=== PATIENT | male | born 1960 | race Caucasian/White ===

== ENCOUNTER → 2019-01-03 13:04 | Outpatient (POV) | payer OTHER, SELFPAY ==
[2019-01-03 13:10] VITALS: BP 120/85; PULSE 78; RESP 18; O2SAT 99
--- NOTE | 2019-01-03 15:58 | HMH.PMCON ---
Assessment and Plan (1) Degenerative disc disease Current visit: Yes Status: Chronic Qualifiers: Spinal region: lumbar Qualified Code(s): M51.36 - Other intervertebral disc degeneration, lumbar region Category: Medical (2) Lumbar radiculopathy Current visit: Yes Status: Chronic Category: Medical Code(s): M54.16 - Radiculopathy, lumbar region (3) Sacroiliitis Current visit: Yes Status: Chronic Category: Medical Code(s): M46.1 - Sacroiliitis, not elsewhere classified (4) Spinal stenosis Current visit: Yes Status: Chronic Category: Medical Code(s): M48.00 - Spinal stenosis, site unspecified - Assessment and plan all Dx Assessment and Plan for all problems:: Prolonged discussion we will set up a right SI joint injection right greater trochanteric bursa injection for the patient I believe this will be the best way to help differentiate his SI joint pain from his back pain. Patient and I had a long discussion in regards to plan of care including potential epidural injections potential mild procedures and other options available to him. I will follow-up with the patient after his injection and reassess his symptoms at that time. Dr. Belcher has reviewed this note and agrees with this plan of care. This note was dictated using voice recognition software and may contain errors or omissions HPI - Data of Consult Consult date: 01/03/19 Requesting Physician: Shasha Arriaga APRN Primary Care Provider: Brenda Sanchez - Consult Narrative Reason for consult: Back pain, right leg pain History of present illness: Mr. Lea is a 58 year old male who presents today for consultation in regards to his low back and right leg pain. Patient states activity increases pain while nothing decreases it. Patient states the radiation of pain is into his hip and to his right knee. Patient currently on [place] and Percocet from his executive director of marketing. Patient has a CT scan showing some spinal stenosis. 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 Patient states most of his pain is when he is sitting down. Patient states he is going to be seen for a potential intrathecal pain pump. Patient and I had a discussion about typical treatment plans for spinal stenosis including epidural injections along with potential mild procedures neuro stimulation and intrathecal therapy. Patient and I also discussed SI joint injections given the nature of his pain. CC: Shasha Arriaga APRN [facility] History I have reviewed the patient's past medical history: Yes Medical History: Reports:: Coronary Artery Disease, Hyperlipidemia, Hypertension, Internal Pacemaker, Myocardial Infarction, Palpitations Denies:: Cancer, Diabetes Mellitus Type 1, Diabetes Mellitus Type 2, MRSA, Seizures *Have you ever received a pneumonia vaccine?: Yes *Have you received a flu vaccine this season?: Yes Other Medical History: Reports: Arthritis Laterality Cases: Right: Arthroscopy Knee Other Surgeries: Yes: Angioplasty (03/2014, 01/05/13 2 stents), Cardiac Catheterization, Pacemaker, Other (Gender reassignment: left foreleg/fibular harvest for penile construction) Amputation: No Fractures: No - *Social History Smoking Status: Current every day smoker Tobacco Type: cigarettes # Packs/Day (cigarettes): 1 Alcohol Intake: never Substance Use Type: denies use *Occupational Status:: employed Housing: house Household Members: spouse *Travel in the last 8 weeks: None - Psychiatric History Expresses thoughts of harming self/others: None Suicide Plan Description: No Plan Family Hx:: Hypertension Review of Systems - Review of Systems ROS General: no recent weight change, no fever, no sleep disturbances Respiratory: no cough, no shortness of air, no recurring pulmonary infections Cardiovascular/Peripheral Vascular: No chest pain, No palpitations, no edema, no
--- NOTE | 2019-01-03 16:02 | P.CONS_ITS ---
Assessment and Plan (1) Degenerative disc disease Current visit: Yes Status: Chronic Qualifiers: Spinal region: lumbar Qualified Code(s): M51.36 - Other intervertebral disc degeneration, lumbar region Category: Medical (2) Lumbar radiculopathy Current visit: Yes Status: Chronic Category: Medical Code(s): M54.16 - Radiculopathy, lumbar region (3) Sacroiliitis Current visit: Yes Status: Chronic Category: Medical Code(s): M46.1 - Sacroiliitis, not elsewhere classified (4) Spinal stenosis Current visit: Yes Status: Chronic Category: Medical Code(s): M48.00 - Spinal stenosis, site unspecified - Assessment and plan all Dx Assessment and Plan for all problems:: Prolonged discussion we will set up a right SI joint injection right greater trochanteric bursa injection for the patient I believe this will be the best way to help differentiate his SI joint pain from his back pain. Patient and I had a long discussion in regards to plan of care including potential epidural injections potential mild procedures and other options available to him. I will follow-up with the patient after his injection and reassess his symptoms at that time. Dr. Belcher has reviewed this note and agrees with this plan of care. This note was dictated using voice recognition software and may contain errors or omissions HPI - Data of Consult Consult date: 01/03/19 Requesting Physician: Shasha Arriaga APRN Primary Care Provider: Brenda Sanchez - Consult Narrative Reason for consult: Back pain, right leg pain History of present illness: Mr. Lea is a 58 year old male who presents today for consultation in regards to his low back and right leg pain. Patient states activity increases pain while nothing decreases it. Patient states the radiation of pain is into his hip and to his right knee. Patient currently on [place] and Percocet from his senior solutions consultant. Patient has a CT scan showing some spinal stenosis. 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 Patient states most of his pain is when he is sitting down. Patient states he is going to be seen for a potential intrathecal pain pump. Patient and I had a discussion about typical treatment plans for spinal stenosis including epidural injections along with potential mild procedures neuro stimulation and intrathecal therapy. Patient and I also discussed SI joint injections given the nature of his pain. CC: Shasha Arriaga APRN [facility] History I have reviewed the patient's past medical history: Yes Medical History: Reports:: Coronary Artery Disease, Hyperlipidemia, Hypertension, Internal Pacemaker, Myocardial Infarction, Palpitations Denies:: Cancer, Diabetes Mellitus Type 1, Diabetes Mellitus Type 2, MRSA, Seizures *Have you ever received a pneumonia vaccine?: Yes *Have you received a flu vaccine this season?: Yes Other Medical History: Reports: Arthritis Laterality Cases: Right: Arthroscopy Knee Other Surgeries: Yes: Angioplasty (03/2014, 01/05/13 2 stents), Cardiac Catheterization, Pacemaker, Other (Gender reassignment: left foreleg/fibular harvest for penile construction) Amputation: No Fractures: No - *Social History Smoking Status: Current every day smoker Tobacco Type: cigarettes # Packs/Day (cigarettes): 1 Alcohol Intake: never Substance Use Type: denies use *Occupational Status:: employed Housing: house Household Members: spouse *Travel in the last 8 weeks: None - Psychiatric History Expresses thoughts of harming
== END ==
PROVIDERS: PCP Family Medicine; Visit Provider Clinical Nurse Specialist Family Health
DX: M51.16 Intervertebral disc disorders with radiculopathy, lumbar region (principal); M46.1 Sacroiliitis, not elsewhere classified; M48.00 Spinal stenosis, site unspecified
CPT/HCPCS: 99202

== ENCOUNTER → 2019-02-20 10:48 | Outpatient (POV) | payer OTHER, SELFPAY ==
[2019-02-20 11:25] VITALS: BP 106/71; PULSE 80; RESP 18; O2SAT 98; BMI 23.3
--- NOTE | 2019-02-20 12:15 | HMH.PAINSOAP ---
[facility] Pain Management SOAP Note Subjective:: Patient is a 59-year-old white male who presents today for follow-up for right SI joint injection and right trochanteric bursa injection. He does report that he had little relief after the injection, and rates his pain a 7 out of 10 today. He says his pain is low back pain radiating to bilateral legs. He says that it does worsen with turning or twisting at his hips. The patient is on [place] 5 mg p.o. twice daily and gabapentin 800 mg p.o. 3 times daily by his osteopathic physician. ROS General: no recent weight change, no fever, no sleep disturbances Respiratory: no cough, no shortness of air, no recurring pulmonary infections Cardiovascular/Peripheral Vascular: No chest pain, No palpitations, no edema, no shortness of breath. Gastrointestinal: no incontinence, normal bowel movements reported Genitourinary: no incontinence Musculoskeletal: Back pain and leg pain Psychiatric: normal mood/ affect, Neurological: [denies weakness in extremities], [denies balance issues] Objective:: Physical Exam General: Alert and oriented x3, no acute distress, pleasant and cooperative, [on room air] Lungs: Resps E/U, Symmetrical chest expansion, Eyes: PERRL Musculoskeletal: Flexion and extension of lumbar spine somewhat guarded secondary to pain, deep tendon reflexes normal, strength in upper and lower extremities [5/5], slightly antalgic gait noted to do straight leg raise test bilaterally at 30 degrees Neurological: speech clear, digital media specialist equal, no gross sensory deficits Assessment:: Degenerative disc disease of lumbar spine with lumbar radiculopathy, spinal stenosis Plan:: We will schedule the patient for an L4-L5 epidural injection. The patient denies any anticoagulation therapy. We did discuss the mild procedure, for which she is uninterested in at this time. The patient plans to continue his [place] and Percocet per his osteopathic physician. He will continue a home stretching program. We will follow-up with him after the procedure. He is been instructed to call the office if he has any concerns prior to his next appointment. Dr. Belcher has reviewed this note and agrees with this plan of care. This note was dictated using voice recognition software and may contain errors or omissions
--- NOTE | 2019-02-20 12:19 | P.CONS_ITS ---
[facility] Pain Management SOAP Note Subjective:: Patient is a 59-year-old white male who presents today for follow-up for right SI joint injection and right trochanteric bursa injection. He does report that he had little relief after the injection, and rates his pain a 7 out of 10 today. He says his pain is low back pain radiating to bilateral legs. He says that it does worsen with turning or twisting at his hips. The patient is on [place] 5 mg p.o. twice daily and gabapentin 800 mg p.o. 3 times daily by his dry cell and battery assembler. ROS General: no recent weight change, no fever, no sleep disturbances Respiratory: no cough, no shortness of air, no recurring pulmonary infections Cardiovascular/Peripheral Vascular: No chest pain, No palpitations, no edema, no shortness of breath. Gastrointestinal: no incontinence, normal bowel movements reported Genitourinary: no incontinence Musculoskeletal: Back pain and leg pain Psychiatric: normal mood/ affect, Neurological: [denies weakness in extremities], [denies balance issues] Objective:: Physical Exam General: Alert and oriented x3, no acute distress, pleasant and cooperative, [on room air] Lungs: Resps E/U, Symmetrical chest expansion, Eyes: PERRL Musculoskeletal: Flexion and extension of lumbar spine somewhat guarded secondary to pain, deep tendon reflexes normal, strength in upper and lower extremities [5/5], slightly antalgic gait noted to do straight leg raise test bilaterally at 30 degrees Neurological: speech clear, linen tech equal, no gross sensory deficits Assessment:: Degenerative disc disease of lumbar spine with lumbar radiculopathy, spinal stenosis Plan:: We will schedule the patient for an L4-L5 epidural injection. The patient denies any anticoagulation therapy. We did discuss the mild procedure, for which she is uninterested in at this time. The patient plans to continue his [place] and Percocet per his dry cell and battery assembler. He will continue a home stretching program. We will follow-up with him after the procedure. He is been instructed to call the office if he has any concerns prior to his next appointment. Dr. Belcher has reviewed this note and agrees with this plan of care. This note was dictated using voice recognition software and may contain errors or omissions
== END ==
PROVIDERS: PCP Family Medicine; Visit Provider Clinical Nurse Specialist Family Health
DX: M51.16 Intervertebral disc disorders with radiculopathy, lumbar region (principal); M48.00 Spinal stenosis, site unspecified
CPT/HCPCS: 99212

== ENCOUNTER 2019-03-03 09:51 | Day surgery (SDC) | payer OTHER, SELFPAY ==
[2019-03-03 10:02] VITALS: BP 118/74; PULSE 80; RESP 18; TEMP 36.6; O2SAT 97; BMI 23.3
[2019-03-03 10:21] VITALS: BP 112/80; PULSE 77; RESP 18
[2019-03-03 10:22] VITALS: BP 115/78; PULSE 78; RESP 18; O2SAT 98
--- NOTE | 2019-03-03 10:30 | HMH.PMPROC ---
- Procedure Date: 03/03/19 Time: 10:30 Anesthesiologist:: Ariel Belcher MD Complications:: None Pre-procedure Diagnosis:: Degenerative disc disease of lumbar spine with lumbar radiculopathy symptoms Post-procedure Diagnosis:: Same Indications for Procedure:: This patient is a pleasant 59-year-old white male who we are treating for low back pain with lumbar radiculopathy symptoms. He has had a right SI joint and right trochanteric bursa which did not give him much relief. Most of his pain is in the low back rating down both legs and right hip. We will do a lumbar epidural steroid injection today to see if this gives him relief of his symptoms. Procedure Details:: Lumbar epidural steroid injection under fluoroscopy Informed consent was obtained and the risk and benefits of the procedure was explained to the patient. The patient was taken to the procedure room. The patient was placed prone on the procedure table. The patient was prepped and draped in sterile fashion. C-arm fluoroscopy was used to view the lumbar spine. Skin and subcutaneous tissues were anesthetized using lidocaine. I placed an 18-gauge epidural needle and advanced into the L4-L5 interspace using fluoroscopic guidance and [id number] to air. After confirmation of needle placement in the epidural space with dye I injected 2 mL of lidocaine 1.5% with Depo-Medrol 80 mg. Patient tolerated the procedure well with no complications. Plan and Disposition:: We will follow-up with him in 2 weeks. Will reevaluate symptoms at that time.
[2019-03-03 10:44] VITALS: BP 105/66; PULSE 67; RESP 16; O2SAT 100
== END 2019-03-03 10:47 | disposition home or self-care (01) ==
PROVIDERS: PCP Family Medicine; Referring Provider Internal Medicine; Visit Provider Anesthesiology
DX: M51.16 Intervertebral disc disorders with radiculopathy, lumbar region (principal)
CPT/HCPCS: 62323; J1040; Q9966

== ENCOUNTER → 2019-03-27 11:18 | Outpatient (POV) | payer OTHER, SELFPAY ==
[2019-03-27 11:32] VITALS: BP 105/68; PULSE 87; RESP 18; O2SAT 98; BMI 23.3
--- NOTE | 2019-03-27 11:46 | HMH.PAINSOAP ---
[facility] Pain Management SOAP Note Subjective:: Patient is a pleasant 59-year-old white male who presents today for follow-up after lumbar epidural steroid injection at L4 and L5. Patient says that he had 90% relief for about 2 weeks. And then the pain returned. He rates his pain a 6 out of 10 today. Patient did have a recent fall from a chair. He says after the fall his pain did return. The pain is now worse than before the epidural steroid injection. He also says the pain radiates to bilateral legs. He is continuing a home stretching program along with anti-inflammatories. Review of Systems General: No recent weight changes, no fever, no sleep disturbances Respiratory: No cough, no shortness of air, no recurring pulmonary infections Cardiovascular/peripheral vascular: No chest pain, no palpitations, no edema, no shortness of breath Gastrointestinal: No new onset incontinence, normal bowel movements reported Genitourinary: No new onset incontinence Musculoskeletal: Back pain Psychiatric: Normal mood/affect Neurological: [Denies weakness in extremities], [denies balance issues] Objective:: Physical exam General: Alert and oriented x3, no acute distress, pleasant and cooperative, [on room air] Lungs: Respirations even and unlabored, symmetrical chest expansion Eyes: PERRL Musculoskeletal: Flexion and extension of lumbar spine somewhat guarded secondary to pain, deep tendon reflexes normal, strength in upper and lower extremities [5/5], slightly antalgic gait noted Neurological: Speech clear, apartment manager equal, no gross sensory deficit Assessment:: Degenerative disc disease of lumbar spine with lumbar radiculopathy, spinal stenosis Plan:: We did have a thorough discussion concerning a mild procedure for which the patient is not interested in at this time we also discussed possibility of a another epidural steroid injection since he did have relief prior to the fall. The patient would like to think about it and he says he will call the office on Wednesday to schedule the epidural. He is been instructed to call the office if he has any concerns prior to his next appointment. Patient is not on any anticoagulation therapy. He will continue a home stretching program, along with anti-inflammatories. Dr. Belcher has reviewed this note and agrees with this plan of care. This note was dictated using voice recognition software and make contain errors or omissions.
== END ==
PROVIDERS: PCP Family Medicine; Visit Provider Clinical Nurse Specialist Family Health
DX: M51.16 Intervertebral disc disorders with radiculopathy, lumbar region (principal); M48.00 Spinal stenosis, site unspecified
CPT/HCPCS: 99212

== ENCOUNTER → 2019-04-03 09:00 | Outpatient (POV) | payer OTHER, SELFPAY ==
[2019-04-03 09:25] VITALS: BP 106/66; PULSE 78; RESP 18; O2SAT 98; BMI 23.3
--- NOTE | 2019-04-03 09:32 | HMH.PAINSOAP ---
[place] Pain Management SOAP Note Subjective:: Patient is a pleasant 59-year-old white male who presents today for follow-up. Patient is being treated for low back pain with radicular symptoms. He recently had a lumbar epidural steroid injection at L4 and L5. He says that he had 90% relief with this for about 2 weeks. He now reports his pain a 6 out of 10 today. He says that he is continuing to have low back pain that is worse with turning and twisting at his waist. He also had a recent fall after his epidural increasing his pain. The patient recently saw Dr. Alvarado did not feel the patient was a surgical candidate at this time. He has tried all other conservative therapies and failed. The patient has continued with a home stretching program, he has tried physical therapy, along with NSAIDs. He has tried other injective therapies. Patient has had the pain greater than 6 months. Review of Systems General: No recent weight changes, no fever, no sleep disturbances Respiratory: No cough, no shortness of air, no recurring pulmonary infections Cardiovascular/peripheral vascular: No chest pain, no palpitations, no edema, no shortness of breath Gastrointestinal: No new onset incontinence, normal bowel movements reported Genitourinary: No new onset incontinence Musculoskeletal: Back pain Psychiatric: Normal mood/affect Neurological: [Denies weakness in extremities], [denies balance issues] Objective:: Physical exam General: Alert and oriented x3, no acute distress, pleasant and cooperative, [on room air] Lungs: Respirations even and unlabored, symmetrical chest expansion Eyes: PERRL Musculoskeletal: Flexion and extension of lumbar spine somewhat guarded secondary to pain, deep tendon reflexes normal, strength in upper and lower extremities [5/5], slightly antalgic gait noted, positive Kemps test Neurological: Speech clear, drywall applicator equal, no gross sensory deficit Assessment:: Degenerative disc disease lumbar spine with lumbar radiculopathy, spinal stenosis Plan:: Given patient's symptoms, we will attempt to try a facet injection/medial branch block at bilateral L4-L5, and L5-S1. The patient is not on any anticoagulation therapy. He is continuing a home stretching program and anti-inflammatories. We will see the patient back after his procedure and reassess his symptoms at that time. He is been instructed to call the office if he has any concerns prior to his next appointment. Dr. Belcher has reviewed this note and agrees with this plan of care. This note was dictated using voice recognition software and make contain errors or omissions.
--- NOTE | 2019-04-03 09:36 | P.CONS_ITS ---
[facility] Pain Management SOAP Note Subjective:: Patient is a pleasant 59-year-old white male who presents today for follow-up. Patient is being treated for low back pain with radicular symptoms. He recently had a lumbar epidural steroid injection at L4 and L5. He says that he had 90% relief with this for about 2 weeks. He now reports his pain a 6 out of 10 today. He says that he is continuing to have low back pain that is worse with turning and twisting at his waist. He also had a recent fall after his epidural increasing his pain. The patient recently saw Dr. Alvarado did not feel the patient was a surgical candidate at this time. He has tried all other conservative therapies and failed. The patient has continued with a home stretc carmen program, he has tried physical therapy, along with NSAIDs. He has tried other injective therapies. Patient has had the pain greater than 6 months. Review of Systems General: No recent weight changes, no fever, no sleep disturbances Respiratory: No cough, no shortness of air, no recurring pulmonary infections Cardiovascular/peripheral vascular: No chest pain, no palpitations, no edema, no shortness of breath Gastrointestinal: No new onset incontinence, normal bowel movements reported Genitourinary: No new onset incontinence Musculoskeletal: Back pain Psychiatric: Normal mood/affect Neurological: [Denies weakness in extremities], [denies balance issues] Objective:: Physical exam General: Alert and oriented x3, no acute distress, pleasant and cooperative, [on room air] Lungs: Respirations even and unlabored, symmetrical chest expansion Eyes: PERRL Musculoskeletal: Flexion and extension of lumbar spine somewhat guarded secondary to pain, deep tendon reflexes normal, strength in upper and lower extremities [5/5], slightly antalgic gait noted, positive Kemps test Neurological: Speech clear, tobacco sample puller equal, no gross sensory deficit Assessment:: Degenerative disc disease lumbar spine with lumbar radiculopathy, spinal stenosis Plan:: Given patient's symptoms, we will attempt to try a facet injection/medial branch block at bilateral L4-L5, and L5-S1. The patient is not on any anticoagulation therapy. He is continuing a home stretching program and anti-inflammatories. We will see the patient back after his procedure and reassess his symptoms at that time. He is been instructed to call the office if he has any concerns prior to his next appointment. Dr. Belcher has reviewed this note and agrees with this plan of care. This note was dictated using voice recognition software and make contain errors or omissions.
== END ==
PROVIDERS: PCP Family Medicine; Visit Provider Clinical Nurse Specialist Family Health
DX: M51.16 Intervertebral disc disorders with radiculopathy, lumbar region (principal); M48.00 Spinal stenosis, site unspecified
CPT/HCPCS: 99212

== ENCOUNTER → 2019-04-10 08:05 | Outpatient (POV) | payer OTHER, SELFPAY | PROVIDERS: Visit Provider Specialist | DX: R20.0 Anesthesia of skin (principal); M79.604 Pain in right leg | CPT/HCPCS: 95886; 95908 ==

== ENCOUNTER → 2019-04-25 09:45 | Outpatient (POV) | payer OTHER, SELFPAY ==
[2019-04-25 09:54] VITALS: BP 121/77; PULSE 75; RESP 18; O2SAT 98; BMI 24.1
--- NOTE | 2019-04-25 10:07 | P.CONS_ITS ---
[facility] Pain Management SOAP Note Subjective:: Patient is a pleasant 59-year-old white male who presents today for follow-up after insurance denial in regards to his medial branch blocks. Patient is being treated for low back pain. He has a positive Kemps and facet loading test lumbar spine. He has had epidural injections which gave him short-term relief however he is interested in a more long-term solution. Patient may be a candidate for neurotomy. Patient understands that the facet joint injection/medial branch block as a diagnostic to determine this. He rates his pain a 7 out of 10 today he states that it is interfering with daily activity. Patient is not on any anticoagulation therapy. He is completed 3 months of both physical therapy and home stretching therapy. He is failed over a year of conservative therapies including anti-inflammatories, medications. Patient has no active infections. Patient's been seen by neurosurgeon who did not feel that he is a surgical candidate at the time. He is tried other conservative therapies and failed them. He has had pain for over 6 months. ROS General: no recent weight change, no fever, no sleep disturbances Respiratory: no cough, no shortness of air, no recurring pulmonary infections Cardiovascular/Peripheral Vascular: No chest pain, No palpitations, no edema, no shortness of breath. Gastrointestinal: no incontinence, normal bowel movements reported Genitourinary: no incontinence Musculoskeletal: Back pain Psychiatric: normal mood/ affect Neurological: [denies weakness in extremities], [denies balance issues] Objective:: Physical Exam General: Alert and oriented x3, no acute distress, pleasant and cooperative, [on room air] Lungs: Resps E/U, Symmetrical chest expansion, Eyes: PERRL Musculoskeletal: Flexion and extension of lumbar spine somewhat guarded secondary to pain, deep tendon reflexes normal, strength in upper and lower extremities [5/5], slightly antalgic gait noted, positive Kemps test and lumbar facet loading positive bilaterally Neurological: speech clear, 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 He is not on any anticoagulation therapy. He is not I have any active infection. He is failed over 3 months of conservative measures including physical therapy and a home stretching program. He is trying to continue his home stretching program however it is becoming increasingly difficult due to his pain. Patient's been instructed to call the office if he has any issues prior to his next appointment. I will see the patient back after his injection and we will determine then if it was successful. Dr. Belcher has reviewed this note and agrees with this plan of care. This note was dictated using voice recognition software and may contain errors or omissions Pain Management Hx Components *Have you ever received a pneumonia vaccine?: Yes *Have you received a flu vaccine this season?: Yes - *Social History *Occupational Status:: other *Travel in the last 8 weeks: None
== END ==
PROVIDERS: Visit Provider Clinical Nurse Specialist Family Health
DX: M51.36 Other intervertebral disc degeneration, lumbar region (principal); M54.06 Panniculitis affecting regions of neck and back, lumbar region; M47.9 Spondylosis, unspecified
CPT/HCPCS: 99212

== ENCOUNTER → 2020-01-24 09:06 | Outpatient (CLI) | payer MEDICAID, SELFPAY ==
[2020-01-24 10:02] LABS: Basophils # 0.1 K/mm3 (0-0.2); Eosinophils # 0.2 K/mm3 (0.0-0.4); Eosinophils % 2.3 % (0.1-12.0); Hematocrit 52.2 % (42.0-52.0); Hemoglobin 17.3 g/dL (14.1-18.0); Lymphocytes # 1.9 K/mm3 (0.7-4.5); Lymphocytes % 25.7 % (10-50); Mean Corpuscular HGB Conc 33.1 g/dL (31.8-35.4); Mean Corpuscular Hemoglobin 32.3 pg (27.0-31.2); Mean Corpuscular Volume 97.5 fl (80-94); Mean Platelet Volume 7.7 fl (7.4-10.4); Monocytes # 0.6 K/mm3 (0.1-1.0); Neutrophils # 4.7 K/mm3 (1.8-7.8); Platelet Count 215 K/mm3 (142-424); Red Blood Count 5.36 M/mm3 (4.60-6.20); Red Cell Distribution Width 14.4 % (11.5-17.5); White Blood Count 7.4 K/mm3 (4.8-10.8)
[2020-01-24 10:18] LABS: Bilirubin,Unconjugated 0.4 mg/dL (0.0-1.1)
[2020-01-24 10:19] LABS: Alanine Aminotransferase 22 U/L (12-78); Albumin Level 3.8 g/dl (3.5-5.0); Alkaline Phosphatase 80 U/L (38-126); Aspartate Amino Transferase 33 U/L (17-59); Bilirubin,Indirect 0.3 mg/dL (0.0-0.9); Bilirubin,Total 0.3 mg/dl (0.2-1.3); Chol/HDL Ratio 4.9 (1-3.5); Cholesterol 151 mg/dl (140-200); HDL Cholesterol 31 mg/dl (40-60); Total Protein,Serum 6.7 g/dl (6.3-8.2); Triglycerides 139 mg/dl (30-150); VLDL Cholesterol 28 mg/dL (0-40)
[2020-01-24 10:30] LABS: Direct LDL Cholesterol 108.56 mg/dL (100-129)
[2020-01-24 11:44] LABS: Chloride 104 mmol/L (98-107); Potassium 4.1 mmoL/L (3.5-5.1); Sodium 138 mmol/L (136-145)
--- NOTE | 2020-01-24 11:45 | CA_ITS ---
APPROVED REPORT EXAM: Comprehensive 2D, Doppler, and color-flow Echocardiogram [employer] Administrator: Aubree Guo RVT Ht: 5 ft 5 in Wt: 155lbs BSA: 1.77 BP: 107/69 mmHg Indications: cad,smoker,pacer,a-fib,joanne,hx mi, stents,palps,hld,htn 2D Dimensions LVOT 1.96 cm (M/F) 1.5-2.5 M-Mode Dimensions RVDd 2.12 cm (0.9-2.6) LVDd 4.90 cm (3.5-5.7) LVDs 3.59 cm (3.5-5.7) IVSd 1.01 cm (0.6-1.1) PWd 0.64 cm (0.6-1.1) EF (Teich) 52.00% FS 26.70% EDV (Teich) 112.80 mL ESV (Teich) 54.10 mL LV Diastology E/A Ratio 0.61 Mitral Valve MV A Velocity 73.00 (40-130 cm/s) Left Ventricle Left atrium is mildly enlarged, left ventricle is normal size, mild concentric left ventricular hypertrophy, visually estimated ejection fraction approximately 45 to 50%, there is moderate hypokinesis involving the inferior and inferior basal wall. Grade 1 diastolic dysfunction seen without tissue Doppler evidence of raise left atrial pressure. Right Ventricle Right atrium and right ventricle are mildly enlarged with normal contractility. Aortic Valve Aortic valve is minimally thickened and fibrosed. There is no aortic stenosis aortic insufficiency. Mitral Valve Mitral valve is grossly normal, there is mild mitral regurgitation. Tricuspid Valve Tricuspid valve is grossly normal, there is mild tricuspid regurgitation, tricuspid regurgitation jet velocity is inadequate for calculation of the right ventricular systolic pressure. Great Vessels Aortic root is normal size. Pericardium No significant pericardial effusion noted. Conclusion 1. Mild biatrial enlargement, normal left ventricular size, mild concentric left ventricular hypertrophy, visually estimated ejection fraction 45 to 50% with segmental wall motion abnormalities described above, grade 1 diastolic dysfunction seen without tissue Doppler evidence of raise left atrial pressure. 2. Mildly enlarged right ventricle with normal contractility. 3. Mild mitral and tricuspid regurgitation. 4. No significant pericardial effusion noted. Electronically signed by : Maurice Fair, 01/25/2020 12:28:07
[2020-01-24 11:47] LABS: Anion Gap 8.1 mEq/L (5-15); Blood Urea Nitrogen 7 mg/dl (9-20); Calcium 9.4 mg/dl (8.4-10.2); Carbon Dioxide 30 mmol/L (22.0-30.0); Estimated Glomerular Filt Rate 86 ml/min (>60); GFR (African American) 104 ML/MIN (>60); Glucose 95 mg/dl (74-100)
--- NOTE | 2020-01-24 12:15 | XR_ITS ---
PROCEDURE: XR CHEST 2V CLINICAL HISTORY: tobacco user Heart disease COMPARISON: No exams were available for comparison FINDINGS: The cardiomediastinal silhouette and pulmonary vascularity are within normal limits. Bipolar pacemaker is present from left subclavian approach. Lungs are clear. There are mild degenerative changes in the shoulders and spine. IMPRESSION: No acute findings. Dictated by: Norberto Solorio MD 01/24/2020 12:40 Electronically signed by Norberto Solorio MD in [place] 01/24/2020 12:40
== END ==
LOC: LAB 09:07 → RT 11:43
PROVIDERS: Nurse Practitioner Family; PCP Family Medicine; Visit Provider Internal Medicine
DX: D75.1 Secondary polycythemia (principal); E78.5 Hyperlipidemia, unspecified; G62.9 Polyneuropathy, unspecified; I11.9 Hypertensive heart disease without heart failure; I73.9 Peripheral vascular disease, unspecified; M79.604 Pain in right leg; R20.0 Anesthesia of skin; Z72.0 Tobacco use; I25.118 Atherosclerotic heart disease of native coronary artery with other forms of angina pectoris; E78.2 Mixed hyperlipidemia; G47.33 Obstructive sleep apnea (adult) (pediatric); I77.1 Stricture of artery
CPT/HCPCS: 36415; 71046; 80048; 80061; 80076; 85025; 93306

== ENCOUNTER 2020-02-22 07:54 | Day surgery (SDC) | payer MEDICAID, SELFPAY ==
[2020-02-22] VITALS (12 sets, daily range): BP systolic 93–120; BP diastolic 53–80; PULSE 60–87; RESP 15–20; TEMP 36.8; O2SAT 78–98; BMI 25.1
[2020-02-22 08:37] LABS: Basophils # 0.1 K/mm3 (0-0.2); Eosinophils # 0.2 K/mm3 (0.0-0.4); Monocytes # 0.5 K/mm3 (0.1-1.0); Platelet Count 219 K/mm3 (142-424)
[2020-02-22 08:39] LABS: Chloride 107 mmol/L (98-107); Potassium 5.6 mmoL/L (3.5-5.1); Sodium 138 mmol/L (136-145)
[2020-02-22 08:42] LABS: Anion Gap 11.6 mEq/L (5-15); Blood Urea Nitrogen 11 mg/dl (9-20); Calcium 8.7 mg/dl (8.4-10.2); Carbon Dioxide 25 mmol/L (22.0-30.0); Creatinine Clearance Estimated 95 mL/min (50-200); Estimated Glomerular Filt Rate 99 ml/min (>60); GFR (African American) 119 ML/MIN (>60); Glucose 108 mg/dl (74-100)
[2020-02-22 08:54] LABS: Basophils % 1.3 % (0.1-2.0); Eosinophils % 2.5 % (0.1-12.0); Hematocrit 53.1 % (42.0-52.0); Lymphocytes # 1.8 K/mm3 (0.7-4.5); Lymphocytes % 27.3 % (10-50); Mean Corpuscular HGB Conc 34.1 g/dL (31.8-35.4); Mean Corpuscular Volume 96.8 fl (80-94); Monocytes % 7.1 % (1.7-9.3); Neutrophils # 4.2 K/mm3 (1.8-7.8); Neutrophils % 61.8 % (37.0-80.0); Red Blood Count 5.49 M/mm3 (4.60-6.20); Red Cell Distribution Width 13.6 % (11.5-17.5); White Blood Count 6.7 K/mm3 (4.8-10.8)
[2020-02-22 08:56] LABS: Hemoglobin 18.1 g/dL (14.1-18.0)
--- NOTE | 2020-02-22 11:00 | IR_ITS ---
APPROVED REPORT Patient Location: Outpatient PROCEDURES Left heart catheterization Left ventriculogram Selective coronary angiogram INDICATION Abnormal echocardiogram with reduced ejection fraction, Known coronary artery disease Informed consent was obtained prior to the procedure. COMPLICATIONS None Estimated Blood Loss: less than 10ml TECHNIQUE One percent lidocaine used to anesthetize the right anterior aspect of the wrist. The right radial artery was accessed via the Seldinger technique. A 6 Chinese sheath was placed in the right radial artery. 2.5 mg of verapamil, 800 mcg of nitroglycerin, 1mg Lidocaine and 5000 U Heparin were given through the arterial sheath. The trap catheter was also used to perform left heart catheterization, left ventriculogram and selective coronary angiogram. At the end of the procedure the sheath was removed good hemostasis was achieved using Traclet band, patient was transferred to the postop holding area in stable condition. ANGIOGRAPHIC RESULTS The left main artery Normal The left anterior descending artery Has a proximal 10 to 20% stenosis with mild mid vessel 20% stenosis The circumflex artery Is a nondominant yet still large vessel giving rise to 2 large obtuse marginal arteries. Proximally there are mild 10% luminal irregularities. The first obtuse marginal artery has 10% stenosis while the second obtuse marginal artery has a mid vessel 30% in-stent restenotic lesion which is [id number] The right coronary artery Is a dominant vessel and has mid vessel 20 and 30% stenoses The WU ventriculogram reveals Normal 60% The left ventricular end-diastolic pressure 10 mmHg IMPRESSION Mild coronary artery disease as described above Normal ejection fraction Normal left ventricular end-diastolic pressure PLAN 1. Medical management Electronically signed by : Akash Sultana, 02/22/2020 09:52:36
== END 2020-02-22 13:28 | disposition home or self-care (01) ==
LOC: CATHLAB 07:56
PROVIDERS: PCP Family Medicine; Visit Provider Internal Medicine
DX: I25.118 Atherosclerotic heart disease of native coronary artery with other forms of angina pectoris (principal); D75.1 Secondary polycythemia; E78.5 Hyperlipidemia, unspecified; G47.33 Obstructive sleep apnea (adult) (pediatric); I11.9 Hypertensive heart disease without heart failure; R93.1 Abnormal findings on diagnostic imaging of heart and coronary circulation; Z72.0 Tobacco use; I48.91 Unspecified atrial fibrillation
CPT/HCPCS: 80048; 85025; 93458; 99152; C1725; C1769; J1644; Q9967

== ENCOUNTER → 2020-06-06 17:17 | Outpatient (CLI) | payer MEDICAID, SELFPAY ==
[2020-06-06 17:48] LABS: Basophils % 0.5 % (0.1-2.0); Eosinophils # 0.2 K/mm3 (0.0-0.4); Eosinophils % 2.2 % (0.1-12.0); Hematocrit 50.9 % (42.0-52.0); Hemoglobin 17.9 g/dL (14.1-18.0); Lymphocytes # 2.6 K/mm3 (0.7-4.5); Lymphocytes % 36.6 % (10-50); Mean Corpuscular HGB Conc 35.2 g/dL (31.8-35.4); Mean Corpuscular Hemoglobin 33.9 pg (27.0-31.2); Mean Corpuscular Volume 96.5 fl (80-94); Mean Platelet Volume 7.6 fl (7.4-10.4); Monocytes # 0.4 K/mm3 (0.1-1.0); Monocytes % 5.1 % (1.7-9.3); Neutrophils % 55.7 % (37.0-80.0); Platelet Count 173 K/mm3 (142-424); Red Blood Count 5.28 M/mm3 (4.60-6.20); Red Cell Distribution Width 14.7 % (11.5-17.5); White Blood Count 7.2 K/mm3 (4.8-10.8)
[2020-06-06 18:16] LABS: C-Reactive Protein 2.6 mg/L (0-4)
[2020-06-06 18:42] LABS: Erythrocyte Sedimentation Rate 13 mm/hr (0-20)
[2020-06-08 18:17] LABS: RA Latex Turbid. <10.0 IU/mL (0.0-13.9)
[2020-06-10 09:24] LABS: Anti-Cyclic Citrullinated Pept 3 units (0-19)
== END ==
PROVIDERS: Visit Provider Orthopaedic Surgery Orthopaedic Surgery of the Spine
DX: M46.1 Sacroiliitis, not elsewhere classified (principal)
CPT/HCPCS: 36415; 85025; 85651; 86140; 86200; 86431

== ENCOUNTER → 2021-09-23 10:43 | Outpatient (CLI) | payer MEDICARE, MEDICAID, SELFPAY ==
--- NOTE | 2021-09-23 10:44 | CA_ITS ---
APPROVED REPORT EXAM: Comprehensive 2D, Doppler, and color-flow Echocardiogram [employer] Driver: Yesenia Martinez RT(R) Ht: 5 ft 5 in Wt: 130lbs BSA: 1.65 BP: 100/74 mmHg Indications: CM, hyperlipidemia, HTN, smoker, CAD, AFIB, GEE 2D Dimensions LVOT 1.74 cm (M/F) 1.5-2.5 LA Volume 25.90 mL LA Volume Index 15.79 mL/m2 (M/F) 16-34 M-Mode Dimensions RVDd 1.86 cm (0.9-2.6) LA Diam 3.01 cm (1.9-4.0) LVDd 4.15 cm (3.5-5.7) Ao Diam 2.51 cm (2.0-3.7) LVDs 3.18 cm (3.5-5.7) IVSd 0.93 cm (0.6-1.1) PWd 0.79 cm (0.6-1.1) EF (Teich) 47.30% FS 23.40% EDV (Teich) 76.40 mL ESV (Teich) 40.30 mL LV Diastology E Decel Time 190.00 (160-240 msec) E/A Ratio 0.7 MED E' 8.00 (< 7 cm/sec) E'/MED E' Ratio 6.85 (>14) Mitral Valve MV E Max Jean Marie. 55.00 (40-130 cm/s) MV A Velocity 82.00 (40-130 cm/s) E/A Ratio 0.67 MV Decel. Time 190.00 (160-240 ms) MV PHT 56.00 ms Left Ventricle Left atrium is mildly enlarged, left ventricular is normal size, mild concentric left ventricular hypertrophy, visually estimated ejection fraction 55% with no regional wall motion abnormality, grade 1 diastolic dysfunction seen without tissue Doppler evidence of right left atrial pressure. Right Ventricle Right atrium and right ventricle normal size and contractility, there is ICD lead seen in right ventricle. Aortic Valve Aortic valve is minimally thickened and fibrosed, there is no aortic stenosis or aortic insufficiency. Mitral Valve Mitral valve is grossly normal, there is trace mitral regurgitation. Tricuspid Valve Tricuspid valve is grossly normal, there is trace tricuspid regurgitation Tricuspid regurgitation jet velocity is inadequate for calculation of the right ventricular systolic pressure. Pulmonic Valve Pulmonic valve is poorly visualized. Great Vessels Aortic root is normal size. Inferior vena cava is normal size with normal inspiratory collapse. Pericardium No significant pericardial effusion noted. Conclusion 1. Mildly enlarged left atrium, normal left ventricular size, mild concentric left ventricular hypertrophy, visually estimated ejection fraction 55% with no regional wall motion abnormality, grade 1 diastolic dysfunctions without tissue Doppler evidence of raise left atrial pressure. 2. Trace mitral and tricuspid regurgitation. 3. No significant pericardial failure. 4. Inferior vena cava is normal size with normal inspiratory collapse. Electronically signed by : Maurice Fair MD 09/23/2021 19:39:29
== END ==
PROVIDERS: PCP Family Medicine; Visit Provider Nurse Practitioner Family
DX: I42.0 Dilated cardiomyopathy (principal); I25.10 Atherosclerotic heart disease of native coronary artery without angina pectoris; R26.81 Unsteadiness on feet; Z72.0 Tobacco use
CPT/HCPCS: 93306

== ENCOUNTER → 2023-08-10 11:11 | Outpatient (CLI) | payer MEDICARE, MEDICAID, SELFPAY ==
--- NOTE | 2023-08-10 11:13 | XR_ITS ---
FINAL REPORT CLINICAL HISTORY: inspiratory wheezing FINDINGS: There are underlying emphysematous changes. No acute pulmonary density is present. No significant pleural effusion. There is no pneumothorax. Left subclavian pacemaker. The heart is normal in size. The mediastinum is unremarkable. IMPRESSION: Emphysema without acute process. Reviewed, Interpreted and Dictated by Contreras Saldana MD Transcribed by Darnell Mark Authenticated and . [facility]
== END ==
LOC: RAD 11:11
PROVIDERS: PCP Family Medicine; Visit Provider Nurse Practitioner
DX: R06.2 Wheezing (principal)
CPT/HCPCS: 71046

== ENCOUNTER 2023-12-01 14:16 | Outpatient (CLI) | payer MEDICARE, MEDICAID, SELFPAY ==
--- NOTE | 2023-12-01 14:16 | CT_ITS ---
FINAL REPORT TECHNIQUE: Axial CT images of the chest were obtained without contrast. Low-dose protocol was utilized. This study was performed with techniques to keep radiation doses as low as reasonably achievable (ALARA). Individualized dose reduction techniques using automated exposure control or adjustment of mA and/or kV according to the patient's size were employed. CLINICAL HISTORY: lung cancer screening current smoker 1ppd x 49 years COMPARISON: None FINDINGS: CT CHEST WITHOUT, LOW DOSE SCREENING CT Di Vol: 2.90 mGy DLP: 104.46 mGy*cm There is no axillary, mediastinal, or hilar adenopathy. Left subclavian pacer is present. The heart size is normal. There are moderate to severe coronary artery calcifications. There is no pleural or pericardial effusion. The lung windows show a 2 mm nodule in the posterior right upper lobe on image 21. No other nodule seen. Limited images of the upper abdomen demonstrate no acute finding. IMPRESSION: LR Category 2S: 12 month follow-up low-dose chest CT is recommended. Modifier S: Moderate to severe coronary artery calcifications. Reviewed, Interpreted and Dictated by Kenyon De Los Santos III, MD Transcribed by Mildred Kruse Authenticated and [facility]
[2023-12-01] MEDS: ALBUTEROL 0.083% 2.5 MG/3 ML NEB IH (16:13)
== END 2023-12-01 23:59 ==
PROVIDERS: PCP Family Medicine; Visit Provider Internal Medicine Pulmonary Disease
DX: F17.210 Nicotine dependence, cigarettes, uncomplicated (principal); Z12.2 Encounter for screening for malignant neoplasm of respiratory organs; R06.09 Other forms of dyspnea
CPT/HCPCS: 71271; 94060; 94618; 94726; 94729

== ENCOUNTER 2024-10-16 12:00 | Outpatient (CLI) | payer MEDICARE, MEDICAID, SELFPAY ==
[2024-10-16 12:06] LABS: Microscopic, Urine URINE MICROSCOPIC (MICROSCOPIC)
[2024-10-16 12:36] LABS: Basophils % 0.4 % (0.1-2.0); Eosinophils # 0.2 K/mm3 (0.0-0.4); Eosinophils % 2.9 % (0.1-12.0); Hematocrit 44.9 % (42.0-52.0); Hemoglobin 15.8 g/dL (14.1-18.0); Lymphocytes # 2.9 K/mm3 (0.7-4.5); Lymphocytes % 40.8 % (10-50); Mean Corpuscular HGB Conc 35.2 g/dL (31.8-35.4); Mean Corpuscular Volume 96.6 fl (80-94); Mean Platelet Volume 9.4 fl (7.4-10.4); Monocytes # 0.6 K/mm3 (0.1-1.0); Monocytes % 8.6 % (1.7-9.3); Neutrophils # 3.3 K/mm3 (1.8-7.8); Neutrophils % 47.2 % (37.0-80.0); Platelet Count 255 K/mm3 (142-424); Red Blood Count 4.65 M/mm3 (4.60-6.20); Red Cell Distribution Width 12.5 % (11.5-17.5)
[2024-10-16 12:38] LABS: Appearance,Urine CLEAR (Clear); Bilirubin,Urine Negative (Negative); Blood, Urine Negative (Negative); Color,Urine YELLOW (Yellow); Glucose,Urine (UA) Negative (Negative); Ketones,Urine Negative (Negative); Leukocyte Esterase,Urine Negative (Negative); Nitrate,Urine Negative (Negative); Protein,Urine Negative (Negative); Specific Gravity, Urine >= 1.030 (1.005-1.030); Urobilinogen,Urine 0.2 EU/dl (0.2)
[2024-10-16 13:23] LABS: Blood Urea Nitrogen 17 mg/dl (9-20); Estimated Glomerular Filt Rate 85 ml/min (>60); GFR (African American) 103 ML/MIN (>60)
[2024-10-16 13:55] LABS: Prostate Specific Ag Screen 0.1 ng/ml (0.0-4.0); Thyroid Stimulating Hormone 4.23 uIU/mL (0.465-4.68)
[2024-10-17 08:13] LABS: FSH 4.4 mIU/mL (1.5-12.4); LH 2.4 mIU/mL (1.7-8.6); Prolactin 24.8 ng/mL (3.6-25.2); Testosterone,Total 296 ng/dL (264-916)
== END 2024-10-16 23:59 | disposition home or self-care (01) ==
LOC: LAB 12:01
PROVIDERS: PCP Family Medicine; Visit Provider Urology
DX: N52.9 Male erectile dysfunction, unspecified (principal); N40.0 Benign prostatic hyperplasia without lower urinary tract symptoms; R53.83 Other fatigue; Z12.5 Encounter for screening for malignant neoplasm of prostate; I95.9 Hypotension, unspecified; I25.10 Atherosclerotic heart disease of native coronary artery without angina pectoris; E78.2 Mixed hyperlipidemia; Z95.0 Presence of cardiac pacemaker
CPT/HCPCS: 36415; 81001; 82565; 83001; 83002; 84146; 84403; 84443; 84520; 85025; G0103

== ENCOUNTER 2024-12-22 13:02 | Outpatient (CLI) | payer MEDICARE, MEDICAID, SELFPAY ==
--- OUTSIDE RECORDS SUMMARY | 2024-12-22 13:05 | XMS_ITS | Continuity of Care Document ---
Author Organization [facility] - [facility], [facility] Address [address] [place] [address] Care Team Providers Care Senior Air Director Name Role Phone DEBBY ETIENNECY Primary Care Provider Assessment No assessment recorded. Plan of Treatment Reminders Order Date Submit Date Provider Last Modified By Organization Details Last Modified Time Details Appointments Establish ed Visit 15 min 2024 11:00A M ELEANOR CASTRO NP Not available Not available Not available Lab drug screen, urine 2024 025 [facility] (Registration ), [address] [facility] [facility] [address] [address], [place], [address], 11/30/2024 13:49:00 Referral None recorded. Procedures None recorded. Surgeries None recorded. Imaging None recorded. Medication Orders hydrocodo ne 5 mg-acetam inophen 325 mg tablet 2024 025 [facility] [address] [place], [address], 11/30/2024 11:35:57 gabapenti n 800 mg tablet 2024 025 [facility] [address] [place], [address], 11/30/2024 11:35:56 cyclobenz aprine 10 mg tablet 2024 025 [facility] [address] [place], [address], 11/30/2024 11:35:49 Celebrex 200 mg capsule 2024 025 [facility] [address] [place], [address], 11/30/2024 11:35:50 Patient TargetsNo targets recorded. Patient InstructionsNo instructions recorded. Reason for Referral None Reported. Problems Name Problem SNOMED Code Status Onset Date Resolution Date Notes Provider Name and Address Organization Details Recorded Time Internal hemorrho ids 36781916 Active 2021 Brady Bailey MD [facility], [place], [address], [place] - [facility] - [place] & [place] 2 07:02:02 Divertic ulosis of colon 385136961 Active 2021 Brady Bailey MD [facility],[address], [place], [address], [place] [facility] & [place] 2 07:02:09 Hematoch ezia 422682863 Completed 202111/10/2022 Removal Reason: resolved Brady Bailey MD [facility],[address], [place], [address], [place] [facility] & [place] 3 12:59:58 Anxiety 13984133 Active 2021 Raj anderson, [place] - [facility] - [place] & [place] 2 12:11:33 Coronary arterios clerosis 74499316 Active 2021 Raj Hopper null, [place] - [facility] - [facility] & [place] 2 12:11:45 Sleep apnea 56687252 Active 2021 Raj Hopper null, [place] [facility] & [place] 2 12:11:58 Cardiac pacemake r in situ 808808661 Active 2021 Raj anderson, [place] - [facility] - [facility] & [place] 2 12:12:09 Indigest ion 304955368 Active 2021 Raj Hopper null, [place] - [facility] & [place] 2 12:12:21 Lumbar spondylo sis 376952267 Active 2023 Lakeisha Cheney null, [place] - [facility] - [facility] & [place] 4 13:45:10 Myofasci al pain 915060478 Active 2023 Lakeisha Cheney null, [place] [facility] [place] & [place] 4 09:38:53 Inflamma tion of sacroili ac joint 17832740 Active 2023 Lakeisha Cheney null, [place] - [facility] & [place] 4 09:39:00 Degenera tion of lumbar interver tebral disc 88076826 Active 2023 Lakeisha Wisekins null, [place] - [facility] - [facility] & [place] 4 09:39:06 Opioid dependen ce 24882162 Active 2023 Lakeisha Cheney null, [place] - [facility] - [facility] & [place] 4 09:24:25 Problem Notes None recorded. Procedures Surgical History Date Name Laterality Status Provider Name and Address Organization Details Recorded Time 2 Colonoscopy completed Raj BUENROSTRO - [facility] & [place] 07/09/2022 12:16:50 4 Colonoscopy completed Raj BUENROSTRO - [facility] & [place] 07/09/2022 12:17:14 thumb surgery completed Raj BUENROSTRO - [facility] & [place] 07/09/2022 12:17:54 cardiac pacemaker procedure completed Raj BUENROSTRO - [facility] & [place] 07/09/2022 12:18:03 Stent Placement completed Raj BUENROSTRO - [facility] & [place] 07/09/2022 12:18:18 Stent Placement completed Raj BUENROSTRO - [facility] & [place] 07/09/2022 12:18:31 operative procedure on knee completed Raj BUENROSTRO - [facility] & [place] 07/09/2022 12:18:53 Imaging Results None recorded. Procedure Notes None recorded. Medical Equipment None Reported. Allergies No known drug allergies Medications Name Sig Start Date Stop Date Status Note LastModified by Organization Details LastModified Time cyclobenzap rine 10 mg tablet Take 1 tablet 3 times a day by oral route. 2024 active Not Available Not Available Not Avai lable amoxicillin 500 mg capsule TAKE 1 CAPSULE BY MOUTH THREE TIMES DAILY FOR 10 DAYS 11/14 completed Not Available Not Available Not Available atorvastati n 40 mg tablet TAKE 1 TABLET BY MOUTH ONCE DAILY 11/14 completed Not Available Not Available Not Available atorvastati n 80 mg tablet active Not Available Not Available Not Available sulfasalazi ne 500 mg tablet active Not Available Not Available Not Available citalopram 40 mg tablet TAKE 1 TABLET BY MOUTH ONCE DAILY active Not Available Not Available No t Available hydrocodone 5 mg-acetamin ophen 325 mg tablet Take 1 tablet 4 times a day by oral route as directed for 30 days. 2024 active Not Available Not Available Not Avai lable sotalol 80 mg tablet TAKE 1 TABLET BY MOUTH TWICE DAILY active Not Available Not Available No t Available famotidine 40 mg tablet TAKE 1 TABLET BY MOUTH ONCE DAILY IN THE MORNING active Not Available Not Available No t Available midodrine 5 mg tablet active Not Available Not Available No t Available cyanocobala min (vit B-12) 1,000 mcg tablet Take 1 tablet every day by oral route. 11/14 completed Not Available Not Available Not Available penicillin V potassium 500 mg tablet TAKE 1 TABLET BY MOUTH EVERY 8 HOURS UNTIL ALL TAKEN 11/10 completed Not Available Not Available Not Available peg-electro lyte solution 420 gram oral solution USE DIRECTED 07/09 completed Not Available Not Available Not Available Efudex 5 % topical cream APPLY A SUFFICIEN T AMOUNT TO COVER THE LESIONS IN THE AFFECTED AREA(S) BY TOPICAL ROUTE 11/10 completed Not Available Not Available Not Available dexamethaso ne 0.5 mg/5 mL oral solution USE 10 ML BY MOUTH 4 TIMES DAILY. RINSE AND HOLD FOR 2 MINUTES THEN SPIT 11/14 completed Not Available Not Available Not Available dexamethaso ne 0.5 mg/5 mL oral elixir SWISH AND SPIT 15 ML BY MOUTH THREE TIMES DAILY FOR 5 DAYS 11/30 completed Not Available Not Available Not Available Celebrex 200 mg capsule Take 1 capsule every day by oral route. 2024 active Not Available Not Available Not Avai lable gabapentin 800 mg tablet Take 1 tablet twice a day by oral route as directed for 30 days. 2024 active Not Available Not Available Not Avai lable buspirone 10 mg tablet TAKE 1 TABLET BY MOUTH TWICE DAILY active Not Available Not Available No t Available Citrucel 500 mg tablet Take 2 tablets every day by oral route for 30 days. 11/10 completed Not Available Not Available Not Available lidocaine HCl 2 % mucosal solution APPLY 2 ML TO AFFECTED AREA EVERY 2 HOURS NEEDED FOR PAIN 11/14 completed Not Available Not Available Not Available hydroxyzine HCl 25 mg tablet TAKE 1/2 TO 1 (ONE-HALF TO ONE) TABLET BY MOUTH THREE TIMES DAILY NEEDED FOR ANXIETY active Not Available Not Available No t Available methylpredn isolone 4 mg tablets in a dose pack 11/30 completed Not Available Not Available Not Available albuterol sulfate HFA 90 mcg/actuati on aerosol inhaler active Not Available Not Available Not Available Adult Low Dose Aspirin 81 mg tablet,michelle yed release Take 1 tablet every day by oral route. 11/30 completed Not Available Not Available Not Available Horizon Nasal Cpap System device 11/14 completed Not Available Not Available Not Available duloxetine 30 mg capsule,del ayed release 11/30 completed Not Available Not Available Not Available diclofenac 1 % topical gel APPLY 2-4 GRAMS TOPICALLY TO THE UPPER AND LOWER EXTREMITI ES FOUR TIMES DAILY. MAX OF 32 GRAMS PER DAY 11/10 completed Not Available Not Available Not Available testosteron e 20.25 mg/1.25 gram per pump act.(1.62 %) transdermal gel APPLY 2 PUMPS TOPICALLY ONCE DAILY IN THE MORNING active Not Available Not Available No t Available Xarelto 20 mg tablet active Not Available Not Available No t Available Mitigare 0.6 mg capsule 11/14 completed Not Available Not Available Not Available Narcan 4 mg/actuatio n nasal spray Take as needed by nasal route as directed. active Not Available Not Available No t Available Procto-Med HC 2.5 % topical cream perineal applicator APPLY A THIN LAYER OF CREAM TOPICALLY TO AFFECTED AREA ONCE DAILY DIRECTED 11/10 completed Not Available Not Available Not Available Vitals Date Recorded Body temperature Oxygen saturation Oxygen saturation in Arterial blood by Pulse oximetry Heart rate Pain severity - 0-10 verbal numeric rating [Score] - Reported Respiratory rate Systolic blood pressure Diastolic blood pressure Provider Name and Address Organization Details Last Updated DateTime 5 97.3 [degF] 97 % 97 % 86 /min 3 16 /min 118 mm[Hg] 68 mm[Hg] Vernell Gregory [facility] & [place] 5 11:12:34 Social History Question Answer Notes LastModified by Organizat ion Details LastModified Time Tobacco Smoking Status Current Every Day Smoker Raj Hopper [facility], [facility] & [place] 07/09/2022 12:15:27 What Is Your Level Of Alcohol Consumption? None Information not available 07/09/2022 What Is Your Level Of Caffeine Consumption? None Information not available 07/09/2022 What Type Of Diet Are You Following? VEGETARIAN Information not available 07/09/2022 How Many Children Do You Have? 0 Information not available 07/09/2022 What Is Your Relationship Status? Information not available 07/09/2022 How Much Tobacco Do You Smoke? 2 PPD Information not available 12/03/2023 Do You Feel Stressed (tense, Restless, Nervous, Or Anxious, Or Unable To Sleep At Night)? [id number] Information not available 12/03/2023 Do You Use Any Illicit Or Recreational Drugs? No Information not available 07/09/2022 Sex: Unknown Functional Status Question Answer Note LastModified by Organizat ion Details LastModified Time What is your exercise level? Occasional Information not available 12/03/2023 Mental Status None recorded. Family History Relationship Description Onset Age of this Age Resolved Age Notes LastModified by Organization Details LastModified Time Father Malignant tumor of prostate [email or web address] Not available 12/02 10:09:02 Maternal Uncle Malignant tumor of stomach Not available 03/22 /2024 10:09:02 Mother Diabetes mellitus [email or web address] Not available 12/02 10:09:02 Paternal Uncle Disease of liver alverto Not available 2021 12:14:37 Paternal Uncle Malignant neoplastic disease [email or web address] Not available 12/02 10:09:02 Medical History Condition Response Coronary Artery Disease Y None N Gout N Colon Cancer N Kidney Stones N Hyperthyroidism N Hypothyroidism N Depression N COPD N Osteoporosis/Osteopenia N Diverticulitis/Diverticulosis Y Colon Polyps N Diabetes N Anxiety Disorder Y Bleeding Disorder N Seizures/Epilepsy N Arthritis N Tuberculosis N Hyperlipidemia N Cancer N Stroke N Asthma N Sleep Apnea Y GERD/Reflux N Hepatitis N Liver Disease N Cirrhosis N Heart Disease Y Hypertension N Kidney Disease N Immunizations Vaccine Type Date Status Note Provider Nam e and Address Organization Details Recorded Time zoster recombinant 8 completed Raj Hopper [place], [place] - [facility] - [place] & [place] 07/09/2022 12:10:03 zoster recombinant 8 completed Raj Hopper [place] [facility] [place] & [place] 07/09/2022 12:10:09 SARS-COV-2 (COVID-19) vaccine, UNSPECIFIED 1 completed Raj Hopper [place], [place] [facility] [place] & [place] 07/09/2022 12:10:30 SARS-COV-2 (COVID-19) vaccine, UNSPECIFIED 1 completed Raj Hopper [place] [facility] [place] & [place] 07/09/2022 12:10:37 influenza, unspecified formulation 0 completed Raj Hopper [place] [facility] [place] & [place] 07/09/2022 12:11:00 pneumococcal polysaccharide PPV23 1 completed aRj Hopper null, [place] [facility] [place] & [place] 07/09/2022 12:11:23 SARS-COV-2 (COVID-19) vaccine, UNSPECIFIED 2 completed Raj Hopper [place], [place] [facility] [place] & [place] 11/10/2022 12:36:27 Past Encounters Encounter ID Performer Location Encounter Start Date Encounter Closed Date Diagnosis/Indication Diagnosis SNOMED-CT Code Diagnosis ICD10 Code Diagnosis Note [id number] STEPHEN MERCED[facility] [address] 11/30/2024 10:54:17 11/30/2024 11:40:05 Lumbar spondylosis 670500598 M47.816 Lumbar radiculopathy 128 826358 M54.16 Long-term current use of opiate analgesic drug 9270735330 11284 Z79.891 Health Concerns Section Related Observation LastModified by Organization Detai ls LastModified Time None Recorded Concern Status LastModified by Organization Details LastModified Time None Recorded Payers Encounter Date Sequence Insurance Name Policy Number Policy Ortiz Covered Member ID Ortiz Member ID Guarantor Name 11/30/2024 1 [employer] (MEDICARE REPLACEMENT/ ADVANTAGE - PPO) James Lea [id number] James Lea 11/30/2024 2 [place] [employer] - FFS/TRADITIO NAL James Lea [id number] James Lea Notes Date Note Type Note Provider Name and Address Organization Details Recorded Time 11/30/2024 text/html 64 yo male in today for f/u r/t low back pain. Pain is rated at 3/10, and has gotten up to 9/10 in the last month. He describes pain as frequent. Sitting, standing and walking makes pain worse, lying down and medication makes it better. Pain does not radiate nor cause weakness. Does not cause loss of bowel or bladder. Currently taking Celebrex 200mg daily , Flexeril 10mg BID , [place] 5-325mg QID and Gabapentin 800 mg BID. Patient has seen pain mgmt in the past and had procedures which did not help. He is not interested in a shoulder injection at this time. Assessment Plan:1. Lumbar Radiculopathy, Lumbar Spondylosis- Patient reports 70% relief from current medication regimen- Recent drug screen results were normal- Plan:a. Continue current medication regimen:- Celebrex 200 mg daily- Flexeril 10 mg twice daily- [place] 5-325 mg four times daily- Gabapentin 800 mg twice dailyb. Refill medicationsc. Schedule follow-up appointment in 2 months2. 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
--- OUTSIDE RECORDS SUMMARY | 2024-12-22 13:05 | XMS_ITS | Data Portability ---
Author Organization [place] [facility] - [place] & GLENNA Anderson ADMIN Address [address] [place] [id number] Care Team Providers Care Supervisor Special Education Name Role Phone AMANDA ETIENNE Primary Care Provider Assessment Encounter Date Assessment Date Assessment LastModified by Organization Details LastModified Time 11/15/2023 11/15/2023 Mr. Lea was referred by PCP for management of chronic low back pain. Patient denies DM of history of infection. Patient takes Aspirin daily. He complains of localized low back pain that affects his daily function, specifically increased pain with prolonged standing/walking. Based on the patient's history and physical exam, it appears his pain is likely associated with lumbar spondylosis. To address the patient's pain: Patient was seeing pain which performed several injections for pain control (SI injections, LEI, TPIs, MBBs, RFA) along with tried/failed SCS trials with Medtronic and Nevro. He mentions that the most helpful injection was the MBBs (L4-S1) and lumbar RFA (last performed in 2019 by pain) which provided significant pain relief of greater than 80% for several months, but the pain has gradually returned. As the patient previously received the most benefit from a BLMBB L4-S1, I will proceed with scheduling a repeat. If the patient again receives significant pain relief of greater than 80% for over 6 hours, then I will proceed with scheduling a BLRF L4-S1 to allow more long-term pain relief. I again had a discussion with the patient regarding the procedure and addressed any questions/concerns . I will order an updated lumbar x-ray to assess the degree of arthritic/degenera tive changes. I will review imaging prior to procedure. The patient has completed PT and continues at home exercises/stretche s and other conservative measures with minimal benefit. Regarding medications: was prescribing Hydrocodone APAP 5-325mg Q8 and Gabapentin 800mg Q8 which has been helpful for the pain. He would like to continue medications with [facility]. He mentions having medications until 12/03. I had a detailed discussion with the patient regarding treatment modalities and the respective risks/benefits. I educated the patient on the dangers/risks of long-term oral opioids, particularly with increasing age, these risks include respiratory depression, not excluding . I informed the patient that the goal of [facility] will be to incorporate a multi-modal approach to pain management, which may consist of conservative, pharmacologic, and interventional approaches, ultimately decreasing pain and increasing function with focus on both safety and efficacy. I informed the patient that I will prescribe oral opioids, but at a lower dose, and the intention will be to slowly taper once pain is better controlled. The patient verbalized understanding and agreeing to the treatment plan set forth. As the patient has enough medication to get him to his next appointment, I will discuss medication takeover at his procedure on 11/29/23 and will perform UDS and medication contract that day as well as medication takeover. The patient understands that I will be tapering his medication as his pain is better controlled with injections and other therapies. - Schedule a repeat BLMBB L4-S1 - Order an updated lumbar x-ray today - Discussed medications - will obtain UDS and medication contract on 11/29/23 - Follow up 1 week post block to assess efficacy I have discussed in great detail our potential treatment options which would include a rehabilitative approach to care. This program would include medication management, Physical Therapy, consideration for interventional procedures as appropriate, and lifestyle modification (diet, weight loss, exercise, smoking/tobacco cessation, holistic approach including meditation and yoga). The patient understands and agrees prior to proceeding with this plan. _ __ __ __ __ __ __ __ __ __ __ __ __ __ __ __ __ __ __ __ __ __ __ __ __ __ __ __ _ RECORDS REVIEW: As per clinic policy, we will have the patient sign a release to obtain previous imaging and clinical notes. PROCEDURE: I counseled the patient extensively and informed of the risks of the procedure, including the risk of paralysis, nerve damage, respiratory arrest, arrhythmias, stroke, weakness, and infection, which although very low, could result in or disability. The patient acknowledged to me that they understand and accept these risks. RN EDUCATION Extensive coordination of care provided by RN to educate patient on upcoming procedure and to coordinate obtaining extensive incoming medical records. _ __ __ __ __ __ __ __ __ __ __ __ __ __ __ __ __ __ __ __ __ __ __ __ __ __ __ __ _ PSYCH: Pain affecting Neuro-psych behavior was discussed. Discussed about pain psychological counseling as a part of the multimodal approach to pain treatment. _ __ __ __ __ __ __ __ __ __ __ __ __ __ __ __ __ __ __ __ __ __ __ __ __ __ __ __ _ REHABILITATION: Discussed with the patient the importance of diet, daily physical activity and PT. Discussed with the patient the need to be scheduled for physical therapy since physical therapy will prolong the benefits of the procedure and interventions. _ __ __ __ __ __ __ __ __ __ __ __ __ __ __ __ __ __ __ __ __ __ __ __ __ __ __ __ _ ZULY: [id number] I have reviewed patient's ZULY report prior to prescribing Schedule II, III, and IV medications that require review by law. Not available 11/16/2023 09:46:36 12/03/2023 12/03/2023 Mr. Lea was referred by PCP for management of chronic low back pain. Patient denies DM of history of infection. Patient takes Aspirin daily. Patient was seeing pain which performed several injections for pain control (SI injections, LEI, TPIs, MBBs, RFA) along with tried/failed SCS trials with Medtronic and Nevro. He mentions that the most helpful injection was the MBBs (L4-S1) and lumbar RFA (last performed in 2019 by pain) which provided significant pain relief of greater than 80% for several months. The patient has completed PT and continues at home exercises/stretche s and other conservative measures with minimal benefit. Based on the patient's history and physical exam, it appears his pain is likely associated with lumbar spondylosis. To address the patient's pain: As the patient received significant benefit from the previous BLMBB L4-S1 (greater than 80% for 1 day), I will proceed with scheduling a lumbar RFA. This procedure will be fluoroscopy guided. I am proceeding with only 1 block as the patient has had lumbar MBBs and RFA in the past. I reviewed the patient's lumbar x-ray showing moderate to severe degenerative changes at L4-5 and L5-S1; grade 1 anterolisthesis of L4 on L5 secondary to severe facet arthropathy at L4-5 and L5-S1. The patient has completed PT and continues at home exercises/stretche s and other conservative measures with minimal benefit. Regarding medications: was prescribing Hydrocodone APAP 5-325mg Q8 and Gabapentin 800mg Q8 which has been helpful for the pain. He would like to continue medications with [facility]. I had a detailed discussion with the patient regarding treatment modalities and the respective risks/benefits. I educated the patient on the dangers/risks of long-term oral opioids, particularly with increasing age, these risks include respiratory depression, not excluding . I informed the patient that the goal of [facility] will be to incorporate a multi-modal approach to pain management, which may consist of conservative, pharmacologic, and interventional approaches, ultimately decreasing pain and increasing function with focus on both safety and efficacy. I informed the patient that I will prescribe oral opioids, but at a lower dose, and the intention will be to slowly taper once pain is better controlled. The patient verbalized understanding and agreeing to the treatment plan set forth. I will prescribe the patient's medication at current dosing and refill for 2 months. Medication taper will be discussed at follow up. - Schedule a BLRF L4-S1 - Reviewed lumbar x-ray today - Medication for 2 months: Hydrocodone APAP 5-325mg Q8 #90, Gabapentin 800mg Q8 #90 - Medication contract signed - UDS obtained today and appropriate - Follow up in 2 months for medication refill/post RFA I have discussed in great detail our potential treatment options which would include a rehabilitative approach to care. This program would include medication management, Physical Therapy, consideration for interventional procedures as appropriate, and lifestyle modification (diet, weight loss, exercise, smoking/tobacco cessation, holistic approach including meditation and yoga). The patient understands and agrees prior to proceeding with this plan. _ __ __ __ __ __ __ __ __ __ __ __ __ __ __ __ __ __ __ __ __ __ __ __ __ __ __ __ _ RECORDS REVIEW: As per clinic policy, we will have the patient sign a release to obtain previous imaging and clinical notes. PROCEDURE: I counseled the patient extensively and informed of the risks of the procedure, including the risk of paralysis, nerve damage, respiratory arrest, arrhythmias, stroke, weakness, and infection, which although very low, could result in or disability. The patient acknowledged to me that they understand and accept these risks. RN EDUCATION Extensive coordination of care provided by RN to educate patient on upcoming procedure and to coordinate obtaining extensive incoming medical records. _ __ __ __ __ __ __ __ __ __ __ __ __ __ __ __ __ __ __ __ __ __ __ __ __ __ __ __ _ PSYCH: Pain affecting Neuro-psych behavior was discussed. Discussed about pain psychological counseling as a part of the multimodal approach to pain treatment. _ __ __ __ __ __ __ __ __ __ __ __ __ __ __ __ __ __ __ __ __ __ __ __ __ __ __ __ _ REHABILITATION: Discussed with the patient the importance of diet, daily physical activity and PT. Discussed with the patient the need to be scheduled for physical therapy since physical therapy will prolong the benefits of the procedure and interventions. _ __ __ __ __ __ __ __ __ __ __ __ __ __ __ __ __ __ __ __ __ __ __ __ __ __ __ __ _ ZULY: [id number] I have reviewed patient's ZULY report prior to prescribing Schedule II, III, and IV medications that require review by law. [place] PDMP reviewed and appropriate. UDS reviewed and consistent with current regimen. Controlled substance contract reviewed and signed line by line. Risks of medication therapy including respiratory depression, , and hazards of operating heavy machinery including automobiles discussed at length. Patient given information with six opioid/Controlled substance safety steps: 1. Never take a prescription pain medication unless it is prescribed for you. 2. Do not take pain medicine with alcohol. 3. Do not take more doses than prescribed. 4. Use with other sedative or anti-anxiety medications can be dangerous. 5. Avoid using prescription pain medication to help you fall asleep. 6. Lock up prescription pain medications. Opioid Contract Discussion: The patient was given a copy of the Clinic Prescription Drug Agreement and was counseled extensively regarding its contents. The patient is to take their pain medication exactly as prescribed. No increases in medications are to be without first contacting the office and explaining the reason behind the increase and getting approval to do so. The patient is not to obtain medications from other providers without first notifying the other provider what they obtain from this clinic and need to notify this clinic when they obtain pain medications from other providers. The patient is to bring their pain medications to each and every office visit for pill counts to monitor compliance for their safety. The patient is subject to periodic urine drug testing at the discretion of the provider as well as state and federal regulations. The patient was warned of the risks and benefits of taking opioid pain medication, the risk of addiction, the risk of withdrawal and the differences. [email or web address] Not available 12/06/2023 09:32:29 Plan of Treatment Reminders Order Date Submit Date Provider Last Modified By Organization Details Last Modified Time Details Appointments [facility] Visit 15 min 2024 11:00A Tracy CASTRO NP Not available Not available Not available Lab drug screen, urine 2024 025 [facility] (Registration ), [address] [place] [address] , [place], [address], 11/30/2024 13:49:00 drug screen, urine 2023 024 [facility] -[address], [address], [place], [address], 12/03/2023 12:12:30 Referral None recorded . Procedures lumbar radiofre quency ablation (PROC) - 80131, [address]. BILATERA L LUMBAR RADIOFRQ UENCY ABLATION L4-S1 2023 024 MELISSA Blakely, [address] [place] [address] , [place], [place], [address], 12/13/2023 11:36:32 medial branch block, lumbar (PROC) - 83399-05 , 67174-27 , BLMBB L4-S1 2023 024 MIAMI Toro Blakely, [address] , [place], [place], [address], 12/01/2023 08:32:57 Surgeries None recorded . Imaging XR, lumbar spine 2023 024 [facility] ([facility] [address] , [place], [address], 11/15/2023 15:35:09 Medication Orders hydrocod one 5 mg-aceta minophen 325 mg tablet 2024 025 [facility], [address] [place], [address], 11/30/2024 11:35:57 gabapent in 800 mg tablet 2024 025 [facility], [address] [place], [address], 11/30/2024 11:35:56 cycloben zaprine 10 mg tablet 2024 025 [facility], [address] [place], [address], 11/30/2024 11:35:49 Celebrex 200 mg capsule 2024 025 [facility], [address] [place], [address], 11/30/2024 11:35:50 hydrocod one 5 mg-aceta minophen 325 mg tablet [address] [facility] [address]06 [address] [place], [address], 12/08/2023 15:26:56 hydrocod one 5 mg-aceta minophen 325 mg tablet [address] [facility], [address], [address], 12/08/2023 15:26:59 gabapent in 800 mg tablet 2023 024 [email or web address] [facility], [address], [address], 12/08/2023 15:38:27 Anusol-H C 2.5 % topical cream with perineal applicat or 2021 022 alverto [facility], [address] [place], [address], 11/10/2022 12:38:33 Citrucel 500 mg tablet 2021 [address] [facility], [address] [place], [address], 11/10/2022 12:37:26 Patient TargetsNo targets recorded. Patient InstructionsNo instructions recorded. Reason for Referral None Reported. Results Created Date Observation Date Name Description Value Unit Range Abnormal Flag Note LastModifiedBy Organization Detail LastModifiedTime 12/03/19 24 12/03/2023 drug scree n, urine Amphetamines negati ve Not Available [facility] [address], [place], [address], 12/03/2023 12:03:21 12/03/19 24 12/03/2023 drug scree n, urine Barbiturates negati ve Not Available [facility] [address], [address], 12/03/2023 12:03:21 12/03/19 24 12/03/2023 drug scree n, urine Buprenorphin e negati ve Not Available [facility] [address], [place], [address], 12/03/2023 12:03:21 12/03/19 24 12/03/2023 drug scree n, urine Benzodiazepi leonor negati ve Not Available [facility] [address], [place], [address], 12/03/2023 12:03:21 12/03/19 24 12/03/2023 drug scree n, urine Cocaine negati ve Not Available [facility] [address], [place], [address], 12/03/2023 12:03:21 12/03/19 24 12/03/2023 drug scree n, urine Methamphetam ine negati ve Not Available [facility] [address], [place], [address], 12/03/2023 12:03:21 12/03/19 24 12/03/2023 drug scree n, urine Ecstasy negati ve Not Available [facility] [address], [place], [address], 12/03/2023 12:03:21 12/03/19 24 12/03/2023 drug scree n, urine Methadone negati ve Not Available [facility] [address], [place], [address], 12/03/2023 12:03:21 12/03/19 24 12/03/2023 drug scree n, urine Morphine/ Opiates negati ve Not Available [facility] [address], [place], [address], 12/03/2023 12:03:21 12/03/19 24 12/03/2023 drug scree n, urine Phencyclidin e negati ve Not Available [facility] [address], [place], [address], 12/03/2023 12:03:21 12/03/19 24 12/03/2023 drug scree n, urine Oxycodone negati ve Not Available [facility] [address], [place], [address], 12/03/2023 12:03:21 12/03/19 24 12/03/2023 drug scree n, urine Marijuana negati ve Not Available [facility] [address], [place], [address], 12/03/2023 12:03:21 12/01/19 25 11/30/2024 UR DRUG SCREE N note SEE NOTE Order ing Provi ja: DEMETRICEMarshall MYERS APRN MARIXA PILY Not Available [address] , [place], [address], 11/30/2024 13:49:00 12/01/19 25 11/30/2024 UR DRUG SCREE N ur cocaine qual NEGATI VE 150NG /mL det limit= Not Available [address] , [place], [address], 11/30/2024 13:49:00 12/01/19 25 11/30/2024 UR DRUG SCREE N ur cannabinoid( THC) qual NEGATI VE 50NG/ mL det limit= Not Available [address] [place], [place], [address], 11/30/2024 13:49:00 12/01/19 25 11/30/2024 UR DRUG SCREE N ur amphetamine qual NEGATI VE 500NG /mL det limit= Not Available [address] [place], [place], [address], 11/30/2024 13:49:00 12/01/19 25 11/30/2024 UR DRUG SCREE N ur barbiturate qual NEGATI VE 200NG /mL det limit= Not Available [address] , [place], [address], 11/30/2024 13:49:00 12/01/19 25 11/30/2024 UR DRUG SCREE N ur benzodiazepi ne qual NEGATI VE 200NG /mL det limit= Not Available [address] [place], [address], 11/30/2024 13:49:00 12/01/19 25 11/30/2024 UR DRUG SCREE N ur opiates qual POSITI VE 300NG /mL det limit= abnormal Not Available [address] , [place], [address], 11/30/2024 13:49:00 12/01/19 25 11/30/2024 UR DRUG SCREE N ur phencyclidin e (pcp) qual NEGATI VE 25NG/ mL det limit= Not Available [address] , [place], [address], 11/30/2024 13:49:00 12/01/19 25 11/30/2024 UR DRUG SCREE N ur tricylic group qual POSITI VE 1000N G/m det limit= abnormal Not Available [address] , [place], [address], 11/30/2024 13:49:00 12/01/19 25 11/30/2024 UR DRUG SCREE N methadone urine NEGATI VE 300NG /mL det limit= Not Available [address] [place], [address], 11/30/2024 13:49:00 12/01/19 25 11/30/2024 UR DRUG SCREE N ur MDMA (ecstacy) ql NEGATI VE 500NG /mL det limit= Not Available [address] , [place], [address], 11/30/2024 13:49:00 12/01/19 25 11/30/2024 UR DRUG SCREE N ur oxycodone ql NEGATI VE 100NG /mL det limit= Not Available [address] , [place], [address], 11/30/2024 13:49:00 12/01/19 25 11/30/2024 UR DRUG SCREE N ur buprenorphin e qual NEGATI VE 10NG/ mL det limit= Not Available [address] , [place], [address], 11/30/2024 13:49:00 12/01/19 25 11/30/2024 UR DRUG SCREE N performing lab SEE NOTE - [facility] [address] [facility] [id number] Not Available [address] , [place], [address], 11/30/2024 13:49:00 12/01/19 25 11/30/2024 ANTID EPRES SHERRI PANEL UR GCMS note See Note Order ing Provi ja: DEMETRICE NASCIMENTO Not Available [address] , [place], [address], 12/07/2024 20:10:53 12/01/19 25 11/30/2024 ANTID EPRES SHERRI PANEL UR GCMS amitryptalin e Not Detect ed () Not Available [address] , [place], [address], 12/07/2024 20:10:53 12/01/19 25 11/30/2024 ANTID EPRES SHERRI PANEL UR GCMS amoxapine Not Detect ed () Not Available [address] [place], [address], 12/07/2024 20:10:53 12/01/19 25 11/30/2024 ANTID EPRES SHERRI PANEL UR GCMS 8-hydroxyamo xapine Not Detect ed () Not Available [address] , [place], [address], 12/07/2024 20:10:53 12/01/19 25 11/30/2024 ANTID EPRES SHERRI PANEL UR GCMS bupropion Not Detect ed () Not Available [address] , [place], [address], 12/07/2024 20:10:53 12/01/19 25 11/30/2024 ANTID EPRES SHERIR PANEL UR GCMS citalopram PRESEN T () Not Available [address] , [place], [address], 12/07/2024 20:10:53 12/01/19 25 11/30/2024 ANTID EPRES SHERRI PANEL UR GCMS desmethylcit alopram PRESEN T () Not Available [address] [place], [address], 12/07/2024 20:10:53 12/01/19 25 11/30/2024 ANTID EPRES SHERRI PANEL UR GCMS clomipramine Not Detect ed () Not Available [address] [place], [address], 12/07/2024 20:10:53 12/01/19 25 11/30/2024 ANTID EPRES SHERRI PANEL UR GCMS desmethylclo mipramine Not Detect ed () Not Available [address] [place], [address], 12/07/2024 20:10:53 12/01/19 25 11/30/2024 ANTID EPRES SHERRI PANEL UR GCMS desipramine Not Detect ed () Not Available [address] [place], [address], 12/07/2024 20:10:53 12/01/19 25 11/30/2024 ANTID EPRES SHERRI PANEL UR GCMS doxepin Not Detect ed () Not Available [address] [place], [address], 12/07/2024 20:10:53 12/01/19 25 11/30/2024 ANTID EPRES SHERRI PANEL UR GCMS desmethyldox epin Not Detect ed () Not Available [address] , [place], [address], 12/07/2024 20:10:53 12/01/19 25 11/30/2024 ANTID EPRES SHERRI PANEL UR GCMS duloxetine Not Detect ed () Not Available [address] [place], [address], 12/07/2024 20:10:53 12/01/19 25 11/30/2024 ANTID EPRES SHERRI PANEL UR GCMS fluoxetine Not Detect ed () Not Available [address] [place], [address], 12/07/2024 20:10:53 12/01/19 25 11/30/2024 ANTID EPRES SHERRI PANEL UR GCMS norfluoxetin e Not Detect ed () Not Available [address] [place], [address], 12/07/2024 20:10:53 12/01/19 25 11/30/2024 ANTID EPRES SHERRI PANEL UR GCMS fluvoxamine Not Detect ed () Not Available [address] [place], [address], 12/07/2024 20:10:53 12/01/19 25 11/30/2024 ANTID EPRES SHERRI PANEL UR GCMS imipramine Not Detect ed () Not Available [address] [place], [address], 12/07/2024 20:10:53 12/01/19 25 11/30/2024 ANTID EPRES SHERRI PANEL UR GCMS mirtazapine Not Detect ed () Not Available [address] , [place], [address], 12/07/2024 20:10:53 12/01/19 25 11/30/2024 ANTID EPRES SHERRI PANEL UR GCMS nortriptylin e Not Detect ed () Not Available [address] , [place], [address], 12/07/2024 20:10:53 12/01/19 25 11/30/2024 ANTID EPRES SHERRI PANEL UR GCMS paroxetine Not Detect ed () Not Available [address] [place], [address], 12/07/2024 20:10:53 12/01/19 25 11/30/2024 ANTID EPRES SHERRI PANEL UR GCMS protriptylin e Not Detect ed () Not Available [address] , [place], [address], 12/07/2024 20:10:53 12/01/19 25 11/30/2024 ANTID EPRES SHERRI PANEL UR GCMS sertraline Not Detect ed () Not Available [address] [place], [address], 12/07/2024 20:10:53 12/01/19 25 11/30/2024 ANTID EPRES SHERRI PANEL UR GCMS desmethylser traline Not Detect ed () Not Available [address] , [place], [address], 12/07/2024 20:10:53 12/01/19 25 11/30/2024 ANTID EPRES SHERRI PANEL UR GCMS maprotiline Not Detect ed () Not Available [address] [place], [address], 12/07/2024 20:10:53 12/01/19 25 11/30/2024 ANTID EPRES SHERRI PANEL UR GCMS nefazodone Not Detect ed () Not Available [address] [place], [address], 12/07/2024 20:10:53 12/01/19 25 11/30/2024 ANTID EPRES SHERRI PANEL UR GCMS trazodone Not Detect ed () Not Available [address] [place], [address], 12/07/2024 20:10:53 12/01/19 25 11/30/2024 ANTID EPRES SHERRI PANEL UR GCMS 1,3 chlorophenyl piperazine Not Detect ed () Not Available [address] [place], [address], 12/07/2024 20:10:53 12/01/19 25 11/30/2024 ANTID EPRES SHERRI PANEL UR GCMS trimipramine Not Detect ed () Not Available [address] , [place], [address], 12/07/2024 20:10:53 12/01/19 25 11/30/2024 ANTID EPRES SHERRI PANEL UR GCMS venlafaxine Not Detect ed () Not Available [address] [place], [address], 12/07/2024 20:10:53 12/01/19 25 11/30/2024 ANTID EPRES SHERRI PANEL UR GCMS desmethylven lafaxine Not Detect ed () Not Available [address] [place], [address], 12/07/2024 20:10:53 12/01/19 25 11/30/2024 ANTID EPRES SHERRI PANEL UR GCMS vilazodone Not Detect ed () Testi ng Thres hold: 50 or 100 ng/mL This test was devel oped and its perfo rmanc e mariely cteri stics deter mined by [facility]. It has not been clear ed or appro jeet by the Food and Drug Admin istra tion. Not Available [address] [place], [address], 12/07/2024 20:10:53 12/01/19 25 11/30/2024 ANTID EPRES SHERRI PANEL UR GCMS hydroxybupro pion Not Detect ed () Not Available [address] [place], [address], 12/07/2024 20:10:53 12/01/19 25 11/30/2024 ANTID EPRES SHERRI PANEL UR GCMS performing lab see note LC2 - [facility] LARRY T# [id number] [place] [address] Not Available [address] , [place], [address], 12/07/2024 20:10:53 12/01/19 25 11/30/2024 UR OPIAT ES GCMS note See Note Order ing Provi ja: DEMETRICE NASCIMENTO Not Available [address] , [place], [address], 12/07/2024 20:10:53 12/01/19 25 11/30/2024 UR OPIAT ES GCMS ur opiates conf Positi ve NG/mL cutoff =300 abnormal Opiat e test inclu claudia Codei ne, Morph ine, [place] morph one, [place] codon e. . Confi rmati on perfo rmed by Mass Spect romet ry Not Available [address] [place], [address], 12/07/2024 20:10:53 12/01/19 25 11/30/2024 UR OPIAT ES GCMS ur morphine Negati ve cutoff =300 Not Available [address] [place], [address], 12/07/2024 20:10:53 12/01/19 25 11/30/2024 UR OPIAT ES GCMS ur codeine Negati ve cutoff =300 Not Available [address] [place], [address], 12/07/2024 20:10:53 12/01/19 25 11/30/2024 UR OPIAT ES GCMS ur hydrocodone Positi ve () abnormal Not Available [address] [place], [address], 12/07/2024 20:10:53 12/01/19 25 11/30/2024 UR OPIAT ES GCMS ur hydromorphon e Negati ve cutoff =300 Not Available [address] , [place], [address], 12/07/2024 20:10:53 12/01/19 25 11/30/2024 UR OPIAT ES GCMS ur hydrocodone GC/MS conf 535 NG/mL cutoff =300 Perfo rmed At: MX, [facility] [address] [place], [address] [address] Nina leroy, [facility] , Phone : [phone] Perfo rmed At: UI, [facility] [address] [place], [address] 0372 Mireya Lacy , PhD, Phone : [phone] Not Available [address] [place], [address], 12/07/2024 20:10:53 12/01/19 25 11/30/2024 UR OPIAT ES GCMS performing lab see note LC2 - [facility] CLIEN T# [id number] [place] [address] Not Available [place] [address] [facility] [address], [place], [address], 12/07/2024 20:10:53 11/15/19 24 11/15/2023 XR, lumba r spine No observ ation record ed. [facility] (Radiology) [address] [place] [address] , [place], [address], 12/15/2023 08:49:45 Result Notes None recorded. Problems Name Problem SNOMED Code Status Onset Date Resolution Date Notes Provider Name and Address Organization Details Recorded Time Internal hemorrho ids 98031319 Active 2021 Brady Bailey MD [facility] [employer] [facility],[address] [facility], [place], [address], [place] - [facility] - [place] & [place] 2 07:02:02 Divertic ulosis of colon 718198202 Active 2021 Brady Bailey MD [facility] [employer] [facility],[address] [facility], [place], [address], [place] [facility] - [place] & [place] 2 07:02:09 Hematoch ezia 218508720 Completed 202111/10/2022 Removal Reason: resolved Brady Bailey MD [address] [employer] [facility],[address], [place], [address], [place] [facility] - [place] & [place] 3 12:59:58 Anxiety 58410633 Active 2021 Raj Hopper null, [place] [facility] [place] & [place] 2 12:11:33 Coronary arterios clerosis 55305607 Active 2021 Raj Hopper [place] [place] 2 12:11:45 Sleep apnea 93547956 Active 2021 Raj Hopper null[place] [facility] [place] & [place] 2 12:11:58 Cardiac pacemake r in situ 921842252 Active 2021 Raj Hopper [place] [place] 2 12:12:09 Indigest ion 271326262 Active 2021 Raj Hopper null, [place] - [facility] - [place] & [place] 2 12:12:21 Lumbar spondylo sis 900082003 Active 2023 Lakeisha Wisekins null, [place] [facility] [place] 4 13:45:10 Myofasci al pain 601595385 Active 2023 Lakeisha Cheney null, [place] - [facility] & [place] 4 09:38:53 Inflamma tion of sacroili ac joint 29103785 Active 2023 Lakeisha Cheney null[place] - [facility] & [place] 4 09:39:00 Degenera tion of lumbar interver tebral disc 77712200 Active 2023 Lakiesha Cheney null, [place] [facility] & [place] 4 09:39:06 Opioid dependen ce 74172556 Active 2023 Lakeisha Wisekins null, [place] - [facility] & [place] 4 09:24:25 Problem Notes None recorded. Procedures Surgical History Date Name Laterality Status Provider Name and Address Organization Details Recorded Time 2 Colonoscopy completed Raj BUENROSTRO - [facility] - [place] & [place] 07/09/2022 12:16:50 4 Colonoscopy completed Raj BUENROSTRO - [facility] & [place] 07/09/2022 12:17:14 thumb surgery completed Raj BUENROSTRO - [facility] & [place] 07/09/2022 12:17:54 cardiac pacemaker procedure completed Raj BUENROSTRO - [facility] - [facility] & [place] 07/09/2022 12:18:03 Stent Placement completed Raj BUENROSTRO - [facility] - [facility] & [place] 07/09/2022 12:18:18 Stent Placement completed Raj BUENROSTRO - [facility] [place] 07/09/2022 12:18:31 operative procedure on knee completed Raj BUENROSTRO - [facility] - [place] & [place] 07/09/2022 12:18:53 Imaging Results Imaging Date Name Status LastModified by [facility] Details LastModified Time 11/15/2023 XR, lumbar spine completed [facility] (Radiology) [address] , [place], [address], 12/15/2023 08:49:45 Procedure Notes None recorded. Medical Equipment None [...] Available Not Available Vitals Date Recorded Body height Body mass index (BMI) Body weight Body temperature Heart rate Respiratory rate Systolic blood pressure Diastolic blood pressure Provider Name and Address Organization Details Last Updated DateTime 3 160.02 cm 24.5 kg/m2 60970.1 8 g 97.7 [degF] 78 /min 18 /min 122 mm[Hg] 78 mm[Hg] Raj Hopper [facility] & [place] 3 12:33:45 Date Recorded Body height Body mass index (BMI) Body weight Body temperature Respiratory rate Heart rate Systolic blood pressure Diastolic blood pressure Provider Name and Address Organization Details Last Updated DateTime 2 160.02 cm 23.9 kg/m2 46285.9 7 g 97.5 [degF] 18 /min 79 /min 106 mm[Hg] 68 mm[Hg] Raj Hopper [facility] & [place] 2 13:05:48 Date Recorded Body weight Body temperature Oxygen saturation Oxygen saturation in Arterial blood by Pulse oximetry Heart rate Systolic blood pressure Diastolic blood pressure Provider Name and Address Organization Details Last Updated DateTime 4 39127.5 3 g 97.8 [degF] 92 % 92 % 91 /min 94 mm[Hg] 69 mm[Hg] [facility] & [place] 4 13:25:29 Date Recorded Body temperature Oxygen saturation Oxygen saturation in Arterial blood by Pulse oximetry Heart rate Pain severity - 0-10 verbal numeric rating [Score] - Reported Respiratory rate Systolic blood pressure Diastolic blood pressure Provider Name and Address Organization Details Last Updated DateTime 5 97.3 [degF] 97 % 97 % 86 /min 3 16 /min 118 mm[Hg] 68 mm[Hg] Vernell Gregory [facility] & [place] 11:12:34 Social History Question Answer Notes LastModified by Organizat ion Details LastModified Time Tobacco Smoking Status Current Every Day Smoker Raj Hopper [facility], [facility] & [place] 07/09/2022 12:15:27 What Is Your Level Of [...] Anxious, Or Unable To Sleep At Night)? OS1301-8 Information not available 12/03/2023 Do You Use [...] LastModified Time Father Malignant tumor of prostate [email or web address] Not available 12/02 10:09:02 Maternal Uncle Malignant tumor of stomach [email or web address] Not available 12/02 10:09:02 Mother Diabetes mellitus [email or web address] Not available 12/02 10:09:02 Paternal Uncle Disease of liver [email or web address] Not available 2021 12:14:37 Paternal Uncle Malignant neoplastic disease [email or web address] Not available 12/02 10:09:02 Medical History Condition Response Coronary Artery Disease Y None N Gout N Colon Cancer N Kidney Stones N Hyperthyroidism N Depression N COPD N Hypothyroidism N Osteoporosis/Osteopenia N Diverticulitis/Diverticulosis Y Colon Polyps N Anxiety Disorder Y Diabetes N Bleeding Disorder N Arthritis N Seizures/Epilepsy N Tuberculosis N Hyperlipidemia N Cancer N Stroke N Asthma N Sleep Apnea Y GERD/Reflux N Hepatitis N Cirrhosis N Liver Disease N Heart Disease Y Hypertension N Kidney Disease N Immunizations Vaccine Type Date Status Note Provider Nam e and Address Organization Details Recorded Time zoster recombinant 8 completed Raj Cartagenagieri null, [place] - [facility] - [place] & [place] 07/09/2022 12:10:03 zoster recombinant 8 completed Raj Cartagenagieri [place] [facility] [place] & [place] 07/09/2022 12:10:09 SARS-COV-2 (COVID-19) vaccine, UNSPECIFIED 1 completed Raj Hopper null, [place] [facility] [place] & [place] 07/09/2022 12:10:30 SARS-COV-2 (COVID-19) vaccine, UNSPECIFIED 1 completed Raj Hopper null, [place] - [facility] & [place] 07/09/2022 12:10:37 influenza, unspecified formulation 0 completed Raj Hopper null, [place] - [facility] & [place] 07/09/2022 12:11:00 pneumococcal polysaccharide PPV23 1 completed Raj Hopper null, [place] - [facility] & [place] 07/09/2022 12:11:23 SARS-COV-2 (COVID-19) vaccine, UNSPECIFIED 2 completed Raj Ruchi null, [place] - [facility] & [place] 11/10/2022 12:36:27 Past Encounters Encounter ID Performer Location Encounter Start Date Encounter Closed Date Diagnosis/Indication Diagnosis SNOMED-CT Code Diagnosis ICD10 Code Diagnosis Note [id number] Brady Bailey MD [facility] erology [address] [place] [address],[address] [address] 07/09/2022 12:46:44 07/10/2022 14:13:23 Internal hemorrhoids 44409941 K64.8 The patient had internal hemorrhoid s on recent colonoscop y, the patient was instructed to start on fiber supplement ation which he has been taking intermitte ntly. We recommend the patient take fiber on a daily basis. Because he is currently having some minor bleeding issues will also start the patient on Anusol as a topical cream applied b.i.d. for the next 10 days. The importance of long-term fiber supplement ation, and compliance reviewed with patient. If symptoms do not improve patient will call, if doing well will see back in 4 months. Diverticul osis of colon 734199043 K57.30 recommend patient take fiber as previously recommende d after his colonoscop y Hematochezia 679290893 K 92.1 related to patient's known hemorrhoid al disease. See recommenda tions above [id number] Brady Bailey MD [facility] erology [address] [place] [address],[facility] [address] [place] [address] 11/10/2022 12:22:10 11/10/2022 12:59:27 Internal hemorrhoids 57412828 K64.8 the patient has internal hemorrhoid s remain asymptomat ic despite erratic use of fiber supplement ation, we counseled patient regarding the benefits of ongoing fiber supplement ation and/or a high-fiber diet. But at this time given the patient is doing well really that to his discretion despite our recommenda tions that long-term use might be beneficial . Diverticul osis of colon 679543041 K57.30 recommend patient take fiber as previously recommende d after his colonoscop y [id number] Toro Blakely MD [facility] is [address] [place] [address] 11/15/2023 12:01:26 11/15/2023 13:50:53 Lumbar spondylosis 607798507 M47.816 Myofascial pain 51148741 9 M79.10 Inflammati on of sacroiliac joint 97799563 M46.1 Degenerati on of lumbar intervertebral disc 23803814 M51.36 [id number] Toro Blakely MD [facility] [facility] [address] [place] [address] 12/03/2023 10:00:23 12/03/2023 11:14:52 Lumbar spondylosis 069790600 M47.816 Opioid dependence 508910 00 F11.20 Myofascial pain 44334761 9 M79.10 Inflammati on of sacroiliac joint 71672603 M46.1 Degenerati on of lumbar intervertebral disc 12640049 M51.36 [id number] ELEANOR CASTRO, STEPHEN [facility] [address] [address] 11/30/2024 10:54:17 11/30/2024 11:40:05 Lumbar spondylosis 995620709 M47.816 Lumbar radiculopathy 128 677171 M54.16 Long-term current use of opiate analgesic drug 4266104894 53205 Z79.891 Health Concerns Section Related Observation LastModified by Organization Detai ls LastModified Time None Recorded Concern Status LastModified by Organization Details LastModified Time None Recorded Advance Directives Directive None Recorded Payers Encounter Date Sequence Insurance Name Policy Number Policy Ortiz Covered Member ID Ortiz Member ID Guarantor Name 07/09/2022 1 [employer] (MEDICARE REPLACEMENT/AD VANTAGE - PPO) [id number] James Lea [id number] James Lea 11/10/2022 1 [employer] (MEDICARE REPLACEMENT/AD VANTAGE - PPO) [id number] James Lea [id number] James Lea 11/15/2023 2 [employer] [facility] (MEDICAID REPLACEMENT - HMO) [id number] James Lea [id number] James Lea 11/15/2023 1 [employer] (MEDICARE REPLACEMENT/AD VANTAGE - PPO) James Lea [id number] James Martins Leonora 12/03/2023 2 [employer] [place] - [place]) [id number] James Mendezrod [id number] James Martins Leonora 12/03/2023 1 [employer] (MEDICARE REPLACEMENT/AD VANTAGE - PPO) James Lea [id number] James Mendezrod 11/30/2024 1 [employer] (MEDICARE REPLACEMENT/AD VANTAGE - PPO) James Lea [id number] James Lea 11/30/2024 2 [place] [employer] [place] FFS/TRADITIONA L James Lea [id number] James Lea Notes Date Note Type Note Provider Name and Address Organization Details Recorded Time 2 text/html routine follow-up for this 62-year-old male who underwent a colonoscopy recently to evaluate rectal bleeding. The patient's examination demonstrated diverticular disease without evidence of diverticulitis, and internal hemorrhoids. The patient was started on fiber supplementation, presents today reporting that he continues to occasionally have bleeding maybe twice a week he will see blood on the toilet paper but he is not taking the fiber. Denies any abdominal pain. Brady Bailey MD [address] [place] [address],[address], [place], [address], [facility] & [place] 07/09/2022 13:22:29 3 text/html This is a 62-year-old male who presents today in routine follow-up regarding internal hemorrhoids, and diverticular disease. The patient had was started on fiber after his initial evaluation that had demonstrated the to findings noted above with fiber supplementation as bleeding resolved, and he has done well. He notes because he has done so well he is actually cut back in only takes fiber from time to time. He has had no issues however no diarrhea, no constipation, no melena and no bright red blood per rectum. Brady Bailey MD [address] [place] [address],[address], [place], [address], [facility] & [place] 11/10/2022 13:01:22 4 text/html Mr. Lea was referred by PCP for management of chronic low back pain. Patient denies DM of history of infection. Patient takes Aspirin daily. Patient was seeing pain which performed several injections for pain control (SI injections, LEI, TPIs, MBBs, RFA) along with tried/failed SCS trials with [employer] and [address] [employer]. They were also prescribing Hydrocodone APAP 5-325mg Q8 and Gabapentin 800mg Q8 which has been helpful for the pain. He would like to continue medications with [facility]. He mentions having medications until 12/03. He mentions that the most helpful injection was the MBBs (L4-S1) and lumbar RFA (last performed in 2019 by pain) which provided significant pain relief of greater than 80% for several months, but the pain has gradually returned. He complains of localized low back pain that affects his daily function, specifically increased pain with prolonged standing/walking. The patient has completed PT and continues at home exercises/stretches and other conservative measures with minimal benefit. Initial complaint: chronic low back painOnset: 5+ yearsContext: worsening over timeCharacter: sharp, aching, throbbingLocation: low backDuration: constant with fluctuationsInitial Intensity: 7/10Worse: bending, standing, walking, activityBetter: restAssociated symptoms: Denies saddle anaesthesia, denies acute bowel/bladder changes, denies acute power loss.ADLs: The patient's pain interferes with daily chores, exercise, sleep, relationships, and walking.Current Pain Medications: Hydrocodone APAP 5-325mg Q8, Gabapentin 800mg [id number] Pain Medications: noneNSAIDS/OTC: mildly helpfulNon-interventiona l Tx: nonePhysical Therapy: complete - continues exercisesInterventional Tx: SI injections, LEIs, TPIs, MBBs, lumbar RFA - painSurgery: noneImaging/Studies: no recent imaging Toro Blakely MD [id number] [facility], [place], [address], [facility] - [place] & [place] 11/17/2023 11:34:37 4 text/html Mr. Lea was referred by PCP for management of chronic low back pain. Patient denies DM of history of infection. Patient takes Aspirin daily. Patient was seeing pain which performed several injections for pain control (SI injections, LEI, TPIs, MBBs, RFA) along with tried/failed SCS trials with [employer] and [employer]. He mentions that the most helpful injection was the MBBs (L4-S1) and lumbar RFA (last performed in 2019 by pain) which provided significant pain relief of greater than 80% for several months. The patient has completed PT and continues at home exercises/stretches and other conservative measures with minimal benefit. The patient presents to the clinic today 1 week post BLMBB L4-S1 reporting significant pain relief of greater than 80% for 1 day before the pain returned. He complains of localized low back pain that affects his daily function, specifically increased pain with prolonged standing/walking. The patient is also wanting to discuss medication continuation with [facility]. He is currently taking Hydrocodone APAP 03636qr Q8 and Gabapentin 800mg Q8. Pain today is a 7/10. Initial complaint: chronic low back painOnset: 5+ yearsContext: worsening over timeCharacter: sharp, aching, throbbingLocation: low backDuration: constant with fluctuationsInitial Intensity: 10Worse: bending, standing, walking, activityBetter: restAssociated symptoms: Denies saddle anaesthesia, denies acute bowel/bladder changes, denies acute power loss.ADLs: The patient's pain interferes with daily chores, exercise, sleep, relationships, and walking.Current Pain Medications: Hydrocodone APAP 5-325mg Q8, Gabapentin 800mg [id number] Pain Medications: noneNSAIDS/OTC: mildly helpfulNon-interventiona l Tx: nonePhysical Therapy: complete - continues exercisesInterventional Tx: SI injections, LEIs, TPIs, MBBs, lumbar RFA - painSurgery: noneImaging/Studies: no recent imaging Toro Blakely MD [address] [facility], [place], [address], [facility] - NT - [place] & [place] 12/08/2023 15:38:37 5 text/html 64 yo male in today for [...] 200mg daily , Flexeril 10mg BID , [place] 5-325mg QID and Gabapentin 800 mg BID. [...] mg daily- Flexeril 10 mg twice daily- [place] 5-325 mg four times daily- Gabapentin 800 mg twice dailyb. Refill medicationsc. Schedule follow-up appointment in 2 months2. Medication Tolerance- Patient tolerating medications well with no reported side effectsODI SCORE(Percentage):Kwame james SLURRY MAN: YOpioid Risk Score: 8Pain level at rest: 5/10Pain level w/activity: 10/10Feeling down depressed or hopeless: NoAre you having little interest or pleasure in doing things: NoHave you had any falls with injury in the past year: NoDo you use any illicit or recreation drugs: NoDo you or have you ever smoked tobacco: Yes - currentWhat is your level of alcohol consumption: None ELEANOR CASTRO, TEST TUBE MAKER [address] [facility] , [place], [address], [facility] - [facility] - [place] & [place] 11/30/2024 13:02:53
[2024-12-22 13:25] VITALS: PULSE 77; PULSE 78
[2024-12-22] MEDS: ALBUTEROL 0.083% 2.5 MG/3 ML NEB IH (13:25)
--- NOTE | 2024-12-22 13:58 | CT_ITS ---
FINAL REPORT TECHNIQUE: Thin section axial images were obtained from the lung apices to the upper abdomen by computed tomography. Reformatted images were obtained and reviewed. This study was performed with techniques to keep radiation doses al low as reasonably achievable (ALARA). Individualized dose reduction techniques using automated exposure control or adjustment of mA and/or kV according to the patient's size were employed. CLINICAL HISTORY: lung cancer screening current smoker 1 ppd x 50 years cad COMPARISON: 12/01/2023 FINDINGS: CT CHEST LOW DOSE SCREENING 64-year-old male, current smoker, 80-uvlp-clne history. HISTORY: Screening exam for lung cancer. DOSE: CTDI vol: 2.90 mGy, DLP: 96.38 mGy*cm TECHNIQUE: Axial CT without IV contrast administration using low dose protocol. This study was performed with techniques to keep radiation doses as low as reasonably achievable, (ALARA). Individualized dose reduction techniques using automated exposure control or adjustment of mA and/or kV according to the patient's size were employed. No acute lung disease is present. The 2 mm nodule in the posterior right upper lobe, subpleural, is once again identified on today's examination, best seen on image #18 of series 3. No new nodules are identified. No pleural or pericardial effusion is seen. No adenopathy or mass lesion is present. A left-sided pacer is present. IMPRESSION: No evidence of lung cancer LUNG RADS CATEGORY 2 RECOMMENDATION: 12 month LDCT follow up Reviewed, Interpreted and Dictated by Contreras Saldana MD Transcribed by Tosha Hoang Authenticated and . [facility]
== END 2024-12-22 23:59 | disposition home or self-care (01) ==
LOC: RT 13:03
PROVIDERS: PCP Family Medicine; Visit Provider Internal Medicine Pulmonary Disease
DX: J44.9 Chronic obstructive pulmonary disease, unspecified (principal); F17.210 Nicotine dependence, cigarettes, uncomplicated
CPT/HCPCS: 71271; 94010; 94640; J7613

== ENCOUNTER 2024-12-25 12:19 | Outpatient (CLI) | payer MEDICARE, MEDICAID, SELFPAY ==
[2024-12-26 08:43] LABS: Sex Hormone Binding Globulin 34.4 nmol/L (19.3-76.4); Testosterone,Total 618 ng/dL (264-916)
== END 2024-12-25 23:59 | disposition home or self-care (01) ==
LOC: LAB 12:20
PROVIDERS: PCP Family Medicine; Visit Provider Urology
DX: N52.9 Male erectile dysfunction, unspecified (principal); R53.83 Other fatigue
CPT/HCPCS: 36415; 84270; 84403

== ENCOUNTER 2025-03-26 09:50 | Outpatient (CLI) | payer MEDICARE, MEDICAID, SELFPAY ==
--- OUTSIDE RECORDS SUMMARY | 2025-03-26 09:52 | XMS_ITS | Clinical Summary ---
Author Organization [facility] Address [address] [place] [address] Care Team Providers Care Advertising Coordinator Name Role Phone Brenda Sanchez MD Primary Care Provider [phone] Allergies Active Allergy Reactions Criticality Noted Date Comments Bee Venom Unknown - Patient st ates they do not know rxn details Low 01/23/2019 Medications aspirin 81 MG chewable tablet Chew 1 tablet (81 mg) 1 (one) time each day. 07/28/20 19 Active busPIRone (Buspar) 10 MG tablet Take 1 tablet (10 mg) by mouth 3 (three) times a day. 08/29/20 20 Active celecoxib (CeleBREX) 200 MG capsule TAKE 1 CAPSULE DAILY WITH A MEAL. 01/24/20 19 Active cyclobenzaprine (Flexeril) 10 MG tablet Take 1 tablet (10 mg) by mouth 2 (two) times a day if needed for muscle spasms. 01/25/20 20 Active Testosterone 20.25 MG/ACT (1.62%) gel 09/13/19 21 Active hydrOXYzine HCl (Atarax) 25 MG tablet Take 1 tablet (25 mg) by mouth 3 (three) times a day if needed. 12/16/19 22 Active sotalol (Betapace) 80 MG tablet Take 1 tablet (80 mg) by mouth 2 (two) times a day. Active citalopram (CeleXA) 40 MG tablet Take 1 tablet (40 mg) by mouth 1 (one) time each day. 11/16/19 22 Active naloxone (Narcan) 4 mg/0.1 mL nasal spray 1. Give 1 spray in nostril for no/slow breathing or cannot wake after opioid use 2. Call 911 3. Repeat in other nostril if symptoms continue Active atorvastatin (Lipitor) 80 MG tablet Take 1 tablet (80 mg) by mouth 1 (one) time each day. 04/06/20 Active famotidine (Pepcid) 40 MG tablet Take 1 tablet (40 mg) by mouth 1 (one) time each day. 04/19/20 Active Cyanocobalamin 1000 MCG capsule Take 1 tablet by mouth Daily. Active gabapentin (Neurontin) 800 MG tabletIndications:L umbar radiculopathy Take 1 tablet (800 mg) by mouth 3 (three) times a day. 90 tablet 11/05/19 Active Additional Information Patient taking differently:800 mg Oral2 times daily, Reported on 07/12/2024 HYDROcodone-acetami nophen ([place]) 5-325 MG tabletIndications:O ther spondylosis, lumbar region Take 1 tablet (5 mg of hydrocodone) by mouth 3 (three) times a day if needed for severe pain. 90 tablet 11/05/19 Active Additional Information Patient taking differently:5 mg of hydrocodone Oral4 times daily, Reported on 07/12/2024 Multiple Vitamins-Minerals (PX Mens Multivitamins) tablet Take 1 tablet by mouth 1 (one) time each day. Active midodrine (Proamatine) 5 MG tablet Take 1 tablet (5 mg) by mouth 3 (three) times a day. 05/10/20 Active sulfaSALAzine (Azulfidine) 500 MG tabletIndications:I nflammatory polyarthropathy (CMS/HCC) Take 2 tablets (1,000 mg) by mouth 2 (two) times a day. 360 tablet 3 10/03/19 Active Active Problems Problem Noted Date Diagnosed Date Cardiomyopathy 07/12/2024 Atrial fib/flutter, transient 07/12/2024 Angina, class IV 07/12/2024 Gait instability 07/12/2024 Iliac artery stenosis, bilateral 07/12/2024 PAD (peripheral artery disease) 07/12/2024 Spinal stenosis 07/12/2024 Carpal tunnel syndrome, bilateral upper limbs Chondrocalcinosis 12/20/2023 Emphysema, unspecified 12/08/2023 SOB (shortness of breath) 12/01/2023 Degeneration of lumbar intervertebral disc 11/14 Diverticulosis of colon 07/09/2022 Internal hemorrhoids 07/09/2022 Hematochezia 07/09/2022 Overview (07/12/2024): Removal Reason: resolved Obstructive sleep apnea syndrome 07/09/2022 Inflammatory polyarthropathy 10/21/2020 Polyarthralgia 10/09/2020 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 10/03/2020 Myofascial pain 03/27/2020 Sacroiliitis, not elsewhere classified 0 Secondary polycythemia 12/05/2019 Back pain, chronic 11/21/2019 Status cardiac pacemaker 11/16/2019 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 Lumbar radicular pain 10/12/2019 Hip arthritis 08/17/2019 Hypertensive heart disease 07/27/2019 Other spondylosis, lumbar region 07/13/2019 Hip pain 07/07/2019 Numbness in right leg 03/28/2019 Anxiety 01/23/2019 Depression 01/23/2019 Lumbosacral spondylosis with radiculopathy 01/19 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 Solitary pulmonary nodule 06/22/2017 Overview (07/12/2024): has been found to be nipple shadow Insomnia 01/14/2017 Vitamin B12 deficiency (non anemic) 06/30/2016 Cardiac arrhythmia 06/25/2015 Overview (07/12/2024): SSS Coronary atherosclerosis 01/19/2013 Hyperlipidemia 01/19/2013 Immunizations Immunization Administration Dates Next Due Influenza, Unspecified 07/15/2020,06/25/2015 Influenza, injectable, quadrivalent 07/14,07/23/2022,07/15/2020,07/14,06/24/2018,06/13/2017,06/30/2016 ,06/25/2015 Moderna COVID-19 Vaccine (Re d Cap) 12+ years 08/01/2021,01/03/2021,12/03/2020 Pfizer Covid-19 Vaccine 12y+ , Patricio Protein, PF, Juan Francisco-Sucrose 07/27/2023 [employer] COVID-19 Vac cine (Ortiz Cap) 12+ years (juan francisco-sucrose) 12/18/2021 Pneumococcal Polysaccharide PPV23 07/14/2011,09/2010 SARS-CoV-2, Unspecified 01/17/2021,12/18/2020 Tdap 10/04/2023,09/27/2013 Zoster, Recombinant 05/13/2018,01/18/2018,2017 Family History Medical History Relation Name Comments Prostate cancer Father Relation Name Status Comments Father Social History Tobacco Use Types Packs/Day Years Used Date Smoking Tobacco: Every Day Cigarettes 1 50 Started: 1974; Last attempted to quit: 2013 Cigars Started: 2013 Passive Smoke Exposure: Never Smokeless Tobacco: Never Tobacco Cessation:Ready to Q uit: Not Asked; Counseling Given: Not Answered Comments:11/14 ppd Alcohol Use Standard Drinks/Week Comments No 0 (1 standard drink = 0.6 oz pur e alcohol) PHQ-2 Answer Date Recorded Patient Health Questionnaire-2 Score 0 07/12/2024 PHQ-2A Answer Date Recorded Patient Health Questionnaire-2 Score 0 04/05/2023 Sex and Gender Information Value Date Recorded Sex Assigned at Not on file Legal Sex Male 8:27 PM EDT Gender Identity Not on file Sexual Orientation Not on file Last Filed Vital Signs Vital Sign Reading Time Taken Comments Blood Pressure 106/69 07/19/2024 8:28 AM EST Pulse 84 07/19/2024 8:28 AM EST Temperature 36.8 C (98.2 F) 07/19/2024 8:28 AM EST Respiratory Rate 16 01/05/2024 10:54 AM EDT Oxygen Saturation 97% 07/19/2024 8:28 AM EST Inhaled Oxygen Concentration - - Weight 58.6 kg (129 lb 3 oz) 07/19/2024 8:28 AM EST Height 165.1 cm (5' 5 ) 07/19/2024 8:28 AM EST Body Mass Index 21.5 07/19/2024 8:28 AM EST Plan of Treatment Health Maintenance Due Date Last Done Comments [facility]-Hepatitis C Screening 1960 [facility]-Medicare Annual Wellness (AWV) 1960 [facility]-Infant/Child/Adol SDOH Screenings 1960 [facility]- SDOH Screenings 01/11/1978 [facility]-Adult SDOH Screenings 01/11/1978 CT Colonography 01/11/2005 Colonoscopy 01/11/2005 FIT-DNA 01/11/2005 FIT 01/11/2005 FOBT 01/11/2005 Sigmoidoscopy 01/11/2005 [facility]-Colorectal Cancer Screening 01/11/2005 [facility]-Lung Cancer Screening 01/11/2010 [facility]-Pneumococcal Vaccine: 50+ Years (2 of 2 - PCV) 07/14/2012 07/14/2011, 09/13/2010 [facility]-RSV Vaccine: 60+ Years or (1 - Risk 60-74 years 1-dose series) 2020 [id number] Vaccine ( season) 2024 07/27/2023, 06/03/2022, 12/18/2021, Additional history exists [facility]-Abdominal Aortic Aneurysm (AAA) Screening 01/11/2025 [facility]-Influenza Vaccine (#1) 05/14/202507/27, 07/23/2022, 07/15/2020, Additional history exists [facility]-Depression Screening 07/12/2025 07/12/2024 [facility]-DTaP,Tdap,and Td Vaccines (3 - Td or Tdap) 10/04/2033 10/04/2023, 09/27/2013 [facility]-Zoster Vaccines Completed 05/13/2018, 01/18/2018, 12/12/2017 HPV Vaccines Aged Out No longer eligi ble based on patient's age to complete this topic [facility]-HIB Vaccines Aged Out No longer e ligible based on patient's age to complete this topic [facility]-Hepatitis A Vaccines Aged Out No longer eligible based on patient's age to complete this topic [facility]-IPV Vaccines Aged Out No longer e ligible based on patient's age to complete this topic [facility]-Rotavirus Vaccines Aged Out No lo nger eligible based on patient's age to complete this topic Insurance [facility] MEDICARE Care Teams Advertising Coordinator Relationship Specialty Start Date End Date Brenda Sanchez MD [address] [place] [address] PCP - General 01/24/21
--- OUTSIDE RECORDS SUMMARY | 2025-03-26 09:52 | XMS_ITS | Data Portability ---
Author Organization [place] - [facility] - [place] & GLENNA Anderson ADMIN Address [address] [place] [id number] Care Team Providers Care Tailor Fitter Name Role Phone DEBBY ETIENNECY Primary Care Provider Assessment Encounter Date Assessment Date Assessment LastModified by Organization Details LastModified Time 11/15/2023 11/15/2023 Mr. Langley was referred by PCP for management of [...] conservative measures with minimal benefit. Regarding medications: [facility] was prescribing Hydrocodone APAP 5-325mg Q8 and Gabapentin 800mg Q8 which has been helpful for the pain. He would like to continue medications with [facility]. He mentions having medications until 12/03. I had a detailed discussion with the patient regarding treatment modalities and the respective risks/benefits. I educated the patient on the dangers/risks of long-term oral opioids, particularly with increasing age, these risks include respiratory depression, not excluding . I informed the patient that the goal of [facility] will be to incorporate a multi-modal [...] __ __ __ __ __ __ _ [facility] [place]: [id number] I have reviewed patient's ZULY report prior to prescribing Schedule II, III, and IV medications that require review by law. [email or web address] Not available 11/16/2023 09:46:36 12/03/2023 12/03/2023 Mr. Langley was referred by PCP for management of [...] lumbar RFA (last performed in 2019 by gee) which provided significant pain relief of greater [...] He would like to continue medications with [facility]. I had a detailed discussion with the patient regarding treatment modalities and the respective risks/benefits. I educated the patient on the dangers/risks of long-term oral opioids, particularly with increasing age, these risks include respiratory depression, not excluding . I informed the patient that the goal of [facility] will be to incorporate a multi-modal [...] discussed at follow up. - Schedule a [facility] L4-S1 - Reviewed lumbar x-ray today - [...] __ __ __ __ __ _ ZULY: [id number] I have reviewed patient's ZULY report prior [...] the risk of withdrawal and the differences. [email or web address] Not available 12/06/2023 09:32:29 Plan of Treatment Reminders Order Date Submit Date Provider Last Modified By Organization Details Last Modified Time Details Appointments Establifepoint health Visit 15 min 2024 11:00A M ELEANOR CASTRO NP Not available Not available Not available Lab drug screen, urine 2024 025 [facility] (Registration ), [address] [place] [address] , [place], [address], 11/30/2024 13:49:00 drug screen, urine 2023 024 talita [facility], [address], [place], [address], 12/03/2023 12:12:30 Referral None recorded . Procedures lumbar radiofre quency ablation (PROC) - 45157, 39669. BILATERA L LUMBAR RADIOFRQ UENCY ABLATION L4-S1 2023 024 MELISSA Blakely, [address] [place] [address] , [place], [address], 12/13/2023 11:36:32 medial branch block, lumbar (PROC) - 57016-23 , 69231-08 , BLMBB L4-S1 2023 024 [facility] Blakely, [address] , [place], [place], [address], 12/01/2023 08:32:57 Surgeries None recorded . Imaging XR, lumbar spine 2023 024 [facility] ([facility]), [address] , [place], [address], 11/15/2023 15:35:09 Medication Orders hydrocod one 5 mg-aceta minophen 325 mg tablet 2024 025 [facility], [address] [place] [address], [address], 02/06/2025 11:27:28 gabapent in 800 mg tablet 2024 025 [facility], [address] [place] [address], [address], 02/06/2025 11:27:27 cycloben zaprine 10 mg tablet 2024 025 [facility], [address] [place] [address], [address], 02/06/2025 11:27:25 hydrocod one 5 mg-aceta minophen 325 mg tablet 2024 025 [facility], [address] [place] [address], [address], 11/30/2024 11:35:57 gabapent in 800 mg tablet 2024 025 [facility] 156, [address] [place] [address], [address], 11/30/2024 11:35:56 cycloben zaprine 10 mg tablet 2024 025 [place] [address], [address] [place] [address], [address], 11/30/2024 11:35:49 Celebrex 200 mg capsule 2024 025 [facility]69, [address] [place], [address], 11/30/2024 11:35:50 hydrocod one 5 mg-aceta minophen 325 mg tablet [address] [facility], [address], [address], 12/08/2023 15:26:56 hydrocod one 5 mg-aceta minophen 325 mg tablet [address] [facility], [address], [address], 12/08/2023 15:26:59 gabapent in 800 mg tablet 2023 024 [facility], [address], [address], 12/08/2023 15:38:27 Patient TargetsNo targets recorded. Patient InstructionsNo instructions recorded. Reason for Referral None Reported. Results Created Date Observation Date Name Description Value Unit Range Abnormal Flag Note LastModifiedBy Organization Detail LastModifiedTime 12/03/1912/03/2023 drug scree n, urine Amphetamines negati ve Not Available [facility] [address], [place], [address], 12/03/2023 12:03:21 12/03/19 24 12/03/2023 drug scree n, urine Barbiturates negati ve Not Available [facility] [address], [place], [address], 12/03/2023 12:03:21 12/03/19 24 12/03/2023 drug scree n, urine Buprenorphin e negati ve Not Available [facility] [address], [place], [address], 12/03/2023 12:03:21 12/03/19 24 12/03/2023 drug scree n, urine Benzodiazepi leonor negati ve Not Available [facility] [address], [place], [address], 12/03/2023 12:03:21 12/03/19 24 12/03/2023 drug scree n, urine Cocaine negati ve Not Available [facility] [address], [place], [address], 12/03/2023 12:03:21 12/03/19 24 12/03/2023 drug scree n, urine Methamphetam ine negati ve Not Available [facility] [address], [place], [address], 12/03/2023 12:03:21 12/03/19 24 12/03/2023 drug scree n, urine Ecstasy negati ve Not Available [facility] [address], [place], [address], 12/03/2023 12:03:21 12/03/19 24 12/03/2023 drug scree n, urine Methadone negati ve Not Available [facility] [address], [place], [address], 12/03/2023 12:03:21 12/03/19 24 12/03/2023 drug scree n, urine Morphine/ Opiates negati ve Not Available [facility] [address], [place], [address], 12/03/2023 12:03:21 12/03/19 24 12/03/2023 drug scree n, urine Phencyclidin e negati ve Not Available [facility] [address], [place], [address], 12/03/2023 12:03:21 12/03/19 24 12/03/2023 drug scree n, urine Oxycodone negati ve Not Available [facility] [address], [place], [address], 12/03/2023 12:03:21 12/03/19 24 12/03/2023 drug scree n, urine Marijuana negati ve Not Available [facility] [address], [place], [address], 12/03/2023 12:03:21 12/01/19 25 11/30/2024 UR DRUG SCREE N note SEE NOTE Order ing Provi ja: DEMETRICE CALVIN LAND Not Available [address] [place], [place], [address], 11/30/2024 13:49:00 12/01/19 25 11/30/2024 UR DRUG SCREE N ur cocaine qual NEGATI VE 150NG /mL det limit= Not Available [address] [place], [address], 11/30/2024 13:49:00 12/01/19 25 11/30/2024 UR DRUG SCREE N ur cannabinoid( THC) qual NEGATI VE 50NG/ mL det limit= Not Available [address] [place], [address], 11/30/2024 13:49:00 12/01/19 25 11/30/2024 UR DRUG SCREE N ur amphetamine qual NEGATI VE 500NG /mL det limit= Not Available [address] [place], [address], 11/30/2024 13:49:00 12/01/19 25 11/30/2024 UR DRUG SCREE N ur barbiturate qual NEGATI VE 200NG /mL det limit= Not Available [address] , [place], [address], 11/30/2024 13:49:00 12/01/19 25 11/30/2024 UR DRUG SCREE N ur benzodiazepi ne qual NEGATI VE 200NG /mL det limit= Not Available [address] , [place], [address], 11/30/2024 13:49:00 12/01/19 25 11/30/2024 UR DRUG SCREE N ur opiates qual POSITI VE 300NG /mL det limit= abnormal Not Available [address] , [place], [address], 11/30/2024 13:49:00 12/01/19 25 11/30/2024 UR DRUG SCREE N ur phencyclidin e (pcp) qual NEGATI VE 25NG/ mL det limit= Not Available [address] [place], [place], [address], 11/30/2024 13:49:00 12/01/19 25 11/30/2024 UR DRUG SCREE N ur tricylic group qual POSITI VE 1000N G/m det limit= abnormal Not Available [address] [place], [address], 11/30/2024 13:49:00 12/01/19 25 11/30/2024 UR DRUG SCREE N methadone urine NEGATI VE 300NG /mL det limit= Not Available [address] , [place], [address], 11/30/2024 13:49:00 12/01/19 25 11/30/2024 UR DRUG SCREE N ur MDMA (ecstacy) ql NEGATI VE 500NG /mL det limit= Not Available [address] , [place], [address], 11/30/2024 13:49:00 12/01/19 25 11/30/2024 UR DRUG SCREE N ur oxycodone ql NEGATI VE 100NG /mL det limit= Not Available [address] , [place], [address], 11/30/2024 13:49:00 12/01/19 25 11/30/2024 UR DRUG SCREE N ur buprenorphin e qual NEGATI VE 10NG/ mL det limit= Not Available [address] , [place], [address], 11/30/2024 13:49:00 12/01/19 25 11/30/2024 UR DRUG SCREE N performing lab SEE NOTE [facility] [address] [facility] [address] Not Available [address] , [place], [address], 11/30/2024 13:49:00 12/01/19 25 11/30/2024 ANTID EPRES SHERRI PANEL UR GCMS note See Note Order ing Provi ja: DEMETRICE NASCIMENTO Not Available [address] [place], [place], [address], 12/07/2024 20:10:53 12/01/19 25 11/30/2024 ANTID EPRES SHERRI PANEL UR GCMS amitryptalin e Not Detect ed () Not Available [address] [place], [address], 12/07/2024 20:10:53 12/01/19 25 11/30/2024 ANTID EPRES SHERRI PANEL UR GCMS amoxapine Not Detect ed () Not Available [address] , [place], [address], 12/07/2024 20:10:53 12/01/19 25 11/30/2024 ANTID EPRES SHERRI PANEL UR GCMS 8-hydroxyamo xapine Not Detect ed () Not Available [address] , [place], [address], 12/07/2024 20:10:53 12/01/19 25 11/30/2024 ANTID EPRES SHERRI PANEL UR GCMS bupropion Not Detect ed () Not Available [address] , [place], [address], 12/07/2024 20:10:53 12/01/19 25 11/30/2024 ANTID EPRES SHERRI PANEL UR GCMS citalopram PRESEN T () Not Available [address] , [place], [address], 12/07/2024 20:10:53 12/01/19 25 11/30/2024 ANTID EPRES SHERRI PANEL UR GCMS desmethylcit alopram PRESEN T () Not Available [address] , [place], [address], 12/07/2024 20:10:53 12/01/19 25 11/30/2024 ANTID EPRES SHERRI PANEL UR GCMS clomipramine Not Detect ed () Not Available [address] [place], [address], 12/07/2024 20:10:53 12/01/19 25 11/30/2024 ANTID EPRES SHERRI PANEL UR GCMS desmethylclo mipramine Not Detect ed () Not Available [address] , [place], [address], 12/07/2024 20:10:53 12/01/19 25 11/30/2024 ANTID EPRES SHERRI PANEL UR GCMS desipramine Not Detect ed () Not Available [address] , [place], [address], 12/07/2024 20:10:53 12/01/19 25 11/30/2024 ANTID EPRES SHERRI PANEL UR GCMS doxepin Not Detect ed () Not Available [address] [place], [address], 12/07/2024 20:10:53 12/01/19 25 11/30/2024 ANTID EPRES SHERRI PANEL UR GCMS desmethyldox epin Not Detect ed () Not Available [address] [place], [address], 12/07/2024 20:10:53 12/01/19 25 11/30/2024 ANTID EPRES SHERRI PANEL UR GCMS duloxetine Not Detect ed () Not Available [address] [place], [address], 12/07/2024 20:10:53 12/01/19 25 11/30/2024 ANTID EPRES SHERRI PANEL UR GCMS fluoxetine Not Detect ed () Not Available [address] [place], [address], 12/07/2024 20:10:53 12/01/19 25 11/30/2024 ANTID EPRES SHERRI PANEL UR GCMS norfluoxetin e Not Detect ed () Not Available [address] [place], [address], 12/07/2024 20:10:53 12/01/19 25 11/30/2024 ANTID EPRES SHERRI PANEL UR GCMS fluvoxamine Not Detect ed () Not Available [address] [place], [address], 12/07/2024 20:10:53 12/01/19 25 11/30/2024 ANTID EPRES SHERRI PANEL UR GCMS imipramine Not Detect ed () Not Available [address] [place], [place], [address], 12/07/2024 20:10:53 12/01/19 25 11/30/2024 ANTID EPRES SHERRI PANEL UR GCMS mirtazapine Not Detect ed () Not Available [address] [place], [place], [address], 12/07/2024 20:10:53 12/01/19 25 11/30/2024 ANTID EPRES SHERRI PANEL UR GCMS nortriptylin e Not Detect ed () Not Available [address] [place], [place], [address], 12/07/2024 20:10:53 12/01/19 25 11/30/2024 ANTID EPRES SHERRI PANEL UR GCMS paroxetine Not Detect ed () Not Available [address] [place], [place], [address], 12/07/2024 20:10:53 12/01/19 25 11/30/2024 ANTID EPRES SHERRI PANEL UR GCMS protriptylin e Not Detect ed () Not Available [place] [address], [place], [address], 12/07/2024 20:10:53 12/01/19 25 11/30/2024 ANTID EPRES SHERRI PANEL UR GCMS sertraline Not Detect ed () Not Available [place] [address] [place], [address], 12/07/2024 20:10:53 12/01/19 25 11/30/2024 ANTID EPRES SHERRI PANEL UR GCMS desmethylser traline Not Detect ed () Not Available [place] [address], [place], [address], 12/07/2024 20:10:53 12/01/19 25 11/30/2024 ANTID EPRES SHERRI PANEL UR GCMS maprotiline Not Detect ed () Not Available [address] , [place], [address], 12/07/2024 20:10:53 12/01/19 25 11/30/2024 ANTID EPRES SHERRI PANEL UR GCMS nefazodone Not Detect ed () Not Available [address] , [place], [address], 12/07/2024 20:10:53 12/01/19 25 11/30/2024 ANTID EPRES SHERRI PANEL UR GCMS trazodone Not Detect ed () Not Available [address] , [place], [address], 12/07/2024 20:10:53 12/01/19 25 11/30/2024 ANTID EPRES SHERRI PANEL UR GCMS 1,3 chlorophenyl piperazine Not Detect ed () Not Available [address] , [place], [address], 12/07/2024 20:10:53 12/01/19 25 11/30/2024 ANTID EPRES SHERRI PANEL UR GCMS trimipramine Not Detect ed () Not Available [address] [place], [place], [address], 12/07/2024 20:10:53 12/01/19 25 11/30/2024 ANTID EPRES SHERRI PANEL UR GCMS venlafaxine Not Detect ed () Not Available [address] [place], [place], [address], 12/07/2024 20:10:53 12/01/19 25 11/30/2024 ANTID EPRES SHERRI PANEL UR GCMS desmethylven lafaxine Not Detect ed () Not Available [address] [place], [address], 12/07/2024 20:10:53 12/01/19 25 11/30/2024 ANTID EPRES SHERRI PANEL UR GCMS vilazodone Not Detect ed () Testi ng Thres hold: 50 or 100 ng/mL This test was devel oped and its perfo rmanc e mariely cteri stics deter mined by [facility]. It has not been clear ed or appro jeet by the Food and Drug Admin istra tion. Not Available [address] , [place], [address], 12/07/2024 20:10:53 12/01/19 25 11/30/2024 ANTID EPRES SHERRI PANEL UR GCMS hydroxybupro pion Not Detect ed () Not Available [address] , [place], [address], 12/07/2024 20:10:53 12/01/19 25 11/30/2024 ANTID EPRES SHERRI PANEL UR GCMS performing lab see note LC2 - [facility] LARRY T# [id number] [id number] [address] [place] [address] Not Available [address] [place], [address], 12/07/2024 20:10:53 12/01/19 25 11/30/2024 UR OPIAT ES GCMS note See Note Order ing Provi ja: DEMETRICE NASCIMENTO Not Available [address] [place], [address], 12/07/2024 20:10:53 12/01/19 25 11/30/2024 UR OPIAT ES GCMS ur opiates conf Positi ve NG/mL cutoff =300 abnormal Opiat e test inclu claudia Codei ne, Morph ine, [place] morph one, [place] codon e. . Confi rmati on perfo rmed by [facility] Not Available [address] , [place], [address], 12/07/2024 20:10:53 12/01/19 25 11/30/2024 UR OPIAT ES GCMS ur morphine Negati ve cutoff =300 Not Available [address] [place], [address], 12/07/2024 20:10:53 12/01/19 25 11/30/2024 UR OPIAT ES GCMS ur codeine Negati ve cutoff =300 Not Available [address] , [place], [address], 12/07/2024 20:10:53 12/01/19 25 11/30/2024 UR OPIAT ES GCMS ur hydrocodone Positi ve () abnormal Not Available [address] , [place], [address], 12/07/2024 20:10:53 12/01/19 25 11/30/2024 UR OPIAT ES GCMS ur hydromorphon e Negati ve cutoff =300 Not Available [address] , [place], [address], 12/07/2024 20:10:53 12/01/19 25 11/30/2024 UR OPIAT ES GCMS ur hydrocodone GC/MS conf 535 NG/mL cutoff =300 Perfo rmed At: MX, [facility] [address] [place], [address] Nina leroy, [facility] , Phone : [phone] Perfo rmed At: UI, [facility] [address] , [place], [address] Mireya Lacy , PhD, Phone : [phone] Not Available [address] [place], [address], 12/07/2024 20:10:53 12/01/19 25 11/30/2024 UR OPIAT ES GCMS performing lab see note LC2 - [facility] CLIEN T# [id number] [place] [address] Not Available [place] [address] [facility] , [place], [address], 12/07/2024 20:10:53 11/15/19 24 11/15/2023 XR, lumba r spine No observ ation record ed. [facility] (Radiology) [address] [place] [address] , [place], [address], 12/15/2023 08:49:45 Result Notes None recorded. Problems Name Problem SNOMED Code Status Onset Date Resolution Date Notes Provider Name and Address Organization Details Recorded Time Internal hemorrho ids 10429112 Active 2021 Brady Bailey MD [address] [place] [address],Joann te [address] [place] [address], [address], [place] - [facility] - [place] & [place] 2 07:02:02 Divertic ulosis of colon 450933560 Active 2021 Brady Bailey MD [address] [place] [address],Joann te [facility], [place], [address], [place] [facility] - [place] & [place] 2 07:02:09 Hematoch ezia 017145101 Completed 202111/10/2022 Removal Reason: resolved Brady Bailey MD [address] [place] [address],[address], [place], [address], [place] [facility] & [place] 3 12:59:58 Anxiety 99814691 Active 2021 Raj anderson, [place] - [facility] - [place] & [place] 2 12:11:33 Coronary arterios clerosis 55876910 Active 2021 Raj Hopper null, [place] - [facility] - [place] & [place] 2 12:11:45 Sleep apnea 43922500 Active 2021 Raj anderson, [place] - [facility] - & [place] 2 12:11:58 Cardiac pacemake r in situ 842873823 Active 2021 Raj Hopper null, [place] - [facility] - [place] & [place] 2 12:12:09 Indigest ion 833746193 Active 2021 Raj anderson, [place] - [facility] - [place] & [place] 2 12:12:21 Lumbar spondylo sis 975256442 Active 2023 Lakeisha Cheney null, [place] - [facility] - [place] & [place] 4 13:45:10 Myofasci al pain 153827688 Active 2023 Lakeisha Cheney null, [place] - [facility] - [place] & [place] 4 09:38:53 Inflamma tion of sacroili ac joint 96196577 Active 2023 Lakeisha Cheney null, [place] - [facility] - [place] & [place] 4 09:39:00 Degenera tion of lumbar interver tebral disc 44975140 Active 2023 Lakeisha Cheney null, [place] - [facility] - [place] & [place] 4 09:39:06 Opioid dependen ce 18884101 Active 2023 Lakeisha Cheney null, [place] - [facility] [place] & [place] 4 09:24:25 Problem Notes Documentation Provider Name and Address Organization Details Recorded Time Encounter Note : [facility] History Physical - Adult REPORT #: [id number] REPORT STATUS: Signed DATE: 07/03/24 TIME: 1148 PATIENT: KAYODE LANGLEY UNIT #: [id number] ROOM/BED: AGE: 64 SEX: M ATTEND: ELEANOR CASTRO APRN ADM AUTHOR: ELEANOR CASTRO APRN * ALL edits or amendments must be made on the electronic/computer document * History of Present Illness Reason for Visit: Routine Follow-Up Chief Complaint: LOW BACK PAIN Temperature: 96.7 Pulse: 88 Blood Pressure: 90/60 Respirations: 16 Pain Scale: 3 Pain location(s): LOW BACK Pain Description: BURNING ACHING SHOOTING Pain Frequency: FREQUENT Relief Measures: LYING DOWN REST HEAT Pain Radiate: NO Weakness: NO Increases Pain: SITTING,STANDING,WALKING Reduces Pain: LYING DOWN, REST, HEAT Pain Level In The Last Month: 8 Pain Level With Your Current Treatment: 3 Do you take Blood Thinners: Yes Which one: ASA Risks/Benefits of Meds discussed w/Patient: Yes Allergies: Coded Allergies: Bee Venom (Severe, DIFFICULTY BTEATHING/EDEMA 05/27/22) Uncoded Allergies: BEE STINGS (Severe, DIFFICULTY BREATHING/EDEMA 01/03/13) Bowel or Bladder Loss: NO Does this combination of Medication improve quality of life? Yes Problem List Currently Experiencing Issues: No Medical History changes since last visit: No Social History changes since last visit: No SAFE-T Triage Screening: No Office Note Office Note SubjecThe patient is here to follow up chronic back pain stating the 5 mg hydrocodone 4 times daily has helped tremendously. He previously was on oxycodone in the past with other pain management clinics. He has seen pain management at [facility] and had multiple procedures in which none provided lasting relief. We have discussed a spinal cord stimulator and he has not ready to try that at this point. His back pain stays in the middle of his low back consistent with lumbar spondylosis and facet arthropathy. He has not interested in having interventional procedures at this time. His CT of the lumbar spine shows disc bulge and ligamentum flavum hypertrophy L3 -L4, itql-ar-kbcbhyan spinal stenosis, L4-L5 disc bulge ligamentum flavum hypertrophy and mild bilateral facet arthropathy. Byef-qh-tlspkwlf spinal stenosis. L5-S1 disc osteophyte complex and mild left facet arthropathy. Mild- to-moderate spinal canal stenosis. The patient is currently taking gabapentin 800 mg two times a day, Flexeril 10 mg three times a day, and Celebrex 200 mg once a day. Zuly was reviewed today and is appropriate. Objective: Physical exam General appearance: Alert and oriented x3, awake, no acute distress Psych: Mood and affect appropriate. Speech fluent, words are clear. Thought process is coherent and logical with appropriate insight. No evidence of impairment or sedation. Head: Normocephalic Neck: Nontender Musculoskeletal: Moves all extremities, decreased ROM due to pain. Pain with flexion and extension both lower extremities. Mid and paraspinal back tenderness , pain with facet loading bilaterally Motor Strength: Biceps 5/5, triceps 5/5, brachioradialis 5/5 Gait: WNL David's test: neg Straight Leg Test: Pos Assessment Plan: 1. Lumbar radiculopathy, Lumbar Spondylosis, OA - Continue current medications: - Gabapentin 800 mg BID (previously TID) - Flexeril 10 mg TID - Celebrex 200 mg QD - hydrocodone 5/325mg QID PRN - Instruct patient to call for refill when about a week from running out - interventional pain management procedures discussed again, the patient will consider in the future. 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 Opioid Risk Score: 8 Office Procedure -- OFFICE PROCEDURE -- -- OFFICE PROCEDURE -- Post Procedure Post Procedure at 1155 RPT #: [id number] END OF REPORT CC'ed Logic: Ordering Provider: MATTHEW WEBSTER Attending Provider: MATTHEW WEBSTER Referring Provider: LOWELL PATEL Consulting Provider: LOWELL PATEL [facility] 10/30/2024 10:35:35 Clinic Note : [facility] History Physical - Adult REPORT #: [id number] REPORT STATUS: Signed DATE: 10/06/24 TIME: 1216 PATIENT: KAYODE LANGLEY UNIT #: [id number] ROOM/BED: AGE: 64 SEX: M ATTEND: ELEANOR CASTRO APRN ADM AUTHOR: ELEANOR CASTRO APRN * ALL edits or amendments must be made on the electronic/computer document * History of Present Illness Reason for Visit: Routine Follow-Up Chief Complaint: LOW BACK/BILATERAL HIP PAIN Temperature: 97.0 Pulse: 80 Blood Pressure: 110/74 Respirations: 16 Pain Scale: 4 Pain location(s): LOW BACK BILATERAL HIPS Pain Description: BURNING ACHING SHARP Pain Frequency: CONSTANT Relief Measures: LYING DOWN HEAT MEDICATION Pain Radiate: N Weakness: N Increases Pain: STANDING, WALKING Reduces Pain: LYING DOWN, HEAT, MEDS Pain Level In The Last Month: 9 Do you take Blood Thinners: Yes Which one: ASA Risks/Benefits of Meds discussed w/Patient: Yes Allergies: Coded Allergies: Bee Venom (Severe, DIFFICULTY BTEATHING/EDEMA 05/27/22) Uncoded Allergies: BEE STINGS (Severe, DIFFICULTY BREATHING/EDEMA 01/03/13) Bowel or Bladder Loss: NO Does this combination of Medication improve quality of life? Yes Problem List Currently Experiencing Issues: No Medical History changes since last visit: No Social History changes since last visit: No SAFE-T Triage Screening: Yes Office Note Office Note Subjective: The patient reports 70% relief from his current medication regimen. He is currently taking Celebrex 200 mg daily, Flexeril 10 mg twice a day, [place] 5-325 mg four times a day, and gabapentin 800 mg twice a day. The patient states he is doing well on this medication regimen. He denies any other issues at this time. The patient's current medications include: - Celebrex 200mg daily - Flexeril 10mg twice a day - [place] 5-325mg 4 times a day - Gabapentin 800mg twice a day Objective: Physical exam General appearance: Alert and oriented x3, awake, no acute distress Psych: Mood and affect appropriate. Speech fluent, words are clear. Thought process is coherent and logical with appropriate insight. No evidence of impairment or sedation. Head: Normocephalic Neck: Nontender Musculoskeletal: Limited ROM due to back pain, mid and para spinal pain with palpation. Back pain elicited with ROM of BLE Motor Strength: Biceps 5/5, triceps 5/5, brachioradialis 5/5 Gait: WNL Assessment Plan: 1. Lumbar Radiculopathy, Lumbar Spondylosis - Patient reports 70% relief from current medication regimen - Recent drug screen results were normal - Plan: a. Continue current medication regimen: - Celebrex 200 mg daily - Flexeril 10 mg twice daily - [place] 5-325 mg four times daily - Gabapentin 800 mg twice daily b. Refill medications c. Schedule follow-up appointment in 2 months 2. 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 Opioid Risk Score: 8 Office Procedure -- OFFICE PROCEDURE -- -- OFFICE PROCEDURE -- Post Procedure Post Procedure at 1220 RPT #: [id number] END OF REPORT CC'ed Logic: Ordering Provider: MATTHEW WEBSTER Attending Provider: MATTHEW WEBSTER Referring Provider: LOWELL PATEL Consulting Provider: LOWELL Vaz [facility], [place] - [place] [facility] & [place] 10/27/2024 09:38:16 Clinic Note : [facility] History Physical - Adult REPORT #: [id number] REPORT STATUS: Signed DATE: 10/06/24 TIME: 1216 PATIENT: KAYODE LANGLEY UNIT #: [id number] ROOM/BED: AGE: 64 SEX: M ATTEND: ELEANOR CASTRO APRN ADM AUTHOR: ELEANOR CASTRO APRN * ALL edits or amendments must be made on the electronic/computer document * See Addendum History of Present Illness Reason for Visit: Routine Follow-Up Chief Complaint: LOW BACK/BILATERAL HIP PAIN Temperature: 97.0 Pulse: 80 Blood Pressure: 110/74 Respirations: 16 Pain Scale: 4 Pain location(s): LOW BACK BILATERAL HIPS Pain Description: BURNING ACHING SHARP Pain Frequency: CONSTANT Relief Measures: LYING DOWN HEAT MEDICATION Pain Radiate: N Weakness: N Increases Pain: STANDING, WALKING Reduces Pain: LYING DOWN, HEAT, MEDS Pain Level In The Last Month: 9 Do you take Blood Thinners: Yes Which one: ASA Risks/Benefits of Meds discussed w/Patient: Yes Allergies: Coded Allergies: Bee Venom (Severe, DIFFICULTY BTEATHING/EDEMA 05/27/22) Uncoded Allergies: BEE STINGS (Severe, DIFFICULTY BREATHING/EDEMA 01/03/13) Bowel or Bladder Loss: NO Does this combination of Medication improve quality of life? Yes Problem List Currently Experiencing Issues: No Medical History changes since last visit: No Social History changes since last visit: No SAFE-T Triage Screening: Yes Office Note Office Note Subjective: The patient reports 70% relief from his current medication regimen. He is currently taking Celebrex 200 mg daily, Flexeril 10 mg twice a day, [place] 5-325 mg four times a day, and gabapentin 800 mg twice a day. The patient states he is doing well on this medication regimen. He denies any other issues at this time. The patient's current medications include: - Celebrex 200mg daily - Flexeril 10mg twice a day - [place] 5-325mg 4 times a day - Gabapentin 800mg twice a day Objective: Physical exam General appearance: Alert and oriented x3, awake, no acute distress Psych: Mood and affect appropriate. Speech fluent, words are clear. Thought process is coherent and logical with appropriate insight. No evidence of impairment or sedation. Head: Normocephalic Neck: Nontender Musculoskeletal: Limited ROM due to back pain, mid and para spinal pain with palpation. Back pain elicited with ROM of BLE Motor Strength: Biceps 5/5, triceps 5/5, brachioradialis 5/5 Gait: WNL Assessment Plan: 1. Lumbar Radiculopathy, Lumbar Spondylosis - Patient reports 70% relief from current medication regimen - Recent drug screen results were normal - Plan: a. Continue current medication regimen: - Celebrex 200 mg daily - Flexeril 10 mg twice daily - [place] 5-325 mg four times daily - Gabapentin 800 mg twice daily b. Refill medications c. Schedule follow-up appointment in 2 months 2. 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 at 0923 RPT #: [id number] END OF REPORT CC'ed Logic: Ordering Provider: MATTHEW WEBSTER Attending Provider: MATTHEW WEBSTER Referring Provider: LOWELL PATEL Consulting Provider: CHITRA Martinez [facility] & [place] 10/27/2024 09:36:22 Procedures Surgical History Date Name Laterality Status Provider Name and Address Organization Details Recorded Time Colonoscopy completed Raj MANZANARES [facility] & [place] 07/09/2022 12:16:50 4 Colonoscopy completed Raj BUENROSTRO - [place] - [place] & [place] 07/09/2022 12:17:14 thumb surgery completed Raj MANZANARES - [place] & [place] 07/09/2022 12:17:54 cardiac pacemaker procedure completed Raj MANZANARES - [place] & [place] 07/09/2022 12:18:03 Stent Placement completed aRj BUENROSTRO - [place] - [place] & [place] 07/09/2022 12:18:18 Stent Placement completed Raj BUENROSTRO - [facility] - [place] & [place] 07/09/2022 12:18:31 operative procedure on knee completed Raj MANZANARES [facility] & [place] 07/09/2022 12:18:53 Imaging Results None recorded. Procedure [...] Not Available atorvastati n 80 mg tablet once daily active Not Available Not Available No t Available sulfasalazi ne 500 mg tablet active [...] sulfate HFA 90 mcg/actuati on aerosol inhaler 02/06 completed Not Available Not Available Not Available Adult [...] No t Available Xarelto 20 mg tablet once daily active Not Available Not Available No t [...] Body temperature Heart rate Respiratory rate Systolic And Diastolic Provider Name and Address Organization Details Last Updated DateTime 3 160.02 cm 24.5 kg/m2 28230.1 8 g 97.7 [degF] 78 /min 18 /min 122/78 mm[Hg] Raj Hopper [facility] & [place] 3 12:33:45 Date Recorded Body weight Body temperature Oxygen saturation Oxygen saturation in Arterial blood by Pulse oximetry Heart rate Systolic And Diastolic Provider Name and Address Organization Details Last Updated DateTime 4 89349.5 3 g 97.8 [degF] 92 % 92 % 91 /min 94/69 mm[Hg] Chrystal Woo [facility] & [place] 4 13:25:29 Date Recorded Body temperature Oxygen saturation Oxygen saturation in Arterial blood by Pulse oximetry Heart rate Respiratory rate Systolic And Diastolic Provider Name and Address Organization Details Last Updated DateTime 5 97.3 [degF] 97 % 97 % 86 /min 16 /min 118/68 mm[Hg] Vernell Gregory [facility] & [place] 5 11:12:34 Date Recorded Body temperature Oxygen saturation Oxygen saturation in Arterial blood by Pulse oximetry Heart rate Respiratory rate Systolic And Diastolic Provider Name and Address Organization Details Last Updated DateTime 5 97.3 [degF] 97 % 97 % 82 /min 16 /min 120/76 mm[Hg] Mikayla Sanchez [facility] & [place] 5 11:15:06 Social History Question Answer Notes LastModified by [employer] Details LastModified Time Tobacco Smoking Status Current Every Day Smoker Raj Hopper null, [facility] & [place] 07/09/2022 12:15:27 What Is Your Level Of Caffeine Consumption? None Information not available 07/09/2022 What Type Of Diet Are You Following? VEGETARIAN Information not available 07/09/2022 How Many Children Do You Have? 0 Information not available 07/09/2022 What Is Your Relationship Status? Information not available 07/09/2022 How Much Tobacco Do You Smoke? 2 PPD Information not available 12/03/2023 Sex: Unknown Functional Status Question Answer Note LastModified by [employer] Details LastModified Time Do you use any illicit or recreational drugs? No Information not available 07/09/2022 What is your level of alcohol consumption? None Information not available 07/09/2022 What is your exercise level? Occasional Information not available 12/03/2023 Mental Status Question Answer Note LastModified by Organization D etails LastModified Time Do you feel stressed (tense, restless, nervous, or anxious, or unable to sleep at night)? CY2126-3 Information not available 12/03/2023 Family History Relationship Description Onset Age of this Age Resolved Age Notes LastModified by Organization Details LastModified Time Father Malignant neoplasm of prostate [id number] Not available 12/02 10:09:02 Maternal Uncle Malignant tumor of stomach [id number] Not available 12/02 10:09:02 Mother Diabetes mellitus [email or web address] Not available 12/02 10:09:02 Paternal Uncle Disease of liver [email or web address] Not available 2021 12:14:37 Paternal Uncle Malignant neoplastic disease Not available 12/02 10:09:02 Medical History Condition Response Coronary Artery Disease Y Gout N None N Colon Cancer N Kidney Stones N [...] completed Raj Hopper null, [place] - [facility] & [place] 07/09/2022 12:10:03 zoster recombinant 8 completed Raj Hopper null, [place] [facility] - [place] & [place] 07/09/2022 12:10:09 SARS-COV-2 (COVID-19) vaccine, UNSPECIFIED 1 completed Raj Hopper null, [place] [facility] - [place] & [place] 07/09/2022 12:10:30 SARS-COV-2 (COVID-19) vaccine, UNSPECIFIED 1 completed Raj Hopper null, [place] [facility] - [place] 07/09/2022 12:10:37 influenza, unspecified formulation 0 completed Raj Hopper null, [place] - [facility] [place] 07/09/2022 12:11:00 pneumococcal polysaccharide PPV23 1 completed Raj Hopper null, [place] [facility] - [place] 07/09/2022 12:11:23 SARS-COV-2 (COVID-19) vaccine, UNSPECIFIED 2 completed Raj Hopper null, [place] - [facility] - [place] 11/10/2022 12:36:27 Past Encounters Encounter ID Performer Location Encounter Start Date Encounter Closed Date Diagnosis/Indication Diagnosis SNOMED-CT Code Diagnosis ICD10 Code Diagnosis Note [id number] Brady Bailey MD [facility] [address] [place] [address] 07/09/2022 12:46:44 07/10/2022 14:13:23 Internal hemorrhoids 34863917 K64.8 The patient had internal hemorrhoid s [...] in 4 months. Diverticul osis of colon 947994340 K57.30 recommend patient take fiber as previously recommende d after his colonoscop y Hematochezia 212909070 K 92.1 related to patient's known hemorrhoid al disease. See recommenda tions above [id number] [facility] [address] [place] [address],[facility] [address] [place] [address] 11/10/2022 12:22:10 11/10/2022 12:59:27 Internal hemorrhoids 88315716 K64.8 the patient has internal hemorrhoid s remain asymptomat ic despite erratic use of fiber supplement ation, we counseled patient regarding the benefits of ongoing fiber supplement ation and/or a high-fiber diet. But at this time given the patient is doing well really that to his discretion despite our recommenda tions that long-term use might be beneficial . Diverticul osis of colon 281479822 K57.30 recommend patient take fiber as previously recommende d after his colonoscop y [id number] Toro Blakely MD [facility] [address] [place] [address] 11/15/2023 12:01:26 11/15/2023 13:50:53 Lumbar spondylosis 113432212 M47.816 Myofascial pain 69493010 9 M79.10 Inflammati on of sacroiliac joint 54698799 M46.1 Degenerati on of lumbar intervertebral disc 66749058 M51.36 [id number] Toro Blakely MD [facility] [address] [place] [address] 12/03/2023 10:00:23 12/03/2023 11:14:52 Lumbar spondylosis 508424435 M47.816 Opioid dependence 589632 00 F11.20 Myofascial pain 21845240 9 M79.10 Inflammati on of sacroiliac joint 77934135 M46.1 Degenerati on of lumbar intervertebral disc 89596872 M51.36 [id number] [facility] [address] [address] 11/30/2024 10:54:17 11/30/2024 11:40:05 Lumbar spondylosis 609230625 M47.816 Lumbar radiculopathy 128 716818 M54.16 Long-term current use of opiate analgesic drug 0295652884 94698 Z79.399 [id number] STEPHEN MERCEDES [facility] [address] [place] [address] 02/06/2025 10:58:56 02/06/2025 11:27:22 Lumbar spondylosis 867203458 M47.816 Lumbar radiculopathy 128 752119 M54.16 Long-term current use of opiate analgesic drug 5854193879 83476 Z79.891 Health Concerns Section Related Observation LastModified by Organization Detai ls LastModified Time None Recorded Concern Status LastModified by Organization Details LastModified Time None Recorded Advance Directives Directive None Recorded Payers Insurance Date Sequence Insurance Name Policy Number Policy Ortiz Covered Member ID Ortiz Member ID Guarantor Name 05/03/2023 2 [employer] [id number] Kayode Langley [id number] Kayode Langley 04/17/2024 2 [employer] [id number] Kayode Langley [id number] Kayode Langley 04/01/2024 1 [employer] [id number] Kayode Langley [id number] Kayode Langley 02/13/2025 [place]IT[place] Kayode Langley [id number] Kayode Langley 02/03/2025 2 [place]FS/TRADITIONA L Kayode Langley [id number] Kayode Langley 05/03/2023 1 [employer] (MEDICARE REPLACEMENT/AD VANTAGE - PPO) [id number] Kayode Langley [id number] Kayode Langley 04/17/2024 2 [facility]ICAID-[facility] - FFS/TRADITIONA L NONE Kayode Langley [id number] Kayode Langley 02/13/2025 1 [employer] (MEDICARE REPLACEMENT/AD VANTAGE - PPO) Kayode Langley [id number] Kayode Langley Notes Date Note Type Note Provider Name and Address Organization Details Recorded Time 3 text/html This is a 62-year-old male [...] red blood per rectum. Brady Bailey MD [address] [place] [address],[address], [place], [address], [facility] & [place] 11/10/2022 13:01:22 4 text/html Mr. Langley was referred by PCP for management of chronic low back pain. Patient denies DM of history of infection. Patient takes Aspirin daily. Patient was seeing [facility] which performed several injections for pain control (SI injections, LEI, TPIs, MBBs, RFA) along with tried/failed SCS trials with Medtronic and Musementro. They were also prescribing Hydrocodone APAP 5-325mg Q8 and Gabapentin 800mg Q8 which has been helpful for the pain. He would like to continue medications with [facility]. He mentions having medications until 12/03. He mentions that the most helpful injection was the MBBs (L4-S1) and lumbar RFA (last performed in 2019 by [facility]) which provided significant pain relief of [...] Medications: Hydrocodone APAP 5-325mg Q8, Gabapentin 800mg O4Cdmpz Pain Medications: noneNSAIDS/OTC: mildly helpfulNon-interventiona l Tx: nonePhysical Therapy: complete - continues exercisesInterventional Tx: SI injections, LEIs, TPIs, MBBs, lumbar RFA - painSurgery: noneImaging/Studies: no recent imaging Toro Blakely MD [facility], [place], [address], [facility] - [place] & [place] 11/17/2023 11:34:37 4 text/html Mr. Langley was referred by PCP for management of chronic low back pain. Patient denies DM of history of infection. Patient takes Aspirin daily. Patient was seeing pain which performed several injections for pain control (SI injections, LEI, TPIs, MBBs, RFA) along with tried/failed SCS trials with Medtronic and Musementro. He mentions that the most helpful injection was the MBBs (L4-S1) and lumbar RFA (last performed in 2019 by [facility]) which provided significant pain relief of [...] also wanting to discuss medication continuation with [facility]. He is currently taking Hydrocodone APAP 69032uc Q8 and Gabapentin 800mg Q8. Pain today [...] Medications: Hydrocodone APAP 5-325mg Q8, Gabapentin 800mg [id number] Pain Medications: noneNSAIDS/OTC: mildly helpfulNon-interventiona l Tx: nonePhysical Therapy: complete - continues exercisesInterventional Tx: SI injections, LEIs, TPIs, MBBs, lumbar RFA - painSurgery: noneImaging/Studies: no recent imaging Toro Blakely MD [address] [facility], [place], [address], [facility] - [place] & [place] 12/08/2023 15:38:37 5 text/html 64 yo male [...] 200mg daily , Flexeril 10mg BID , [place] 5-325mg QID and Gabapentin 800 mg BID. [...] mg daily- Flexeril 10 mg twice daily- [place] 5-325 mg four times daily- Gabapentin 800 mg twice dailyb. Refill medicationsc. Schedule follow-up appointment in 2 months2. Medication Tolerance- Patient tolerating medications well with no reported side effectsODI SCORE(Percentage):Kwame james TERRITORY SALES REPRESENTATIVE: YOpioid Risk Score: 8Pain level at rest: [...] alcohol consumption: None ELEANOR CASTRO NP [address] [place], [address], [facility] 11/30/2024 13:02:53 text/html 64 yo male in today for f/u r/t low back pain. Pain is rated at 5/10, and has gotten up to 10/10 in the last month. He describes pain as frequent, sharp, burning, aching. Standing and walking makes pain worse, lying down, rest and medication makes it better. Pain does not radiate nor cause weakness. Does not cause loss of bowel or bladder. Currently taking Celebrex 200mg daily , Flexeril 10mg BID , [place] 5-325mg QID and Gabapentin 800 mg BID. Patient has seen pain mgmt in the past and had procedures which did not help. He is not interested in a shoulder injection at this time. Pain level at rest: 5/10Pain level w/activity: 10/10Feeling down depressed or hopeless: NoAre you having little interest or pleasure in doing things: NoHave you had any falls with injury in the past year: NoDo you use any illicit or recreation drugs: NoDo you or have you ever smoked tobacco: Yes - currentWhat is your level of alcohol consumption: None ELEANOR CASTRO NP [address] [place], [address], [facility] & [place] 02/06/2025 11:27:34
[2025-03-26 10:09] LABS: Hematocrit 48.9 % (42.0-52.0); Hemoglobin 16.2 g/dL (14.1-18.0); Immature Granulocytes % 0.3 %; Mean Corpuscular HGB Conc 33.1 g/dL (31.8-35.4); Mean Corpuscular Hemoglobin 32.0 pg (27.0-31.2); Mean Corpuscular Volume 96.6 fl (80-94); Nucleated Red Blood Cells % 0 %; Platelet Count 189 K/mm3 (142-424); Red Blood Count 5.06 M/mm3 (4.60-6.20); Red Cell Distribution Width-SD 48.4 fL; White Blood Count 6.6 K/mm3 (4.8-10.8)
[2025-03-27 11:22] LABS: Testosterone,Total 741 ng/dL (264-916)
== END 2025-03-26 23:59 | disposition home or self-care (01) ==
LOC: LAB 09:50
PROVIDERS: PCP Family Medicine; Visit Provider Urology
DX: N40.0 Benign prostatic hyperplasia without lower urinary tract symptoms (principal); N52.9 Male erectile dysfunction, unspecified; R53.83 Other fatigue
CPT/HCPCS: 36415; 84270; 84403; 85025

== ENCOUNTER 2025-06-20 15:22 | Outpatient (CLI) | payer MEDICARE, MEDICAID, SELFPAY ==
--- NOTE | 2025-06-20 15:27 | XR_ITS ---
FINAL REPORT CLINICAL HISTORY: pacemaker placement evaluation, going to have a replacement soon COMPARISON: CT chest 12/22/2024 FINDINGS: PA and lateral views of the chest are obtained. The cardiac and mediastinal silhouettes are within normal limits. Left-sided pacemaker is present. Nodular density projected over the anterior right 1st rib is likely related to the rib itself when compared with the CT chest from December. The lungs are otherwise clear. There is no pleural effusion, pneumothorax, or acute osseous abnormality. IMPRESSION: No radiographic evidence of acute cardiac or pulmonary disease. Reviewed, Interpreted and Dictated by Farhana Prieto MD Transcribed by Mildred Kruse Authenticated and [facility]
== END 2025-06-20 23:59 | disposition home or self-care (01) ==
LOC: RAD 15:23
PROVIDERS: PCP Family Medicine; Visit Provider Nurse Practitioner Family
DX: I49.9 Cardiac arrhythmia, unspecified (principal); R42 Dizziness and giddiness; Z95.0 Presence of cardiac pacemaker
CPT/HCPCS: 71046

== ENCOUNTER 2025-07-04 09:04 | Day surgery (SDC) | payer MEDICARE, MEDICAID, SELFPAY ==
[2025-07-04] VITALS (9 sets, daily range): BP systolic 116–154; BP diastolic 70–96; PULSE 75–101; RESP 16–20; TEMP 36.9; O2SAT 91–98; BMI 21.2
--- NOTE | 2025-07-04 07:11 | IR_ITS ---
APPROVED REPORT Patient Location: Outpatient [employer] Inspector: KATE Llamas RT (R) PROCEDURES 1. Pocket Revision 2. Removal of old pacemaker 3. Capping of chronic right atrial lead 4. Insertion of permanent right atrial lead 5. Implant of permanent pacemaker INDICATION END OF BATTERY LIFE, Atrial lead not working properly Informed consent was obtained prior to the procedure. COMPLICATIONS NONE Estimated Blood Loss: LESS THAN 10 ML TECHNIQUE 1% Lidocaine with epinephrine used to anesthetized the left anterior aspect of the chest. Scalpel was used to make the initial cutaneous incision then was used to dissect down tinto the fascia and existing pacemaker generator. The generator was removed from the existing pocket. Digital manipulation was required along with intermitten use of a scalpel to revise the pocket. The atrail lead was removed from the generator. The chronic right atrial lead was capped. The patient was then placed in Trendelenburg position and the subclavian vein was accessed once via the Selinger technique, there is one wire in the vein. A 6 Romanian sheath was placed under fluoroscopic guidance into the subclavian vein over the wire. The dilator was removed from the sheath. Using fluoroscopic guidance, the atrial lead was the placed into the right atrial appendage and screwed and secured in place. Electrical interrogation demonstrated acceptable thresholds and voltage number. The atrial lead was then secured into place using 3-0 silk. 1 gram of Ancef was used to flush the pocket. Following the pacemaker generator being secured to the fascia and in place, Monocryl was used to close the subcutaneous layers while erik were used to close the cutaneous layer. A pressure dressing was placed and the patient was transferred to the postop holding area in stable condition for postoperative care. INTERROGATION Generator Model number: Rod [facility] [id number] Generator Serial number: [id number] Atrial lead model number: Tendril STS 2088TC Atrial lead serial number: [id number] P-wave: 5.0 mV Impedance: 960 Ohms Threshold: 1.0V @ 0.4ms Right Ventricular lead model number: 1688 TL/58 Right Ventricular lead serial number: [id number] R-wave: 10 mV Impedance: 580 Ohms Threshold: 1.0V @ 0.4ms Pacing Parameters: Mode: DDDR Base/Max Track:70 ppm / 130 ppm No diaphragmatic stimulation at 10 volts. Capped Lead: Atrial lead model number: 1882TC/52 Atrial lead serial number: [id number] Explanted Generator: Endurity 2160 Serial number: [id number] IMPRESSION 1. Successful Pocket Revision 2. Successful Removal of old pacemaker 3. Successful Capping of chronic right atrial lead 4. Successful Insertion of permanent right atrial lead 5. Successful Implant of permanent pacemaker PLAN 1. Postop wound care. Electronically signed by : Akash Sultana MD 07/06/2025 14:34:11
[2025-07-04 09:44] LABS: Hematocrit 47.4 % (42.0-52.0); Hemoglobin 16.3 g/dL (14.1-18.0); Immature Granulocytes % 0.3 %; Mean Corpuscular HGB Conc 34.4 g/dL (31.8-35.4); Mean Corpuscular Hemoglobin 32.3 pg (27.0-31.2); Mean Corpuscular Volume 94.0 fl (80-94); Nucleated Red Blood Cells % 0 %; Platelet Count 219 K/mm3 (142-424); Red Blood Count 5.04 M/mm3 (4.60-6.20); Red Cell Distribution Width-SD 45.4 fL; White Blood Count 7.7 K/mm3 (4.8-10.8)
[2025-07-04 09:45] LABS: Chloride 103 mmol/L (98-107)
[2025-07-04 09:46] LABS: Potassium 3.9 mmoL/L (3.5-5.1); Sodium 138 mmol/L (136-145)
[2025-07-04 09:48] LABS: Blood Urea Nitrogen 14 mg/dl (9-20); Creatinine Clearance Estimated 60 mL/min (50-200); Creatinine,Serum 0.90 mg/dl (0.66-1.25); Estimated Glomerular Filt Rate 85 ml/min (>60); GFR (African American) 102 ML/MIN (>60)
[2025-07-04 09:49] LABS: Anion Gap 8.9 mEq/L (5-15); Calcium 8.4 mg/dl (8.4-10.2); Carbon Dioxide 30 mmol/L (22.0-30.0); Glucose 103 mg/dl (74-100)
--- NOTE | 2025-07-04 10:51 | EXP.ANES.CKL ---
[facility] Disclaimer: The information contained in this section may have been updated after the patient was seen, as this information can be updated by other users. Medical History Pacemaker generator end of life Pacemaker lead malfunction Paroxysmal A-fib Hypotension Dyspnea on exertion Encounter for screening for malignant neoplasm of lung in current smoker with 30 pack year history or greater Smoking greater than 30 pack years History of pacemaker Inspiratory wheezing Dizziness Abnormal echocardiogram Angina, class IV History of supraventricular tachycardia Surgical History History of heart artery stent History of surgery on upper extremity History of surgery on lower extremity Family History Other Cancer Hypertension Social History Smoking Status: Current every day smoker tobacco type: cigarettes packs per day: 1 second hand exposure: Yes alcohol intake: never substance use type: denies use current occupational status: employed Travel in the last 8 weeks?: None household members: spouse housing: house current occupational exposures/hazards: No caffeine: No Have you lived/traveled outside [place] in past 30 days?: No Contact w/someone who lives/traveled outside [place] past 30 days?: No Exposure to someone with infectious disease in past 14 days?: No Do you have a fever (greater than 100.4 F or 38 C)?: No Have you tested positive for COVID-19?: No Exposed to someone with COVID-19 in past 14 days?: No Do you have a sore throat?: No Do you have a cough?: No Do you have any weakness?: No Do you have any diarrhea?: No Are you experiencing any unusual bleeding?: No Do you have any muscle aches/pain?: No Do you have any abdominal pain?: No Are you experiencing loss of taste or smell?: No [facility] Anesthesia Checklist Patient Identification Patient Identification: Arm Band and Verbal (Name & ) Structural Data Admitted From: Home Planned Operative Procedure/s: pacemaker generator exchange underwriting consultant replacmenet Consent for Planned Operative Procedure(s) Verified: Yes Verified Documents: Surgical Consent and History and Physical NPO Status Verified Time NPO: 00:00 Additional verifications Anesthesia Reactions: No Airway Assessment Mallampati Score:: Class II Dentition: Partials Neurological Assessment Level of Consciousness: Awake, Alert and Appropriate Hx Seizures: No Numbness or tingling in extremities: No Anesthesia Plan ASA Class: III Anesthesia Type: MAC
[2025-07-04] MEDS: LIDOCAINE 1% W/EPI 1:100,000 20ML VIAL 20 ML SQ (12:46)
--- NOTE | 2025-07-04 13:40 | XR_ITS ---
FINAL REPORT CLINICAL HISTORY: Confirm pacemaker/AID placement COMPARISON: 06/20/2025 FINDINGS: A single frontal view of the chest was obtained. No acute pulmonary opacity is present. There is no evidence of effusion or pneumothorax. There has been interval placement of an additional right atrial lead. There are 2 leads within the right atrium in 1 within the ventricle. Heart size is normal. IMPRESSION: Interval placement of additional right atrial pacer lead. Reviewed, Interpreted and Dictated by Contreras Saldana MD Transcribed by Mildred Kruse Authenticated and . [facility]
== END 2025-07-04 15:10 | disposition home or self-care (01) ==
LOC: CATHLAB 09:05
PROVIDERS: PCP Family Medicine; Visit Provider Internal Medicine
PROC: 0JWT0PZ Revision of Cardiac Rhythm Related Device in Trunk Subcutaneous Tissue and Fascia, Open Approach (ICD-10-PCS; CPT 33223; 2025-07-04 07:30)
PROC: 0JPT0PZ Removal of Cardiac Rhythm Related Device from Trunk Subcutaneous Tissue and Fascia, Open Approach (ICD-10-PCS; 2025-07-04 07:30)
DX: T82.110A Breakdown (mechanical) of cardiac electrode, initial encounter (principal); Z45.010 Encounter for checking and testing of cardiac pacemaker pulse generator [battery]; I47.10 Supraventricular tachycardia, unspecified; I48.0 Paroxysmal atrial fibrillation; I25.10 Atherosclerotic heart disease of native coronary artery without angina pectoris; Z95.5 Presence of coronary angioplasty implant and graft; F17.210 Nicotine dependence, cigarettes, uncomplicated; Z79.01 Long term (current) use of anticoagulants; Z79.890 Hormone replacement therapy; Z79.899 Other long term (current) drug therapy; D75.1 Secondary polycythemia; E78.2 Mixed hyperlipidemia; I11.9 Hypertensive heart disease without heart failure; G47.33 Obstructive sleep apnea (adult) (pediatric); Z82.49 Family history of ischemic heart disease and other diseases of the circulatory system
CPT/HCPCS: 33206; 33233; 71045; 80048; 85025; C1785; C1898; J1200; J2004; J2250; J2704; J3010

== ENCOUNTER 2025-07-11 09:46 | Outpatient (CLI) | payer MEDICARE, MEDICAID, SELFPAY ==
--- NOTE | 2025-07-11 09:48 | XR_ITS ---
FINAL REPORT CLINICAL HISTORY: cad - checking new pacemaker leads x 6 days COMPARISON: 07/04/2025 FINDINGS: 2 views of the chest were obtained . The heart is normal in size. There is a left-sided pacemaker in place. Leads appear unchanged from prior exam. The mediastinum is within normal limits. The lungs are clear. There is no pneumothorax. Osseous structures are unremarkable. IMPRESSION: No acute cardiopulmonary process. Reviewed, Interpreted and Dictated by Jus Meier MD Transcribed by Nicole Schmidt Authenticated and [facility]
--- OUTSIDE RECORDS SUMMARY | 2025-07-11 10:10 | XMS_ITS | Data Portability ---
Author Organization Formerly [facility] Address [address] [place] [address] Care Team Providers Care Associate Professor Of Philosophy Name Role Phone CHARLES SULTANA Referring Provider JENNY HAMEED Referring Provider [phone] DANIEL PAN Referring Provider Assessment Encounter Date Assessment Date Assessment LastModified by Organization Details LastModified Time 12/20/2023 12/20/2023 we are unable to do several of the labs that he needs. will send him to the hospital with orders for the labs draw nguttman Not available 12/20/2023 11:26:23 04/07/2024 04/07/2024 controlled drug contract reviewed and signed 09/17/22 UDS 09/17/22 nguttman Not available 04/07/2024 09:13:49 Plan of Treatment Reminders Order Date Submit Date Provider Last Modified By Organization Details Last Modified Time Details Appointments Medicare AWE 40mins 2025 09:50A M Nghia Lincoln MD Not available Not available Not available Lab testoster one, free + total, serum 2024 025 [facility], [address] [place], [address], 10/01/2024 04:07:08 CBC w/ auto diff 2024 025 [facility], [address] [place], [address], 10/01/2024 04:07:05 CMP, serum or plasma 2024 025 [facility], [address] [place], [address], 10/01/2024 04:07:06 lipid panel, serum 2024 025 [facility], [address] [place] [address], [id number], 10/01/2024 04:07:07 lipid panel, serum 2023 024 [facility], [address] [place] [address], [id number], 04/08/2024 04:11:28 CMP, serum or plasma 2023 024 [facility], [address] [place] [address], [address], 04/08/2024 04:11:27 protein + creatinin e panel, urine 2023 024 [facility], [address] [place] [address], [id number], 12/27/2023 19:52:16 ferritin, serum or plasma 2023 024 [facility], [address] [place] [address], [address], 12/21/2023 08:26:20 iron + total iron-bind ing capacity (TIBC), serum 2023 024 [facility], [address] [place] [address], [id number], 12/21/2023 08:26:18 CBC w/ auto diff 2023 024 [facility], [address] [place] [address], [id number], 12/21/2023 08:26:15 gamma-glu tamyl transfera se (ggt), serum [address], [address], 12/21/2023 08:26:19 hepatitis panel (A+B+C), acute, serum 2023 024 [facility], [address] [place], [address], 12/21/2023 08:26:17 hepatic function panel, serum 2023 024 [facility], [address] [place], [address], 12/21/2023 08:26:16 Referral urologist referral - for testoster one replaceme nt. 2024 MELISSA Richardson III, MD, [address], [place], [address], 10/30/2024 13:07:49 Procedures None recorded. Surgeries None recorded. Imaging None recorded. Medication Orders atorvasta tin 80 mg tablet 2024 025 [facility], [address], [place], [address], 03/29/2025 11:14:55 famotidin e 40 mg tablet 2024 025 [facility], [address], [place], [address], 03/29/2025 11:14:50 buspirone 10 mg tablet 2024 025 [facility], [address], [place], [address], 03/29/2025 11:14:51 citalopra m 40 mg tablet 2024 025 [facility], [address], [place], [address], 03/29/2025 11:14:56 hydroxyzi ne HCl 25 mg tablet 2024 025 [facility], [address], [place], [address], 03/29/2025 11:14:53 cyanocoba morales (vit B-12) 1,000 mcg tablet 2024 025 [facility], [address], [place], [address], 03/29/2025 11:14:50 celecoxib 200 mg capsule 2024 025 [facility], [address], [place], [address], 03/29/2025 11:14:51 cyclobenz aprine 10 mg tablet 2024 025 [facility], [address], [place], [address], 03/29/2025 11:14:53 atorvasta tin 80 mg tablet 2024 025 [facility], [address], [place], [address], 09/27/2024 11:13:51 famotidin e 40 mg tablet 2024 025 [facility], [address], [place], [address], 09/27/2024 11:13:50 buspirone 10 mg tablet 2024 025 [facility], [address], [place], [address], 09/27/2024 11:13:51 citalopra m 40 mg tablet 2024 025 [facility], [address], [place], [address], 09/27/2024 11:13:49 hydroxyzi ne HCl 25 mg tablet 2024 025 [facility], [address], [place], [address], 09/27/2024 11:13:49 cyanocoba morales (vit B-12) 1,000 mcg tablet 2024 025 [facility], [address], [place], [address], 09/27/2024 11:13:50 celecoxib 200 mg capsule 2024 025 [facility], [address], [place], [address], 09/27/2024 11:13:48 cyclobenz aprine 10 mg tablet 2024 025 [facility], [address], [place], [address], 09/27/2024 11:13:50 atorvasta tin 80 mg tablet 2023 024 [facility], [address], [place], [address], 04/07/2024 09:23:08 famotidin e 40 mg tablet 2023 024 [facility], [address] , [place], [address], 04/07/2024 09:23:09 buspirone 10 mg tablet 2023 024 [facility], [address] , [place], [address], 04/07/2024 09:23:07 duloxetin e 30 mg capsule,d elayed release 2023 024 [facility], [address], [place], [address], 05/01/2024 20:38:49 Patient TargetsNo targets recorded. 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 Referring Physician: Nghia Lincoln, Family Medicine, Encounter Date: 09/27/2024 Results Created Date Observation Date Name Description Value Unit Range Abnormal Flag Note LastModifiedBy Organization Detail LastModifiedTime 12/20/19 24 12/21/2023 CBC WITH DIFFE RENTI AL/PL ATELE T WBC 7.3 x10e3 /uL 3.4-10 .8 Not Available [facility] ([facility]) [address] [place], [address], 12/21/2023 08:26:15 12/20/1912/21/2023 CBC WITH DIFFE RENTI AL/PL ATELE T RBC 4.73 x10e6 /uL 4.14-5 .80 Not Available [facility] ([facility]) [address] [place], [address], 12/21/2023 08:26:15 12/20/1912/21/2023 CBC WITH DIFFE RENTI AL/PL ATELE T hemoglobin 15.9 g/dL 13.0-1 7.7 Not Available [facility] ([facility]) [address] [place], [address], 12/21/2023 08:26:15 12/20/19 24 12/21/2023 CBC WITH DIFFE RENTI AL/PL ATELE T hematocrit 45.3 % 37.5-5 1.0 Not Available [facility] ([facility]) [address] [facility], [place], [address], 12/21/2023 08:26:15 12/20/19 24 12/21/2023 CBC WITH DIFFE RENTI AL/PL ATELE T MCV 96 fL 79-97 Not Available [facility] ([facility]) [address] [facility], [place], [address], 12/21/2023 08:26:15 12/20/19 24 12/21/2023 CBC WITH DIFFE RENTI AL/PL ATELE T MCH 33.6 pg 26.6-3 3.0 above high normal Not Available [facility] ([facility]) [address] [facility], [place], [address], 12/21/2023 08:26:15 12/20/19 24 12/21/2023 CBC WITH DIFFE RENTI AL/PL ATELE T MCHC 35.1 g/dL 31.5-3 5.7 Not Available [facility] ([facility]) [address] [facility], [place], [address], 12/21/2023 08:26:15 12/20/19 24 12/21/2023 CBC WITH DIFFE RENTI AL/PL ATELE T RDW 14.5 % 11.6-1 5.4 Not Available [facility] ([facility]) [address] [facility], [place], [address], 12/21/2023 08:26:15 12/20/19 24 12/21/2023 CBC WITH DIFFE RENTI AL/PL ATELE T platelets 212 x10e3 /uL 150-45 0 Not Available [facility] ([facility]) [address] [facility], [place], [address], 12/21/2023 08:26:15 12/20/19 24 12/21/2023 CBC WITH DIFFE RENTI AL/PL ATELE T neutrophils 57 % not estab. Not Available [facility] ([facility]) [address] [facility], [place], [address], 12/21/2023 08:26:15 12/20/19 24 12/21/2023 CBC WITH DIFFE RENTI AL/PL ATELE T lymphs 31 % not estab. Not Available [facility] ([facility]) [address] [facility], [place], [address], 12/21/2023 08:26:15 12/20/19 24 12/21/2023 CBC WITH DIFFE RENTI AL/PL ATELE T monocytes 9 % not estab. Not Available [facility] ([facility]) [address] [facility], [place], [address], 12/21/2023 08:26:15 12/20/19 24 12/21/2023 CBC WITH DIFFE RENTI AL/PL ATELE T eos 3 % not estab. Not Available [facility] ([facility]) [address] [facility], [place], [address], 12/21/2023 08:26:15 12/20/19 24 12/21/2023 CBC WITH DIFFE RENTI AL/PL ATELE T basos 0 % not estab. Not Available [facility] ([facility]) [address] [facility], [place], [address], 12/21/2023 08:26:15 12/20/19 24 12/21/2023 CBC WITH DIFFE RENTI AL/PL ATELE T immature cells FINAL ASSEMBLY INSPECTOR Not Available [facility] ([facility]) [address] [facility], [place], [address], 12/21/2023 08:26:15 12/20/19 24 12/21/2023 CBC WITH DIFFE RENTI AL/PL ATELE T neutrophils (absolute) 4.2 x10e3 /uL 1.4-7. 0 Not Available [facility] ([facility]) [address] [facility], [place], [address], 12/21/2023 08:26:15 12/20/19 24 12/21/2023 CBC WITH DIFFE RENTI AL/PL ATELE T lymphs (absolute) 2.2 x10e3 /uL 0.7-3. 1 Not Available [facility] ([facility]) [address] [facility], [place], [address], 12/21/2023 08:26:15 12/20/19 24 12/21/2023 CBC WITH DIFFE RENTI AL/PL ATELE T monocytes(ab solute) 0.6 x10e3 /uL 0.1-0. 9 Not Available [facility] ([facility]) [address] [place], [address], 12/21/2023 08:26:15 12/20/19 24 12/21/2023 CBC WITH DIFFE RENTI AL/PL ATELE T eos (absolute) 0.2 x10e3 /uL 0.0-0. 4 Not Available [facility] ([facility]) [address] [place], [address], 12/21/2023 08:26:15 12/20/19 24 12/21/2023 CBC WITH DIFFE RENTI AL/PL ATELE T baso (absolute) 0.0 x10e3 /uL 0.0-0. 2 Not Available [facility] ([facility]) [address] [place], [address], 12/21/2023 08:26:15 12/20/19 24 12/21/2023 CBC WITH DIFFE RENTI AL/PL ATELE T immature granulocytes 0 % not estab. Not Available [facility] ([facility]) [address] [place], [address], 12/21/2023 08:26:15 12/20/19 24 12/21/2023 CBC WITH DIFFE RENTI AL/PL ATELE T immature grans (abs) 0.0 x10e3 /uL 0.0-0. 1 Not Available [facility] ([facility]) [address] [place], [address], 12/21/2023 08:26:15 12/20/19 24 12/21/2023 CBC WITH DIFFE RENTI AL/PL ATELE T NRBC FINAL ASSEMBLY INSPECTOR Not Available [facility] ([facility]) [address], [place], [address], 12/21/2023 08:26:15 12/20/19 24 12/21/2023 CBC WITH DIFFE RENTI AL/PL ATELE T hematology comments: FINAL ASSEMBLY INSPECTOR Not Available [facility] ([facility]) [address], [place], [address], 12/21/2023 08:26:15 12/20/19 24 12/21/2023 HEPAT IC FUNCT ION PANEL (7) protein, total 6.4 g/dL 6.0-8. 5 Not Available [facility] ([facility]) [address] [place], [address], 12/21/2023 08:26:16 12/20/19 24 12/21/2023 HEPAT IC FUNCT ION PANEL (7) albumin 4.3 g/dL 3.9-4. 9 Not Available [facility] ([facility]) [address] [place], [address], 12/21/2023 08:26:16 12/20/19 24 12/21/2023 HEPAT IC FUNCT ION PANEL (7) bilirubin, total 0.3 mg/dL 0.0-1. 2 Not Available [facility] ([facility]) [address] [place], [address], 12/21/2023 08:26:16 12/20/19 24 12/21/2023 HEPAT IC FUNCT ION PANEL (7) bilirubin, direct 0.12 mg/dL 0.00-0 .40 Not Available [facility] ([facility]) [address] [place], [address], 12/21/2023 08:26:16 12/20/19 24 12/21/2023 HEPAT IC FUNCT ION PANEL (7) alkaline phosphatase 121 IU/L 44-121 Not Available [facility] ([facility]) [address] [place], [address], 12/21/2023 08:26:16 12/20/19 24 12/21/2023 HEPAT IC FUNCT ION PANEL (7) AST (SGOT) 18 IU/L 0-40 Not Available [facility] ([facility]) [address] [place], [address], 12/21/2023 08:26:16 12/20/19 24 12/21/2023 HEPAT IC FUNCT ION PANEL (7) ALT (SGPT) 24 IU/L 0-44 Not Available [facility] ([facility]) [address] [place], [address], 12/21/2023 08:26:16 12/20/19 24 12/21/2023 ACUTE HEPAT ITIS hep A Ab, IgM Negati ve negati ve Not Available [facility] ([facility]) [address] [place], [address], 12/21/2023 08:26:17 12/20/19 24 12/21/2023 ACUTE HEPAT ITIS HBsAg screen Negati ve negati ve Not Available [facility] ([facility]) [address] [place], [address], 12/21/2023 08:26:17 12/20/19 24 12/21/2023 ACUTE HEPAT ITIS hep B core Ab, IgM Negati ve negati ve Not Available [facility] ([facility]) [address] [place], [address], 12/21/2023 08:26:17 12/20/19 24 12/21/2023 ACUTE HEPAT ITIS HCV Ab Non Reacti ve non reacti ve Not Available [facility] ([facility]) [address] [place], [address], 12/21/2023 08:26:17 12/20/19 24 12/21/2023 ACUTE HEPAT ITIS interpretati on: Commen t Not infec krystyna with HCV unles s early or acute infec tion is suspe cted (whic h may be delay ed in an immun ocomp romis ed indiv idual ), or other evide nce exist s to indic ate HCV infec tion. Not Available [facility] ([facility]) [address] [facility], [place], [address], 12/21/2023 08:26:17 12/20/19 24 12/21/2023 IRON AND TIBC iron bind.cap.(TI BC) 287 ug/dL 250-45 0 Not Available [facility] ([facility]) [address] [place], [address], 12/21/2023 08:26:18 12/20/19 24 12/21/2023 IRON AND TIBC UIBC 175 ug/dL 111-34 3 Not Available [facility] ([facility]) [address] [place], [address], 12/21/2023 08:26:18 12/20/19 24 12/21/2023 IRON AND TIBC iron 112 ug/dL 38-169 Not Available [facility] ([facility]) [address] [place], [address], 12/21/2023 08:26:18 12/20/19 24 12/21/2023 IRON AND TIBC iron saturation 39 % 15-55 Not Available [facility] ([facility]) [address] [place], [address], 12/21/2023 08:26:18 12/20/19 24 12/21/2023 GGT GGT 34 IU/L 0-65 Not Available [facility] ([facility]) [address] [place], [address], 12/21/2023 08:26:19 12/20/19 24 12/21/2023 CASTRO TIN ferritin 53 NG/mL 30-400 Not Available [facility] ([facility]) [address] [facility] [place], [address], 12/21/2023 08:26:19 04/07/20 24 04/08/2024 COMP. METAB OLIC PANEL (14) glucose 87 mg/dL 70-99 normal Not Available [facility] ([facility]) [address] [facility] [place], [address], 04/08/2024 04:11:27 04/07/20 24 04/08/2024 COMP. METAB OLIC PANEL (14) BUN 13 mg/dL 8-27 normal Not Available [facility] ([facility]) [address] [place], [address], 04/08/2024 04:11:27 04/07/20 24 04/08/2024 COMP. METAB OLIC PANEL (14) creatinine 1.10 mg/dL 0.76-1 .27 normal Not Available [facility] ([facility]) [address] [place], [address], 04/08/2024 04:11:27 04/07/20 24 04/08/2024 COMP. METAB OLIC PANEL (14) eGFR 75 mL/mi n/1.7 3 >59 normal Not Available [facility] ([facility]) [address] [place], [address], 04/08/2024 04:11:27 04/07/20 24 04/08/2024 COMP. METAB OLIC PANEL (14) BUN/creatini ne ratio 12 10-24 normal Not Available [facility] ([facility]) [address] [place], [address], 04/08/2024 04:11:27 04/07/20 24 04/08/2024 COMP. METAB OLIC PANEL (14) sodium 134 mmol/ L 134-14 4 normal Not Available [facility] ([facility]) [address] [facility] [place], [address], 04/08/2024 04:11:27 04/07/20 24 04/08/2024 COMP. METAB OLIC PANEL (14) potassium 4.8 mmol/ L 3.5-5. 2 normal Not Available [facility] ([facility]) [address] [facility] [place], [address], 04/08/2024 04:11:27 04/07/20 24 04/08/2024 COMP. METAB OLIC PANEL (14) chloride 99 mmol/ L 96-106 normal Not Available [facility] ([facility]) [address] [facility] [place], [address], 04/08/2024 04:11:27 04/07/20 24 04/08/2024 COMP. METAB OLIC PANEL (14) carbon dioxide, total 23 mmol/ L 20-29 normal Not Available [facility] ([facility]) [address] [facility] [place], [address], 04/08/2024 04:11:27 04/07/20 24 04/08/2024 COMP. METAB OLIC PANEL (14) calcium 8.9 mg/dL 8.6-10 .2 normal Not Available [facility] ([facility]) [address] [facility] [place], [address], 04/08/2024 04:11:27 04/07/20 24 04/08/2024 COMP. METAB OLIC PANEL (14) protein, total 6.3 g/dL 6.0-8. 5 normal Not Available [facility] ([facility]) [address] [facility] [place], [address], 04/08/2024 04:11:27 04/07/20 24 04/08/2024 COMP. METAB OLIC PANEL (14) albumin 4.1 g/dL 3.9-4. 9 normal Not Available [facility] ([facility]) [address] [place], [address], 04/08/2024 04:11:27 04/07/20 24 04/08/2024 COMP. METAB OLIC PANEL (14) globulin, total 2.2 g/dL 1.5-4. 5 Not Available [facility] ([facility]) [address] [place], [address], 04/08/2024 04:11:27 04/07/20 24 04/08/2024 COMP. METAB OLIC PANEL (14) bilirubin, total 0.4 mg/dL 0.0-1. 2 normal Not Available [facility] ([facility]) [address] [place], [address], 04/08/2024 04:11:27 04/07/20 24 04/08/2024 COMP. METAB OLIC PANEL (14) alkaline phosphatase 113 IU/L 44-121 normal Not Available [facility] ([facility]) [address] [place], [address], 04/08/2024 04:11:27 04/07/20 24 04/08/2024 COMP. METAB OLIC PANEL (14) AST (SGOT) 22 IU/L 0-40 normal Not Available [facility] ([facility]) [address] [place], [address], 04/08/2024 04:11:27 04/07/20 24 04/08/2024 COMP. METAB OLIC PANEL (14) ALT (SGPT) 20 IU/L 0-44 normal Not Available [facility] ([facility]) [address] [place], [address], 04/08/2024 04:11:27 04/07/20 24 04/08/2024 LIPID PANEL cholesterol, total 120 mg/dL 100-19 9 normal Not Available [facility] ([facility]) [address] [place], [address], 04/08/2024 04:11:28 04/07/20 24 04/08/2024 LIPID PANEL triglyceride s 204 mg/dL 0-149 above high normal Not Available [facility] ([facility]) [address] [place], [address], 04/08/2024 04:11:28 04/07/20 24 04/08/2024 LIPID PANEL HDL cholesterol 30 mg/dL >39 below low normal Not Available [facility] ([facility]) [address] [place], [address], 04/08/2024 04:11:28 04/07/20 24 04/08/2024 LIPID PANEL VLDL cholesterol frandy 34 mg/dL 5-40 Not Available [facility] ([facility]) [address] [place], [address], 04/08/2024 04:11:28 04/07/20 24 04/08/2024 LIPID PANEL LDL chol calc ([facility]) 56 mg/dL 0-99 Not Available [facility] ([facility]) [address] [place], [address], 04/08/2024 04:11:28 04/07/20 24 04/08/2024 LIPID PANEL LDL calc comment: FINAL ASSEMBLY INSPECTOR Not Available [facility] ([facility]) [address] [place], [address], 04/08/2024 04:11:28 09/27/19 25 09/28/2024 CBC WITH DIFFE RENTI AL/PL ATELE T WBC 7.2 x10e3 /uL 3.4-10 .8 normal Not Available [facility] ([facility]) [address] [place], [address], 10/01/2024 04:07:05 09/27/19 25 09/28/2024 CBC WITH DIFFE RENTI AL/PL ATELE T RBC 4.88 x10e6 /uL 4.14-5 .80 normal Not Available [facility] ([facility]) [address] [place], [address], 10/01/2024 04:07:05 09/27/1909/28/2024 CBC WITH DIFFE RENTI AL/PL ATELE T hemoglobin 16.4 g/dL 13.0-1 7.7 normal Not Available [facility] ([facility]) [address] [place], [address], 10/01/2024 04:07:05 09/27/1909/28/2024 CBC WITH DIFFE RENTI AL/PL ATELE T hematocrit 48.9 % 37.5-5 1.0 normal Not Available [facility] ([facility]) [address] [place], [address], 10/01/2024 04:07:05 09/27/1909/28/2024 CBC WITH DIFFE RENTI AL/PL ATELE T MCV 100 fL 79-97 above high normal Not Available [facility] ([facility]) [address] [place], [address], 10/01/2024 04:07:05 09/27/1909/28/2024 CBC WITH DIFFE RENTI AL/PL ATELE T MCH 33.6 pg 26.6-3 3.0 above high normal Not Available [facility] ([facility]) [address] [place], [address], 10/01/2024 04:07:05 09/27/1909/28/2024 CBC WITH DIFFE RENTI AL/PL ATELE T MCHC 33.5 g/dL 31.5-3 5.7 normal Not Available [facility] ([facility]) [address] [place], [address], 10/01/2024 04:07:05 09/27/1909/28/2024 CBC WITH DIFFE RENTI AL/PL ATELE T RDW 12.3 % 11.6-1 5.4 Not Available [facility] ([facility]) [address] [facility], [place], [address], 10/01/2024 04:07:05 09/27/1909/28/2024 CBC WITH DIFFE RENTI AL/PL ATELE T platelets 244 x10e3 /uL 150-45 0 normal Not Available [facility] ([facility]) [address] [facility], [place], [address], 10/01/2024 04:07:05 09/27/1909/28/2024 CBC WITH DIFFE RENTI AL/PL ATELE T neutrophils 60 % not estab. normal Not Available [facility] ([facility]) [address] [facility], [place], [address], 10/01/2024 04:07:05 09/27/1909/28/2024 CBC WITH DIFFE RENTI AL/PL ATELE T lymphs 27 % not estab. normal Not Available [facility] ([facility]) [address] [facility], [place], [address], 10/01/2024 04:07:05 09/27/1909/28/2024 CBC WITH DIFFE RENTI AL/PL ATELE T monocytes 9 % not estab. normal Not Available [facility] ([facility]) [address] [facility], [place], [address], 10/01/2024 04:07:05 09/27/1909/28/2024 CBC WITH DIFFE RENTI AL/PL ATELE T eos 3 % not estab. normal Not Available [facility] ([facility]) [address] [facility], [place], [address], 10/01/2024 04:07:05 09/27/1909/28/2024 CBC WITH DIFFE RENTI AL/PL ATELE T basos 1 % not estab. normal Not Available [facility] ([facility]) [address] [facility], [place], [address], 10/01/2024 04:07:05 09/27/1909/28/2024 CBC WITH DIFFE RENTI AL/PL ATELE T immature cells FINAL ASSEMBLY INSPECTOR Not Available [facility] ([facility]) [address] [facility], [place], [address], 10/01/2024 04:07:05 09/27/1909/28/2024 CBC WITH DIFFE RENTI AL/PL ATELE T neutrophils (absolute) 4.4 x10e3 /uL 1.4-7. 0 normal Not Available [facility] ([facility]) [address] [place], [address], 10/01/2024 04:07:05 09/27/1909/28/2024 CBC WITH DIFFE RENTI AL/PL ATELE T lymphs (absolute) 2.0 x10e3 /uL 0.7-3. 1 normal Not Available [facility] ([facility]) [address] [place], [address], 10/01/2024 04:07:05 09/27/1909/28/2024 CBC WITH DIFFE RENTI AL/PL ATELE T monocytes(ab solute) 0.6 x10e3 /uL 0.1-0. 9 normal Not Available [facility] ([facility]) [address] [place], [address], 10/01/2024 04:07:05 09/27/1909/28/2024 CBC WITH DIFFE RENTI AL/PL ATELE T eos (absolute) 0.2 x10e3 /uL 0.0-0. 4 normal Not Available [facility] ([facility]) [address] [place], [address], 10/01/2024 04:07:05 09/27/19 25 09/28/2024 CBC WITH DIFFE RENTI AL/PL ATELE T baso (absolute) 0.0 x10e3 /uL 0.0-0. 2 normal Not Available [facility] ([facility]) [address] [facility], [place], [address], 10/01/2024 04:07:05 09/27/19 25 09/28/2024 CBC WITH DIFFE RENTI AL/PL ATELE T immature granulocytes 0 % not estab. Not Available [facility] ([facility]) [address] [facility], [place], [address], 10/01/2024 04:07:05 09/27/1909/28/2024 CBC WITH DIFFE RENTI AL/PL ATELE T immature grans (abs) 0.0 x10e3 /uL 0.0-0. 1 Not Available [facility] ([facility]) [address] [facility], [place], [address], 10/01/2024 04:07:05 09/27/1909/28/2024 CBC WITH DIFFE RENTI AL/PL ATELE T NRBC FINAL ASSEMBLY INSPECTOR Not Available [facility] ([facility]) [address] [facility], [place], [address], 10/01/2024 04:07:05 09/27/1909/28/2024 CBC WITH DIFFE RENTI AL/PL ATELE T hematology comments: FINAL ASSEMBLY INSPECTOR Not Available [facility] ([facility]) [address] [facility], [place], [address], 10/01/2024 04:07:05 09/27/1909/28/2024 COMP. METAB OLIC PANEL (14) glucose 108 mg/dL 70-99 above high normal Not Available [facility] ([facility]) [address] [facility] [place], [address], 10/01/2024 04:07:06 09/27/1909/28/2024 COMP. METAB OLIC PANEL (14) BUN 16 mg/dL 8-27 normal Not Available [facility] ([facility]) [address] [place], [address], 10/01/2024 04:07:06 09/27/19 25 09/28/2024 COMP. METAB OLIC PANEL (14) creatinine 1.00 mg/dL 0.76-1 .27 normal Not Available [facility] ([facility]) [address] [place], [address], 10/01/2024 04:07:06 09/27/19 25 09/28/2024 COMP. METAB OLIC PANEL (14) eGFR 84 mL/mi n/1.7 3 >59 normal Not Available [facility] ([facility]) [address] [place], [address], 10/01/2024 04:07:06 09/27/19 25 09/28/2024 COMP. METAB OLIC PANEL (14) BUN/creatini ne ratio 16 10-24 normal Not Available [facility] ([facility]) [address] [facility] [place], [address], 10/01/2024 04:07:06 09/27/19 25 09/28/2024 COMP. METAB OLIC PANEL (14) sodium 139 mmol/ L 134-14 4 normal Not Available [facility] ([facility]) [address] [facility] [place], [address], 10/01/2024 04:07:06 09/27/19 25 09/28/2024 COMP. METAB OLIC PANEL (14) potassium 5.6 mmol/ L 3.5-5. 2 above high normal Not Available [facility] ([facility]) [address] [place], [address], 10/01/2024 04:07:06 09/27/19 25 09/28/2024 COMP. METAB OLIC PANEL (14) chloride 102 mmol/ L 96-106 normal Not Available [facility] ([facility]) [address] [facility] [place], [address], 10/01/2024 04:07:06 09/27/19 09/28/2024 COMP. METAB OLIC PANEL (14) carbon dioxide, total 21 mmol/ L 20-29 normal Not Available [facility] ([facility]) [address] [place], [address], 10/01/2024 04:07:06 09/27/19 25 09/28/2024 COMP. METAB OLIC PANEL (14) calcium 9.3 mg/dL 8.6-10 .2 normal Not Available [facility] ([facility]) [address] [place], [address], 10/01/2024 04:07:06 09/27/1909/28/2024 COMP. METAB OLIC PANEL (14) protein, total 6.7 g/dL 6.0-8. 5 normal Not Available [facility] ([facility]) [address] [place], [address], 10/01/2024 04:07:06 09/27/19 25 09/28/2024 COMP. METAB OLIC PANEL (14) albumin 4.4 g/dL 3.9-4. 9 normal Not Available [facility] ([facility]) [address] [place], [address], 10/01/2024 04:07:06 09/27/19 25 09/28/2024 COMP. METAB OLIC PANEL (14) globulin, total 2.3 g/dL 1.5-4. 5 Not Available [facility] ([facility]) [address] [facility], [address], 10/01/2024 04:07:06 09/27/1909/28/2024 COMP. METAB OLIC PANEL (14) bilirubin, total 0.3 mg/dL 0.0-1. 2 normal Not Available [facility] ([facility]) [address] [facility], [address], 10/01/2024 04:07:06 09/27/19 25 09/28/2024 COMP. METAB OLIC PANEL (14) alkaline phosphatase 127 IU/L 44-121 above high normal Not Available [facility] ([facility]) [address] [place], [address], 10/01/2024 04:07:06 09/27/19 25 09/28/2024 COMP. METAB OLIC PANEL (14) AST (SGOT) 28 IU/L 0-40 normal Not Available [facility] ([facility]) [address] [place], [address], 10/01/2024 04:07:06 09/27/19 25 09/28/2024 COMP. METAB OLIC PANEL (14) ALT (SGPT) 27 IU/L 0-44 normal Not Available [facility] ([facility]) [address] [place], [address], 10/01/2024 04:07:06 09/27/19 25 09/28/2024 LIPID PANEL cholesterol, total 137 mg/dL 100-19 9 normal Not Available [facility] ([facility]) [address] [place], [address], 10/01/2024 04:07:07 09/27/19 25 09/28/2024 LIPID PANEL triglyceride s 149 mg/dL 0-149 normal Not Available [facility] ([facility]) [address] [place], [address], 10/01/2024 04:07:07 09/27/19 25 09/28/2024 LIPID PANEL HDL cholesterol 39 mg/dL >39 below low normal Not Available [facility] ([facility]) [address] [place], [address], 10/01/2024 04:07:07 09/27/19 25 09/28/2024 LIPID PANEL VLDL cholesterol frandy 26 mg/dL 5-40 Not Available [facility] ([facility]) [address] [place], [address], 10/01/2024 04:07:07 09/27/19 25 09/28/2024 LIPID PANEL LDL chol calc ([facility]) 72 mg/dL 0-99 Not Available [facility] (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) [address] [facility], [place], [address], 10/01/2024 04:07:07 09/27/19 25 09/28/2024 TESTO STERO NE,FR EE AND TOTAL testosterone 682 NG/dL 264-91 6 normal Adult male refer ence inter luis eduardo is based on a popul ation of healt hy nonob mekhi males (BMI <30) betwe en 19 and 39 years old. Edmond damian et.al . JCEM 2017, 102;1 161-1 173. PMID: 20207 103. Not Available [facility] ([facility]) [address] [place], [address], 10/01/2024 04:07:08 09/27/19 25 10/01/2024 TESTO STERO NE,FR EE AND TOTAL free testosterone (direct) 8.8 pg/mL 6.6-18 .1 Not Available [facility] ([facility]) [address] [place], [address], 10/01/2024 04:07:08 12/01/19 24 12/01/2023 LDCT, chest , for lung cance r scree miguel angel No observ ation record ed. [facility] [address], [place], [address], 12/01/2023 20:04:47 12/23/19 25 12/22/2024 LDCT, chest , for lung cance r scree miguel angel No observ ation record ed. [facility] [address], [place], [address], 12/25/2024 10:22:06 06/21/2006/20/2025 CT, chest , w/o contr ast No observ ation record ed. [facility] [address], [place], [address], 06/21/2025 12:59:23 07/04/2007/04/2025 XR, chest , 2 view No observ ation record ed. [address], [place], [address], 07/04/2025 16:36:59 Result Notes None recorded. Problems Name Problem SNOMED Code Status Onset Date Resolution Date Notes Provider Name and Address Organization Details Recorded Time Coronary atherosc lerosis 332542431 Completed 201207/20/2017 Brenda Sanchez MD [address], [place], [address], [place] [facility] 10:47:54 Hyperlip idemia 04799302 Active 2012 [facility] [address], [place], [address], [place] [facility] 16:52:40 Anxiety 17316763 Active 2014 [facility] [address], [place], [address], [place] [facility] 16:51:32 Cardiac arrhythm ia 292640952 Active 2014 [facility] [address], [place], [address], [place] [facility] 16:52:09 Cobalami n deficien cy 606947082 Completed 201506/30/2016 Brenda Sanchez MD [address], [place], [address], [place] [facility] 09:18:50 Vitamin B12 deficien cy (non anemic) 99588492 Active 2015 Brenda Sanchez MD [address], [place], [address], [place] [facility] 10:47:54 Insomnia 282658141 Active 2016 Brenda Sanchez MD [address], [place], [address], [place] [facility] 10:35:23 Solitary nodule of lung 898218434 Active 2016 has been found to be nipple shadow Brenda Sanchez MD [address], [place], [address], [place] [facility] 09:08:31 Coronary atherosc lerosis 512779157 Active 2016 Brenda Sanchez MD [address], [place], [address], [place] [facility] 10:47:54 Generali zed osteoart hritis 532595278 Active 2016 Brenda Sanchez MD [address], [place], [address], [place] [facility] 10:47:54 Polycyth emia vera (clinica l) 933428950 Completed 201707/27/2019 Brenda Sanchez MD [address], [place], [address], [place] [facility] 13:51:40 Tobacco user 658036446 Active 2018 Brenda Sanchez MD [address], [place], [address], [place] [facility] 10:47:54 Long-ter m drug therapy Completed 201801/24/2021 Brenda Sanchez MD [address], [place], [address], [place] [facility] 11:08:33 Hyperten sive heart disease 67232953 Completed 201809/26/2019 Brenda Sanchez MD [address], [place], [address], [place] [facility] 10:47:54 Peripher al vascular disease 208226917 Active 2018 Brenda Sanchez MD [address], [place], [address], [place] [facility] 10:47:54 Neuropat hy 644679381 Active 2018 Brenda Sanchez MD [address], [place], [address], [place] [facility] 10:47:54 Hyperten sive heart disease 69411399 Active 2019 Brenda Sanchez MD [address], [place], [address], [place] [facility] 10:47:54 Secondar y polycyth emia 80897690 Active 2019 Brenda Sanchez MD [address], [place], [address], [place] [facility] 10:47:54 Chronic bronchit is 20601331 Active 2020 Brenda Sanchez MD [address], [place], [address], [place] [facility] 10:47:54 Cardiac pacemake r in situ 496851691 Active 2021 Brenda Sanchez MD [address], [place], [address], [place] [facility] 10:47:54 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 296292351 Active 2021 since age 22 yrs Brenda Sanchez MD [address], [place], [address], [place] [facility] 10:49:12 Inflamma tory polyarth ropathy 155704377 Active 2022 Brenda Sanchez MD [address], [place], [address], [place] [facility] 07:26:01 Obstruct ran sleep apnea syndrome 74421114 Active 2023 Brenda Sanchez MD [address], [place], [address], [place] [facility] 11:28:02 Chondroc alcinosi s 913623423 Active 2023 Brenda Sanchez MD [address], [place], [address], [place] [facility] 11:28:04 Nonulcer dyspepsi a 2152364 Active 2024 [place] - [facility] 5 08:27:41 Problem Notes Documentation Provider Name and Address Organization Details Recorded Time Pain Management Consult Note : [facility] History Physical - Adult REPORT #: [id number] REPORT STATUS: Signed DATE: 01/24/24 TIME: 932 PATIENT: KAYODE LANGLEY UNIT #: [id number] ROOM/BED: AGE: 64 SEX: M ATTEND: ELEANOR CASTRO APRN ADM AUTHOR: ELEANOR CASTRO APRN * ALL edits or amendments must be made on the electronic/computer document * History of Present Illness Chief complaint: Lumbar radiculopathy HPI: Kayode returned today to follow up lumbar pain with occasion radiculopathy . He has seen pain management at [facility] in [place] in [facility]. He has had 2 stimulator trials which failed he has had multiple epidural injections and nerve blocks. He did have an RFA which helped with the right leg pain but the low back is still consistent. He currently takes Flexeril 10 mg 3 times daily, Celebrex 200 mg daily, gabapentin 800 mg 3 times daily, and [place] 5/325 3 times daily. He has not interested in a pain pump or surgery at this time. He would like to discuss options so he can have a little better quality of life. He describes his pain as constant, sharp, burning and sitting, standing, walking makes it worse. He is here for medication refill at this time, pain rating today is 4/10, and 10/10 at its worst. ABDULAZIZ is 44 % today. Sitting or lying down gives them a little relief along with using the heat, ice, and home stretching exercises as needed. No new complaints at this time. Surya has been reviewed and is appropriate. REVIEW OF SYSTEMS: General: Negative for fever, chills, fatigue HEENT: Negative for headache, changes in hearing or vision Skin: Negative for color changes Respiratory: Negative for shortness of breath, cough Cardiovascular: Negative for chest pain, leg swelling GI: Negative for nausea, vomiting, constipation MSK : Low back pain Neurological: Negative for syncope, dizziness, numbness/tingling, weakness. Denies sudden bowel/bladder incontinence, saddle anesthesia concerns Psych: Negative for agitation, mood changes, No SI General: Well developed, no acute distress Head: normocephalic Eyes: EOM intact. No conjunctival injection or discharge. Anicteric. Ears: external ears WNL. Nose: No rhinorrhea or erythema Skin: Intact. No color changes or rash Respiratory: Non-labored respiratory effort Cardiovascular: Regular rate MSK: Lumbar pain, David's test negative bilaterally straight leg Test positive bilaterally ROM: Within normal limits all 4 extremities. Motor Strength: 5/5 strength biceps, 5/5 strength brachioradialis, 5/5 strength triceps. Neurological: Cranial nerves intact Psych: Mood and affect appropriate. Speech fluent, words are clear. Thought process is coherent and logical with appropriate insight. No evidence of impairment or sedation. Diagnoses: 1. Lumbar spinal stenosis 2. Lumbar radiculopathy 3. Degenerative disc disease Assessment and Plan: I will refill his Flexeril 10 mg 3 times daily, Celebrex 200 mg daily, will increase the gabapentin 800 mg to 4 times daily and [place] 5/325 to 4 times daily. I did speak to him about the MILD procedure versus a pain pump. He was given information regarding these procedures and we will follow up in 1 month to discuss referral to Dr. Pretty. I have reviewed the chief complaint, history of present illness, current medications, past medical history, family history, surgical history, allergies as well as review of systems. This portion of the record was completed using Carat[employer]ane dictation. We do our best to catch mistakes by the [employer] system, but some dictation system mistakes may not be identified. If something does not make sense, please do not hesitate to contact our office so we can correct the record and clarify it for you. Medications Home Medications: Medication Dose/Rte/Freq Days Qty Entered Last Max Daily Dose Reviewed ASPIRIN (ASPIRIN EC) 81 MG PO HS 01/05/13 01/24/24 Strength: 81 MG TABLET 8429 0845 SOTALOL HCL (BETAPACE) 80 MG PO BID 10/06/16 01/24/24 Strength: 80 MG TAB 1352 0845 CELECOXIB (CeleBREX) 200 MG PO DAILY 10/06/16 01/24/24 Strength: 200 MG CAPSULE 1352 0846 ATORVASTATIN CALCIUM 40 MG PO HS 04/04/14 01/24/24 (LIPITOR) 1110 0846 Strength: 20 MG TABLET CITALOPRAM HBR (CeleXA) 40 MG PO DAILY 10/06/16 01/24/24 Strength: 20 MG TABLET 1353 0846 CYANOCOBALAMIN 1,000 MCG PO DAILY 05/26/22 01/24/24 (VITAMIN B-12 ) 1411 0846 Strength: 1,000 MCG TABLET hydrOXYzine HCL 25 MG PO TID 05/26/22 01/24/24 (hydrOXYzine) 1415 0846 Strength: 25 MG TAB Naloxone HCl (Narcan 4 MG NS 05/26/22 01/24/24 Nasal) Strength: 4 MG/ACTUATION DIRECTED 1416 0846 SPRAY FAMOTIDINE (PEPCID) 40 MG PO DAILY 05/26/22 01/24/24 Strength: 40 MG TABLET 1416 0846 busPIRone HCL (BUSPAR) 10 MG PO BID 05/26/22 01/24/24 Strength: 10 MG TABLET 1427 0845 CYCLOBENZAPRINE HCL 10 MG PO TID 30 90 01/24/24 (FLEXERIL) 0932 Strength: 10 MG TABLET GABAPENTIN (NEURONTIN) 800 MG PO QID 30 120 01/24/24 Strength: 800 MG TABLET 0932 HYDROCODONE/ACETAMINOPHEN 1 EACH PO QID 30 120 01/24/24 (Hydrocodone-Acetamin 0932 5-325 MG) Strength: 1 EACH TABLET Allergies Coded Allergies: Bee Venom (Severe, DIFFICULTY BTEATHING/EDEMA 05/27/22) Uncoded Allergies: BEE STINGS (Severe, DIFFICULTY BREATHING/EDEMA 01/03/13) Diagnosis, Assessment Plan CCing to Providers: Brenda Sanchez at 1618 RPT #: [id number] END OF REPORT CC'ed Logic: Attending Provider: MATTHEW WEBSTER Referring Provider: LOWELL PATEL Consulting Provider: LOWELL Sanchez MD [facility] [address], [place], [address], [facility] - [facility] 01/24/2024 19:55:18 Pain Management Consult Note : [facility] History Physical - Adult REPORT #: [id number] REPORT STATUS: Signed DATE: 02/24/24 TIME: 1436 PATIENT: KAYODE LANGLEY UNIT #: [id number] ROOM/BED: AGE: 64 SEX: M ATTEND: ELEANOR CASTRO APRN ADM AUTHOR: ELEANOR CASTRO APRN * ALL edits or amendments must be made on the electronic/computer document * History of Present Illness Chief Complaint: LOW BACK PAIN Temperature: 97.6 Pulse: 80 Blood Pressure: 102/62 Respirations: 16 Pain Scale: 6 Related To: LOW BACK PAIN Pain location(s): LOW BACK Pain Description: ACHING BURNING Pain Frequency: CONSTANT Relief Measures: LYING DOWN HEAT MEDICATION Pain Radiate: NO Weakness: NO Increases Pain: SIT, STAND, WALKING Reduces Pain: LYING DOWN, HEAT, MEDS Pain Level In The Last Month: 10 Pain Level With Your Current Treatment: 6 Medications: Home Medications: Medication Dose/Rte/Freq Days Qty Entered Last Max Daily Dose Reviewed ASPIRIN (ASPIRIN EC) 81 MG PO HS 01/05/13 02/24/24 Strength: 81 MG TABLET 1556 1358 SOTALOL HCL (BETAPACE) 80 MG PO BID 10/06/16 02/24/24 Strength: 80 MG TAB 1352 1358 ATORVASTATIN CALCIUM 40 MG PO HS 04/04/14 02/24/24 (LIPITOR) 1110 1358 Strength: 20 MG TABLET CITALOPRAM HBR (CeleXA) 40 MG PO DAILY 10/06/16 02/24/24 Strength: 20 MG TABLET 1353 1358 CYANOCOBALAMIN 1,000 MCG PO DAILY 05/26/22 (VITAMIN B-12 ) 1411 Strength: 1,000 MCG TABLET hydrOXYzine HCL 25 MG PO TID 05/26/22 02/24/24 (hydrOXYzine) 1415 1358 Strength: 25 MG TAB Naloxone HCl (Narcan 4 MG NS 05/26/22 02/24/24 Nasal) Strength: 4 MG/ACTUATION DIRECTED 1416 1358 SPRAY FAMOTIDINE (PEPCID) 40 MG PO DAILY 05/26/22 02/24/24 Strength: 40 MG TABLET 1416 1358 busPIRone HCL (BUSPAR) 10 MG PO BID 05/26/22 02/24/24 Strength: 10 MG TABLET 1427 1358 CYCLOBENZAPRINE HCL 10 MG PO TID 30 90 01/24/24 02/24/24 (FLEXERIL) 0932 1358 Strength: 10 MG TABLET CELECOXIB (CeleBREX) 200 MG PO DAILY 30 30 02/24/24 Strength: 200 MG CAPSULE 1437 GABAPENTIN (NEURONTIN) 800 MG PO TID 30 90 02/24/24 Strength: 800 MG TABLET 1437 HYDROCODONE/ACETAMINOPHEN 1 EACH PO QID 30 120 02/24/24 (Hydrocodone-Acetamin 1437 5-325 MG) Strength: 1 EACH TABLET Do you take Blood Thinners: Yes Which [...] Triage Screening: No Office Note Office Note Kayode returned today to follow up lumbar radiculopathy . He has seen pain management at and [facility]. He is here for medication refill which seems to be helping at this time. He is only taking the gabapentin 3 times daily. He has been thinking about the mild procedure versus a pain pump. He has had 2 stimulator trials and failed, multiple epidural injections and an RFA which did not help. No new complaints. Surya has been reviewed and is appropriate. REVIEW OF SYSTEMS: General: Negative for fever, chills, fatigue HEENT: Negative for headache, changes in hearing or vision Skin: Negative for color changes Respiratory: Negative for shortness of breath, cough Cardiovascular: Negative for chest pain, leg swelling GI: Negative for nausea, vomiting, constipation MSK : Lumbar radiculopathy, peripheral neuropathy, lumbar spondylosis Neurological: Negative for syncope, dizziness, numbness/tingling, weakness. Denies sudden bowel/bladder incontinence, saddle anesthesia concerns Psych: Negative for agitation, mood changes, No SI General: Well developed, no acute distress Head: normocephalic Eyes: EOM intact. No conjunctival injection or discharge. Anicteric. Ears: external ears WNL. Nose: No rhinorrhea or erythema Skin: Intact. No color changes or rash Respiratory: Non-labored respiratory effort Cardiovascular: Regular rate MSK: Lumbar radiculopathy, pain with facet loading, mid and paraspinal tenderness. Motor Strength: 5/5 strength biceps, 5/5 strength brachioradialis, 5/5 strength triceps. Neurological: Cranial nerves intact Psych: Mood and affect appropriate. Speech fluent, words are clear. Thought process is coherent and logical with appropriate insight. No evidence of impairment or sedation. Diagnoses: 1. Lumbar spondylosis 2. Lumbar radiculopathy 3. Chronic pain syndrome Assessment and Plan: He will continue the gabapentin 800 mg 3 times daily I will refill the hydrocodone 5/325 4 times daily. He will also continue the cyclobenzaprine 10 mg 3 times daily and the Celebrex 200 mg daily. We will request records again from pain management and try to get results of his MRI. I did speak to him again about procedures versus a pain pump with Dr. Pretty. I will see him back in 1 month. I have reviewed the chief complaint, history of present illness, current medications, past medical history, family history, surgical history, allergies as well as review of systems. This portion of the record was completed using CaratLane dictation. We do our best to catch mistakes by the [employer] system, but some dictation system mistakes may not be identified. If something does not make sense, please do not hesitate to contact our office so we can correct the record and clarify it for you. 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 Risk Score: 8 Relief From Pain Medications: 70% Office Procedure -- OFFICE PROCEDURE -- -- OFFICE PROCEDURE -- Post Procedure Post Procedure at 1702 RPT #: [id number] END OF REPORT CC'ed Logic: Attending Provider: MATTHEW WEBSTER Referring Provider: LOWELL PATEL Consulting Provider: LOWELL Sanchez MD [facility] [address], [address], [facility] - [facility] 02/25/2024 07:48:52 Pain Management Consult Note : [facility] History Physical - Adult REPORT #: [id number] REPORT STATUS: Signed DATE: 03/13/24 TIME: 1133 PATIENT: KAYODE LANGLEY UNIT #: [id number] ROOM/BED: AGE: 64 SEX: M ATTEND: ELEANOR CASTRO APRN ADM AUTHOR: ELEANOR CASTRO APRN * ALL edits or amendments must be made on the electronic/computer document * History of Present Illness Reason for Visit: Routine Follow-Up Chief Complaint: LOWER BACK PAIN Temperature: 97.3 Pulse: 92 Blood Pressure: 94/58 Respirations: 16 Pain Scale: 5 Pain location(s): LOWER BACK PAIN Pain Description: ACHING BURNING [place] Pain Frequency: FREQUENT Relief Measures: LYING DOWN REST Pain Radiate: N Weakness: N Increases Pain: SITTING,STANDING,WALKING Reduces Pain: LYING DOWN, REST Pain Level In The Last Month: 9 Pain Level With Your Current Treatment: 5 Medications: Home Medications: Medication Dose/Rte/Freq Days Qty Entered Last Max Daily Dose Reviewed ASPIRIN (ASPIRIN EC) 81 MG PO HS 01/05/13 03/13/24 Strength: 81 MG TABLET 1556 1006 SOTALOL HCL (BETAPACE) 80 MG PO BID 10/06/16 03/13/24 Strength: 80 MG TAB 1352 1007 ATORVASTATIN CALCIUM 40 MG PO HS 04/04/14 03/13/24 (LIPITOR) 1110 1007 Strength: 20 MG TABLET CITALOPRAM HBR (CeleXA) 40 MG PO DAILY 10/06/16 03/13/24 Strength: 20 MG TABLET 1353 1007 CYANOCOBALAMIN 1,000 MCG PO DAILY 05/26/22 03/13/24 (VITAMIN B-12 ) 1411 1007 Strength: 1,000 MCG TABLET hydrOXYzine HCL 25 MG PO TID 05/26/22 03/13/24 (hydrOXYzine) 1415 1007 Strength: 25 MG TAB Naloxone HCl (Narcan 4 MG NS 05/26/22 03/13/24 Nasal) Strength: 4 MG/ACTUATION DIRECTED 1416 1007 SPRAY FAMOTIDINE (PEPCID) 40 MG PO DAILY 05/26/22 03/13/24 Strength: 40 MG TABLET 1416 1007 busPIRone HCL (BUSPAR) 10 MG PO BID 05/26/22 03/13/24 Strength: 10 MG TABLET 1427 1007 CYCLOBENZAPRINE HCL 10 MG PO TID 30 90 01/24/24 03/13/24 (FLEXERIL) 0932 1007 Strength: 10 MG TABLET CELECOXIB (CeleBREX) 200 MG PO DAILY 30 30 02/24/24 03/13/24 Strength: 200 MG CAPSULE 1437 1007 GABAPENTIN (NEURONTIN) 800 MG PO TID 30 90 02/24/24 03/13/24 Strength: 800 MG TABLET 1437 1007 Hydrocodone/Acetaminophen 1 TAB PO QID 30 120 03/13/24 (Hydrocodone-Acetamin 1044 5-325 MG) Strength: 5 MG-325 MG TABLET Do you take Blood Thinners: Yes Which [...] Triage Screening: No Office Note Office Note Subjective: The patient reports that they have been taking their medications as prescribed, including gabapentin 800 mg three times a day, Sonora 5 mg four times a day, cyclobenzaprine 10 mg three times a day, and Celebrex 200 mg daily. They state that the medications have been helpful in managing their pain. The patient denies any side effects from the medications, including constipation. They mention having a pacemaker and a previous CAT scan, but the exact date of the scan is unclear. The patient is due for a medication refill on the of the month. Objective: - Physical Examination: - Good range of motion all 4 extremities, biceps 5/5, triceps 5/5, and brachioradialis 5/5. No leg weakness noted. David's test negative bilaterally, straight leg Test is positive. No mid or paraspinal tenderness. - Diagnostic Test Results and Labs: - MRI: Last performed a couple of years ago, specific date N/A. - CAT Scan: Mentioned in context of checking for changes if last performed four years ago or longer, specific date N/A. Assessment Plan: 1. Lumbar Spondylolysis - Continue current medication regimen: Gabapentin 800 mg three times daily, Sonora 5 mg four times daily, Cyclobenzaprine 10 mg three times daily, and Celebrex 200 mg daily. - Review previous medical records from [facility]. - Consider obtaining a new CT scan if the most recent imaging study is older than 4 years to assess for any changes. 2. Lumbar Radiculopathy - Maintain current medications: Gabapentin 800 mg three times daily, Sonora 5 mg four times daily, Cyclobenzaprine 10 mg three times daily, and Celebrex 200 mg daily. - Monitor for any side effects or symptom worsening. 3. Chronic Back Pain - Continue current medication regimen: Gabapentin 800 mg three times daily, Sonora 5 mg four times daily, Cyclobenzaprine 10 mg three times daily, and Celebrex 200 mg daily. - Encourage active lifestyle and engagement in physical therapy or other non- pharmacological pain management strategies as appropriate. - Reassess pain levels and medication effectiveness at the next visit. Follow-up - Schedule a follow-up appointment in one month to monitor progress and reassess treatment plan. - Refill medications as needed, ensuring availability on appropriate refill dates. - We will send another records request to get MRI and procedural documentation. 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 Risk Score: 8 Relief From Pain Medications: 40% Office Procedure -- OFFICE PROCEDURE -- -- OFFICE PROCEDURE -- Post Procedure Post Procedure at 1135 RPT #: [id number] END OF REPORT CC'ed Logic: Attending Provider: MATTHEW WEBSTER Referring Provider: LOWELL PATEL Consulting Provider: LOWELL Sanchez MD [facility] [address], [address], [facility] - [facility] 03/13/2024 19:07:32 Pain Management Consult Note : [place] History Physical - Adult REPORT #: [id number] REPORT STATUS: Signed DATE: 05/01/24 TIME: 1314 PATIENT: KAYODE LANGLEY UNIT #: [id number] ROOM/BED: AGE: 64 SEX: M ATTEND: ELEANOR CASTRO APRN ADM AUTHOR: ELEANOR CASTRO APRN * ALL edits or amendments must be made on the electronic/computer document * History of Present Illness Reason for Visit: Routine Follow-Up Chief Complaint: LOWER BACK PAIN Temperature: 97.3 Pulse: 92 Blood Pressure: 100/62 Respirations: 16 Pain Scale: 5 Pain location(s): LOWER BACK LEFT UPPER LEG Pain Description: SHARP BURNING Pain Frequency: FREQUENT Relief Measures: LYING DOWN MEDICATION Pain Radiate: N Weakness: N Increases Pain: STANDING, WALKING Reduces Pain: LYING DOWN, MEDICATION Pain Level In The Last Month: 8 Pain Level With Your Current Treatment: 5 Medications: Home Medications: Medication Dose/Rte/Freq Days Qty Entered Last Max Daily Dose Reviewed ASPIRIN (ASPIRIN EC) 81 MG PO HS 01/05/13 05/01/24 Strength: 81 MG TABLET 1556 1007 SOTALOL HCL (BETAPACE) 80 MG PO BID 10/06/16 05/01/24 Strength: 80 MG TAB 1352 1007 ATORVASTATIN CALCIUM 40 MG PO HS 04/04/14 05/01/24 (LIPITOR) 1110 1008 Strength: 20 MG TABLET CITALOPRAM HBR (CeleXA) 40 MG PO DAILY 10/06/16 05/01/24 Strength: 20 MG TABLET 1353 1007 CYANOCOBALAMIN 1,000 MCG PO DAILY 05/26/22 05/01/24 (VITAMIN B-12 ) 1411 1008 Strength: 1,000 MCG TABLET hydrOXYzine HCL 25 MG PO TID 05/26/22 05/01/24 (hydrOXYzine) 1415 1008 Strength: 25 MG TAB Naloxone HCl (Narcan 4 MG NS 05/26/22 05/01/24 Nasal) Strength: 4 MG/ACTUATION DIRECTED 1416 1008 SPRAY FAMOTIDINE (PEPCID) 40 MG PO DAILY 05/26/22 05/01/24 Strength: 40 MG TABLET 1416 1008 busPIRone HCL (BUSPAR) 10 MG PO BID 05/26/22 05/01/24 Strength: 10 MG TABLET 1427 1007 CYCLOBENZAPRINE HCL 10 MG PO TID 30 90 01/24/24 05/01/24 (FLEXERIL) 0932 1007 Strength: 10 MG TABLET CELECOXIB (CeleBREX) 200 MG PO DAILY 30 30 02/24/24 05/01/24 Strength: 200 MG CAPSULE 8567 1007 GABAPENTIN (NEURONTIN) 800 MG PO TID 30 90 05/01/24 Strength: 800 MG TABLET 1303 Hydrocodone/Acetaminophen 1 TAB PO 30 105 05/01/24 (Hydrocodone-Acetamin TID-QID PRN PAIN 1314 5-325 MG) Strength: 5 MG-325 MG TABLET methylPREDNISolone 1 EACH PO UD 7 1 05/01/24 (MEDROL DOSE NAHUM) 1314 Strength: 4 MG TAB.DS.PK Do you take Blood Thinners: Yes Which one: ASA Risks/Benefits of Meds discussed w/Patient: Yes Allergies: Coded Allergies: Bee Venom (Severe, DIFFICULTY BTEATHING/EDEMA 05/27/22) Uncoded Allergies: BEE STINGS (Severe, DIFFICULTY BREATHING/EDEMA 01/03/13) Does this combination of Medication improve quality of life? Yes Problem List Currently Experiencing Issues: No Medical History changes since last visit: No Social History changes since last visit: No SAFE-T Triage Screening: No Office Note Office Note Subjective: The patient presents with a chief complaint of new onset left thigh pain, described as severe and accompanied by nausea. The pain radiates down the thigh but does not extend to the knee. The patient notes that the pain is triggered by lying down, rolling over on their back, or on their sides. Interestingly, performing leg lifts appears to provide some relief from the pain. This condition began approximately one to two weeks ago, manifesting suddenly without any identifiable cause. The patient has confirmed they do not have diabetes. Regarding their medical history, the patient does not mention any specific treatments, medications, or interventions they have undergone to address the current issue of thigh pain. Additionally, there is no mention of any recent imaging or tests related to this new symptom. The patient also does not report any other medical conditions, including diabetes, which could be relevant to their current complaint. Surya was reviewed today and is appropriate. Objective: - Physical Examination: General: Well developed, no acute distress Head: normocephalic Eyes: EOM intact. No conjunctival injection or discharge. Anicteric. Ears: external ears WNL. Nose: No rhinorrhea or erythema Skin: Intact. No color changes or rash Respiratory: Non-labored respiratory effort Cardiovascular: Regular rate MSK: ROM: Painless ROM bilateral shoulders. Musculoskeletal: Severe pain in thigh, radiating but not extending to knee. Pain exacerbates when lying down, rolling over on back/sides. Leg lifts alleviate pain. No trauma associated with symptom onset. Pain with adduction and abduction. Biceps 5/5, triceps 5/5, brachioradialis 5/5. BUE ROM WNL, bilateral ROM BLE limited due to back pain and L hip pain Assessment Plan: 1. Lumbar Spondylosis - Continue celebrex 200 mg daily, flexeril 10 mg three times daily, norco 5 mg four times daily, gabapentin 800 mg three times daily - Encourage proper posture and low-impact back strengthening exercises 2. Left Hip Pain - Prescribe medrol dose pack to evaluate for arthritis - If pain persists/worsens, obtain hip x-ray and call for appointment - Consider steroid injection if x-ray shows significant arthritis and oral steroids ineffective 3. 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 Score: 8 Office Procedure -- OFFICE PROCEDURE -- -- OFFICE PROCEDURE -- Post Procedure Post Procedure at 1317 RPT #: [id number] END OF REPORT CC'ed Logic: Attending Provider: MATTHEW WEBSTER Referring Provider: LOWELL PATEL Consulting Provider: LOWELL Sanchez MD [facility] [address], [address], [facility] - [facility] 05/01/2024 17:48:57 Pain Management Consult Note : [place] History Physical - Adult REPORT #: [id number] REPORT STATUS: Signed DATE: 07/03/24 TIME: 1148 PATIENT: KAYODE LANGLEY UNIT #: [id number] ROOM/BED: AGE: 64 SEX: M ATTEND: ELEANOR CASTRO APRN ADM AUTHOR: MATTHEW, ELEANOR SPINDLE TESTER * ALL edits or amendments must be [...] clinics. He has seen pain management at [facility] and had multiple procedures in which none [...] bulge and ligamentum flavum hypertrophy L3 -L4, ebpy-cv-qolxkiok spinal stenosis, L4-L5 disc bulge ligamentum flavum hypertrophy and mild bilateral facet arthropathy. Foho-gh-wcvoaxpi spinal stenosis. L5-S1 disc osteophyte complex and mild left facet arthropathy. Mild- to-moderate spinal canal stenosis. The patient is currently taking gabapentin 800 mg two times a day, Flexeril 10 mg three times a day, and Celebrex 200 mg once a day. Surya was reviewed today and is appropriate. Objective: [...] in the future. 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.] daily, Flexeril 10 mg twice a day, Sonora 5-325 mg four times a day, and gabapentin 800 mg twice a day. The patient states he is doing well on this medication regimen. He denies any other issues at this time. The patient's current medications include: - Celebrex 200mg daily - Flexeril 10mg twice a day - Sonora 5-325mg 4 times a day - Gabapentin [...] - Flexeril 10 mg twice daily - Sonora 5-325 mg four times daily - Gabapentin 800 mg twice daily b. Refill medications c. Schedule follow-up appointment in 2 months 2. 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: 8 Office Procedure -- OFFICE PROCEDURE -- -- OFFICE PROCEDURE -- Post Procedure Post Procedure at 1220 RPT #: [id number] END OF REPORT CC'ed Logic: Attending Provider: MATTHEW WEBSTER Referring Provider: LOWELL PATEL Consulting Provider: LOWELL Lincoln MD [facility] [place] [address], [address], [place] - [facility] 10/06/2024 13:01:13 Pain Management Consult Note : [place] History Physical - Adult REPORT #: [id number] REPORT STATUS: Signed DATE: 10/06/24 TIME: 1216 PATIENT: KAYODE LANGLEY UNIT #: [id number] ROOM/BED: AGE: 64 SEX: M ATTEND: ELEANOR [...] daily, Flexeril 10 mg twice a day, Sonora 5-325 mg four times a day, and gabapentin 800 mg twice a day. The patient states he is doing well on this medication regimen. He denies any other issues at this time. The patient's current medications include: - Celebrex 200mg daily - Flexeril 10mg twice a day - Sonora 5-325mg 4 times a day - Gabapentin [...] - Flexeril 10 mg twice daily - Sonora 5-325 mg four times daily - Gabapentin 800 mg twice daily b. Refill medications c. Schedule follow-up appointment in 2 months 2. 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 at 0923 RPT #: [id number] END OF REPORT CC'ed Logic: Attending Provider: MATTHEW WEBSTER Referring Provider: LOWELL PATEL Consulting Provider: LOWELL Sanchez MD [address], [place], [address], [place] - [facility] 10/09/2024 20:06:45 Procedures Surgical History Date Name Laterality Status Provider Name and Address Organization Details Recorded Time 3 Cryosurgery Dermatology completed Marisa Scruggs APRN [address], [place], [address], [place] - [facility] 01/27/2023 11:03:00 2 Colonoscopy completed Brenda Sanchez MD [address], [place], [address], [place] - [facility] 05/29/2022 18:27:47 2 Cryosurgery Dermatology completed Marisa Scruggs APRN [address], [place], [address], [place] - [facility] 11/18/2021 15:09:45 0 Systolic B/P less than 130 mm Hg completed Dorcasdot [place] - [facility] 04/08/2020 16:34:46 0 Diastolic B/P 80-89 mm Hg completed Dorcas Dolores [place] - [facility] 04/08/2020 16:34:53 0 Cardiac Cath completed Brenda Sanchez MD [address], [place], [address], [place] - [facility] 02/22/2020 10:35:38 9 Suture/Staple removal completed Marisa Scruggs APRN [address], [place], [address], [place] - [facility] 07/18/2019 10:57:10 9 Punch Biopsies, Multiple completed Marisa Scruggs APRN [address], [place], [address], [place] - [facility] 07/06/2019 10:23:01 9 peripheral angiography completed Brenda Sanchez MD [address], [place], [address], [place] - [facility] 11/26/2018 14:21:23 5 Pacemaker Placement completed [facility] [address], [place], [address], [place] - [facility] 06/29/2016 16:57:43 4 Colonoscopy completed Felisa Doan RN [address], [place], [address], [facility] 12/21/2018 13:54:12 3 Cardiac Cath completed [facility] [address], [place], [address], [facility] 06/29/2016 16:57:17 procedure on back completed Dorcas Soto [place] - [facility] 04/08/2020 16:35:33 Knee arthroscopy/neetu fransisco completed [facility] [address], [place], [address], [facility] 06/29/2016 16:57:30 Unlisted px hands/fingers completed [facility] [address], [place], [address], [facility] 06/29/2016 16:58:09 Imaging Results None recorded. Procedure Notes None recorded. Medical Equipment None Reported. Allergies No known drug allergies Medications Name Sig Start Date Stop Date Status Note LastModified by Organization Details LastModified Time Prescript ion - Prior Authoriza tion Request 03/14 completed Not Available Not Available Not Available celecoxib 200 mg capsule TAKE 1 CAPSULE BY MOUTH ONCE DAILY NEEDED 2024 active Not Available Not Available Not Avai lable cyclobenz aprine 10 mg tablet Take 1 tablet by mouth three times daily as needed 2024 active Not Available Not Available Not Avai lable amoxicill in 500 mg capsule TAKE 1 CAPSULE BY MOUTH THREE TIMES DAILY FOR 10 DAYS 03/14 completed Not Available Not Available Not Available atorvasta tin 40 mg tablet TAKE 1 TABLET BY MOUTH ONCE DAILY 04/05 completed Not Available Not Available Not Available Lopressor 50 mg tablet take 1 tablet (50 mg) by oral route 2 times per day with meals 05/31 completed Lopresso r 50 mg oral tablet;R ecorded Status: Recorded on: 01/20/20 13 1:15PM;D iscontin ued Status: Disconti nued on: 05/31/20 14 1:09PM;U ser: [email or web address] Not Available Not Available Not Available atorvasta tin 80 mg tablet Take 1 tablet every day by oral route. 2024 active Not Available Not Available Not Avai lable atorvasta tin 20 mg tablet TAKE 1 TABLET BY MOUTH ONCE DAILY FOR CHOLESTE ROL 04/07 completed CARDIOLO GY Not Available Not Available Not Available sulfasala zine 500 mg tablet Take 1 tablet twice a day by oral route as directed for 90 days. active Not Available Not Available No t Available citalopra m 40 mg tablet Take 1 tablet every day by oral route. 2024 active Not Available Not Available Not Avai lable hydrocodo ne 5 mg-acetam inophen 325 mg tablet TAKE 1 TABLET BY MOUTH EVERY 8 HOURS DIRECTED active Not Available Not Available No t Available sotalol 80 mg tablet TAKE 1 TABLET BY MOUTH TWICE DAILY active Not Available Not Available No t Available meloxicam 15 mg tablet take 1 tablet (15 mg) by oral route once daily prn with food 04/07 completed Not Available Not Available Not Available famotidin e 40 mg tablet Take 1 tablet every day by oral route. 2024 active Not Available Not Available Not Avai lable prednison e 20 mg tablet Take 1 tablet twice a day by oral route for 7 days. 01/17 completed Not Available Not Available Not Available clonazepa m 1 mg tablet TAKE 1 TABLET BY MOUTH THREE TIMES DAILY NEEDED 08/01 completed get morphine pump Not Available Not Available Not Available midodrine 5 mg tablet Take 1 tablet 3 times a day by oral route for 90 days. active Not Available Not Available No t Available cyanocoba morales (vit B-12) 1,000 mcg tablet Take 1 tablet every day by oral route. 2024 active OTC Not Available Not Available Not Avai lable penicilli n V potassium 500 mg tablet TAKE 1 TABLET BY MOUTH EVERY 8 HOURS UNTIL ALL TAKEN 12/15 completed Not Available Not Available Not Available peg-elect rolyte solution 420 gram oral solution USE DIRECTED 09/17 completed Not Available Not Available Not Available aspirin 81 mg tablet,de layed release take 1 tablet (81 mg) by oral route once daily 06/30 completed aspirin 81 mg oral tablet,d elayed release (/TOREY); Recorded Status: Recorded on: 01/20/20 13 1:15PM;U ser: [email or web address] Not Available Not Available Not Available Efudex 5 % topical cream APPLY A SUFFICIE NT AMOUNT TO COVER THE LESIONS IN THE AFFECTED AREA(S) on scalp BY TOPICAL ROUTE 2 TIMES PER DAY for 2 weeks 12/15 completed Not Available Not Available Not Available bisoprolo l fumarate 5 mg tablet Take 1 tablet every day by oral route as directed for 30 days. 07/20 completed Not Available Not Available Not Available dexametha sone 0.5 mg/5 mL oral solution USE 10 ML BY MOUTH 4 TIMES DAILY. RINSE AND HOLD FOR 2 MINUTES THEN SPIT 03/14 completed Not Available Not Available Not Available dexametha sone 0.5 mg/5 mL oral elixir SWISH AND SPIT 15 ML BY MOUTH THREE TIMES DAILY FOR 5 DAYS 03/28 completed Not Available Not Available Not Available Kenalog 40 mg/mL suspensio n for injection Take 1 mL by injectio n route. 07/20 completed Not Available Not Available Not Available amoxicill in 875 mg tablet Take 1 tablet twice a day by oral route. 06/11 completed Not Available Not Available Not Available citalopra m 20 mg tablet TAKE 1 TABLET BY MOUTH ONCE DAILY 11/07 completed dose increase Not Available Not Available Not Available gabapenti n 800 mg tablet TAKE 1 TABLET BY MOUTH EVERY 8 HOURS DIRECTED active Not Available Not Available No t Available trazodone 100 mg tablet take 1 tablet (100 mg) by oral route q day 01/14 completed Not Available Not Available Not Available dicyclomi ne 20 mg tablet 01/14 completed Not Available Not Available Not Available diazepam 2 mg tablet take 1 tablet (2 mg) by oral route qd 01/14 completed diazepam 2 mg oral tablet;R ecorded Status: Recorded on: 05/11/20 16 5:00PM;U ser: [email or web address] ;Est. Completi on: 07/10/20 16trying switch to clonazep am Not Available Not Available Not Available hydrocodo ne 7.5 mg-acetam inophen 325 mg tablet 01/18 completed Not Available Not Available Not Available simvastat in 20 mg tablet take 1 tablet (20 mg) by oral route once daily in the evening 05/31 completed simvasta tin 20 mg oral tablet;R ecorded Status: Recorded on: 01/20/20 13 1:15PM;D iscontin ued Status: Disconti nued on: 05/31/20 14 1:10PM;U ser: [email or web address] Not Available Not Available Not Available buspirone 10 mg tablet Take 1 tablet by mouth twice daily 2024 active Not Available Not Available Not Avai lable clotrimaz ole-betam ethasone 1 %-0.05 % topical cream apply to the affected and surround ing areas of skin by topical route 2 times per day in the morning and evening until clear 05/13 completed clotrima zole-bet amethaso ne 1-0.05 % topical cream;Pr escribe Status: Prescrib ed on: 05/11/20 16 5:01PM;U ser: [email or web address] ;Est. Completi on: 05/13/20 16;Indic ation: Tinea Cruris - (1103 00);Phar macChrissyeri fied: 05/11/20 16 5:01PM Not Available Not Available Not Available promethaz ine 25 mg tablet take 1 tablet (25 mg) by oral route every 4-6 hours as needed 01/19 completed prometha zine 25 mg oral tablet;R ecorded Status: Recorded on: 06/24/20 12 3:27PM;D iscontin ued Status: Disconti nued on: 01/20/20 13 1:15PM;U ser: [email or web address]; Indicati on: Viral Gastroen teritis - (008.8); Printed: 06/24/20 12 Not Available Not Available Not Available gabapenti n 300 mg capsule Take 1 capsule every 8 hours by oral route for 30 days. 07/27 completed cardiolo gy Not Available Not Available Not Available lidocaine HCl 2 % mucosal solution APPLY 2 ML TO AFFECTED AREA EVERY 2 HOURS NEEDED FOR PAIN 03/14 completed Not Available Not Available Not Available buspirone 7.5 mg tablet TAKE 1 TABLET BY MOUTH TWICE DAILY 10/03 completed dose increase Not Available Not Available Not Available aspirin 81 mg chewable tablet Chew 1 tablet every day by oral route. 03/29 completed Not Available Not Available Not Available diclofena c sodium 75 mg tablet,de layed release take 1 tablet (75 mg) by oral route 2 times per day as needed for pain with food 05/31 completed diclofen ac sodium 75 mg oral tablet,d elayed release (/TOREY); Prescrib e Status: Prescrib ed on: 06/26/20 13 3:13PM;D iscontin ued Status: Disconti nued on: 05/31/20 14 1:09PM;U ser: [email or web address] ;Est. Completi on: 08/25/20 13;Pharm acyVerif ied: 06/26/20 13 3:13PM Not Available Not Available Not Available hydroxyzi ne HCl 25 mg tablet TAKE 1/2 (ONE-MIRNA F) TO 1 TABLET BY MOUTH THREE TIMES DAILY NEEDED FOR ANXIETY 2024 active Not Available Not Available Not Avai lable lisinopri l 5 mg tablet take 1 tablet (5 mg) by oral route once daily 05/31 completed lisinopr il 5 mg oral tablet;R ecorded Status: Recorded on: 01/20/20 13 1:15PM;D iscontin ued Status: Disconti nued on: 05/31/20 14 1:09PM;U ser: [email or web address] Not Available Not Available Not Available zolpidem 5 mg tablet 01/14 completed Not Available Not Available Not Available hydroxych loroquine 200 mg tablet TAKE 1 TABLET BY MOUTH TWICE DAILY WITH FOOD 09/18 completed RHEUM Not Available Not Available Not Available testoster one cypionate 200 mg/mL intramusc ular oil INJECT 1 ML (CC) INTRAMUS CULARLY FOR 20 DAYS 04/17 completed Not Available Not Available Not Available levofloxa jeny 500 mg tablet Take 1 tablet every day by oral route. 07/20 completed Not Available Not Available Not Available methylpre dnisolone 4 mg tablets in a dose pack take as directed for 7 days 09/27 completed Not Available Not Available Not Available albuterol sulfate HFA 90 mcg/actua tion aerosol inhaler 03/29 completed Not Available Not Available Not Available cefdinir 300 mg capsule 07/20 completed Not Available Not Available Not Available sertralin e 50 mg tablet take 1/2 tablet qd for 6 days, then 1 tablet (50 mg) by oral route once daily 04/10 completed sertrali ne 50 mg oral tablet;c omment: cost;Pre scribe Status: Prescrib ed on: 03/27/20 13 5:55PM;D iscontin ued Status: Disconti nued on: 04/10/20 13 3:26PM;U ser: [email or web address] ;Est. Completi on: 05/26/20 13;Pharm acyVerif ied: 03/27/20 13 5:55PM Not Available Not Available Not Available Syringe 3 mL 22 gauge x 1 use as directed 02/16 completed Syringe 3cc/22Gx 1 3 mL 22 gauge x 1 miscella neous syringe; Recorded Status: Recorded on: 06/26/20 13 3:09PM;U ser: [email or web address] ;Est. Completi on: 02/17/20 15 Not Available Not Available Not Available amoxicill in 875 mg-potass ium clavulana te 125 mg tablet take 1 tablet by oral route every 12 hours for 10 days 01/08 completed amoxicil kye-pot clavulan ate 875-125 mg oral tablet;R ecorded Status: Recorded on: 10/31/19 16 10:24AM; Disconti nued Status: Disconti nued on: 01/09/20 16 9:22AM;U ser: [email or web address] ;Est. Completi on: 11/10/19 16;Print ed: 10/31/19 16 Not Available Not Available Not Available oxycodone 5 mg tablet 01/14 completed Not Available Not Available Not Available syringe with needle 1 mL 25 gauge x 1 use as directed for 30 days 01/19 completed syringe with needle 1 mL 25 gauge x 1 miscella neous syringe; Recorded Status: Recorded on: 11/10/19 12 4:08PM;D iscontin ued Status: Disconti nued on: 01/20/20 13 1:55PM;U ser: [email or web address] ;Est. Completi on: 01/09/20 12;Print ed: 11/10/19 12 Not Available Not Available Not Available metaxalon e 800 mg tablet 01/23 completed Not Available Not Available Not Available cyclobenz aprine 5 mg tablet TAKE 1 TO 2 TABLETS BY MOUTH THREE TIMES DAILY NEEDED 04/07 completed pain clinic Not Available Not Available Not Available duloxetin e 30 mg capsule,d elayed release Take 1 capsule every day by oral route. 05/01 completed dizzines s Not Available Not Available Not Available Horizon Nasal Cpap System 1 active Not Available Not Available Not Available diclofena c 1 % topical gel APPLY 2-4 GRAMS TOPICALL Y TO THE UPPER AND LOWER EXTREMIT IES FOUR TIMES DAILY. MAX OF 32 GRAMS PER DAY 09/27 completed Not Available Not Available Not Available prasugrel HCl 1 q day 02/20 completed prasugre l Oral 10mg;Rec orded Status: Recorded on: 01/20/20 13 1:15PM;D iscontin ued Status: Disconti nued on: 02/21/20 13 3:30PM;U ser: [email or web address]; Indicati on: - (-5) Not Available Not Available Not Available vitamin B12 500 mcg-folic acid 400 mcg tablet Take 1 tablet twice a day by oral route as directed . 01/17 completed OTC Not Available Not Available Not Available testoster one 20.25 mg/1.25 gram per pump act.(1.62 %) transderm al gel APPLY 3 PUMPS ONTO THE SKIN EVERY DAY DIRECTED active Not Available Not Available No t Available cyanocoba morales (vit B-12) 2,000 mcg tablet take 1 tablet by oral route QD 07/16 completed cyanocob alamin (vitamin B-12) 2,000 mcg oral tablet;P rescribe Status: Prescrib ed on: 01/18/20 15 11:11AM; User: [email or web address] Mehta on: 07/16/20 15;Indic ation: Vitamin B12 Deficien cy - ([id number] );Phar Magda fied: 01/18/20 15 11:11AM Not Available Not Available Not Available Mitigare 0.6 mg capsule 12/19 completed Not Available Not Available Not Available Narcan 4 mg/actuat ion nasal spray active Not Available Not Available Not Available Shingrix (PF) 50 mcg/0.5 mL intramusc ular suspensio n, kit 07/19 completed Not Available Not Available Not Available Vitals Date Recorded Body height Body mass index (BMI) Body weight Body temperature Respiratory rate Pain severity - 0-10 verbal numeric rating [Score] - Reported Oxygen saturation Oxygen saturation in Arterial blood by Pulse oximetry Heart rate Systolic And Diastolic Provider Name and Address Organization Details Last Updated DateTime 5 165.1 cm 22.1 kg/m2 47150.7 9 g 97.8 [degF] 18 /min 4 95 % 95 % 76 /min 120/80 mm[Hg] Isabel Kee [place] - [facility] 5 10:44:18 Date Recorded Body height Body mass index (BMI) Body weight Body temperature Heart rate Oxygen saturation Oxygen saturation in Arterial blood by Pulse oximetry Respiratory rate Systolic And Diastolic Provider Name and Address Organization Details Last Updated DateTime 4 165.1 cm 22.8 kg/m2 76895.5 g 97.5 [degF] 86 /min 91 % 91 % 18 /min 124/84 mm[Hg] [facility] 4 11:08:15 Date Recorded Body height Body mass index (BMI) Body weight Heart rate Oxygen saturation Oxygen saturation in Arterial blood by Pulse oximetry Respiratory rate Systolic And Diastolic Provider Name and Address Organization Details Last Updated DateTime 4 165.1 cm 22 kg/m2 42652.1 9 g 88 /min 98 % 98 % 18 /min 90/60 mm[Hg] [facility] 4 13:21:09 Date Recorded Body height Body mass index (BMI) Body weight Respiratory rate Pain severity - 0-10 verbal numeric rating [Score] - Reported Heart rate Oxygen saturation Oxygen saturation in Arterial blood by Pulse oximetry Systolic And Diastolic Provider Name and Address Organization Details Last Updated DateTime 5 165.1 cm 21.8 kg/m2 25609.6 g 18 /min 0 103 /min 95 % 95 % 112/60 mm[Hg] Wolfgang Rios [place] - [facility] 5 10:35:59 Date Recorded Body height Body mass index (BMI) Body weight Body temperature Respiratory rate Heart rate Oxygen saturation Oxygen saturation in Arterial blood by Pulse oximetry Systolic And Diastolic Provider Name and Address Organization Details Last Updated DateTime 4 165.1 cm 22.3 kg/m2 10287.3 8 g 98.6 [degF] 20 /min 83 /min 94 % 94 % 124/80 mm[Hg] Dorcas Soto [place] - [facility] 4 09:03:43 Social History Question Answer Notes LastModified by Organizat ion Details LastModified Time Tobacco Smoking Status Current Every Day Smoker Formerly [facility] [address] [place] [address], [place], [address], [place] - [facility] 06/29/2016 16:54:44 Able To Swim? Yes [email or web address] Information not available 06/29/2016 Do You Have An Advance Directive? No [email or web address] Information not available 06/29/2016 Animal Exposure? Yes [email or web address] Informat ion not available 06/29/2016 Do You Wear A Helmet When Biking? No [email or web address] Information not available 06/29/2016 Are You Blind Or Do You Have Difficulty Seeing? No Information not available 07/20/2017 What Is Your Level Of Caffeine Consumption? Occasional [email or web address] Information not available 06/29/2016 How Much Tobacco Do You Chew? None [email or web address] Information not available 06/29/2016 In The 14 Days Before Symptom Onset, Have You Had Close Contact With A Laboratory-confir med COVID-19 While That Case Was Ill? No [email or web address] Information not available 03/29/2025 In The 14 Days Before Symptom Onset, Have You Had Close Contact With A Person Who Is Under Investigation For COVID-19 While That Person Was Ill? No Information not available 03/29/2025 Have You Been To An Area Known To Be High Risk For COVID-19? No Information not available 09/27/2024 Are You Deaf Or Do You Have Serious Difficulty Hearing? No Information not available 07/20/2017 What Type Of Diet Are You Following? REGULAR [email or web address] Information not available 06/29/2016 Which Illicit Or Recreational Drugs Have You Used? None [email or web address] Information not available 06/29/2016 Have You Processed Blood Or Body Fluids From An Ebola Virus Disease Patient Without Appropriate PPE? No Information not available 09/27/2024 Do You Reside In Or Have You Traveled To An Area Where Ebola Virus Transmission Is Active? No Information not available 09/27/2024 Education 12 [email or web address] Information no t available 06/29/2016 What Is The Highest Grade Or Level Of School You Have Completed Or The Highest Degree You Have Received? [id number] Information not available 09/27/2024 Swimming/diving No [email or web address] Informati on not available 06/29/2016 Have There Been Any Changes To Your Family Or Social Situation? No Information no t available 09/18/2021 What Is The Fluoride Status Of Your Home? Fluoridated Information not available 09/27/2024 Are There Any Guns Present In Your Home? Yes [email or web address] Information not available 06/29/2016 Hard Of Hearing Or Deaf In One Or Both Ears? No [email or web address] Information not available 06/29/2016 Have You Recently Or Are You Planning To Travel To An Area With Zika Virus? No Information not available 09/27/2024 Legally Blind In One Or Both Eyes? No [email or web address] Information no t available 06/29/2016 Live Alone Or With Others? With Others [email or web address] Information not available 06/29/2016 Do You Have A Medical Power Of Electrical Equipment Technician? No Information not available 09/17/2022 What Was The Date Of Your Most Recent Tobacco Screening? 03/29/2025 [email or web address] Information not available 03/29/2025 What Is Your Current Pack Years? [email or web address] Information not available 09/27/2024 Do You Use Protection During Sex? No [email or web address] Information not available 06/29/2016 Do You Use Protection Against STDs? No [email or web address] Information not available 03/29/2025 What Is Your Relationship Status? [email or web address] Information not available 06/29/2016 Seat Belts Used Routinely Yes [email or web address] Information not available 06/29/2016 Are You Sexually Active? Yes Information not available 06/29/2016 Smoke Alarm In Home Yes Information not available 06/29/2016 Do You Have Smoke And Carbon Monoxide Detectors In Your Home? Yes Information not available 09/18/2021 At What Age Did You Start Smoking Tobacco? 15 Information not available 09/27/2024 Are You Passively Exposed To Smoke? No Information no t available 09/27/2024 How Much Tobacco Do You Smoke? 1.5 PPD Information not available 10/07/2017 General Stress Level Medium [email or web address] Information not available 06/29/2016 Do You Use Sunscreen Routinely? No [email or web address] Information not available 06/29/2016 Has Tobacco Cessation Counseling Been Provided? Yes Information not available 09/18/2021 On What Date Was Tobacco Cessation Counseling Provided? 09/27/2024 Information not available 09/27/2024 How Many Years Have You Smoked Tobacco? 50 [email or web address] Information not available 03/29/2025 Do You Have Difficulty Walking Or Climbing Stairs? No Information not available 07/20/2017 Sex: Unknown Functional Status Question Answer Note LastModified by Organizat ion Details LastModified Time Do you use any illicit or recreational drugs? No Information not available 09/18/2021 Do you or have you ever used any other forms of tobacco or nicotine? No Information not available 09/27/2024 What is your level of alcohol consumption? None [email or web address] Information not available 06/29/2016 Are you currently employed? No Information not available 09/27/2024 Do you have transportation difficulties? No Information not available 09/18/2021 Are you able to walk independently without assistance or assistive devices? YESWOREST [email or web address] Information not available 06/27/2019 Do you have difficulty doing errands alone? No Information not available 07/20/2017 Are you able to care for yourself independently? Yes Information not available 06/29/2016 What is your occupation? Disabled Information not available 09/27/2024 Do you have difficulty dressing, bathing, grooming, or toileting? No Information not available 07/20/2017 Do you or have you ever used e-cigarettes or vape? Never used electronic cigarettes Information not available 07/27/2019 What is your exercise level? Occasional [email or web address] Information not available 06/29/2016 Mental Status Question Answer Note LastModified by Organizat ion Details LastModified Time Do you feel stressed (tense, restless, nervous, or anxious, or unable to sleep at night)? [id number] Information not available 09/27/2024 Do you have difficulty concentrating, remembering or making decisions? No [facility] Information no t available 07/20/2017 Family History Relationship Description Onset Age of this Age Resolved Age Notes LastModified by Organization Details LastModified Time Mother Type 2 diabetes mellitus Not available 06/29 16:53:47 Paternal Uncle Family history of malignant neoplasm unknow n type [email or web address] Not available 06/29/2016 16:54:28 Medical History Condition Response Pancreatitis N Coronary Artery Disease Y Other N Gout N Atrial Fibrillation N congenital heart disease N Kidney Stones N Blood Diseases N Hyperthyroidism N Rheumatoid arthritis N Blood Transfusion N Erectile Dysfunction N amputation N Skin Lesions N Depression N COPD N Pneumonia N Incontinence N Murmur N Edema N Alzheimer's Disease N Migraine Headaches N Tobacco Abuse Y Anxiety Disorder Y Muscle, Joint, or Bone Problems N Hemorrhoids N Obesity N Vision or Eye Problems N Restless Leg Syndrome N Arthritis N Polyps N Infertility N Mental Disorder N Carpal Tunnel N Acid Reflux (GERD) N Cancer N Varicosities N Stroke N Tendonitis N Crohn's Disease N Hypercholesterolemia N Skin Cancer N Headaches N Fibromyalgia N Irritable Bowel Syndrome N Anal Fissure N Kidney Disease N Heart Problems N Ear or Hearing Problems N Hospitalizations N Gallstones N Kidney or Bladder Problems N Goiter N Acne N Skin Problems N Eating Disorder N Hypertriglyceridemia N MRSA exposure N Constipation N Embolism N Vitamin B12 Deficiency Y Tuberculosis N AIDS/HIV N Myocardial Infarction N Asthma N Mitral Valve Disorders N Vertigo N Hepatitis N Thyroid Cancer N Neuropathy N Pulmonary Embolism N History of DVT N Herniated Disc N Chronic Ear Infections N Chicken Pox N Autism Spectrum Disorder (ASD) N Von Willebrands Disease N Thrombophilias N Breast Cancer N Hernia N Plantar Fasciitis N Hospital Admission Other Than N Lung Disease N Hypothyroidism N Developmental or Behavioral Disorders N Defects or Inherited Disease N Breast Problem N Difficulty Swallowing N Ovarian Cyst N Anesthesia Complications N Testosterone Deficiency Y Meniere's disease N Head Injury/Concussion N Interstitial Cystitis N Congenital Anomalies N Hypoglycemia N Blood clot N Vitamin D Deficiency N Cellulitis N Endometriosis N Fracture N Bladder or Kidney Problems N Liver Disease N Panic Disorder N Concussion N Spina Bifida N Allergies/Hayfever Y Osteoarthritis N Parkinson's Disease N Disc Protrusion N STI N Esophagitis N Angina N Thyroid Problems N GI Problems N ADD/ADHD N Anemia N Multiple Sclerosis N Abnormal PAP N Lumbago N Mental Illness N Psychiatric Illness N Ovarian Cancer N Diabetes N Bedwetting N Degenerative Disc Disease N Seizures/Epilepsy N Congestive Heart Failure (CHF) N Syncope N Insomnia N Hyperlipidemia Y Eczema N Diverticulitis N Dementia N Attention Deficient Disorder N Abuse/Domestic Violence N Ulcerative colitis N Cerebrovascular Disease N Depression N Guillain-Bexar N Sleep Apnea N Aneurysm N Heart Disease N Bronchitis N Pre-Eclampsia N Hypertension N Osteoporosis N Immunizations Vaccine Type Date Status Note Provider Nam e and Address Organization Details Recorded Time Influenza, split virus, quadrivalent, preservative 5 completed Keren Rios [facility] 03/29/2025 10:30:18 zoster recombinant 5 completed Yanet Dumont [facility] 03/29/2025 11:27:37 influenza, unspecified formulation 5 completed Keren Rios [facility] 03/29/2025 10:30:18 Tdap 4 completed Not Available [facility] 10/14/2019 02:21:29 Influenza, split virus, quadrivalent, preservative 2 completed Lizeth Dillard [facility] 07/23/2022 11:50:07 pneumococcal polysaccharide PPV23 [address], [address] 01/19/2017 08:36:00 Influenza, split virus, quadrivalent, preservative 3 [facility] 07/27/2023 11:02:33 COVID-19, mRNA, LNP-S, PF, theresa-sucrose, 30 mcg/0.3 mL 3 completed [facility] 07/27/2023 10:39:46 Influenza, split virus, quadrivalent, preservative 7 completed [facility] 07/27/2023 10:33:49 Tdap 4 completed Dorcas Soto null, [place] - [facility] 10/04/2023 10:02:38 zoster recombinant 8 completed Genevieve Stears null, [place] - [facility] 07/27/2023 10:33:49 zoster recombinant 8 completed Genevieve Stears [place] [facility] 07/27/2023 10:33:49 Influenza, split virus, quadrivalent, preservative 8 completed Genevieve Ste[place] [facility] 07/27/2023 10:33:49 Influenza, split virus, quadrivalent, preservative 9 completed Genevieve [place] [facility] 07/27/2023 10:33:49 Influenza, split virus, trivalent, preservative 5 completed Isabel Kee [place] - [facility] 09/27/2024 11:24:44 COVID-19, mRNA, LNP-S, PF, theresa-sucrose, 30 mcg/0.3 mL 5 completed Isabel K[place] - [facility] 09/27/2024 11:25:38 Influenza, split virus, quadrivalent, preservative 0 completed Genevieve Ste[place] - [facility] 07/27/2023 10:33:49 Influenza, split virus, quadrivalent, preservative 6 completed Not Available [facility] 09/30/2019 03:54:16 zoster recombinant 8 completed Genevieve Ste[place] - [facility] 07/27/2023 10:33:49 zoster recombinant 8 completed Genevieve Stears null, [place] - [facility] 07/27/2023 10:33:49 COVID-19, mRNA, LNP-S, PF, 100 mcg/0.5mL dose or 50 mcg/0.25mL dose 1 completed Genevieve Stears [place], [place] - [facility] 07/27/2023 10:33:49 COVID-19, mRNA, LNP-S, PF, 100 mcg/0.5mL dose or 50 mcg/0.25mL dose 1 completed Genevieve Stears [place], [place] - [facility] 07/27/2023 10:33:49 COVID-19, mRNA, LNP-S, PF, 100 mcg/0.5mL dose or 50 mcg/0.25mL dose 1 completed Genevieve Stears null, [place] - [facility] 07/27/2023 10:33:49 COVID-19, mRNA, LNP-S, PF, 30 mcg/0.3 mL dose, theresa-sucrose 2 completed Genevieve Stears null, [place] - [facility] 07/27/2023 10:33:49 COVID-19, mRNA, LNP-S, bivalent, PF, 50 mcg/0.5 mL or 25mcg/0.25 mL dose 2 completed Genevieve Stears null, [place] - [facility] 07/27/2023 10:33:49 Past Encounters Encounter ID Performer Location Encounter Start Date Encounter Closed Date Diagnosis/Indication Diagnosis SNOMED-CT Code Diagnosis ICD10 Code Diagnosis IMO Codes Diagnosis Note [id number] Brenda Sanchez MD [address] [place] [address] 06/30/2016 09:06:07 06/30/2016 10:10:49 Vitamin B12 deficiency (non anemic) 55327010 E53.8 taking OTC bid, dose? Adrenogeni lori disorder 548461662 E25.9 Coronary atherosclerosis 242295145 I25.10 cont f/u with cardiology Anxiety 83800226 F41.9 Hyperlipidemia 82240858 E78.5 Influenza vaccine needed 6650500936 106 Z23 Long-term current use of drug therapy 021608263 Z79.84 testostero ne Malaise and fatigue 2717 02563 R53.83 Generalize d osteoarthritis 404547941 M15.9 [id number] Brenda Sanchez MD [address] [place] [address] 08/17/2016 15:00:04 08/17/2016 15:42:15 Pilonidal cyst with abscess 47904754 L05.01 [id number] Brenda Sanchez MD [address] [place] [address] 01/14/2017 09:49:58 01/14/2017 11:28:44 Adrenogenital disorder 415561582 E25.9 Coronary atherosclerosis 606980703 I25.10 cont f/u with cardiology Anxiety 68815826 F41.9 Hyperlipidemia 16985452 E78.5 Vitamin B1 2 deficiency (non anemic) 57530620 E53.8 taking OTC bid, dose? Cardiac arrhythmia 36436 7007 I49.9 Insomnia 500906459 G47.0 0 Screening for malignant neoplasm of prostate 981233659 Z12.[id number] Palacio MD [address] [place] [address] 05/20/2017 09:50:30 05/20/2017 10:33:41 Upper respiratory infection 71187943 J06.[id number] Palacio MD [address] [place] [address] 06/11/2017 14:56:56 06/11/2017 15:43:18 Upper respiratory infection 85256399 J06.9 Bronchitis 75889568 J40 [id number] Brenda Sanchez MD [address] [place] [address] 07/20/2017 08:26:05 07/20/2017 09:38:47 Insomnia 923607906 G47.00 Adrenogeni lori disorder 232925867 E25.9 Coronary atherosclerosis 974424675 I25.10 Anxiety 11360016 F41.9 Hyperlipidemia 63580004 E78.5 Generalize d osteoarthritis 863067324 M15.9 Long-term drug therapy 486308021 Z79.899 Tobacco user 208426569 Z 72.0 [id number] Brenda Sanchez MD [address] [place] [address] 10/07/2017 13:48:24 10/07/2017 14:14:41 Polycythemia vera (clinical) 374858480 D45 Coronary atherosclerosis 185925285 I25.10 [id number] Brenda Sanchez MD [address] [place] [address] 01/18/2018 09:23:47 01/18/2018 10:13:43 Insomnia 356913673 G47.00 Generalize d osteoarthritis 237776516 M15.9 Coronary atherosclerosis 871793170 I25.10 cont f/u with cardiology Anxiety 92606607 F41.9 Hyperlipidemia 42845294 E78.5 Vitamin B1 2 deficiency (non anemic) 98879715 E53.8 taking OTC bid, dose Adrenogeni lori disorder 508758138 E25.9 Polycythem ia vera (clinical) 194315071 D45 [id number] Brenda Sanchez MD [address] [place] [address] 02/17/2018 10:26:52 02/17/2018 10:46:54 Ecchymosis 263500056 R58 Muscle strain 40948741 T 14.8XXA [id number] Brenda Sanchez MD [address] [place] [address] 04/25/2018 10:04:56 04/25/2018 10:45:01 Polycythemia vera (clinical) 335238199 D45 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 Tobacco user 691465297 Z 72.0 dwight concerning with his polycythem ia [id number] Brenda Sanchez MD [address] [place] [address] 07/19/2018 09:00:17 07/19/2018 09:48:52 Deficiency of testosterone biosynthesis 04178261 E29.1 Coronary atherosclerosis 985677400 I25.10 cont f/u with cardiology ([facility]) Anxiety 32552900 F41.9 Hyperlipidemia 10536250 E78.5 Vitamin B1 2 deficiency (non anemic) 35454802 E53.8 taking OTC bid, dose Generalize d osteoarthritis 231389059 M15.9 Body mass index 30+ - obesity 073844007 Z68.32 Fatigue 63332824 R53.83 [id number] Brenda Sanchez MD [address] [place] [address] 10/24/2018 14:56:35 10/24/2018 15:27:48 Osteoarthritis of hip 697534158 M16.0 Paresthesi a of lower extremity 809123099 R20.2 Sacral back pain 7057012 3 M54.5 Pain in pelvis 02109615 R10.2 [id number] Brenda Sanchez MD [address] [place] [address] 01/17/2019 10:28:35 01/17/2019 11:18:29 Anxiety 52017957 F41.9 Generalize d osteoarthritis 859854451 M15.9 Deficiency of testosterone biosynthesis 08359477 E29.1 Coronary atherosclerosis 484656881 I25.10 cont f/u with cardiology ([facility]) Hyperlipidemia 16426748 E78.5 Polycythem ia vera (clinical) 715557178 D45 to have checked today per Heme Vitamin B1 2 deficiency (non anemic) 08863386 E53.8 Screening for malignant neoplasm of prostate 789278795 Z12.5 [id number] Brenda Sanchez MD [address] [place] [address] 04/24/2019 15:37:18 04/24/2019 16:16:28 Deficiency of testosterone biosynthesis 83369661 E29.1 Insomnia 489077232 G47.0 0 Anxiety 95629792 F41.9 Hyperlipidemia 82417201 E78.5 Generalize d osteoarthritis 797850141 M15.9 Vitamin B1 2 deficiency (non anemic) 27527612 E53.8 Coronary atherosclerosis 455340168 I25.10 cont f/u with cardiology ([facility]) Tobacco user 831660244 Z 72.0 dwight concerning with his polycythem ia Sun-damage d skin on face 410308872 L59.9 [id number] Marisa Scruggs APRN [address] [place] [address] 06/27/2019 13:13:27 06/27/2019 14:25:24 Changing shape of pigmented skin lesion 186060183 L98.8 patient relays that he previously has had the left nipple removed and put back on. It is inverted in appearance . Due to his heavy history of sun exposure and clinical appearance of multi pigmented irregulari ty - we agreed to do a biopsy. [id number] Marisa Scruggs APRN [address] [place] [address] 07/06/2019 09:35:18 07/06/2019 10:39:43 Changing color of pigmented skin lesion 088591261 L98.8 [id number] Marisa Scruggs APRN [address] [place] [address] 07/18/2019 10:24:24 07/18/2019 10:56:00 Removal of suture 08044980 Z48.02 tolerated well Hyperpigme ntation of skin 21212102 L81.9 pathology reviewed in detail with patient [id number] Brenda Sanchez MD [address] [place] [address] 07/27/2019 13:26:59 07/27/2019 14:29:48 Deficiency of testosterone biosynthesis 01177331 E29.1 Anxiety 22614817 F41.9 Hyperlipidemia 93693680 E78.5 Vitamin B1 2 deficiency (non anemic) 63081517 E53.8 Cardiac arrhythmia 16310 7007 I49.9 Long-term drug therapy 397168780 Z79.899 Coronary atherosclerosis 269251159 I25.10 cont f/u with cardiology ([facility]) Body mass index 25-29 - overweight 222665249 Z68.25 [id number] Brenda Sanchez MD [address] [place] [address] 09/26/2019 09:34:47 09/26/2019 10:09:07 Neuropathy 633381372 G62.9 Peripheral vascular disease 265394544 I73.9 Hypertensi ve heart disease 13294054 I11.9 Long-term drug therapy 934773202 Z79.899 Deficiency of testosterone biosynthesis 86653553 E29.1 Generalize d osteoarthritis 596673252 M15.9 Anxiety 28223656 F41.9 Hyperlipidemia 96720840 E78.5 Vitamin B1 2 deficiency (non anemic) 80873847 E53.8 Body mass index 25-29 - overweight 182580931 Z68.25 [id number] Brenda Sanchez MD [address] [place] [address] 12/05/2019 09:26:43 12/05/2019 10:10:03 Hypertensive heart disease 63176334 I11.9 continue care per Cardiology Long-term drug therapy 018366092 Z79.899 Deficiency of testosterone biosynthesis 24689427 E29.1 Generalize d osteoarthritis 903478746 M15.9 cont care per pain clinic Cardiac arrhythmia 40921 7007 I49.9 Vitamin B1 2 deficiency (non anemic) 29376619 E53.8 Hyperlipidemia 54142020 E78.5 Anxiety 31250160 F41.9 Coronary atherosclerosis 475768595 I25.10 cont f/u with cardiology ([facility]) Insomnia 537437233 G47.0 0 Secondary polycythemia 68962092 D75.1 Tobacco user 339204477 Z 72.0 dwight concerning with his polycythem ia Peripheral vascular disease 152729257 I73.9 [id number] Brenda Sanchez MD [address] [place] [address] 04/08/2020 16:25:35 04/08/2020 17:07:03 Anxiety 88309075 F41.9 Cardiac arrhythmia 21736 7007 I49.9 Coronary atherosclerosis 295387228 I25.10 cont f/u with cardiology ([facility]) Deficiency of testosterone biosynthesis 73890827 E29.1 Generalize d osteoarthritis 049522237 M15.9 cont care per pain clinic Hyperlipidemia 07027868 E78.5 Hypertensi ve heart disease 43911816 I11.9 continue care per Cardiology Insomnia 639113352 G47.0 0 Long-term drug therapy 124026465 Z79.899 Neuropathy 233181794 G62 .9 Peripheral vascular disease 121143823 I73.9 Secondary polycythemia 24788708 D75.1 Tobacco user 992087698 Z 72.0 dwight concerning with his polycythem ia [id number] Brenda Sanchez MD [address] [place] [address] 08/01/2020 15:52:10 08/01/2020 16:44:29 Deficiency of testosterone biosynthesis 90601170 E29.1 Anxiety 12212395 F41.9 Hyperlipidemia 95838513 E78.5 Coronary atherosclerosis 210622953 I25.10 cont f/u with cardiology ([facility]) Neuropathy 367220781 G62 .9 Vitamin B1 2 deficiency (non anemic) 65616061 E53.8 Screening for malignant neoplasm of prostate 438207178 Z12.5 Tobacco user 905576568 Z 72.0 dwight concerning with his polycythem ia Influenza vaccine needed 2867020219 106 Z23 Screening for malignant neoplasm of respiratory tract 781895315 Z12.2 Cardiac arrhythmia 02881 7007 I49.9 Hypertensi ve heart disease 55769706 I11.9 continue care per Cardiology Long-term drug therapy 546712980 Z79.899 Secondary polycythemia 63152217 D75.1 [id number] Marisa Scruggs APRN [address] 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 [address] 08/29/2020 11:12:42 08/29/2020 11:40:11 Anxiety 72405147 F41.9 Coronary atherosclerosis 391824989 I25.10 cont f/u with cardiology ([facility]) Generalize d osteoarthritis 373123076 M15.9 cont care per pain clinic Tobacco user 871192167 Z 72.0 dwight concerning with his polycythem ia Deficiency of testosterone biosynthesis 23950274 E29.1 Long-term drug therapy 223543536 Z79.983 [id number] Brenda Sanchez MD [address] [place] [address] 01/24/2021 10:26:04 01/24/2021 11:09:10 Generalized osteoarthritis 726120286 M15.9 cont care per pain clinic and rheumatolo gist Coronary atherosclerosis 677774281 I25.10 cont f/u with cardiology ([facility]) Chronic bronchitis 85697 004 J42 has to stop smoking Hyperlipidemia 46085162 E78.5 Hypertensi ve heart disease 61544958 I11.9 continue care per Cardiology Peripheral vascular disease 233346148 I73.9 cont f/u with cardiologi st Tobacco user 762122543 Z 72.0 dwight concerning with his polycythem ia Deficiency of testosterone biosynthesis 68975785 E29.1 Neuropathy 954330232 G62 .9 care per pain clinic [id number] Brenda Sanchez MD [address] [place] [address] 09/18/2021 10:57:13 09/18/2021 11:39:53 Generalized osteoarthritis 259827414 M15.9 cont care per pain clinic and rheumatolo gist Coronary atherosclerosis 646713527 I25.10 cont f/u with cardiology ([facility]) Chronic bronchitis 48922 004 J42 has to stop smoking Hyperlipidemia 03343610 E78.5 continue statin tx Hypertensi ve heart disease 25114588 I11.9 continue care per Cardiology Peripheral vascular disease 174914113 I73.9 cont f/u with cardiologi st Tobacco user 258345986 Z 72.0 dwight concerning with his polycythem ia. he has no interest in quitting Deficiency of testosterone biosynthesis 06372862 E29.1 Neuropathy 800579746 G62 .9 care per pain clinic Secondary polycythemia 48828929 D75.1 he has to stop smoking. reviewed that this puts him at increased risk of clotting Screening for malignant neoplasm of respiratory tract 917526005 Z12.2 Anxiety 77274042 F41.9 Hydroxyzin e and buspirone help with the symptoms Vitamin D deficiency 347 28845 E55.9 [id number] Marisa Scruggs APRN [facility] [address] [place] [address] 11/18/2021 13:58:40 11/18/2021 15:56:53 Actinic keratosis 011297350 L57.0 cryo applied x1 on left eyebrow [id number] Brenda Sanchez MD [address] [place] [address] 03/17/2022 10:18:13 03/17/2022 11:08:33 Generalized osteoarthritis 976772573 M15.9 cont care per pain clinic and rheumatolo gist Coronary atherosclerosis 461829101 I25.10 cont f/u with cardiology ([facility]) Chronic bronchitis 56839 004 J42 stable, he has to stop smoking Hyperlipidemia 44832933 E78.5 continue statin tx Hypertensi ve heart disease 61762855 I11.9 continue care per Cardiology Peripheral vascular disease 348620128 I73.9 cont f/u with cardiologi st Tobacco user 808997778 Z 72.0 dwight concerning with his polycythem ia. he has no interest in quitting Neuropathy 508979139 G62 .9 care per pain clinic Secondary polycythemia 66796448 D75.1 he has to stop smoking. reviewed that this puts him at increased risk of clotting Anxiety 07194750 F41.9 Hydroxyzin e and buspirone help with the symptoms Hematochezia 153789218 K 92.1 last csp - 12/14/13. 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 continue gel supplement ation [id number] Ben Luque APRN [facility] [address] [place] [address] 07/23/2022 11:16:05 07/23/2022 11:33:12 Influenza vaccine needed 6294975637 106 Z23 [id number] Brenda Sanchez MD [address] [place] [address] 09/17/2022 08:56:09 09/17/2022 09:52:16 Generalized osteoarthritis 188847603 M15.9 cont care per pain clinic and rheumatolo gist Coronary atherosclerosis 933520892 I25.10 cont f/u with cardiology ([facility]) Chronic bronchitis 18169 004 J42 stable, he has to stop smoking Hyperlipidemia 55426921 E78.5 continue atorvastat in 40 mg Hypertensi ve heart disease 86832330 I11.9 continue care per Cardiology Peripheral vascular disease 818070747 I73.9 cont f/u with cardiologi st Tobacco user 515722972 Z 72.0 dwight concerning with his polycythem ia. 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 reviewed that this puts him at increased risk of clotting Anxiety 70721485 F41.9 Hydroxyzin e, citalopram , and buspirone help with the symptoms Long-term current use of testosterone replacement therapy 5070992237 9101 Z79.890 Long-term drug therapy 658474005 Z79.899 Hepatitis C screening 41 6096490 Z11.59 Vitamin B1 2 deficiency (non anemic) 51681705 E53.8 taking OTC Pain of mu ltiple joints 33058279 M25.50 labs for Rheum Screening for malignant neoplasm of respiratory tract 602076634 Z12.2 [id number] Brenda Sanchez MD [address] 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 367466314 F64.0 continue gel supplement ation [id number] Marisa Scruggs APRN [facility] [address] [place] [address] 01/27/2023 10:15:51 01/27/2023 11:06:20 Actinic keratosis 943360866 L57.0 cryo applied x2 on scalp Senile hyperkeratosis 39 0014533 L82.1 offered reassuranc e [id number] Brenda Sanchez MD [address] [place] [address] 04/01/2023 08:48:58 04/01/2023 09:16:50 Neuropathy 470820903 G62.9 care per pain clinic Hyperlipidemia 69282127 E78.5 continue atorvastat in 40 mg Vitamin B1 2 deficiency (non anemic) 19764070 E53.8 taking OTC 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 he has no interest in quitting Secondary polycythemia 52409089 D75.1 he has to stop smoking. reviewed that this puts him at increased risk of clotting Anxiety 29720503 F41.9 Hydroxyzin e, citalopram , and buspirone help with the symptoms Coronary atherosclerosis 743053070 I25.10 cont f/u with cardiology ([facility]) Chronic bronchitis 15439 004 J42 stable, he has to stop smoking Peripheral vascular disease 260959436 I73.9 cont f/u with cardiologi st Long-term current use of testosterone replacement therapy 9121655117 9101 Z79.890 Long-term drug therapy 399819819 Z79.899 Pain of mu ltiple joints 62731312 M25.50 needs labs for Rheum - will do tomorrow Screening for malignant neoplasm of respiratory tract 493028683 Z12.2 last LDCT lung 12/02/22 [id number] Brenda Sanchez MD [address] 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 he has no interest in quitting Secondary polycythemia 30068654 D75.1 he has to stop smoking. 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 reviewed that this puts him at increased risk of clotting Coronary atherosclerosis 911070357 I25.10 cont f/u with cardiology ([facility]) Chronic bronchitis 11982 004 J42 stable, he has to stop smoking Peripheral vascular disease 167640161 I73.9 cont f/u with cardiologi st Long-term current use of testosterone replacement therapy 9088572816 9101 Z79.890 Long-term drug therapy 175897373 Z79.899 Screening for malignant neoplasm of respiratory tract 425039213 Z12.2 smoked 1.5 ppd x >40 yrs last LDCT lung 12/02/22 Onychomyco sis of toenails 701769979 B35.1 it looks like the nail is growing in [place]l. [place] [address] 83476 02370 Z23 [id number] Brenda Sanchez MD [address] [place] [address] 12/20/2023 10:55:22 12/20/2023 11:27:22 Liver enzymes level above reference range 199644461 R74.01 Secondary polycythemia 15139076 D75.1 he has to stop smoking. reviewed that this puts him at increased risk of clotting Obstructiv e sleep apnea syndrome 85198929 G47.33 he hasn't been wearing it b/c of his teeth and he needs a new script he has benefited from using CPAP Chondrocalcinosis 587074 005 M11.20 seeing Rheum Hypertensi ve heart disease 72930981 I11.9 continue care per Cardiology [id number] Brenda Sanchez MD [address] [place] [address] 04/07/2024 08:53:54 04/07/2024 09:40:59 Secondary polycythemia 14381234 D75.1 he has to stop smoking. reviewed that this puts him at increased risk of clotting [facility] 12/29/23 Obstructiv e sleep apnea syndrome 12035145 G47.33 he is using CPAP and benefiting from it Chondrocalcinosis 358144 005 M11.20 seeing Rheum Hypertensi ve heart disease 00889221 I11.9 continue care per Cardiology Anxiety 95803823 F41.9 Hydroxyzin e 25 mg bid, citalopram 40 mg qd , and buspirone 10 mg bid help with the symptoms he wants to try duloxetine , so will have him take 1/2 40 mg citalopram for 4 weeks and add duloxetine 30 mg qd. he will let me know how he is doing he will also try to take only 1/2 of the hydroxyzin e and see if it is helping with his anxiety. 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 481410103 F64.0 continue testostero ne gel supplement ation Generalize d osteoarthritis 462119093 M15.9 cont care per pain clinic and rheumatolo gist Tobacco user 636103633 Z 72.0 trying to cut back Coronary atherosclerosis 797535599 I25.10 cont f/u with cardiology ([facility]) Chronic bronchitis 44495 004 J42 stable, he has to stop smoking Peripheral vascular disease 250637725 I73.9 cont f/u with cardiologi st Long-term current use of testosterone replacement therapy 6681872642 9101 Z79.890 Screening for malignant neoplasm of respiratory tract 082994374 Z12.2 smoked 1.5 ppd x >40 yrs last LDCT lung 12/01/23 Inflammato ry polyarthropathy 326216604 M06.4 follows with Rheumatolo gy and pain clinic Nonulcer dyspepsia 98347 07 K30 symptoms controlled on famotidine 40 mg qd [id number] Marisa Scruggs APRN [facility] [address] [place] [address] 03/28/2024 12:52:05 03/28/2024 13:39:57 Senile hyperkeratosis 264637061 L82.1 offered reassuran e [id number] Nghia Lincoln MD [address] [place] [address] 09/27/2024 10:32:50 09/27/2024 11:21:09 Tobacco user 028218396 Z72.0 Insomnia 085590236 G47.0 0 Generalize d osteoarthritis 738210593 M15.9 Neuropathy 753782037 G62 .9 Peripheral vascular disease 185191150 I73.9 Inflammato ry polyarthropathy 436047231 M06.4 Coronary atherosclerosis 570653856 I25.10 Anxiety 11633386 F41.9 Hyperlipidemia 14822201 E78.5 Vitamin B1 2 deficiency (non anemic) 89855020 E53.8 Hypertensi ve heart disease 31120634 I11.9 Obstructiv e sleep apnea syndrome 18819551 G47.33 Influenza vaccine needed 0894833488 106 Z23 Administra tion of SARS-CoV-2 vaccine 0070757374 Z23 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 590142230 F64.0 Nonulcer dyspepsia 08169 07 K30 Normal weight 56944869 Z 68.22 2104784025 Active immunization 3387 9002 Z23 8424874 Health Concerns Section Related Observation LastModified by Organization Detai ls LastModified Time None Recorded Concern Status LastModified by Organization Details LastModified Time None Recorded Advance Directives Directive N: Payers Insurance Date Sequence Insurance Name Policy Number Policy Ortiz Covered Member ID Ortiz Member ID Guarantor Name 03/29/2025 [place] Kayode Langley [id number] Kayode Langley 03/29/2025 2 [employer] [place] - [place] Kayode Langley [id number] Kayode Langley 03/29/2025 [employer] (MEDICARE REPLACEMENT/AD VANTAGE - PPO) Kayode Langley [id number] Kayode Langley 03/29/2025 2 [employer] - [place]MO) Kayode Langley [id number] Kayode Mendezrod 04/18/2025 1 [employer] (MEDICARE REPLACEMENT/AD VANTAGE - PPO) Kayode Langley [id number] Kayode Mendezrod 03/29/2025 [place]ICAID[place] ALLISON Langley [id number] Kayode Mendezrod 03/29/2025 1 [employer] [place] [employer] [place] (MEDICAID REPLACEMENT - HMO) ALLISON Mendezrod [id number] Kayode Langley 03/29/2025 [place] ALLISON Martins Leonora [id number] Kayode Mendezrod 11/09/2016 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 he also has lab orders from his [facility] he also needs a new order for his CPAP Brenda Sanchez MD [address], [place], [address], [place] - [facility] 12/20/2023 11:28:18 03/28/2024 text/html Kayode is a 64 year old male that returns to Dermatology with concern of a scaling papule on left forearm . Marisa Scruggs, [employer] [address], [place], [address], [facility] - [facility] 03/28/2024 16:42:22 04/07/2024 text/html here for f/u, labs watching liver fxn. saw Rheum for f/u in December. has B CTS. was to be referred to PT and get braces - but he didn't do or get them. no med changes recently. f/u in Jun using 3 pumps of testosterone gel once qweek and 1 pump all other days he follows with Dr Sultana, appt next month he has cut smoking down to about 1/2 ppd hydroxyzine helps with nerves eating fine. staying active still going to pain clinic. on same meds - gabapentin and HC/APAP using his CPAP Brenda Sanchez MD [address], [place], [address], [facility] - [facility] 04/07/2024 09:23:45 09/27/2024 text/html Here for checkup, refills and labs. Gets labs every 6 months. Needs referral for testosterone replacement, female to male trans and only has 2 more weeks left. Has GEE and uses CPAP with great benefit. Nghia Lincoln MD [address], [place], [address], [facility] - [facility] 09/27/2024 11:15:04 03/29/2025 text/html Here for checkup, refills and labs. Gets labs every 6 months. Has GEE and uses CPAP with great benefit - needs new CPAP. Wants shingles vaccine. Nghia Lincoln MD [address], [place], [address], [facility] - [facility] 03/29/2025 11:15:38
--- OUTSIDE RECORDS SUMMARY | 2025-07-11 10:10 | XMS_ITS | Data Portability ---
Author Organization [facility] - [facility] CANDE Anderson ADMIN Address [address] [place] [id number] Assessment Encounter Date Assessment Date Assessment LastModified by Organization Details LastModified Time 12/03/2023 12/03/2023 Mr. Langley was referred by PCP for management of chronic low back pain. Patient denies DM of history of infection. Patient takes Aspirin daily. Patient was seeing pain which performed several injections for pain control (SI injections, LEI, TPIs, MBBs, RFA) along with tried/failed SCS trials with [employer] and [employer]. He mentions that the most helpful injection [...] He would like to continue medications with [facility]. I had a detailed discussion with the patient regarding treatment modalities and the respective risks/benefits. I educated the patient on the dangers/risks of long-term oral opioids, particularly with increasing age, these risks include respiratory depression, not excluding . I informed the patient that the goal of [facility] will be to incorporate a multi-modal [...] __ __ __ __ __ _ ZULY: [id number] I have reviewed patient's ZULY report prior [...] the risk of withdrawal and the differences. [email or web address] Not available 12/06/2023 09:32:29 Plan of Treatment Reminders Order Date Submit Date Provider Last Modified By Organization Details Last Modified Time Details Appointments [facility] 15 min 2024 11:00A M ELEANOR CASTRO NP Not available Not available Not available Lab drug screen, urine - [place] [id number] Urine or blood. If unable to obtain specimen , they will need to drink fluids and wait three hours. Do not let them leave the facility . If still unable to get specimen after 3 hours call the office or it's a failed UDS. 2024 025 [facility] (Registration ), [address] [place] [address] , [place], [address], 04/17/2025 11:01:03 pregabal in, QL, screen, urine 2024 025 [facility] (Registration ), [address] [place] [address] , [place], [address], 04/09/2025 13:15:28 gabapent in, QL, urine 2024 025 [facility] (Registration ), [address] [place] [address] Cecily Kurtz, [place], [address], 04/09/2025 13:15:28 drug screen, urine 2024 025 [facility] (Registration ), [address] [place] [address] Cecily Kurtz, [place], [address], 11/30/2024 13:49:00 drug screen, urine 2023 024 [facility] -[address], [address], [place], [address], 12/03/2023 12:12:30 Referral None recorded . Procedures lumbar radiofre quency ablation (PROC) - [address], [address]. BILATERA L LUMBAR RADIOFRQ UENCY ABLATION L4-S1 2023 024 MELISSA Blakely, [address] [place] [address] , [place], [address], 12/13/2023 11:36:32 Surgeries None recorded . Imaging None recorded . Medication Orders Medrol (Cole) 4 mg tablets in a dose pack 2024 025 [facility], [address] [place], [address], 06/24/2025 05:03:11 hydrocod one 5 mg-aceta minophen 325 mg tablet 2024 025 [facility]69, [address] [place], [address], 06/11/2025 12:40:26 hydrocod one 5 mg-aceta minophen 325 mg tablet 2024 025 [facility], [address] [place] [address], [address], 04/09/2025 13:04:03 gabapent in 800 mg tablet 2024 025 [facility] 156, [address] [place] [address], [address], 04/09/2025 13:04:05 cycloben zaprine 10 mg tablet 2024 025 [facility] 156, [address] [place] [address], [address], 04/09/2025 13:03:59 hydrocod one 5 mg-aceta minophen 325 mg tablet 2024 025 [facility] 156, [address] [place] [address], [address], 02/06/2025 11:27:28 gabapent in 800 mg tablet 2024 025 [facility] 156, [address] [place] [address], [address], 02/06/2025 11:27:27 cycloben zaprine 10 mg tablet 2024 025 [facility], [address] [place] [address], [address], 02/06/2025 11:27:25 hydrocod one 5 mg-aceta minophen 325 mg tablet 2024 025 [facility], [address] [place] [address], [address], 11/30/2024 11:35:57 gabapent in 800 mg tablet 2024 025 [facility], [address] [place] [address], [address], 11/30/2024 11:35:56 cycloben zaprine 10 mg tablet 2024 025 [facility], [address] [place], [address], 11/30/2024 11:35:49 Celebrex 200 mg capsule 2024 025 [facility]69, [address] [place], [address], 11/30/2024 11:35:50 hydrocod one 5 mg-aceta minophen 325 mg tablet [address] [facility], [address], [address], 12/08/2023 15:26:56 hydrocod one 5 mg-aceta minophen 325 mg tablet [address] [facility], [address], [address], 12/08/2023 15:26:59 gabapent in 800 mg tablet 2023 024 [facility], [address], [address], 12/08/2023 15:38:27 Patient TargetsNo targets recorded. Patient Instructions Encounter Date Encounter Id Patient Instructions Last Modified By Organization Details Last Modified Time 06/11/2025 [id number] oral corticosteroids: care instructions [email or web address] Not available 06/11/2025 12:40:19 Reason for Referral None Reported. Results Created Date Observation Date Name Description Value Unit Range Abnormal Flag Note LastModifiedBy Organization Detail LastModifiedTime 12/03/19 24 12/03/2023 drug scree n, urine Amphetamines negati ve Not Available [facility] -[address], [place], [address], 12/03/2023 12:03:21 12/03/19 24 12/03/2023 drug scree n, urine Barbiturates negati ve Not Available [facility] [address], [place], [address], 12/03/2023 12:03:21 12/03/19 24 12/03/2023 drug scree n, urine Buprenorphin e negati ve Not Available [facility] [address], [place], [address], 12/03/2023 12:03:21 12/03/19 24 12/03/2023 drug scree n, urine Benzodiazepi leonor negati ve Not Available [facility] [address], [place], [address], 12/03/2023 12:03:21 12/03/19 24 12/03/2023 drug scree n, urine Cocaine negati ve Not Available [facility] [address], [place], [address], 12/03/2023 12:03:21 12/03/19 24 12/03/2023 drug scree n, urine Methamphetam ine negati ve Not Available [facility] [address], [place], [address], 12/03/2023 12:03:21 12/03/19 24 12/03/2023 drug scree n, urine Ecstasy negati ve Not Available [facility] [address], [place], [address], 12/03/2023 12:03:21 12/03/19 24 12/03/2023 drug scree n, urine Methadone negati ve Not Available [facility] [address], [place], [address], 12/03/2023 12:03:21 12/03/19 24 12/03/2023 drug scree n, urine Morphine/ Opiates negati ve Not Available [facility] [address], [place], [address], 12/03/2023 12:03:21 12/03/19 24 12/03/2023 drug scree n, urine Phencyclidin e negati ve Not Available [facility] [address], [place], [address], 12/03/2023 12:03:21 12/03/19 24 12/03/2023 drug scree n, urine Oxycodone negati ve Not Available [facility] [address], [place], [address], 12/03/2023 12:03:21 12/03/19 24 12/03/2023 drug scree n, urine Marijuana negati ve Not Available [facility] [address], [place], [address], 12/03/2023 12:03:21 12/01/19 25 11/30/2024 UR DRUG SCREE N note SEE NOTE Order ing Provi ja: DEMETRICE CALVIN [place] Not Available [address] [place], [address], 11/30/2024 13:49:00 12/01/19 25 11/30/2024 UR DRUG SCREE N ur cocaine qual NEGATI VE 150NG /mL det limit= Not Available [address] [place], [address], 11/30/2024 13:49:00 12/01/19 25 11/30/2024 UR DRUG SCREE N ur cannabinoid( THC) qual NEGATI VE 50NG/ mL det limit= Not Available [address] , [place], [address], 11/30/2024 13:49:00 12/01/19 25 11/30/2024 UR DRUG SCREE N ur amphetamine qual NEGATI VE 500NG /mL det limit= Not Available [address] , [place], [address], 11/30/2024 13:49:00 12/01/19 25 11/30/2024 UR DRUG SCREE N ur barbiturate qual NEGATI VE 200NG /mL det limit= Not Available [address] , [place], [address], 11/30/2024 13:49:00 12/01/19 25 11/30/2024 UR DRUG SCREE N ur benzodiazepi ne qual NEGATI VE 200NG /mL det limit= Not Available [address] , [place], [address], 11/30/2024 13:49:00 12/01/19 25 11/30/2024 UR DRUG SCREE N ur opiates qual POSITI VE 300NG /mL det limit= abnormal Not Available [address] [place], [address], 11/30/2024 13:49:00 12/01/19 25 11/30/2024 UR DRUG SCREE N ur phencyclidin e (pcp) qual NEGATI VE 25NG/ mL det limit= Not Available [address] [place], [address], 11/30/2024 13:49:00 12/01/19 25 11/30/2024 UR DRUG SCREE N ur tricylic group qual POSITI VE 1000N G/m det limit= abnormal Not Available [address] [place], [address], 11/30/2024 13:49:00 12/01/19 25 11/30/2024 UR DRUG SCREE N methadone urine NEGATI VE 300NG /mL det limit= Not Available [address] , [place], [address], 11/30/2024 13:49:00 12/01/19 25 11/30/2024 UR DRUG SCREE N ur MDMA (ecstacy) ql NEGATI VE 500NG /mL det limit= Not Available [address] , [place], [address], 11/30/2024 13:49:00 12/01/19 25 11/30/2024 UR DRUG SCREE N ur oxycodone ql NEGATI VE 100NG /mL det limit= Not Available [address] , [place], [address], 11/30/2024 13:49:00 12/01/19 25 11/30/2024 UR DRUG SCREE N ur buprenorphin e qual NEGATI VE 10NG/ mL det limit= Not Available [address] , [place], [address], 11/30/2024 13:49:00 12/01/19 25 11/30/2024 UR DRUG SCREE N performing lab SEE NOTE - [facility] [place] [address] [facility] [address] Not Available [address] , [place], [address], 11/30/2024 13:49:00 12/01/19 25 11/30/2024 ANTID EPRES SHERRI PANEL UR GCMS note See Note Order ing Provi ja: DEMETRICE CALVIN [place] Not Available [address] [place], [address], 12/07/2024 20:10:53 12/01/19 25 11/30/2024 ANTID EPRES SHERRI PANEL UR GCMS amitryptalin e Not Detect ed () Not Available [address] Cecily Kurtz, [place], [address], 12/07/2024 20:10:53 12/01/19 25 11/30/2024 ANTID EPRES SHERRI PANEL UR GCMS amoxapine Not Detect ed () Not Available [address] Cecily Kurtz, [place], [address], 12/07/2024 20:10:53 12/01/19 25 11/30/2024 ANTID EPRES SHERRI PANEL UR GCMS 8-hydroxyamo xapine Not Detect ed () Not Available [address] , [place], [address], 12/07/2024 20:10:53 12/01/19 25 11/30/2024 ANTID EPRES SHERRI PANEL UR GCMS bupropion Not Detect ed () Not Available [address] Cecily Kurtz, [place], [address], 12/07/2024 20:10:53 12/01/19 25 11/30/2024 ANTID EPRES SHERRI PANEL UR GCMS citalopram PRESEN T () Not Available [address] Cecily Kurtz, [place], [address], 12/07/2024 20:10:53 12/01/19 25 11/30/2024 ANTID EPRES SHERRI PANEL UR GCMS desmethylcit alopram PRESEN T () Not Available [address] [place], [address], 12/07/2024 20:10:53 12/01/19 25 11/30/2024 ANTID EPRES SHERRI PANEL UR GCMS clomipramine Not Detect ed () Not Available [address] Cec[place] Kurtz, [place], [address], 12/07/2024 20:10:53 12/01/19 25 11/30/2024 ANTID EPRES SHERRI PANEL UR GCMS desmethylclo mipramine Not Detect ed () Not Available [address] , [place], [address], 12/07/2024 20:10:53 12/01/19 25 11/30/2024 ANTID EPRES SHERRI PANEL UR GCMS desipramine Not Detect ed () Not Available [address] , [place], [address], 12/07/2024 20:10:53 12/01/19 25 11/30/2024 ANTID EPRES SHERRI PANEL UR GCMS doxepin Not Detect ed () Not Available [address] [place], [address], 12/07/2024 20:10:53 12/01/19 25 11/30/2024 ANTID EPRES SHERRI PANEL UR GCMS desmethyldox epin Not Detect ed () Not Available [address] , [place], [address], 12/07/2024 20:10:53 12/01/19 25 11/30/2024 ANTID EPRES SHERRI PANEL UR GCMS duloxetine Not Detect ed () Not Available [address] [place], [address], 12/07/2024 20:10:53 12/01/19 25 11/30/2024 ANTID EPRES SHERRI PANEL UR GCMS fluoxetine Not Detect ed () Not Available [address] [place], [address], 12/07/2024 20:10:53 12/01/19 25 11/30/2024 ANTID EPRES SHERRI PANEL UR GCMS norfluoxetin e Not Detect ed () Not Available [address] [place], [address], 12/07/2024 20:10:53 12/01/19 25 11/30/2024 ANTID EPRES SHERRI PANEL UR GCMS fluvoxamine Not Detect ed () Not Available [address] [place], [address], 12/07/2024 20:10:53 12/01/19 25 11/30/2024 ANTID EPRES SHERRI PANEL UR GCMS imipramine Not Detect ed () Not Available [address] [place], [address], 12/07/2024 20:10:53 12/01/19 25 11/30/2024 ANTID EPRES SHERRI PANEL UR GCMS mirtazapine Not Detect ed () Not Available [address] [place], [address], 12/07/2024 20:10:53 12/01/19 25 11/30/2024 ANTID EPRES SHERRI PANEL UR GCMS nortriptylin e Not Detect ed () Not Available [address] , [place], [address], 12/07/2024 20:10:53 12/01/19 25 11/30/2024 ANTID EPRES SHERRI PANEL UR GCMS paroxetine Not Detect ed () Not Available [address] [place], [address], 12/07/2024 20:10:53 12/01/19 25 11/30/2024 ANTID EPRES SHERRI PANEL UR GCMS protriptylin e Not Detect ed () Not Available [address] [place], [address], 12/07/2024 20:10:53 12/01/19 25 11/30/2024 ANTID EPRES SHERRI PANEL UR GCMS sertraline Not Detect ed () Not Available [address] , [place], [address], 12/07/2024 20:10:53 12/01/19 25 11/30/2024 ANTID EPRES SHERRI PANEL UR GCMS desmethylser traline Not Detect ed () Not Available [address] , [place], [address], 12/07/2024 20:10:53 12/01/19 25 11/30/2024 ANTID EPRES SHERRI PANEL UR GCMS maprotiline Not Detect ed () Not Available [address] [place], [address], 12/07/2024 20:10:53 12/01/19 25 11/30/2024 ANTID EPRES SHERRI PANEL UR GCMS nefazodone Not Detect ed () Not Available [address] , [place], [address], 12/07/2024 20:10:53 12/01/19 25 11/30/2024 ANTID EPRES SHERRI PANEL UR GCMS trazodone Not Detect ed () Not Available [address] [place], [address], 12/07/2024 20:10:53 12/01/19 25 11/30/2024 ANTID EPRES SHERRI PANEL UR GCMS 1,3 chlorophenyl piperazine Not Detect ed () Not Available [address] [place], [address], 12/07/2024 20:10:53 12/01/19 25 11/30/2024 ANTID EPRES SHERRI PANEL UR GCMS trimipramine Not Detect ed () Not Available [address] [place], [address], 12/07/2024 20:10:53 12/01/19 25 11/30/2024 ANTID EPRES SHERRI PANEL UR GCMS venlafaxine Not Detect ed () Not Available [address] [place], [address], 12/07/2024 20:10:53 12/01/19 25 11/30/2024 ANTID EPRES SHERRI PANEL UR GCMS desmethylven lafaxine Not Detect ed () Not Available [address] , [place], [address], 12/07/2024 20:10:53 12/01/19 25 11/30/2024 ANTID EPRES SHERRI PANEL UR GCMS vilazodone Not Detect ed () Testi ng Thres hold: 50 or 100 ng/mL This test was devel oped and its perfo rmanc e mariely cteri stics deter mined by [facility]. It has not been clear ed or appro jeet by the Food and Drug Admin istra tion. Not Available [address] [place], [address], 12/07/2024 20:10:53 12/01/19 25 11/30/2024 ANTID EPRES SHERRI PANEL UR GCMS hydroxybupro pion Not Detect ed () Not Available [address] [place], [address], 12/07/2024 20:10:53 12/01/19 25 11/30/2024 ANTID EPRES SHERRI PANEL UR GCMS performing lab see note LC2 - [facility] TERRIIEN T# [id number] [place] [address] Not Available [address] [place], [address], 12/07/2024 20:10:53 12/01/19 25 11/30/2024 UR OPIAT ES GCMS note See Note Order ing Provi ja: DEMETRICE NASCIMENTO Not Available [address] , [place], [address], 12/07/2024 20:10:53 12/01/19 25 11/30/2024 UR OPIAT ES GCMS ur opiates conf Positi ve NG/mL cutoff =300 abnormal Opiat e test inclu claudia Codei ne, Morph ine, [place] morph one, [place] codon e. . Confi rmati on perfo rmed by [facility] Not Available [address] , [place], [address], 12/07/2024 20:10:53 12/01/19 25 11/30/2024 UR OPIAT ES GCMS ur morphine Negati ve cutoff =300 Not Available [address] , [place], [address], 12/07/2024 20:10:53 12/01/19 25 11/30/2024 UR OPIAT ES GCMS ur codeine Negati ve cutoff =300 Not Available [address] , [place], [address], 12/07/2024 20:10:53 12/01/19 25 11/30/2024 UR OPIAT ES GCMS ur hydrocodone Positi ve () abnormal Not Available [address] , [place], [address], 12/07/2024 20:10:53 12/01/19 25 11/30/2024 UR OPIAT ES GCMS ur hydromorphon e Negati ve cutoff =300 Not Available [address] , [place], [address], 12/07/2024 20:10:53 12/01/19 25 11/30/2024 UR OPIAT ES GCMS ur hydrocodone GC/MS conf 535 NG/mL cutoff =300 Perfo rmed At: [facility], [facility] [address] [place], [address]152 Nina leroy, PhrmD , Phone : [phone] Perfo rmed At: [facility], [facility] [address] , [place], [address] Mireya Lacy , PhD, Phone : [phone] Not Available [address] , [place], [address], 12/07/2024 20:10:53 12/01/19 25 11/30/2024 UR OPIAT ES GCMS performing lab see note LC2 - [facility] CLIEN T# [id number] [place] [address] Not Available [address] , [place], [address], 12/07/2024 20:10:53 11/15/19 24 11/15/2023 XR, lumba r spine No observ ation record ed. [facility] (Radiology) [address] [place] [address] , [place], [address], 12/15/2023 08:49:45 Result Notes None recorded. Problems Name Problem SNOMED Code Status Onset Date Resolution Date Notes Provider Name and Address Organization Details Recorded Time Internal hemorrho ids 66009742 Active 2021 Brady Bailey MD [address] [place] [address],[address], [place], [address], [place] - [facility] - [place] & [place] 2 07:02:02 Divertic ulosis of colon 360357200 Active 2021 Brady Bailey MD [address] [place] [address],[address], [place], [address], [place] - [facility] - [place] & [place] 2 07:02:09 Hematoch ezia 161182812 Completed 202111/10/2022 Removal Reason: resolved Brady Bailey MD [address] [place] [address],[address], [place], [address], [place] - [facility] - [place] & [place] 3 12:59:58 Anxiety 23063813 Active 2021 Raj Hopper null, [place] - [facility] - & [place] 2 12:11:33 Coronary arterios clerosis 87860890 Active 2021 Raj Hopper null, [place] - [facility] - [place] & [place] 2 12:11:45 Sleep apnea 65380476 Active 2021 Raj Hopper null, [place] - [facility] - [place] & [place] 2 12:11:58 Cardiac pacemake r in situ 371729511 Active 2021 Raj Hopper null, [place] - [facility] - [place] & [place] 2 12:12:09 Indigest ion 382318333 Active 2021 Raj Hopper null, [place] - [facility] - [place] & [place] 2 12:12:21 Lumbar spondylo sis 936479869 Active 2023 Lakeisha Cheney null, [place] - [facility] - [place] & [place] 4 13:45:10 Myofasci al pain 023202144 Active 2023 Lakeisha Cheney null, [place] - [facility] - [place] & [place] 4 09:38:53 Inflamma tion of sacroili ac joint 83329103 Active 2023 Lakeisha Cheney null, [place] - [facility] - [place] & [place] 4 09:39:00 Degenera tion of lumbar interver tebral disc 08000878 Active 2023 Lakeisharajiv Cheney null, [place] - [facility] - [place] & [place] 4 09:39:06 Opioid dependen ce 07179816 Active 2023 Lakeisha Cheney null, [place] - [facility] [place] & [place] 4 09:24:25 Problem Notes Documentation Provider Name and Address Organization Details Recorded Time Encounter Note : [facility] History Physical - Adult REPORT #: [id number] REPORT STATUS: Signed DATE: 07/03/24 TIME: 1148 PATIENT: KAYODE LANGLEY UNIT #: [id number] ROOM/BED: AGE: 64 SEX: M ATTEND: ELEANOR [...] clinics. He has seen pain management at [facility] and had multiple procedures in which none [...] bulge and ligamentum flavum hypertrophy L3 -L4, fvpt-en-ubqpsgtd spinal stenosis, L4-L5 disc bulge ligamentum flavum hypertrophy and mild bilateral facet arthropathy. Ndds-zl-mkrnanmz spinal stenosis. L5-S1 disc osteophyte complex and [...] in the future. ABDULAZIZ SCORE(Percentage): [address] OFFICE ASSISTANT: Y Opioid Risk Score: 8 Office Procedure -- OFFICE PROCEDURE -- -- OFFICE PROCEDURE -- Post Procedure Post Procedure at 1155 RPT #: [id number] END OF REPORT CC'ed Logic: Ordering Provider: MATTHEW WEBSTER Attending Provider: MATTHEW WEBSTER Referring Provider: LOWELL PATEL Consulting Provider: LOWELL Vaz [facility] 10/30/2024 10:35:35 Clinic Note : [facility] History Physical - Adult REPORT #: [id number] REPORT STATUS: Signed DATE: 10/06/24 TIME: 1216 PATIENT: KAYODE LANGLEY UNIT #: [id number] ROOM/BED: AGE: 64 SEX: M ATTEND: ELEANOR [...] daily, Flexeril 10 mg twice a day, Tignall 5-325 mg four times a day, and gabapentin 800 mg twice a day. The patient states he is doing well on this medication regimen. He denies any other issues at this time. The patient's current medications include: - Celebrex 200mg daily - Flexeril 10mg twice a day - Tignall 5-325mg 4 times a day - Gabapentin [...] - Flexeril 10 mg twice daily - Tignall 5-325 mg four times daily - Gabapentin 800 mg twice daily b. Refill medications c. Schedule follow-up appointment in 2 months 2. Medication Tolerance - Patient tolerating medications well with no reported side effects ABDULAZIZ SCORE(Percentage): [address] OFFICE ASSISTANT: Y Opioid Risk Score: 8 Office Procedure -- OFFICE PROCEDURE -- -- OFFICE PROCEDURE -- Post Procedure Post Procedure at 1220 RPT #: [id number] END OF REPORT CC'ed Logic: Ordering Provider: MATTHEW WEBSTER Attending Provider: MATTHEW WEBSTER Referring Provider: LOWELL PATEL Consulting Provider: LOWELL Vaz [facility] 10/27/2024 09:38:16 Clinic Note : [facility] History Physical - Adult REPORT #: [id number] REPORT STATUS: Signed DATE: 10/06/24 TIME: 1216 PATIENT: KAYODE LANGLEY UNIT #: [id number] ROOM/BED: AGE: 64 SEX: M ATTEND: ELEANOR [...] daily, Flexeril 10 mg twice a day, Tignall 5-325 mg four times a day, and gabapentin 800 mg twice a day. The patient states he is doing well on this medication regimen. He denies any other issues at this time. The patient's current medications include: - Celebrex 200mg daily - Flexeril 10mg twice a day - Tignall 5-325mg 4 times a day - Gabapentin [...] - Flexeril 10 mg twice daily - Tignall 5-325 mg four times daily - Gabapentin 800 mg twice daily b. Refill medications c. Schedule follow-up appointment in 2 months 2. Medication Tolerance - Patient tolerating medications well with no reported side effects ABDULAZIZ SCORE(Percentage): [address] OFFICE ASSISTANT: Y Opioid Risk Score: 8 Office Procedure -- OFFICE PROCEDURE -- -- OFFICE PROCEDURE -- Post Procedure Post Procedure at 1220 Addendum 1: 10/09/24 09 by ELEANOR CASTRO APRN Zuly was reviewed today and is appropriate. at 0958 RPT #: [id number] END OF REPORT CC'ed Logic: Ordering Provider: MATTHEW WEBSTER Attending Provider: MATTHEW WEBSTER Referring Provider: LOWELL PATEL Consulting Provider: LOWELL anderson, [facility] - [facility] [place] & [place] 10/27/2024 09:36:22 Procedures Surgical History Date Name Laterality Status Provider Name and Address Organization Details Recorded Time 2 Colonoscopy completed Raj Melchoreri [facility] - [facility] - [place] & [place] 07/09/2022 12:16:50 4 Colonoscopy completed Raj Melchoreri [facility] - [facility] - [place] & [place] 07/09/2022 12:17:14 thumb surgery completed Raj Cartagenagieri [facility] - [facility] - [place] & [place] 07/09/2022 12:17:54 cardiac pacemaker procedure completed Raj Melchoreri [facility] - [facility] - [place] & [place] 07/09/2022 12:18:03 Stent Placement completed Raj Melchoreri [facility] - [facility] - [place] & [place] 07/09/2022 12:18:18 Stent Placement completed Raj Melchoreri [facility] - [facility] - [place] & [place] 07/09/2022 12:18:31 operative procedure on knee completed Raj Melchoreri [place] - [facility] - [place] & [place] 07/09/2022 12:18:53 Imaging Results None recorded. Procedure [...] Not Available Not Available No t Available Medrol (Cole) 4 mg tablets in a dose pack Take 1 dose pk by oral route as directed for 6 days. 06/24 completed Not Available Not Available Not Available midodrine 5 mg tablet active Not [...] Not Available Not Available No t Available albuterol sulfate HFA 90 mcg/actuati on [...] rating [Score] - Reported Respiratory rate Systolic And Diastolic Provider Name and Address Organization Details Last Updated DateTime 5 97.3 [degF] 97 % 97 % 86 /min 3 16 /min 118/68 mm[Hg] Vernell MANZANARES - [place] & [place] 5 11:12:34 Date Recorded Body temperature Oxygen saturation Oxygen saturation in Arterial blood by Pulse oximetry Heart rate Pain severity - 0-10 verbal numeric rating [Score] - Reported Respiratory rate Systolic And Diastolic Provider Name and Address Organization Details Last Updated DateTime 5 97.3 [degF] 97 % 97 % 82 /min 5 16 /min 120/76 mm[Hg] Mikayla MANZANARES [facility] & [place] 5 11:15:06 Date Recorded Body temperature Oxygen saturation Oxygen saturation in Arterial blood by Pulse oximetry Heart rate Pain severity - 0-10 verbal numeric rating [Score] - Reported Respiratory rate Systolic And Diastolic Provider Name and Address Organization Details Last Updated DateTime 5 97.4 [degF] 97 % 97 % 84 /min 4 16 /min 102/88 mm[Hg] Mikayla MANZANARES [facility] & [place] 5 11:30:38 Social History Question Answer Notes LastModified by [employer] Details LastModified Time Tobacco Smoking Status Current Every Day Smoker Raj Hopper [facility], CHITRA MANZANARES [facility] & [place] 07/09/2022 12:15:27 What Is Your Level Of [...] anxious, or unable to sleep at night)? [id number] Information not available 12/03/2023 Family History Relationship Description Onset Age of this Age Resolved Age Notes LastModified by Organization Details LastModified Time Father Malignant neoplasm of prostate [email or web address] Not available 12/02 10:09:02 Maternal Uncle Malignant neoplasm of stomach [email or web address] Not available 12/02 10:09:02 Mother Diabetes mellitus Not available 12/02 10:09:02 Paternal Uncle Disease of liver [email or web address] Not available 2021 12:14:37 Paternal Uncle Malignant neoplastic disease [email or web address] Not available 12/02 10:09:02 Medical History Condition [...] completed Raj Hopper null, [place] - [facility] & [place] 07/09/2022 12:10:03 zoster recombinant 8 completed Raj Hopper [place] [facility] - [place] 07/09/2022 12:10:09 SARS-COV-2 (COVID-19) vaccine, UNSPECIFIED 1 completed Raj Hopper [place] - [facility] & [place] 07/09/2022 12:10:30 SARS-COV-2 (COVID-19) vaccine, UNSPECIFIED 1 completed Raj Ho[place] [facility] [place] 07/09/2022 12:10:37 influenza, unspecified formulation 0 completed Raj Hopper [place] [facility] - [place] 07/09/2022 12:11:00 pneumococcal polysaccharide PPV23 1 completed Raj Hopper [place] [facility] - [place] 07/09/2022 12:11:23 SARS-COV-2 (COVID-19) vaccine, UNSPECIFIED 2 completed Raj Hopper [place] [facility] [place] 11/10/2022 12:36:27 Past Encounters Encounter ID Performer Location Encounter Start Date Encounter Closed Date Diagnosis/Indication Diagnosis SNOMED-CT Code Diagnosis ICD10 Code Diagnosis IMO Codes Diagnosis Note [id number] Brady Bailey MD [facility] erology [address] [place] [address] 07/09/2022 12:46:44 07/10/2022 14:13:23 Internal hemorrhoids 13177039 K64.8 The patient had internal hemorrhoid s [...] in 4 months. Diverticul osis of colon 450097640 K57.30 recommend patient take fiber as previously recommende d after his colonoscop y Hematochezia 052700953 K 92.1 related to patient's known hemorrhoid al disease. See recommenda tions above [id number] [facility] [address] [place] [address],[address] [address] 11/10/2022 12:22:10 11/10/2022 12:59:27 Internal hemorrhoids 48913995 K64.8 the patient has internal hemorrhoid s remain asymptomat ic despite erratic use of fiber supplement ation, we counseled patient regarding the benefits of ongoing fiber supplement ation and/or a high-fiber diet. But at this time given the patient is doing well really that to his discretion despite our recommenda tions that long-term use might be beneficial . Diverticul osis of colon 854805882 K57.30 recommend patient take fiber as previously recommende d after his colonoscop y [id number] Toro Blakely MD [facility] [address] [place] [address] 11/15/2023 12:01:26 11/15/2023 13:50:53 Lumbar spondylosis 472649707 M47.816 Myofascial pain 39127527 9 M79.10 Inflammati on of sacroiliac joint 01361325 M46.1 Degenerati on of lumbar intervertebral disc 80653967 M51.36 [id number] Toro Blakely MD [facility] [address] [facility],[address] [place] [address] 12/03/2023 10:00:23 12/03/2023 11:14:52 Lumbar spondylosis 582231352 M47.816 Opioid dependence 008903 00 F11.20 Myofascial pain 86474504 9 M79.10 Inflammati on of sacroiliac joint 41847109 M46.1 Degenerati on of lumbar intervertebral disc 51732063 M51.36 [id number] STEPHEN MERCEDES [facility] [address] [address] 11/30/2024 10:54:17 11/30/2024 11:40:05 Lumbar spondylosis 420320799 M47.816 36673414 Lumbar radiculopathy 128 M54.16 84639 Long-term current use of opiate analgesic drug 6289606901 50368 Z79.891 140810 [id number] STEPHEN MERCEDES [facility] [address] [address] 02/06/2025 10:58:56 02/06/2025 11:27:22 Lumbar spondylosis 724223611 M47.816 55502829 Lumbar radiculopathy 128 M54.16 09448 Long-term current use of opiate analgesic drug 6142819070 18602 Z79.891 556850 [id number] STEPHEN MERCEDES [facility] [address] [place] [address] 04/09/2025 10:50:30 04/09/2025 11:55:42 Lumbar spondylosis 111106748 M47.816 92667506 Lumbar radiculopathy 128 953532 M54.16 68477 Long-term current use of opiate analgesic drug 2596362906 55138 Z79.891 763480 Chronic low back pain 27 8679950 G89.29 M54.50 [id number] MD YUNIER Ghosh [facility] [address] [address] 06/11/2025 09:54:48 06/11/2025 11:13:03 Lumbar spondylosis 073182891 M47.816 38622387 Lumbar radiculopathy 128 M54.16 73707 Long-term current use of opiate analgesic drug 2811269124 93044 Z79.891 628386 Chronic low back pain 27 5229224 G89.29 M54.50 8644811371 Right biceps strain 1177 521726 4466247 S46.211A 74117541 If pain is persistent , will consider CT/MRI and refer to [facility] Ortho Health Concerns Section Related Observation LastModified by Organization Detai ls LastModified Time None Recorded Concern Status LastModified by Organization Details LastModified Time None Recorded Advance Directives Directive None Recorded Payers Insurance Date Sequence Insurance Name Policy Number Policy Ortiz Covered Member ID Ortiz Member ID Guarantor Name 05/03/2023 2 [employer] (MEDICAID REPLACEMENT - HMO) [id number] Kayode aLngley [id number] Kayode Langley 04/17/2024 2 [employer] - HMO) [id number] Kayode Langley [id number] Kayode Langley 04/01/2024 1 [employer] [id number] Kayode Langley [id number] Kayode Langley 06/08/2025 [place]IT[place] ) Kayode Langley [id number] Kayode Langley 06/08/2025 1 [employer] (MEDICARE REPLACEMENT/AD VANTAGE - PPO) Kayode Langley [id number] Kayode Langley 04/17/2024 2 MEDICAID-[facility] HEALTH CHOICES - FFS/TRADITIONA L NONE Kayode Langley [id number] Kayode Langley 06/08/2025 2 MEDICAID-[facility] CHOICES - FFS/TRADITIONA L Kayode Langley [id number] Kayode Langley 05/03/2023 1 [employer] (MEDICARE REPLACEMENT/AD VANTAGE - PPO) [id number] Kayode Langley [id number] Kayode Langley Notes Date Note Type Note Provider Name and Address Organization Details Recorded Time 4 text/html ROS as noted in the HPI Mr. Langley was referred by PCP for management of chronic low back pain. Patient denies DM of history of infection. Patient takes Aspirin daily. Patient was seeing pain which performed several injections for pain control (SI injections, LEI, TPIs, MBBs, RFA) along with tried/failed SCS trials with Medtronic and Modern Feed. He mentions that the most helpful injection [...] also wanting to discuss medication continuation with [facility]. He is currently taking Hydrocodone APAP 10791la Q8 and Gabapentin 800mg Q8. Pain today [...] Medications: Hydrocodone APAP 5-325mg Q8, Gabapentin 800mg [id number] Pain Medications: noneNSAIDS/OTC: mildly helpfulNon-interventiona l Tx: nonePhysical Therapy: complete - continues exercisesInterventional Tx: SI injections, LEIs, TPIs, MBBs, lumbar RFA - painSurgery: noneImaging/Studies: no recent imaging Toro Blakely MD [address], [place], [address], [facility] & [place] 12/08/2023 15:38:37 5 text/html 64 yo male [...] 200mg daily , Flexeril 10mg BID , Tignall 5-325mg QID and Gabapentin 800 mg BID. [...] mg daily- Flexeril 10 mg twice daily- Tignall 5-325 mg four times daily- Gabapentin 800 mg twice dailyb. Refill medicationsc. Schedule follow-up appointment in 2 months2. Medication Tolerance- Patient tolerating medications well with no reported side effectsODI SCORE(Percentage):Kwame t SENIOR COURT OFFICE ASSISTANT: YOpioid Risk Score: 8Pain level at [...] of alcohol consumption: None ELEANOR CASTRO NP [address] [facility] [place] , [place], [address], [facility] - [place] & [place] 11/30/2024 13:02:53 5 text/html ROS as noted in the HPI 64 yo male in today for f/u [...] 200mg daily , Flexeril 10mg BID , T[place] 5-325mg QID and Gabapentin 800 mg BID. [...] alcohol consumption: None ELEANOR CASTRO NP [address] [facility] , [place], [address], [facility] 02/06/2025 11:27:34 5 text/html ROS as noted in the HPI 64 yo male in today for f/u r/t low back pain. Pain is rated at 4/10, and has gotten up to 9/10 in the last month. He describes pain as frequent, constant, sharp, burning, shooting. Standing and walking makes pain worse, lying down, rest and medication makes it better. Pain does not radiate nor cause weakness. Does not cause loss of bowel or bladder. Currently taking Celebrex 200mg daily , Flexeril 10mg BID , Tignall 5-325mg QID and Gabapentin 800 mg BID. Patient has seen pain mgmt in the past and had procedures which did not help. ELEANOR CASTRO NP [address] [facility] [place] , [place], [address], [facility] 04/09/2025 13:04:26 5 text/html ROS as noted in the HPI 64 yo male in today for f/u r/t low back pain. Pain is rated at 6/10, and has gotten up to 9/10 in the last month. He describes pain as frequent, aching, sharp and burning. Standing and walking makes pain worse, lying down, rest and medication makes it better. Pain causes weakness in RUE. Does not cause loss of bowel or bladder. Currently taking Celebrex 200mg daily , Flexeril 10mg BID , Tignall 5-325mg QID and Gabapentin 800 mg BID. ELEANOR CASTRO, BINDERY OPERATOR [address] [facility] , [place], [address], [facility] - [place] & [place] 06/11/2025 12:48:25
--- OUTSIDE RECORDS SUMMARY | 2025-07-11 10:11 | XMS_ITS | Clinical Summary ---
Author Organization [facility] Address [address] 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 10/03/2020 Myofascial pain 03/27/2020 [...] , Patricio Protein, PF, Juan Francisco-Sucrose 07/27/2023 [facility] COVID-19 Vac cine (Ortiz Cap) 12+ years [...] 01/11/2005 Sigmoidoscopy 01/11/2005 [facility]-Colorectal Cancer Screening 01/11/2005 Lung Cancer Screening Shared Decision Making 01/11/2010 [facility]-Lung Cancer Screening 01/11/2010 [facility]-Pneumococcal Vaccine: 50+ Years (2 of 2 - PCV) 07/14/2012 07/14/2011, 09/13/2010 [facility]-RSV Vaccine: 60+ Years or (1 - Risk 60-74 years 1-dose series) 2020 [facility]-Abdominal Aortic Aneurysm (AAA) Screening 01/11/2025 [facility]-[id number]-84 Vaccine (2024- season) 2025 07/27/2023, 06/03/2022, 12/18/2021, Additional history exists [facility]-Influenza Vaccine (#1) 05/14/202507/27, 07/23/2022, 07/15/2020, Additional [...] patient's age to complete this topic Insurance HU[employer]NA MEDICARE Care Teams Furniture Finisher Apprentice Relationship Specialty Start Date End Date Brenda Sanchez MD [address] [place] [id number] PCP - General 01/24/21
--- OUTSIDE RECORDS SUMMARY | 2025-07-11 10:11 | XMS_ITS | Continuity of Care Document ---
Author Organization [facility] & [place], [facility] Address [address] [place] [address] [address] [place] [address] Assessment No assessment recorded. Plan of Treatment Reminders Order Date Submit Date Provider Last Modified By Organization Details Last Modified Time Details Appointments Establish ed Visit 15 min 2024 11:00A M ELEANOR CASTRO NP Not available Not available Not available Lab None recorded. Referral None recorded. Procedures None recorded. Surgeries None recorded. Imaging None recorded. Medication Orders Medrol (Cole) 4 mg tablets in a dose pack 2024 025 [facility] [address] [place], [address], 06/24/2025 05:03:11 hydrocodo ne 5 mg-acetam inophen 325 mg tablet 2024 025 [facility] [address] [place], [address], 06/11/2025 12:40:26 Patient TargetsNo targets recorded. Patient Instructions Encounter Date Encounter Id Patient Instructions Last Modified By Organization Details Last Modified Time 06/11/2025 [id number] oral corticosteroids: care instructions [email or web address] Not available 06/11/2025 12:40:19 Reason for Referral None Reported. Problems Name Problem SNOMED Code Status Onset Date Resolution Date Notes Provider Name and Address Organization Details Recorded Time Internal hemorrho ids 89470363 Active 2021 Brady Bailey MD [address] [place] [address],[address], [place], [address], [place] - [facility] - [place] & [place] 2 07:02:02 Divertic ulosis of colon 414564394 Active 2021 Brady Bailey MD [facility],[address], [place], [address], [place] [facility] - [place] & [place] 2 07:02:09 Hematoch ezia 345282396 Completed 202111/10/2022 Removal Reason: resolved Brady Bailey MD [facility],[address], [place], [address], [place] - [facility] - [place] & [place] 3 12:59:58 Anxiety 94304909 Active 2021 Raj Hopper null, [place] - [facility] - [place] & [place] 2 12:11:33 Coronary arterios clerosis 80755193 Active 2021 Raj Hopper [place] [facility] [place] 2 12:11:45 Sleep apnea 11943782 Active 2021 Raj Hopper [place] [facility] [place] & [place] 2 12:11:58 Cardiac pacemake r in situ 231543785 Active 2021 Raj Hopper [place] [facility] [place] & [place] 2 12:12:09 Indigest ion 394342610 Active 2021 Raj Hopper [place] [facility] [place] 2 12:12:21 Lumbar spondylo sis 744458176 Active 2023 Lakeisha Cheney null, [place] - [facility] - [place] & [place] 4 13:45:10 Myofasci al pain 083278765 Active 2023 Lakeisha Cheney null[place] - [facility] - [place] & [place] 4 09:38:53 Inflamma tion of sacroili ac joint 43254661 Active 2023 Lakeisha Cheney null[place] - [facility] - [place] & [place] 4 09:39:00 Degenera tion of lumbar interver tebral disc 11128333 Active 2023 Lakeisha anderson, [place] - [facility] - [place] & [place] 4 09:39:06 Opioid dependen ce 57174521 Active 2023 Lakeisha anderson, [place] - [facility] - [place] & [place] 4 09:24:25 Problem Notes None recorded. Procedures Surgical History Date Name Laterality Status Provider Name and Address Organization Details Recorded Time 2 Colonoscopy completed Raj Melchoreri [place] - [facility] - [place] & [place] 07/09/2022 12:16:50 4 Colonoscopy completed Raj Cartagenagieri [facility] - [facility] - [place] & [place] 07/09/2022 12:17:14 thumb surgery completed Raj Melchoreri [place] - [facility] - [place] & [place] 07/09/2022 12:17:54 cardiac pacemaker procedure completed Raj Melchoreri [place] - [facility] - [place] & [place] 07/09/2022 12:18:03 Stent Placement completed Raj Cartagenagieri [place] - [facility] - [place] & [place] 07/09/2022 12:18:18 Stent Placement completed Raj Melchoreri [place] - [facility] - [place] & [place] 07/09/2022 12:18:31 operative procedure on knee completed Raj Melchoreri [place] - [facility] - [place] & [place] 07/09/2022 12:18:53 Imaging Results None recorded. Procedure [...] Not Available Not Available Not Available Vitals None Recorded Social History Question Answer Notes LastModified by Organizat ion Details LastModified Time Tobacco Smoking Status Current Every Day Smoker Raj Hopper [facility], [place] - [facility] - [place] & [place] 07/09/2022 12:15:27 What Is Your Level Of [...] anxious, or unable to sleep at night)? [id number] Information not available 12/03/2023 Family History Relationship Description Onset Age of this Age Resolved Age Notes LastModified by Organization Details LastModified Time Father Malignant neoplasm of prostate Not available 12/02 10:09:02 Maternal Uncle Malignant neoplasm of stomach [email or web address] Not available 12/02 10:09:02 Mother Diabetes mellitus Not available 12/02 10:09:02 Paternal Uncle Disease of liver [email or web address] Not available 2021 12:14:37 Paternal Uncle Malignant neoplastic disease [email or web address] Not available 12/02 10:09:02 Medical History Condition [...] Details Recorded Time zoster recombinant [address] [facility] 07/09/2022 12:10:03 zoster recombinant [address] [facility] 07/09/2022 12:10:09 SARS-COV-2 (COVID-19) vaccine, UNSPECIFIED 1 completed CHITRA Nickerson [facility] & [place] 07/09/2022 12:10:30 SARS-COV-2 (COVID-19) vaccine, UNSPECIFIED 1 completed CHITRA Nickerson [facility] & [place] 07/09/2022 12:10:37 influenza, unspecified formulation 0 completed CHITRA Nickerson [facility] & [place] 07/09/2022 12:11:00 pneumococcal polysaccharide PPV23 1 completed CHITRA Nickerson [facility] & [place] 07/09/2022 12:11:23 SARS-COV-2 (COVID-19) vaccine, UNSPECIFIED 2 completed CHITRA Nickerson [facility] & [place] 11/10/2022 12:36:27 Past Encounters Encounter ID Performer Location Encounter Start Date Encounter Closed Date Diagnosis/Indication Diagnosis SNOMED-CT Code Diagnosis ICD10 Code Diagnosis IMO Codes Diagnosis Note [id number] MD YUNIER Ghosh [facility] [address] [address] 06/11/2025 09:54:48 06/11/2025 11:13:03 Lumbar spondylosis 625486605 M47.816 49380981 Lumbar radiculopathy 128 987573 M54.16 27551 Long-term current use of opiate analgesic drug 0562079074 83692 Z79.891 628233 Chronic low back pain 27 2861832 G89.29 M54.50 6663394534 Right biceps strain 1177 159411 8646284 S46.211A 25095132 If pain is persistent , will consider CT/MRI and refer to [facility] Ortho Health Concerns Section Related Observation LastModified by Organization Detai ls LastModified Time None Recorded Concern Status LastModified by Organization Details LastModified Time None Recorded Payers Encounter Date Sequence Insurance Name Policy Number Policy Ortiz Covered Member ID Ortiz Member ID Guarantor Name 06/11/2025 1 [employer] (MEDICARE REPLACEMENT/ ADVANTAGE - PPO) James Lea [id number] James Martins Leonora 06/11/2025 2 MEDICAID-[facility] HEALTH CHOICES - FFS/TRADITIO NAL James Lea [id number] James Lea Notes Date Note Type Note Provider Name and Address Organization Details Recorded Time 06/11/2025 text/html ROS as noted in the HPI [...] 200mg daily , Flexeril 10mg BID , [place] 5-325mg QID and Gabapentin 800 mg BID. ELEANOR CASTRO, STEPHEN [address] [facility] , [place], [address], [facility] - [place] & [place] 06/11/2025 12:48:25
== END 2025-07-11 23:59 | disposition home or self-care (01) ==
LOC: RAD 09:47
PROVIDERS: PCP Family Medicine; Visit Provider Physician Assistant
DX: I25.10 Atherosclerotic heart disease of native coronary artery without angina pectoris (principal); T82.110A Breakdown (mechanical) of cardiac electrode, initial encounter
CPT/HCPCS: 71046

== ENCOUNTER 2025-07-16 10:49 | Outpatient (CLI) | payer MEDICARE, MEDICAID, SELFPAY ==
--- OUTSIDE RECORDS SUMMARY | 2025-07-16 10:57 | XMS_ITS | Data Portability ---
Author Organization [facility] CANDE Anderson ADMIN Address [address] [place] [phone] Assessment Encounter Date Assessment Date Assessment LastModified by Organization Details LastModified Time 12/03/2023 12/03/2023 Mr. Langley was referred by PCP for management of chronic low back pain. Patient denies DM of history of infection. Patient takes Aspirin daily. Patient was seeing pain which performed several injections for pain control (SI injections, LEI, TPIs, MBBs, RFA) along with tried/failed SCS trials with Medtr[employer] and [employer]. He mentions that the most helpful injection [...] He would like to continue medications with [facility]. I had a detailed discussion with the patient regarding treatment modalities and the respective risks/benefits. I educated the patient on the dangers/risks of long-term oral opioids, particularly with increasing age, these risks include respiratory depression, not excluding . I informed the patient that the goal of [facility] will be to incorporate a multi-modal [...] __ __ __ __ __ _ ZULY: [id number] I have reviewed patient's ZULY report prior [...] the risk of withdrawal and the differences. Not available 12/06/2023 09:32:29 Plan of Treatment Reminders Order Date Submit Date Provider Last Modified By Organization Details Last Modified Time Details Appointments Establ[facility] Visit 15 min 2024 11:00A M ELEANOR CASTRO NP Not available Not available Not available Lab drug screen, urine - [place] e LC [id number] Urine or blood. If unable to obtain specimen , they will need to drink fluids and wait three hours. Do not let them leave the facility . If still unable to get specimen after 3 hours call the office or it's a failed UDS. 2024 025 [facility] (Registration ), [address] [place] [address] , [place], [address], 04/17/2025 11:01:03 pregabal in, QL, screen, urine 2024 025 [facility] (Registration ), [address] [place] [address] , [place], [address], 04/09/2025 13:15:28 gabapent in, QL, urine 2024 025 [facility] (Registration ), [address] [place] [address] Cecily Kurtz, [place], [address], 04/09/2025 13:15:28 drug screen, urine 2024 025 [facility] (Registration ), [address] [place] [address] Cecily Kurtz, [place], [address], 11/30/2024 13:49:00 drug screen, urine 2023 024 [facility] -[address], [address], [place], [address], 12/03/2023 12:12:30 Referral None recorded . Procedures lumbar radiofre quency ablation (PROC) - 99293, [address]. BILATERA L LUMBAR RADIOFRQ UENCY ABLATION L4-S1 2023 024 MELISSA Blakely, [address] [place] [address] , [place], [address], 12/13/2023 11:36:32 Surgeries None recorded . Imaging None recorded . Medication Orders Medrol (Cole) 4 mg tablets in a dose pack 2024 025 [facility], [address] [place], [address], 06/24/2025 05:03:11 hydrocod one 5 mg-aceta minophen 325 mg tablet 2024 025 [facility], [address] [place], [address], 06/11/2025 12:40:26 hydrocod one 5 mg-aceta minophen 325 mg tablet 2024 025 [facility], [address] [place] [address], [address], 04/09/2025 13:04:03 gabapent in 800 mg tablet 2024 025 [facility] 156, [address] [place] [address], [address], 04/09/2025 13:04:05 cycloben zaprine 10 mg tablet 2024 025 [facility], [address] [place] [address], [address], 04/09/2025 13:03:59 hydrocod one 5 mg-aceta minophen 325 mg tablet 2024 025 [facility] 156, [address] [place] [address], [address], 02/06/2025 11:27:28 gabapent in 800 mg tablet 2024 025 [facility] 156, [address] [place] [address], [address], 02/06/2025 11:27:27 cycloben zaprine 10 mg tablet 2024 025 [facility], [address] [place] [address], [address], 02/06/2025 11:27:25 hydrocod one 5 mg-aceta minophen 325 mg tablet 2024 025 [facility], [address] [place] [address], [address], 11/30/2024 11:35:57 gabapent in 800 mg tablet 2024 025 [facility], [address] [place] [address], [address], 11/30/2024 11:35:56 cycloben zaprine 10 mg tablet 2024 025 [facility], [address] [place], [address], 11/30/2024 11:35:49 Celebrex 200 mg capsule 2024 025 [facility], [address] [place], [address], 11/30/2024 11:35:50 hydrocod one 5 mg-aceta minophen 325 mg tablet [address] [facility], [address], [address], 12/08/2023 15:26:56 hydrocod one 5 mg-aceta minophen 325 mg tablet [address] [facility], [address], [address], 12/08/2023 15:26:59 gabapent in 800 mg tablet 2023 024 [facility], [address], [address], 12/08/2023 15:38:27 Patient TargetsNo targets recorded. Patient Instructions Encounter Date Encounter Id Patient Instructions Last Modified By Organization Details Last Modified Time 06/11/2025 [id number] oral corticosteroids: care instructions Not available 06/11/2025 12:40:19 Reason for Referral None Reported. Results Created Date Observation Date Name Description Value Unit Range Abnormal Flag Note LastModifiedBy Organization Detail LastModifiedTime 12/03/19 24 12/03/2023 drug scree n, urine Amphetamines negati ve Not Available [facility] -[address], [place], [address], 12/03/2023 12:03:21 12/03/19 24 12/03/2023 drug scree n, urine Barbiturates negati ve Not Available [facility] [address], [place], [address], 12/03/2023 12:03:21 12/03/19 24 12/03/2023 drug scree n, urine Buprenorphin e negati ve Not Available [facility] [address], [place], [address], 12/03/2023 12:03:21 12/03/19 24 12/03/2023 drug scree n, urine Benzodiazepi leonor negati ve Not Available [facility] [address], [place], [address], 12/03/2023 12:03:21 12/03/19 24 12/03/2023 drug scree n, urine Cocaine negati ve Not Available [facility] [address], [place], [address], 12/03/2023 12:03:21 12/03/19 24 12/03/2023 drug scree n, urine Methamphetam ine negati ve Not Available [facility] [address], [place], [address], 12/03/2023 12:03:21 12/03/19 24 12/03/2023 drug scree n, urine Ecstasy negati ve Not Available [facility] [address], [place], [address], 12/03/2023 12:03:21 12/03/19 24 12/03/2023 drug scree n, urine Methadone negati ve Not Available [facility] [address], [place], [address], 12/03/2023 12:03:21 12/03/19 24 12/03/2023 drug scree n, urine Morphine/ Opiates negati ve Not Available [facility] [address], [place], [address], 12/03/2023 12:03:21 12/03/19 24 12/03/2023 drug scree n, urine Phencyclidin e negati ve Not Available [facility] [address], [place], [address], 12/03/2023 12:03:21 12/03/19 24 12/03/2023 drug scree n, urine Oxycodone negati ve Not Available [facility] [address], [place], [address], 12/03/2023 12:03:21 12/03/19 24 12/03/2023 drug scree n, urine Marijuana negati ve Not Available [facility] [address], [place], [address], 12/03/2023 12:03:21 12/01/19 25 11/30/2024 UR DRUG SCREE N note SEE NOTE Order ing Provi ja: DEMETRICE CALVIN [place] Not Available [address] [place], [address], 11/30/2024 13:49:00 12/01/19 25 11/30/2024 UR DRUG SCREE N ur cocaine qual NEGATI VE 150NG /mL det limit= Not Available [address] [place], [address], 11/30/2024 13:49:00 12/01/19 25 11/30/2024 UR DRUG SCREE N ur cannabinoid( THC) qual NEGATI VE 50NG/ mL det limit= Not Available [address] , [place], [address], 11/30/2024 13:49:00 12/01/19 25 11/30/2024 UR DRUG SCREE N ur amphetamine qual NEGATI VE 500NG /mL det limit= Not Available [address] , [place], [address], 11/30/2024 13:49:00 12/01/19 25 11/30/2024 UR DRUG SCREE N ur barbiturate qual NEGATI VE 200NG /mL det limit= Not Available [address] , [place], [address], 11/30/2024 13:49:00 12/01/19 25 11/30/2024 UR DRUG SCREE N ur benzodiazepi ne qual NEGATI VE 200NG /mL det limit= Not Available [address] , [place], [address], 11/30/2024 13:49:00 12/01/19 25 11/30/2024 UR DRUG SCREE N ur opiates qual POSITI VE 300NG /mL det limit= abnormal Not Available [address] [place], [address], 11/30/2024 13:49:00 12/01/19 25 11/30/2024 UR DRUG SCREE N ur phencyclidin e (pcp) qual NEGATI VE 25NG/ mL det limit= Not Available [address] [place], [address], 11/30/2024 13:49:00 12/01/19 25 11/30/2024 UR DRUG SCREE N ur tricylic group qual POSITI VE 1000N G/m det limit= abnormal Not Available [address] [place], [address], 11/30/2024 13:49:00 12/01/19 25 11/30/2024 UR DRUG SCREE N methadone urine NEGATI VE 300NG /mL det limit= Not Available [address] , [place], [address], 11/30/2024 13:49:00 12/01/19 25 11/30/2024 UR DRUG SCREE N ur MDMA (ecstacy) ql NEGATI VE 500NG /mL det limit= Not Available [address] , [place], [address], 11/30/2024 13:49:00 12/01/19 25 11/30/2024 UR DRUG SCREE N ur oxycodone ql NEGATI VE 100NG /mL det limit= Not Available [address] , [place], [address], 11/30/2024 13:49:00 12/01/19 25 11/30/2024 UR DRUG SCREE N ur buprenorphin e qual NEGATI VE 10NG/ mL det limit= Not Available [address] , [place], [address], 11/30/2024 13:49:00 12/01/19 25 11/30/2024 UR DRUG SCREE N performing lab SEE NOTE - [facility] [place] [address] [facility] [id number] Not Available [address] , [place], [address], 11/30/2024 13:49:00 12/01/19 25 11/30/2024 ANTID EPRES SHERRI PANEL UR GCMS note See Note Order ing Provi ja: DEMETRICE [place]VIN [place] Not Available [address] [place], [address], 12/07/2024 20:10:53 12/01/19 25 11/30/2024 ANTID EPRES SHERRI PANEL UR GCMS amitryptalin e Not Detect ed () Not Available [address] Cecily Kurtz, [place], [address], 12/07/2024 20:10:53 12/01/19 25 11/30/2024 ANTID EPRES SHERRI PANEL UR GCMS amoxapine Not Detect ed () Not Available [address] Cecily Kurtz, [place], [address], 12/07/2024 20:10:53 12/01/19 25 11/30/2024 ANTID EPRES SHERRI PANEL UR GCMS 8-hydroxyamo xapine Not Detect ed () Not Available [address] , [place], [address], 12/07/2024 20:10:53 12/01/19 25 11/30/2024 ANTID EPRES SHERRI PANEL UR GCMS bupropion Not Detect ed () Not Available [address] Cecily Kurtz, [place], [address], 12/07/2024 20:10:53 12/01/19 25 11/30/2024 ANTID EPRES SHERRI PANEL UR GCMS citalopram PRESEN T () Not Available [address] Cecily Kurtz, [place], [address], 12/07/2024 20:10:53 12/01/19 25 11/30/2024 ANTID EPRES SHERRI PANEL UR GCMS desmethylcit alopram PRESEN T () Not Available [address] [place], [address], 12/07/2024 20:10:53 12/01/19 25 11/30/2024 ANTID EPRES SHERRI PANEL UR GCMS clomipramine Not Detect ed () Not Available [address] Cecily Kurtz, [place], [address], 12/07/2024 20:10:53 12/01/19 25 11/30/2024 ANTID EPRES SHERRI PANEL UR GCMS desmethylclo mipramine Not Detect ed () Not Available [address] , [place], [address], 12/07/2024 20:10:53 12/01/19 25 11/30/2024 ANTID EPRES SHERRI PANEL UR GCMS desipramine Not Detect ed () Not Available [address] , [place], [address], 12/07/2024 20:10:53 12/01/19 25 11/30/2024 ANTID EPRES SHERRI PANEL UR GCMS doxepin Not Detect ed () Not Available [address] [place], [address], 12/07/2024 20:10:53 12/01/19 25 11/30/2024 ANTID EPRES SHERRI PANEL UR GCMS desmethyldox epin Not Detect ed () Not Available [address] , [place], [address], 12/07/2024 20:10:53 12/01/19 25 11/30/2024 ANTID EPRES SHERRI PANEL UR GCMS duloxetine Not Detect ed () Not Available [address] [place], [address], 12/07/2024 20:10:53 12/01/19 25 11/30/2024 ANTID EPRES SHERRI PANEL UR GCMS fluoxetine Not Detect ed () Not Available [address] [place], [address], 12/07/2024 20:10:53 12/01/19 25 11/30/2024 ANTID EPRES SHERRI PANEL UR GCMS norfluoxetin e Not Detect ed () Not Available [address] [place], [address], 12/07/2024 20:10:53 12/01/19 25 11/30/2024 ANTID EPRES SHERRI PANEL UR GCMS fluvoxamine Not Detect ed () Not Available [address] [place], [address], 12/07/2024 20:10:53 12/01/19 25 11/30/2024 ANTID EPRES SHERRI PANEL UR GCMS imipramine Not Detect ed () Not Available [address] [place], [address], 12/07/2024 20:10:53 12/01/19 25 11/30/2024 ANTID EPRES SHERRI PANEL UR GCMS mirtazapine Not Detect ed () Not Available [address] [place], [address], 12/07/2024 20:10:53 12/01/19 25 11/30/2024 ANTID EPRES SHERRI PANEL UR GCMS nortriptylin e Not Detect ed () Not Available [address] , [place], [address], 12/07/2024 20:10:53 12/01/19 25 11/30/2024 ANTID EPRES SHERRI PANEL UR GCMS paroxetine Not Detect ed () Not Available [address] [place], [address], 12/07/2024 20:10:53 12/01/19 25 11/30/2024 ANTID EPRES SHERRI PANEL UR GCMS protriptylin e Not Detect ed () Not Available [address] [place], [address], 12/07/2024 20:10:53 12/01/19 25 11/30/2024 ANTID EPRES SHERRI PANEL UR GCMS sertraline Not Detect ed () Not Available [address] , [place], [address], 12/07/2024 20:10:53 12/01/19 25 11/30/2024 ANTID EPRES SHERRI PANEL UR GCMS desmethylser traline Not Detect ed () Not Available [address] , [place], [address], 12/07/2024 20:10:53 12/01/19 25 11/30/2024 ANTID EPRES SHERRI PANEL UR GCMS maprotiline Not Detect ed () Not Available [address] [place], [address], 12/07/2024 20:10:53 12/01/19 25 11/30/2024 ANTID EPRES SHERRI PANEL UR GCMS nefazodone Not Detect ed () Not Available [address] , [place], [address], 12/07/2024 20:10:53 12/01/19 25 11/30/2024 ANTID EPRES SHERRI PANEL UR GCMS trazodone Not Detect ed () Not Available [address] [place], [address], 12/07/2024 20:10:53 12/01/19 25 11/30/2024 ANTID EPRES SHERRI PANEL UR GCMS 1,3 chlorophenyl piperazine Not Detect ed () Not Available [address] [place], [address], 12/07/2024 20:10:53 12/01/19 25 11/30/2024 ANTID EPRES SHERRI PANEL UR GCMS trimipramine Not Detect ed () Not Available [address] [place], [address], 12/07/2024 20:10:53 12/01/19 25 11/30/2024 ANTID EPRES SHERRI PANEL UR GCMS venlafaxine Not Detect ed () Not Available [address] [place], [address], 12/07/2024 20:10:53 12/01/19 25 11/30/2024 ANTID EPRES SHERRI PANEL UR GCMS desmethylven lafaxine Not Detect ed () Not Available [address] , [place], [address], 12/07/2024 20:10:53 12/01/19 25 11/30/2024 ANTID EPRES SHERRI PANEL UR GCMS vilazodone Not Detect ed () Testi ng Thres hold: 50 or 100 ng/mL This test was devel oped and its perfo rmanc e mariely cteri stics deter mined by [facility]. It has not been clear ed or appro jeet by the Food and Drug Admin istra tion. Not Available [address] [place], [address], 12/07/2024 20:10:53 12/01/19 25 11/30/2024 ANTID EPRES SHERRI PANEL UR GCMS hydroxybupro pion Not Detect ed () Not Available [address] [place], [address], 12/07/2024 20:10:53 12/01/19 25 11/30/2024 ANTID EPRES SHERRI PANEL UR GCMS performing lab see note LC2 - [facility] TERRIIEN T# [id number] [place] [address] Not Available [address] [place], [address], 12/07/2024 20:10:53 12/01/19 25 11/30/2024 UR OPIAT ES GCMS note See Note Order ing Provi ja: DEMETRICE NASCIMENTO Not Available [address] , [place], [address], 12/07/2024 20:10:53 12/01/19 25 11/30/2024 UR OPIAT ES GCMS ur opiates conf Positi ve NG/mL cutoff =300 abnormal Opiat e test inclu claudia Codei ne, Morph ine, [place] morph one, [place] codon e. . Confi rmati on perfo rmed by [facility] ry Not Available [address] , [place], [address], 12/07/2024 20:10:53 12/01/19 25 11/30/2024 UR OPIAT ES GCMS ur morphine Negati ve cutoff =300 Not Available [address] , [place], [address], 12/07/2024 20:10:53 12/01/19 25 11/30/2024 UR OPIAT ES GCMS ur codeine Negati ve cutoff =300 Not Available [address] , [place], [address], 12/07/2024 20:10:53 12/01/19 25 11/30/2024 UR OPIAT ES GCMS ur hydrocodone Positi ve () abnormal Not Available [address] , [place], [address], 12/07/2024 20:10:53 12/01/19 25 11/30/2024 UR OPIAT ES GCMS ur hydromorphon e Negati ve cutoff =300 Not Available [address] , [place], [address], 12/07/2024 20:10:53 12/01/19 25 11/30/2024 UR OPIAT ES GCMS ur hydrocodone GC/MS conf 535 NG/mL cutoff =300 Perfo rmed At: [facility], [facility] [address] [place], [address] Nina leroy, PhrmD , Phone : [phone] Perfo rmed At: [facility], [facility] [address] , [place], [address] Mireya Lacy , PhD, Phone : [phone] Not Available [address] , [place], [address], 12/07/2024 20:10:53 12/01/19 25 11/30/2024 UR OPIAT ES GCMS performing lab see note LC2 - [facility] CLIEN T# [id number] [place] [address] Not Available [address] , [place], [address], 12/07/2024 20:10:53 11/15/19 24 11/15/2023 XR, lumba r spine No observ ation record ed. [facility] (Radiology) [address] [place] [address] , [place], [address], 12/15/2023 08:49:45 Result Notes None recorded. Problems Name Problem SNOMED Code Status Onset Date Resolution Date Notes Provider Name and Address Organization Details Recorded Time Internal hemorrho ids 00399957 Active 2021 Brady Bailey MD [address] [place] [address],[address], [place], [address], [place] - [facility] - [place] & [place] 2 07:02:02 Divertic ulosis of colon 192808724 Active 2021 Brady Bailey MD [address] [place] [address],[address], [place], [address], [place] - [facility] [place] 2 07:02:09 Hematoch ezia 499972798 Completed 202111/10/2022 Removal Reason: resolved Brady Bailey MD [address] [place] [address],[address], [place], [address], [place] [facility] [place] 3 12:59:58 Anxiety 93782483 Active 2021 Raj Hopper null, [place] - [facility] - & [place] 2 12:11:33 Coronary arterios clerosis 18834612 Active 2021 Raj Hopper null, [place] - [facility] - [place] & [place] 2 12:11:45 Sleep apnea 36609401 Active 2021 Raj Hopper null, [place] - [facility] - [place] & [place] 2 12:11:58 Cardiac pacemake r in situ 378985425 Active 2021 Raj Hopper null, [place] - [facility] - [place] & [place] 2 12:12:09 Indigest ion 221700524 Active 2021 Raj Hopper null, [place] - [facility] - [place] & [place] 2 12:12:21 Lumbar spondylo sis 754489209 Active 2023 Lakeisha Cheney null, [place] - [facility] - [place] & [place] 4 13:45:10 Myofasci al pain 953408841 Active 2023 Lakeisha Cheney null, [place] - [facility] - [place] & [place] 4 09:38:53 Inflamma tion of sacroili ac joint 23177206 Active 2023 Lakeisha Cheney null, [place] - [facility] - [place] & [place] 4 09:39:00 Degenera tion of lumbar interver tebral disc 60285266 Active 2023 Lakeisharajiv Cheney null, [place] - [facility] - [place] & [place] 4 09:39:06 Opioid dependen ce 44763749 Active 2023 Lakeisha Cheney null, [place] - [facility] [place] & [place] 4 09:24:25 Problem Notes Documentation Provider Name and Address Organization Details Recorded Time Encounter Note : [facility] History Physical - Adult REPORT #: [id number] REPORT STATUS: Signed DATE: 07/03/24 TIME: 1148 PATIENT: KAYODE LANGLEY UNIT #: [id number] ROOM/BED: AGE: 64 SEX: M ATTEND: ELEANOR [...] clinics. He has seen pain management at [facility] and had multiple procedures in which [...] bulge and ligamentum flavum hypertrophy L3 -L4, zelf-pg-ugsjncga spinal stenosis, L4-L5 disc bulge ligamentum flavum hypertrophy and mild bilateral facet arthropathy. Rnws-hq-qwwxnaqx spinal stenosis. L5-S1 disc osteophyte complex and [...] in the future. ABDULAZIZ SCORE(Percentage): 40 Current BANK CLERK: Y Opioid Risk Score: 8 Office Procedure -- OFFICE PROCEDURE -- -- OFFICE PROCEDURE -- Post Procedure Post Procedure at 1155 RPT #: [id number] END OF REPORT CC'ed Logic: Ordering Provider: MATTHEW WEBSTER Attending Provider: MATTHEW WEBSTER Referring Provider: LOWELL PATEL Consulting Provider: LOWELL Vaz [facility] 10/30/2024 10:35:35 Clinic Note : [facility] History Physical - Adult REPORT #: [id number] REPORT STATUS: Signed DATE: 10/06/24 TIME: 1216 PATIENT: KAYODE LANGLEY UNIT #: [id number] ROOM/BED: AGE: 64 SEX: M ATTEND: ELEANOR [...] daily, Flexeril 10 mg twice a day, Naalehu 5-325 mg four times a day, and gabapentin 800 mg twice a day. The patient states he is doing well on this medication regimen. He denies any other issues at this time. The patient's current medications include: - Celebrex 200mg daily - Flexeril 10mg twice a day - Naalehu 5-325mg 4 times a day - Gabapentin [...] - Flexeril 10 mg twice daily - Naalehu 5-325 mg four times daily - Gabapentin 800 mg twice daily b. Refill medications c. Schedule follow-up appointment in 2 months 2. Medication Tolerance - Patient tolerating medications well with no reported side effects ABDULAZIZ SCORE(Percentage): 42 Current BANK CLERK: Y Opioid Risk Score: 8 Office Procedure -- OFFICE PROCEDURE -- -- OFFICE PROCEDURE -- Post Procedure Post Procedure at 1220 RPT #: [id number] END OF REPORT CC'ed Logic: Ordering Provider: MATTHEW WEBSTER Attending Provider: MATTHEW WEBSTER Referring Provider: LOWELL PATEL Consulting Provider: LOWELL Vaz [facility] 10/27/2024 09:38:16 Clinic Note : [facility] History Physical - Adult REPORT #: [id number] REPORT STATUS: Signed DATE: 10/06/24 TIME: 1216 PATIENT: KAYODE LANGLEY UNIT #: [id number] ROOM/BED: AGE: 64 SEX: M ATTEND: ELEANOR [...] daily, Flexeril 10 mg twice a day, Naalehu 5-325 mg four times a day, and gabapentin 800 mg twice a day. The patient states he is doing well on this medication regimen. He denies any other issues at this time. The patient's current medications include: - Celebrex 200mg daily - Flexeril 10mg twice a day - Naalehu 5-325mg 4 times a day - Gabapentin [...] - Flexeril 10 mg twice daily - Naalehu 5-325 mg four times daily - Gabapentin 800 mg twice daily b. Refill medications c. Schedule follow-up appointment in 2 months 2. Medication Tolerance - Patient tolerating medications well with no reported side effects ABDULAZIZ SCORE(Percentage): 42 Current BANK CLERK: Y Opioid Risk Score: 8 Office Procedure -- OFFICE PROCEDURE -- -- OFFICE PROCEDURE -- Post Procedure Post Procedure at 1220 Addendum 1: 10/09/24 09 by ELEANOR CASTRO APRN Zuly was reviewed today and is appropriate. at 0955 RPT #: [id number] END OF REPORT CC'ed Logic: Ordering Provider: MATTHEW WEBSTER Attending Provider: MATTHEW WEBSTER Referring Provider: LOWELL PATEL Consulting Provider: LOWELL anderson, [facility] - [facility] [place] 10/27/2024 09:36:22 Procedures Surgical History Date Name Laterality Status Provider Name and Address Organization Details Recorded Time 2 Colonoscopy completed Raj Melchoreri [facility] - [facility] [place] 07/09/2022 12:16:50 4 Colonoscopy completed Raj Melchoreri [facility] - [facility] [place] 07/09/2022 12:17:14 thumb surgery completed Raj Cartagenagieri [facility] - [facility] - [place] 07/09/2022 12:17:54 cardiac pacemaker procedure completed Raj Melchoreri [facility] - [facility] - [place] 07/09/2022 12:18:03 Stent Placement completed Raj Melchoreri CHITRA - [facility] - [place] & [place] 07/09/2022 12:18:18 Stent Placement completed Raj Melchoreri CHITRA - [facility] - [place] 07/09/2022 12:18:31 operative procedure on knee completed Raj Melchoreri CHITRA - [facility] - [place] 07/09/2022 12:18:53 Imaging Results None recorded. Procedure [...] 16 /min 118/68 mm[Hg] Vernell MANZANARES - [place] 5 11:12:34 Date Recorded Body temperature Oxygen saturation Oxygen saturation in Arterial blood by Pulse oximetry Heart rate Pain severity - 0-10 verbal numeric rating [Score] - Reported Respiratory rate Systolic And Diastolic Provider Name and Address Organization Details Last Updated DateTime 5 97.3 [degF] 97 % 97 % 82 /min 5 16 /min 120/76 mm[Hg] Mikayla MANZANARES [facility] & [place] 5 11:15:06 Date Recorded Body temperature Oxygen saturation Oxygen saturation in Arterial blood by Pulse oximetry Heart rate Pain severity - 0-10 verbal numeric rating [Score] - Reported Respiratory rate Systolic And Diastolic Provider Name and Address Organization Details Last Updated DateTime 5 97.4 [degF] 97 % 97 % 84 /min 4 16 /min 102/88 mm[Hg] Mikayla MANZANARES [facility] & [place] 5 11:30:38 Social History Question Answer Notes LastModified by Amprius Details LastModified Time Tobacco Smoking Status Current Every Day Smoker Raj Hopper [facility], CHITRA MANZANARES [facility] & [place] 07/09/2022 12:15:27 What Is Your Level Of [...] anxious, or unable to sleep at night)? [id number] Information not available 12/03/2023 Family History Relationship Description Onset Age of this Age Resolved Age Notes LastModified by Organization Details LastModified Time Father Malignant neoplasm of prostate [email or web address] Not available 12/02 10:09:02 Maternal Uncle Malignant neoplasm of stomach Not available 12/02 10:09:02 Mother Diabetes mellitus [email or web address] Not available 12/02 10:09:02 Paternal Uncle Disease of liver alverto Not available 2021 12:14:37 Paternal Uncle Malignant neoplastic disease [email or web address] Not available 12/02 10:09:02 Medical History Condition [...] completed Raj Hopper null, [place] - [facility] & [place] 07/09/2022 12:10:03 zoster recombinant 8 completed Raj [place] [facility] [place] 07/09/2022 12:10:09 SARS-COV-2 (COVID-19) vaccine, UNSPECIFIED 1 completed Raj Ho[place] null, [place] - [facility] & [place] 07/09/2022 12:10:30 SARS-COV-2 (COVID-19) vaccine, UNSPECIFIED 1 completed Raj [place] [facility] - [place] 07/09/2022 12:10:37 influenza, unspecified formulation 0 completed Raj [place] [facility] - [place] 07/09/2022 12:11:00 pneumococcal polysaccharide PPV23 1 completed Raj [place] [facility] - [place] 07/09/2022 12:11:23 SARS-COV-2 (COVID-19) vaccine, UNSPECIFIED 2 completed Raj Hopper null, [place] - [facility] - [place] 11/10/2022 12:36:27 Past Encounters Encounter ID Performer Location Encounter Start Date Encounter Closed Date Diagnosis/Indication Diagnosis SNOMED-CT Code Diagnosis ICD10 Code Diagnosis IMO Codes Diagnosis Note [id number] Brady Bailey MD [facility] erology [address] [place] [address] 07/09/2022 12:46:44 07/10/2022 14:13:23 Internal hemorrhoids 49103441 K64.8 The patient had internal hemorrhoid s [...] in 4 months. Diverticul osis of colon 235842336 K57.30 recommend patient take fiber as previously recommende d after his colonoscop y Hematochezia 599462559 K 92.1 related to patient's known hemorrhoid al disease. See recommenda tions above [id number] [facility] [address] [place] [address],[address] [address] 11/10/2022 12:22:10 11/10/2022 12:59:27 Internal hemorrhoids 03274227 K64.8 the patient has internal hemorrhoid s remain asymptomat ic despite erratic use of fiber supplement ation, we counseled patient regarding the benefits of ongoing fiber supplement ation and/or a high-fiber diet. But at this time given the patient is doing well really that to his discretion despite our recommenda tions that long-term use might be beneficial . Diverticul osis of colon 778150214 K57.30 recommend patient take fiber as previously recommende d after his colonoscop y [id number] Toro Blakely MD [facility] [address] [place] [address] 11/15/2023 12:01:26 11/15/2023 13:50:53 Lumbar spondylosis 378022909 M47.816 Myofascial pain 87588046 9 M79.10 Inflammati on of sacroiliac joint 46055277 M46.1 Degenerati on of lumbar intervertebral disc 50582616 M51.36 [id number] Toro Blakely MD [facility] [address] [facility],[address] [place] [address] 12/03/2023 10:00:23 12/03/2023 11:14:52 Lumbar spondylosis 711014424 M47.816 Opioid dependence 159045 00 F11.20 Myofascial pain 03643574 9 M79.10 Inflammati on of sacroiliac joint 93764497 M46.1 Degenerati on of lumbar intervertebral disc 41783849 M51.36 [id number] [facility] [address] [address] 11/30/2024 10:54:17 11/30/2024 11:40:05 Lumbar spondylosis 583724125 M47.816 60126394 Lumbar radiculopathy 128 M54.16 03823 Long-term current use of opiate analgesic drug 2662523212 95850 Z79.891 493188 [id number] STEPHEN MERCEDES [facility] [address] [address] 02/06/2025 10:58:56 02/06/2025 11:27:22 Lumbar spondylosis 951216587 M47.816 79351623 Lumbar radiculopathy 128 M54.16 23815 Long-term current use of opiate analgesic drug 5739521764 00410 Z79.891 679216 [id number] STEPHEN MERCEDES [facility] [address] [place] [address] 04/09/2025 10:50:30 04/09/2025 11:55:42 Lumbar spondylosis 272365725 M47.816 08971269 Lumbar radiculopathy 128 466228 M54.16 82591 Long-term current use of opiate analgesic drug 6013994261 14794 Z79.891 815400 Chronic low back pain 27 1969215 G89.29 M54.50 [id number] MD [facility]UN[facility] Gh[facility] [address] [address] 06/11/2025 09:54:48 06/11/2025 11:13:03 Lumbar spondylosis 506672642 M47.816 57720293 Lumbar radiculopathy 128 M54.16 34742 Long-term current use of opiate analgesic drug 1740489111 85415 Z79.891 841859 Chronic low back pain 27 0843913 G89.29 M54.50 3317440401 Right biceps strain 1177 863010 5100454 S46.211A 12607087 If pain is persistent , will consider CT/MRI and refer to [facility] Ortho Health Concerns Section Related Observation LastModified by Organization Detai ls LastModified Time None Recorded Concern Status LastModified by Organization Details LastModified Time None Recorded Advance Directives Directive None Recorded Payers Insurance Date Sequence Insurance Name Policy Number Policy Ortiz Covered Member ID Ortiz Member ID Guarantor Name 05/03/2023 2 [employer] [place]MEDICAID RE[place]ACEMENT - HMO) [id number] Kayode Langley [id number] Kayode Langley 04/17/2024 2 [employer] [place]AC[place] - [place]MO) [id number] Kayode Langley [id number] Kayode Langley 04/01/2024 1 [employer] [id number] Kayode Langley [id number] Kayode Langley 06/08/2025 [place]IT[place] Kayode Langley [id number] Kayode Langley 06/08/2025 2 MEDICAID-[facility] HEALTH CHOICES - FFS/TRADITIONA L Kayode Langley [id number] Kayode Langley 05/03/2023 1 [employer] (MEDICARE REPLACEMENT/AD VANTAGE - PPO) [id number] Kayode Langley [id number] Kayode Langley 04/17/2024 2 MEDICAID-[facility] CHOICES - FFS/TRADITIONA L NONE Kayode Langley [id number] Kayode Langley 06/08/2025 1 [employer] (MEDICARE REPLACEMENT/AD VANTAGE - PPO) Kayode Langley [id number] Kayode Langley Notes Date Note Type Note [...] with tried/failed SCS trials with [employer] and [employer]. He mentions that the most helpful injection [...] also wanting to discuss medication continuation with [facility]. He is currently taking Hydrocodone APAP 01845nw Q8 and Gabapentin 800mg Q8. Pain today [...] Medications: Hydrocodone APAP 5-325mg Q8, Gabapentin 800mg [id number] Pain Medications: noneNSAIDS/OTC: mildly helpfulNon-interventiona l Tx: nonePhysical Therapy: complete - continues exercisesInterventional Tx: SI injections, LEIs, TPIs, MBBs, lumbar RFA - painSurgery: noneImaging/Studies: no recent imaging Toro Blakely MD [address], [place], [address], [facility] & [place] 12/08/2023 15:38:37 5 text/html 64 yo male [...] 200mg daily , Flexeril 10mg BID , Naalehu 5-325mg QID and Gabapentin 800 mg BID. [...] mg daily- Flexeril 10 mg twice daily- Naalehu 5-325 mg four times daily- Gabapentin 800 mg twice dailyb. Refill medicationsc. Schedule follow-up appointment in 2 months2. Medication Tolerance- Patient tolerating medications well with no reported side effectsODI SCORE(Percentage):Kwame t BANK CLERK: YOpioid Risk Score: 8Pain level at rest: [...] of alcohol consumption: None ELEANOR CASTRO NP [address] [facility] , [place], [address], [facility] - [place] 11/30/2024 13:02:53 5 text/html ROS as noted [...] 200mg daily , Flexeril 10mg BID , Naalehu 5-325mg QID and Gabapentin 800 mg BID. [...] None ELEANOR CASTRO NP [address] [facility] , [place], [address], [facility] 02/06/2025 11:27:34 5 text/html ROS as noted [...] 200mg daily , Flexeril 10mg BID , Naalehu 5-325mg QID and Gabapentin 800 mg BID. Patient has seen pain mgmt in the past and had procedures which did not help. ELEANOR CASTRO NP [address] [facility] , [place], [address], [facility] 04/09/2025 13:04:26 5 text/html ROS as noted [...] 200mg daily , Flexeril 10mg BID , Naalehu 5-325mg QID and Gabapentin 800 mg BID. ELEANOR CASTRO, CLIENT HR MANAGER [address] [facility] , [place], [address], [facility] - [place] & [place] 06/11/2025 12:48:25
--- OUTSIDE RECORDS SUMMARY | 2025-07-16 10:58 | XMS_ITS | Data Portability ---
Author Organization [facility] Address [address] [place] [address] Care Team Providers Care Sharepoint Architect Name Role Phone CHARLES HOLLY Referring Provider [phone] JENNY HAMEED Referring Provider [phone] DANIEL PAN Referring Provider [phone] Assessment Encounter Date Assessment Date Assessment LastModified [...] total, serum 2024 025 [facility], [address] [place], [address], 10/01/2024 04:07:08 CBC w/ auto diff 2024 025 [facility], [address] [place], [address], 10/01/2024 04:07:05 CMP, serum or plasma 2024 025 [facility], [address] [place], [address], 10/01/2024 04:07:06 lipid panel, serum 2024 025 [facility], [address] [place] [address], [id number], 10/01/2024 04:07:07 lipid panel, serum 2023 024 [facility], [address] [place] [address], [id number], 04/08/2024 04:11:28 CMP, serum or plasma 2023 024 [facility], [address] [place] [address], [address], 04/08/2024 04:11:27 protein + creatinin e panel, urine 2023 024 ng[facility], [address] [place] [address], [id number], 12/27/2023 19:52:16 ferritin, serum or plasma 2023 024 [facility], [address] [place] [address], [address], 12/21/2023 08:26:20 iron + total iron-bind ing capacity (TIBC), serum 2023 024 [facility], [address] [place] [address], [address], 12/21/2023 08:26:18 CBC w/ auto diff 2023 024 [facility], [address] [place] [address], [address], 12/21/2023 08:26:15 gamma-glu tamyl transfera se (ggt), serum [address], [address], 12/21/2023 08:26:19 hepatitis panel (A+B+C), acute, serum 2023 024 [facility], [address] [place], [address], 12/21/2023 08:26:17 hepatic function panel, serum 2023 024 [facility], [address] [place], [address], 12/21/2023 08:26:16 Referral urologist referral - for testoster one replaceme nt. 2024 MELISSA Richardson III, MD, [address], [place], [address], 10/30/2024 13:07:49 Procedures None recorded. Surgeries None recorded. Imaging None recorded. Medication Orders atorvasta tin 80 mg tablet 2024 025 [facility], [address] [facility], [place], [address], 03/29/2025 11:14:55 famotidin e 40 mg tablet 2024 025 [facility], [address] [facility], [place], [address], 03/29/2025 11:14:50 buspirone 10 mg tablet 2024 025 [facility], [address] [facility], [place], [address], 03/29/2025 11:14:51 citalopra m 40 mg tablet 2024 025 [facility], [address] [facility], [place], [address], 03/29/2025 11:14:56 hydroxyzi ne HCl 25 mg tablet 2024 025 [facility], [address] [facility], [place], [address], 03/29/2025 11:14:53 cyanocoba morales (vit B-12) 1,000 mcg tablet 2024 025 [facility], [address] [facility], [place], [address], 03/29/2025 11:14:50 celecoxib 200 mg capsule 2024 025 [facility], [address] [facility], [place], [address], 03/29/2025 11:14:51 cyclobenz aprine 10 mg tablet 2024 025 [facility], [address] [facility], [place], [address], 03/29/2025 11:14:53 atorvasta tin 80 mg tablet 2024 025 [facility], [address] [facility], [place], [address], 09/27/2024 11:13:51 famotidin e 40 mg tablet 2024 025 [facility], [address] [facility], [place], [address], 09/27/2024 11:13:50 buspirone 10 mg tablet 2024 025 [facility], [address] [facility], [place], [address], 09/27/2024 11:13:51 citalopra m 40 mg tablet 2024 025 [facility], [address] [facility], [place], [address], 09/27/2024 11:13:49 hydroxyzi ne HCl 25 mg tablet 2024 025 [facility], [address] [facility], [place], [address], 09/27/2024 11:13:49 cyanocoba morales (vit B-12) 1,000 mcg tablet 2024 025 [facility], [address] [facility], [place], [address], 09/27/2024 11:13:50 celecoxib 200 mg capsule 2024 025 [facility], [address] [facility], [place], [address], 09/27/2024 11:13:48 cyclobenz aprine 10 mg tablet 2024 025 [facility], [address] [facility], [place], [address], 09/27/2024 11:13:50 atorvasta tin 80 mg tablet 2023 024 [facility], [address] [facility], [place], [address], 04/07/2024 09:23:08 famotidin e 40 mg tablet 2023 024 [facility], [address] , [place], [address], 04/07/2024 09:23:09 buspirone 10 mg tablet 2023 024 [facility], [address] , [place], [address], 04/07/2024 09:23:07 duloxetin e 30 mg capsule,d elayed release 2023 024 [facility], [address] [facility], [place], [address], 05/01/2024 20:38:49 Patient TargetsNo targets recorded. Patient Instructions Encounter Date Encounter Id Patient Instructions Last Modified By Organization Details Last Modified Time 04/07/2024 [id number] smoking cessatio n counseling, greater than 3 minutes up to 10 minutes* nguttman Not available 04/07/2024 09:23:04 09/27/2024 [id number] Quitting Tobacco : Care Instructions tgrosser Not available 09/27/2024 12:58:51 03/29/2025 [id number] body mass index: care instructions tgrosser Not [...] x10e3 /uL 3.4-10 .8 Not Available [facility] ([facility]) [address] [place], [address], 12/21/2023 08:26:15 12/20/1912/21/2023 CBC WITH DIFFE RENTI AL/PL ATELE T RBC 4.73 x10e6 /uL 4.14-5 .80 Not Available [facility] ([facility]) [address] [place], [address], 12/21/2023 08:26:15 12/20/1912/21/2023 CBC WITH DIFFE RENTI AL/PL ATELE T hemoglobin 15.9 g/dL 13.0-1 7.7 Not Available [facility] ([facility]) [address] [place], [address], 12/21/2023 08:26:15 12/20/19 24 12/21/2023 CBC WITH DIFFE RENTI AL/PL ATELE T hematocrit 45.3 % 37.5-5 1.0 Not Available [facility] ([facility]) [address] [facility], [place], [address], 12/21/2023 08:26:15 12/20/19 24 12/21/2023 CBC WITH DIFFE RENTI AL/PL ATELE T MCV 96 fL 79-97 Not Available [facility] ([facility]) [address] [facility], [place], [address], 12/21/2023 08:26:15 12/20/19 24 12/21/2023 CBC WITH DIFFE RENTI AL/PL ATELE T MCH 33.6 pg 26.6-3 3.0 above high normal Not Available [facility] ([facility]) [address] [facility], [place], [address], 12/21/2023 08:26:15 12/20/19 24 12/21/2023 CBC WITH DIFFE RENTI AL/PL ATELE T MCHC 35.1 g/dL 31.5-3 5.7 Not Available [facility] ([facility]) [address] [facility], [place], [address], 12/21/2023 08:26:15 12/20/19 24 12/21/2023 CBC WITH DIFFE RENTI AL/PL ATELE T RDW 14.5 % 11.6-1 5.4 Not Available [facility] ([facility]) [address] [facility], [place], [address], 12/21/2023 08:26:15 12/20/19 24 12/21/2023 CBC WITH DIFFE RENTI AL/PL ATELE T platelets 212 x10e3 /uL 150-45 0 Not Available [facility] ([facility]) [address] [facility], [place], [address], 12/21/2023 08:26:15 12/20/19 24 12/21/2023 CBC WITH DIFFE RENTI AL/PL ATELE T neutrophils 57 % not estab. Not Available [facility] ([facility]) [address] [facility], [place], [address], 12/21/2023 08:26:15 12/20/19 24 12/21/2023 CBC WITH DIFFE RENTI AL/PL ATELE T lymphs 31 % not estab. Not Available [facility] ([facility]) [address] [facility], [place], [address], 12/21/2023 08:26:15 12/20/19 24 12/21/2023 CBC WITH DIFFE RENTI AL/PL ATELE T monocytes 9 % not estab. Not Available [facility] ([facility]) [address] [facility], [place], [address], 12/21/2023 08:26:15 12/20/19 24 12/21/2023 CBC WITH DIFFE RENTI AL/PL ATELE T eos 3 % not estab. Not Available [facility] ([facility]) [address] [facility], [place], [address], 12/21/2023 08:26:15 12/20/19 24 12/21/2023 CBC WITH DIFFE RENTI AL/PL ATELE T basos 0 % not estab. Not Available [facility] ([facility]) [address] [facility], [place], [address], 12/21/2023 08:26:15 12/20/19 24 12/21/2023 CBC WITH DIFFE RENTI AL/PL ATELE T immature cells DISTILLING DE[employer]MENT SUPERVISOR Not Available [facility] ([facility]) [address] [facility], [place], [address], 12/21/2023 08:26:15 12/20/19 24 12/21/2023 CBC WITH DIFFE RENTI AL/PL ATELE T neutrophils (absolute) 4.2 x10e3 /uL 1.4-7. 0 Not Available [facility] ([facility]) [address] [facility], [place], [address], 12/21/2023 08:26:15 12/20/19 24 12/21/2023 CBC WITH DIFFE RENTI AL/PL ATELE T lymphs (absolute) 2.2 x10e3 /uL 0.7-3. 1 Not Available [facility] ([facility]) [address] [facility], [place], [address], 12/21/2023 08:26:15 12/20/19 24 12/21/2023 CBC WITH DIFFE RENTI AL/PL ATELE T monocytes(ab solute) 0.6 x10e3 /uL 0.1-0. 9 Not Available [facility] ([facility]) [address] [place], [address], 12/21/2023 08:26:15 12/20/19 24 12/21/2023 CBC WITH DIFFE RENTI AL/PL ATELE T eos (absolute) 0.2 x10e3 /uL 0.0-0. 4 Not Available [facility] ([facility]) [address] [place], [address], 12/21/2023 08:26:15 12/20/19 24 12/21/2023 CBC WITH DIFFE RENTI AL/PL ATELE T baso (absolute) 0.0 x10e3 /uL 0.0-0. 2 Not Available [facility] ([facility]) [address] [place], [address], 12/21/2023 08:26:15 12/20/19 24 12/21/2023 CBC WITH DIFFE RENTI AL/PL ATELE T immature granulocytes 0 % not estab. Not Available [facility] ([facility]) [address] [place], [address], 12/21/2023 08:26:15 12/20/19 24 12/21/2023 CBC WITH DIFFE RENTI AL/PL ATELE T immature grans (abs) 0.0 x10e3 /uL 0.0-0. 1 Not Available [facility] ([facility]) [address] [facility] [place], [address], 12/21/2023 08:26:15 12/20/19 24 12/21/2023 CBC WITH DIFFE RENTI AL/PL ATELE T NRBC [employer]ILLING [employer]MENT SUPERVISOR Not Available [facility] ([facility]) [address], [place], [address], 12/21/2023 08:26:15 12/20/19 24 12/21/2023 CBC WITH DIFFE RENTI AL/PL ATELE T hematology comments: DISTILLING [employer]MENT SUPERVISOR Not Available [facility] ([facility]) [address], [place], [address], 12/21/2023 08:26:15 12/20/19 24 12/21/2023 HEPAT IC FUNCT ION PANEL (7) protein, total 6.4 g/dL 6.0-8. 5 Not Available [facility] ([facility]) [address] [place], [address], 12/21/2023 08:26:16 12/20/19 24 12/21/2023 HEPAT IC FUNCT ION PANEL (7) albumin 4.3 g/dL 3.9-4. 9 Not Available [facility] ([facility]) [address] [place], [address], 12/21/2023 08:26:16 12/20/19 24 12/21/2023 HEPAT IC FUNCT ION PANEL (7) bilirubin, total 0.3 mg/dL 0.0-1. 2 Not Available [facility] ([facility]) [address] [place], [address], 12/21/2023 08:26:16 12/20/19 24 12/21/2023 HEPAT IC FUNCT ION PANEL (7) bilirubin, direct 0.12 mg/dL 0.00-0 .40 Not Available [facility] ([facility]) [address] [place], [address], 12/21/2023 08:26:16 12/20/19 24 12/21/2023 HEPAT IC FUNCT ION PANEL (7) alkaline phosphatase 121 IU/L 44-121 Not Available [facility] ([facility]) [address] [place], [address], 12/21/2023 08:26:16 12/20/19 24 12/21/2023 HEPAT IC FUNCT ION PANEL (7) AST (SGOT) 18 IU/L 0-40 Not Available [facility] ([facility]) [address] [place], [address], 12/21/2023 08:26:16 12/20/19 24 12/21/2023 HEPAT IC FUNCT ION PANEL (7) ALT (SGPT) 24 IU/L 0-44 Not Available [facility] ([facility]) [address] [place], [address], 12/21/2023 08:26:16 12/20/19 24 12/21/2023 ACUTE HEPAT ITIS hep A Ab, IgM Negati ve negati ve Not Available [facility] ([facility]) [address] [place], [address], 12/21/2023 08:26:17 12/20/19 24 12/21/2023 ACUTE HEPAT ITIS HBsAg screen Negati ve negati ve Not Available [facility] ([facility]) [address] [place], [address], 12/21/2023 08:26:17 12/20/19 24 12/21/2023 ACUTE HEPAT ITIS hep B core Ab, IgM Negati ve negati ve Not Available [facility] ([facility]) [address] [place], [address], 12/21/2023 08:26:17 12/20/19 24 12/21/2023 ACUTE HEPAT ITIS HCV Ab Non Reacti ve non reacti ve Not Available [facility] ([facility]) [address] [place], [address], 12/21/2023 08:26:17 12/20/19 24 12/21/2023 ACUTE HEPAT ITIS interpretati on: Commen t Not infec krystyna with HCV unles s early or acute infec tion is suspe cted (whic h may be delay ed in an immun ocomp romis ed indiv idual ), or other evide nce exist s to indic ate HCV infec tion. Not Available [facility] ([facility]) [address] [facility], [place], [address], 12/21/2023 08:26:17 12/20/19 24 12/21/2023 IRON AND TIBC iron bind.cap.(TI BC) 287 ug/dL 250-45 0 Not Available [facility] ([facility]) [address] [place], [address], 12/21/2023 08:26:18 12/20/19 24 12/21/2023 IRON AND TIBC UIBC 175 ug/dL 111-34 3 Not Available [facility] ([facility]) [address] [place], [address], 12/21/2023 08:26:18 12/20/19 24 12/21/2023 IRON AND TIBC iron 112 ug/dL 38-169 Not Available [facility] ([facility]) [address] [place], [address], 12/21/2023 08:26:18 12/20/19 24 12/21/2023 IRON AND TIBC iron saturation 39 % 15-55 Not Available [facility] ([facility]) [address] [place], [address], 12/21/2023 08:26:18 12/20/19 24 12/21/2023 GGT GGT 34 IU/L 0-65 Not Available [facility] ([facility]) [address] [place], [address], 12/21/2023 08:26:19 12/20/19 24 12/21/2023 CASTRO TIN ferritin 53 NG/mL 30-400 Not Available [facility] ([facility]) [address] [facility], [address], 12/21/2023 08:26:19 04/07/20 24 04/08/2024 COMP. METAB OLIC PANEL (14) glucose 87 mg/dL 70-99 normal Not Available [facility] ([facility]) [address] [facility] [place], [address], 04/08/2024 04:11:27 04/07/20 24 04/08/2024 COMP. METAB OLIC PANEL (14) BUN 13 mg/dL 8-27 normal Not Available [facility] ([facility]) [address] [place], [address], 04/08/2024 04:11:27 04/07/20 24 04/08/2024 COMP. METAB OLIC PANEL (14) creatinine 1.10 mg/dL 0.76-1 .27 normal Not Available [facility] ([facility]) [address] [place], [address], 04/08/2024 04:11:27 04/07/20 24 04/08/2024 COMP. METAB OLIC PANEL (14) eGFR 75 mL/mi n/1.7 3 >59 normal Not Available [facility] ([facility]) [address] [place], [address], 04/08/2024 04:11:27 04/07/20 24 04/08/2024 COMP. METAB OLIC PANEL (14) BUN/creatini ne ratio 12 10-24 normal Not Available [facility] ([facility]) [address] [place], [address], 04/08/2024 04:11:27 04/07/20 24 04/08/2024 COMP. METAB OLIC PANEL (14) sodium 134 mmol/ L 134-14 4 normal Not Available [facility] ([facility]) [address] [facility], [address], 04/08/2024 04:11:27 04/07/20 24 04/08/2024 COMP. METAB OLIC PANEL (14) potassium 4.8 mmol/ L 3.5-5. 2 normal Not Available [facility] ([facility]) [address] [place], [address], 04/08/2024 04:11:27 04/07/20 24 04/08/2024 COMP. METAB OLIC PANEL (14) chloride 99 mmol/ L 96-106 normal Not Available [facility] ([facility]) [address] [facility], [address], 04/08/2024 04:11:27 04/07/20 24 04/08/2024 COMP. METAB OLIC PANEL (14) carbon dioxide, total 23 mmol/ L 20-29 normal Not Available [facility] ([facility]) [address] [facility] [place], [address], 04/08/2024 04:11:27 04/07/20 24 04/08/2024 COMP. METAB OLIC PANEL (14) calcium 8.9 mg/dL 8.6-10 .2 normal Not Available [facility] ([facility]) [address] [place], [address], 04/08/2024 04:11:27 04/07/20 24 04/08/2024 COMP. METAB OLIC PANEL (14) protein, total 6.3 g/dL 6.0-8. 5 normal Not Available [facility] ([facility]) [address] [place], [address], 04/08/2024 04:11:27 04/07/20 24 04/08/2024 COMP. METAB OLIC PANEL (14) albumin 4.1 g/dL 3.9-4. 9 normal Not Available [facility] ([facility]) [address] [place], [address], 04/08/2024 04:11:27 04/07/20 24 04/08/2024 COMP. METAB OLIC PANEL (14) globulin, total 2.2 g/dL 1.5-4. 5 Not Available [facility] ([facility]) [address] [place], [address], 04/08/2024 04:11:27 04/07/20 24 04/08/2024 COMP. METAB OLIC PANEL (14) bilirubin, total 0.4 mg/dL 0.0-1. 2 normal Not Available [facility] ([facility]) [address] [place], [address], 04/08/2024 04:11:27 04/07/20 24 04/08/2024 COMP. METAB OLIC PANEL (14) alkaline phosphatase 113 IU/L 44-121 normal Not Available [facility] ([facility]) [address] [place], [address], 04/08/2024 04:11:27 04/07/20 24 04/08/2024 COMP. METAB OLIC PANEL (14) AST (SGOT) 22 IU/L 0-40 normal Not Available [facility] ([facility]) [address] [place], [address], 04/08/2024 04:11:27 04/07/20 24 04/08/2024 COMP. METAB OLIC PANEL (14) ALT (SGPT) 20 IU/L 0-44 normal Not Available [facility] ([facility]) [address] [place], [address], 04/08/2024 04:11:27 04/07/20 24 04/08/2024 LIPID PANEL cholesterol, total 120 mg/dL 100-19 9 normal Not Available [facility] ([facility]) [address] [place], [address], 04/08/2024 04:11:28 04/07/20 24 04/08/2024 LIPID PANEL triglyceride s 204 mg/dL 0-149 above high normal Not Available [facility] ([facility]) [address] [place], [address], 04/08/2024 04:11:28 04/07/20 24 04/08/2024 LIPID PANEL HDL cholesterol 30 mg/dL >39 below low normal Not Available [facility] ([facility]) [address] [place], [address], 04/08/2024 04:11:28 04/07/20 24 04/08/2024 LIPID PANEL VLDL cholesterol frandy 34 mg/dL 5-40 Not Available [facility] ([facility]) [address] [place], [address], 04/08/2024 04:11:28 04/07/20 24 04/08/2024 LIPID PANEL LDL chol calc ([facility]) 56 mg/dL 0-99 Not Available [facility] ([facility]) [address] [place], [address], 04/08/2024 04:11:28 04/07/20 24 04/08/2024 LIPID PANEL LDL calc comment: DISTILLING [employer]MENT SUPERVISOR Not Available [facility] ([facility]) [address] [place], [address], 04/08/2024 04:11:28 09/27/19 25 09/28/2024 CBC WITH DIFFE RENTI AL/PL ATELE T WBC 7.2 x10e3 /uL 3.4-10 .8 normal Not Available [facility] ([facility]) [address] [place], [address], 10/01/2024 04:07:05 09/27/19 25 09/28/2024 CBC WITH DIFFE RENTI AL/PL ATELE T RBC 4.88 x10e6 /uL 4.14-5 .80 normal Not Available [facility] ([facility]) [address] [place], [address], 10/01/2024 04:07:05 09/27/1909/28/2024 CBC WITH DIFFE RENTI AL/PL ATELE T hemoglobin 16.4 g/dL 13.0-1 7.7 normal Not Available [facility] ([facility]) [address] [place], [address], 10/01/2024 04:07:05 09/27/1909/28/2024 CBC WITH DIFFE RENTI AL/PL ATELE T hematocrit 48.9 % 37.5-5 1.0 normal Not Available [facility] ([facility]) [address] [place], [address], 10/01/2024 04:07:05 09/27/1909/28/2024 CBC WITH DIFFE RENTI AL/PL ATELE T MCV 100 fL 79-97 above high normal Not Available [facility] ([facility]) [address] [place], [address], 10/01/2024 04:07:05 09/27/1909/28/2024 CBC WITH DIFFE RENTI AL/PL ATELE T MCH 33.6 pg 26.6-3 3.0 above high normal Not Available [facility] ([facility]) [address] [place], [address], 10/01/2024 04:07:05 09/27/1909/28/2024 CBC WITH DIFFE RENTI AL/PL ATELE T MCHC 33.5 g/dL 31.5-3 5.7 normal Not Available [facility] ([facility]) [address] [place], [address], 10/01/2024 04:07:05 09/27/1909/28/2024 CBC WITH DIFFE RENTI AL/PL ATELE T RDW 12.3 % 11.6-1 5.4 Not Available [facility] ([facility]) [address] [facility], [place], [address], 10/01/2024 04:07:05 09/27/1909/28/2024 CBC WITH DIFFE RENTI AL/PL ATELE T platelets 244 x10e3 /uL 150-45 0 normal Not Available [facility] ([facility]) [address] [facility], [place], [address], 10/01/2024 04:07:05 09/27/1909/28/2024 CBC WITH DIFFE RENTI AL/PL ATELE T neutrophils 60 % not estab. normal Not Available [facility] ([facility]) [address] [facility], [place], [address], 10/01/2024 04:07:05 09/27/1909/28/2024 CBC WITH DIFFE RENTI AL/PL ATELE T lymphs 27 % not estab. normal Not Available [facility] ([facility]) [address] [facility], [place], [address], 10/01/2024 04:07:05 09/27/1909/28/2024 CBC WITH DIFFE RENTI AL/PL ATELE T monocytes 9 % not estab. normal Not Available [facility] ([facility]) [address] [facility], [place], [address], 10/01/2024 04:07:05 09/27/1909/28/2024 CBC WITH DIFFE RENTI AL/PL ATELE T eos 3 % not estab. normal Not Available [facility] ([facility]) [address] [facility], [place], [address], 10/01/2024 04:07:05 09/27/1909/28/2024 CBC WITH DIFFE RENTI AL/PL ATELE T basos 1 % not estab. normal Not Available [facility] ([facility]) [address] [facility], [place], [address], 10/01/2024 04:07:05 09/27/1909/28/2024 CBC WITH DIFFE RENTI AL/PL ATELE T immature cells [employer]ING [employer]MENT SUPERVISOR Not Available [facility] ([facility]) [address] [facility], [place], [address], 10/01/2024 04:07:05 09/27/1909/28/2024 CBC WITH DIFFE RENTI AL/PL ATELE T neutrophils (absolute) 4.4 x10e3 /uL 1.4-7. 0 normal Not Available [facility] ([facility]) [address] [place], [address], 10/01/2024 04:07:05 09/27/1909/28/2024 CBC WITH DIFFE RENTI AL/PL ATELE T lymphs (absolute) 2.0 x10e3 /uL 0.7-3. 1 normal Not Available [facility] ([facility]) [address] [place], [address], 10/01/2024 04:07:05 09/27/1909/28/2024 CBC WITH DIFFE RENTI AL/PL ATELE T monocytes(ab solute) 0.6 x10e3 /uL 0.1-0. 9 normal Not Available [facility] ([facility]) [address] [place], [address], 10/01/2024 04:07:05 09/27/1909/28/2024 CBC WITH DIFFE RENTI AL/PL ATELE T eos (absolute) 0.2 x10e3 /uL 0.0-0. 4 normal Not Available [facility] ([facility]) [address] [place], [address], 10/01/2024 04:07:05 09/27/19 25 09/28/2024 CBC WITH DIFFE RENTI AL/PL ATELE T baso (absolute) 0.0 x10e3 /uL 0.0-0. 2 normal Not Available [facility] ([facility]) [address] [facility], [place], [address], 10/01/2024 04:07:05 09/27/19 25 09/28/2024 CBC WITH DIFFE RENTI AL/PL ATELE T immature granulocytes 0 % not estab. Not Available [facility] ([facility]) [address] [facility], [place], [address], 10/01/2024 04:07:05 09/27/1909/28/2024 CBC WITH DIFFE RENTI AL/PL ATELE T immature grans (abs) 0.0 x10e3 /uL 0.0-0. 1 Not Available [facility] ([facility]) [address] [facility], [place], [address], 10/01/2024 04:07:05 09/27/1909/28/2024 CBC WITH DIFFE RENTI AL/PL ATELE T NRBC DISTILLING DEPARTMENT SUPERVISOR Not Available [facility] ([facility]) [address] [facility], [place], [address], 10/01/2024 04:07:05 09/27/1909/28/2024 CBC WITH DIFFE RENTI AL/PL ATELE T hematology comments: DISTILLING DEPARTMENT SUPERVISOR Not Available [facility] ([facility]) [address] [facility], [place], [address], 10/01/2024 04:07:05 09/27/1909/28/2024 COMP. METAB OLIC PANEL (14) glucose 108 mg/dL 70-99 above high normal Not Available [facility] ([facility]) [address] [place] [place], [address], 10/01/2024 04:07:06 09/27/1909/28/2024 COMP. METAB OLIC PANEL (14) BUN 16 mg/dL 8-27 normal Not Available [facility] ([facility]) [address] [place], [address], 10/01/2024 04:07:06 09/27/19 25 09/28/2024 COMP. METAB OLIC PANEL (14) creatinine 1.00 mg/dL 0.76-1 .27 normal Not Available [facility] ([facility]) [address] [place], [address], 10/01/2024 04:07:06 09/27/19 25 09/28/2024 COMP. METAB OLIC PANEL (14) eGFR 84 mL/mi n/1.7 3 >59 normal Not Available [facility] ([facility]) [address] [place], [address], 10/01/2024 04:07:06 09/27/19 25 09/28/2024 COMP. METAB OLIC PANEL (14) BUN/creatini ne ratio 16 10-24 normal Not Available [facility] ([facility]) [address] [place] [place], [address], 10/01/2024 04:07:06 09/27/19 25 09/28/2024 COMP. METAB OLIC PANEL (14) sodium 139 mmol/ L 134-14 4 normal Not Available [facility] ([facility]) [address] [place], [address], 10/01/2024 04:07:06 09/27/19 25 09/28/2024 COMP. METAB OLIC PANEL (14) potassium 5.6 mmol/ L 3.5-5. 2 above high normal Not Available [facility] ([facility]) [address] [place], [address], 10/01/2024 04:07:06 09/27/19 25 09/28/2024 COMP. METAB OLIC PANEL (14) chloride 102 mmol/ L 96-106 normal Not Available [facility] ([facility]) [address] [place], [address], 10/01/2024 04:07:06 09/27/19 09/28/2024 COMP. METAB OLIC PANEL (14) carbon dioxide, total 21 mmol/ L 20-29 normal Not Available [facility] ([facility]) [address] [place], [address], 10/01/2024 04:07:06 09/27/19 25 09/28/2024 COMP. METAB OLIC PANEL (14) calcium 9.3 mg/dL 8.6-10 .2 normal Not Available [facility] ([facility]) [address] [place], [address], 10/01/2024 04:07:06 09/27/1909/28/2024 COMP. METAB OLIC PANEL (14) protein, total 6.7 g/dL 6.0-8. 5 normal Not Available [facility] ([facility]) [address] [place], [address], 10/01/2024 04:07:06 09/27/19 25 09/28/2024 COMP. METAB OLIC PANEL (14) albumin 4.4 g/dL 3.9-4. 9 normal Not Available [facility] ([facility]) [address] [place], [address], 10/01/2024 04:07:06 09/27/19 25 09/28/2024 COMP. METAB OLIC PANEL (14) globulin, total 2.3 g/dL 1.5-4. 5 Not Available [facility] ([facility] [address] [place], [address], 10/01/2024 04:07:06 09/27/1909/28/2024 COMP. METAB OLIC PANEL (14) bilirubin, total 0.3 mg/dL 0.0-1. 2 normal Not Available [facility] ([facility]) [address] [place], [address], 10/01/2024 04:07:06 09/27/19 25 09/28/2024 COMP. METAB OLIC PANEL (14) alkaline phosphatase 127 IU/L 44-121 above high normal Not Available [facility] ([facility]) [address] [place], [address], 10/01/2024 04:07:06 09/27/19 25 09/28/2024 COMP. METAB OLIC PANEL (14) AST (SGOT) 28 IU/L 0-40 normal Not Available [facility] ([facility]) [address] [place], [address], 10/01/2024 04:07:06 09/27/19 25 09/28/2024 COMP. METAB OLIC PANEL (14) ALT (SGPT) 27 IU/L 0-44 normal Not Available [facility] ([facility]) [address] [place], [address], 10/01/2024 04:07:06 09/27/19 25 09/28/2024 LIPID PANEL cholesterol, total 137 mg/dL 100-19 9 normal Not Available [facility] ([facility]) [address] [place], [address], 10/01/2024 04:07:07 09/27/19 25 09/28/2024 LIPID PANEL triglyceride s 149 mg/dL 0-149 normal Not Available [facility] ([facility]) [address] [place], [address], 10/01/2024 04:07:07 09/27/19 25 09/28/2024 LIPID PANEL HDL cholesterol 39 mg/dL >39 below low normal Not Available [facility] ([facility]) [address] [place], [address], 10/01/2024 04:07:07 09/27/19 25 09/28/2024 LIPID PANEL VLDL cholesterol frandy 26 mg/dL 5-40 Not Available [facility] ([facility]) [address] [place], [address], 10/01/2024 04:07:07 09/27/19 25 09/28/2024 LIPID PANEL LDL chol calc ([facility]) 72 mg/dL 0-99 Not Available [facility] ([facility]) [address] [place], [address], 10/01/2024 04:07:07 09/27/19 25 09/28/2024 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 Edmond damian et.al . JCEM 2017, 102;1 161-1 173. PMID: 50229 103. Not Available [facility] ([facility]) [address] [place], [address], 10/01/2024 04:07:08 09/27/19 25 10/01/2024 TESTO STERO NE,FR EE AND TOTAL free testosterone (direct) 8.8 pg/mL 6.6-18 .1 Not Available [facility] ([facility]) [address] [place], [address], 10/01/2024 04:07:08 12/01/19 24 12/01/2023 LDCT, chest , for lung cance r scree miguel angel No observ ation record ed. [facility] [address], [place], [address], 12/01/2023 20:04:47 12/23/19 25 12/22/2024 LDCT, chest , for lung cance r scree miguel angel No observ ation record ed. [facility] [address], [place], [address], 12/25/2024 10:22:06 06/21/2006/20/2025 CT, chest , w/o contr ast No observ ation record ed. [facility] [address], [place], [address], 06/21/2025 12:59:23 07/04/2007/04/2025 XR, chest , 2 view No observ ation record ed. [address], [place], [address], 07/04/2025 16:36:59 07/11/2007/11/2025 XR, chest , 2 view No observ ation record ed. [facility] [address], [place], [address], 07/11/2025 13:58:28 Result Notes None recorded. Problems Name Problem SNOMED Code Status Onset Date Resolution Date Notes Provider Name and Address Organization Details Recorded Time Coronary atherosc lerosis 736409519 Completed 201207/20/2017 Brenda Sanchez MD [address], [place], [address], [facility] - [facility] 2 10:47:54 Hyperlip idemia 50111691 Active 2012 [facility] [address], [place], [address], [place] - [facility] 6 16:52:40 Anxiety 55650758 Active 2014 [facility] [address], [place], [address], [facility] - [facility] 6 16:51:32 Cardiac arrhythm ia 352812128 Active 2014 [facility] [address], [place], [address], [facility] - [facility] 6 16:52:09 Cobalami n deficien cy 265207529 Completed 201506/30/2016 Brenda Sanchez MD [address], [place], [address], [place] [facility] 6 09:18:50 Vitamin B12 deficien cy (non anemic) 97182227 Active 2015 Brenda Sanchez MD [address], [place], [address], [place] [facility] 2 10:47:54 Insomnia 638611301 Active 2016 Brenda Sanchez MD [address], [place], [address], [place] [facility] 7 10:35:23 Solitary nodule of lung 668903284 Active 2016 has been found to be nipple shadow Brenda Sanchez MD [address], [place], [address], [place] [facility] 7 09:08:31 Coronary atherosc lerosis 537777752 Active 2016 Brenda Sanchez MD [address], [place], [address], [place] [facility] 2 10:47:54 Generali zed osteoart hritis 478424353 Active 2016 Brenda Sanchez MD [address], [place], [address], [place] [facility] 2 10:47:54 Polycyth emia vera (clinica l) 082128554 Completed 201707/27/2019 Brenda Sanchez MD [address], [place], [address], [place] [facility] 9 13:51:40 Tobacco user 203830579 Active 2018 Brenda Sanchez MD [address], [place], [address], [place] [facility] 2 10:47:54 Long-ter m drug therapy Completed 201801/24/2021 Brenda Sanchez MD [address], [place], [address], [place] [facility] 1 11:08:33 Hyperten sive heart disease 57291257 Completed 201809/26/2019 Brenda Sanchez MD [address], [place], [address], [place] [facility] 2 10:47:54 Peripher al vascular disease 036804925 Active 2018 Brenda Sanchez MD [address], [place], [address], [place] [facility] 2 10:47:54 Neuropat hy 601529079 Active 2018 Brenda Sanchez MD [address], [place], [address], [place] [facility] 2 10:47:54 Hyperten sive heart disease 75768461 Active 2019 Brenda Sanchez MD [address], [place], [address], [place] [facility] 2 10:47:54 Secondar y polycyth emia 17315557 Active 2019 Brenda Sanchez MD [address], [place], [address], [place] [facility] 2 10:47:54 Chronic bronchit is 87919164 Active 2020 Brenda Sanchez MD [address], [place], [address], [place] [facility] 2 10:47:54 Cardiac pacemake r in situ 412484503 Active 2021 Brenda Sanchez MD [address], [place], [address], [place] [facility] 2 10:47:54 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 422669147 Active 2021 since age 22 yrs Brenda Sanchez MD [address], [place], [address], [place] [facility] 2 10:49:12 Inflamma tory polyarth ropathy 047935651 Active 2022 Brenda Sanchez MD [address], [place], [address], [place] [facility] 4 07:26:01 Obstruct ran sleep apnea syndrome 33121411 Active 2023 Brenda Sanchez MD [address], [place], [address], [place] [facility] 4 11:28:02 Chondroc rossanainosi s 458122244 Active 2023 Brenda Sanchez MD [address], [place], [address], [place] [facility] 4 11:28:04 Nonulcer dyspepsi a 7574331 Active 2024 Keren Rios [place], [place] - [facility] 5 08:27:41 Problem Notes Documentation Provider Name and Address Organization Details Recorded Time Pain Management Consult Note : [facility] History Physical - Adult REPORT #: [id number] REPORT STATUS: Signed DATE: 01/24/24 TIME: 932 PATIENT: KAYODE LANGLEY UNIT #: [id number] ROOM/BED: AGE: 64 SEX: M ATTEND: ELEANOR CASTRO APRN ADM AUTHOR: ELEANOR CASTRO APRN * ALL edits or amendments must be made on the electronic/computer document * History of Present Illness Chief complaint: Lumbar radiculopathy HPI: Kayode returned today to follow up lumbar pain with occasion radiculopathy . He has seen pain management at [facility] in [place] in [facility]. He has had 2 stimulator trials which failed he has had multiple epidural injections and nerve blocks. He did have an RFA which helped with the right leg pain but the low back is still consistent. He currently takes Flexeril 10 mg 3 times daily, Celebrex 200 mg daily, gabapentin 800 mg 3 times daily, and Mcgrady 5/325 3 times daily. He has not [...] 800 mg to 4 times daily and Mcgrady 5/325 to 4 times daily. I did [...] portion of the record was completed using [employer]. We do our best to catch mistakes by the [employer]34ENTER system, but some dictation system mistakes may not be identified. If something does not make sense, please do not hesitate to contact our office so we can correct the record and clarify it for you. Medications Home Medications: Medication Dose/Rte/Freq Days Qty Entered Last Max Daily Dose Reviewed ASPIRIN (ASPIRIN EC) 81 MG PO HS 01/05/13 01/24/24 Strength: 81 MG TABLET 1556 0845 SOTALOL HCL (BETAPACE) 80 MG PO [...] Providers: Brenda Sanchez at 1618 RPT #: [id number] END OF REPORT CC'ed Logic: Attending Provider: MATTHEW WEBSTER Referring Provider: LOWELL PATEL Consulting Provider: LOWELL Sanchez MD [facility] [address], [place], [address], [place] - [facility] 01/24/2024 19:55:18 Pain Management Consult Note : [facility] History Physical - Adult REPORT #: [id number] REPORT STATUS: Signed DATE: 02/24/24 TIME: 1436 PATIENT: KAYODE LANGLEY UNIT #: [id number] ROOM/BED: AGE: 64 SEX: M ATTEND: ELEANOR CATSRO APRN ADM AUTHOR: ELEANOR CASTRO APRN * [...] TABLET hydrOXYzine HCL 25 MG PO TID 09/13/22 06/13/24 (hydrOXYzine) 1415 1358 Strength: 25 MG TAB Naloxone HCl (Narcan 4 MG NS 05/26/22 02/24/24 Nasal) Strength: 4 MG/ACTUATION DIRECTED 1416 1358 SPRAY FAMOTIDINE (PEPCID) 40 MG PO DAILY 05/26/22 02/24/24 Strength: 40 MG TABLET 1416 1358 busPIRone HCL (BUSPAR) 10 MG PO BID 05/26/22 02/24/24 Strength: 10 MG TABLET 1427 1358 CYCLOBENZAPRINE HCL 10 MG PO TID 30 90 01/24/24 02/24/24 (FLEXERIL) 0977 1358 Strength: 10 MG TABLET CELECOXIB (CeleBREX) [...] He has seen pain management at and [facility]. He is here for medication refill which [...] daily. We will request records again from [facility] and try to get results [...] portion of the record was completed using [employer]34ENTER dictation. We do our best to catch mistakes by the [employer] system, but some dictation system mistakes may not be identified. If something does not make sense, please do not hesitate to contact our office so we can correct the record and clarify it for you. ABDULAZIZ SCORE(Percentage): 44 Current BRAND COORDINATOR: Y Opioid Risk Score: 8 Relief From Pain Medications: 70% Office Procedure -- OFFICE PROCEDURE -- -- OFFICE PROCEDURE -- Post Procedure Post Procedure at 1702 RPT #: [id number] END OF REPORT CC'ed Logic: Attending Provider: MATTHEW WEBSTER Referring Provider: LOWELL PATEL Consulting Provider: LOWELL Sanchez MD [address], [place], [address], [place] [facility] 02/25/2024 07:48:52 Pain Management Consult Note : [facility] History Physical - Adult REPORT #: [id number] REPORT STATUS: Signed DATE: 03/13/24 TIME: 1133 PATIENT: KAYODE LANGLEY UNIT #: [id number] ROOM/BED: AGE: 64 SEX: M ATTEND: ELEANOR [...] gabapentin 800 mg three times a day, Mcgrady 5 mg four times a day, cyclobenzaprine [...] regimen: Gabapentin 800 mg three times daily, Mcgrady 5 mg four times daily, Cyclobenzaprine 10 mg three times daily, and Celebrex 200 mg daily. - Review previous medical records from [facility]. - Consider obtaining a new CT scan if the most recent imaging study is older than 4 years to assess for any changes. 2. Lumbar Radiculopathy - Maintain current medications: Gabapentin 800 mg three times daily, Mcgrady 5 mg four times daily, Cyclobenzaprine 10 mg three times daily, and Celebrex 200 mg daily. - Monitor for any side effects or symptom worsening. 3. Chronic Back Pain - Continue current medication regimen: Gabapentin 800 mg three times daily, Mcgrady 5 mg four times daily, Cyclobenzaprine 10 [...] and procedural documentation. ABDULAZIZ SCORE(Percentage): 40 Current BRAND COORDINATOR: Y Opioid Risk Score: 8 Relief From Pain Medications: 40% Office Procedure -- OFFICE PROCEDURE -- -- OFFICE PROCEDURE -- Post Procedure Post Procedure at 1135 RPT #: [id number] END OF REPORT CC'ed Logic: Attending Provider: MATTHEW WEBSTER Referring Provider: LOWELL PATEL Consulting Provider: LOWELL Sanchez MD [facility] [address], [place], [address], [facility] - [facility] 03/13/2024 19:07:32 Pain Management Consult Note : [facility] History Physical - Adult REPORT #: [id number] REPORT STATUS: Signed DATE: 05/01/24 TIME: 1314 PATIENT: KAYODE LANGLEY UNIT #: [id number] ROOM/BED: AGE: 64 SEX: M ATTEND: ELEANOR [...] 30 02/24/24 05/01/24 Strength: 200 MG CAPSULE 1437 1007 GABAPENTIN [...] sooner if worsening ABDULAZIZ SCORE(Percentage): 42 Current BRAND COORDINATOR: Y Opioid Risk Score: 8 Office Procedure -- OFFICE PROCEDURE -- -- OFFICE PROCEDURE -- Post Procedure Post Procedure at 1317 RPT #: [id number] END OF REPORT CC'ed Logic: Attending Provider: MATTHEW WEBSTER Referring Provider: LOWELL PATEL Consulting Provider: LOWELL Sanchez MD [facility] [address], [address], [place] [facility] 05/01/2024 17:48:57 Pain Management Consult Note : [facility] History Physical - Adult REPORT #: [id number] REPORT STATUS: Signed DATE: 07/03/24 TIME: 1148 PATIENT: KAYODE LANGLEY UNIT #: [id number] ROOM/BED: AGE: 64 SEX: M ATTEND: ELEANOR [...] clinics. He has seen pain management at [facility] and had multiple procedures in which [...] bulge and ligamentum flavum hypertrophy L3 -L4, gsyx-xv-eatgwmyw spinal stenosis, L4-L5 disc bulge ligamentum flavum hypertrophy and mild bilateral facet arthropathy. Xhqf-kk-exdayize spinal stenosis. L5-S1 disc osteophyte complex and [...] in the future. ABDULAZIZ SCORE(Percentage): 40 Current BRAND COORDINATOR: Y Opioid Risk Score: 8 Office Procedure -- OFFICE PROCEDURE -- -- OFFICE PROCEDURE -- Post Procedure Post Procedure at 1155 RPT #: [id number] END OF REPORT CC'ed Logic: Attending Provider: MATTHEW WEBSTER Referring Provider: LOWELL PATEL Consulting Provider: LOWELL Sanchez MD [address], [place], [address], [facility] - [facility] 07/03/2024 19:28:38 Pain Management Consult Note : [facility] History Physical - Adult REPORT #: [id number] REPORT STATUS: Signed DATE: 10/06/24 TIME: 1216 PATIENT: KAYODE LANGLEY UNIT #: [id number] ROOM/BED: AGE: 64 SEX: M ATTEND: ELEANOR [...] daily, Flexeril 10 mg twice a day, Mcgrady 5-325 mg four times a day, and gabapentin 800 mg twice a day. The patient states he is doing well on this medication regimen. He denies any other issues at this time. The patient's current medications include: - Celebrex 200mg daily - Flexeril 10mg twice a day - Mcgrady 5-325mg 4 times a day - Gabapentin [...] - Flexeril 10 mg twice daily - Mcgrady 5-325 mg four times daily - Gabapentin 800 mg twice daily b. Refill medications c. Schedule follow-up appointment in 2 months 2. Medication Tolerance - Patient tolerating medications well with no reported side effects ABDULAZIZ SCORE(Percentage): 42 Current BRAND COORDINATOR: Y Opioid Risk Score: 8 Office Procedure -- OFFICE PROCEDURE -- -- OFFICE PROCEDURE -- Post Procedure Post Procedure at 1220 RPT #: [id number] END OF REPORT CC'ed Logic: Attending Provider: MATTHEW WEBSTER Referring Provider: LOWELL PATEL Consulting Provider: LOWELL Lincoln MD [facility] [address], [address], [facility] - [facility] 10/06/2024 13:01:13 Pain Management Consult Note : [facility] History Physical - Adult REPORT #: [id number] REPORT STATUS: Signed DATE: 10/06/24 TIME: 1216 PATIENT: KAYODE LANGLEY UNIT #: [id number] ROOM/BED: AGE: 64 SEX: M ATTEND: ELEANOR [...] daily, Flexeril 10 mg twice a day, Mcgrady 5-325 mg four times a day, and gabapentin 800 mg twice a day. The patient states he is doing well on this medication regimen. He denies any other issues at this time. The patient's current medications include: - Celebrex 200mg daily - Flexeril 10mg twice a day - Mcgrady 5-325mg 4 times a day - Gabapentin [...] - Flexeril 10 mg twice daily - Mcgrady 5-325 mg four times daily - Gabapentin 800 mg twice daily b. Refill medications c. Schedule follow-up appointment in 2 months 2. Medication Tolerance - Patient tolerating medications well with no reported side effects ABDULAZIZ SCORE(Percentage): 42 Current BRAND COORDINATOR: Y Opioid Risk Score: 8 Office Procedure -- OFFICE PROCEDURE -- -- OFFICE PROCEDURE -- Post Procedure Post Procedure at 1220 Addendum 1: 10/09/24 0923 by ELEANOR CASTRO APRN Surya was reviewed today and is appropriate. at 0923 [facility] #: [id number] END OF REPORT CC'ed Logic: Attending Provider: MATTHEW WEBSTER Referring Provider: LOWELL PATEL Consulting Provider: LOWELL Sanchez MD [address], [place], [address], [place] [facility] 10/09/2024 20:06:45 Procedures Surgical History Date Name Laterality Status Provider Name and Address Organization Details Recorded Time 3 Cryosurgery Dermatology completed Marisa Scruggs APRN [address], [place], [address], [place] [facility] 01/27/2023 11:03:00 2 Colonoscopy completed Brenda Sanchez MD [address], [place], [address], [place] [facility] 05/29/2022 18:27:47 2 Cryosurgery Dermatology completed Marisa Scruggs APRN [address], [place], [address], [place] [facility] 11/18/2021 15:09:45 0 Systolic B/P less than 130 mm Hg completed Dorcas Soto [place] - [facility] 04/08/2020 16:34:46 0 Diastolic B/P 80-89 mm Hg completed Dorcas Soto [place] - [facility] 04/08/2020 16:34:53 0 Cardiac Cath completed Brenda Sanchez MD [address], [place], [address], [place] [facility] 02/22/2020 10:35:38 9 Suture/Staple removal completed Marisa Scruggs APRN [address], [place], [address], [place] [facility] 07/18/2019 10:57:10 9 Punch Biopsies, Multiple completed Marisa Scruggs APRN [address], [place], [place], [address], [place] [facility] 07/06/2019 10:23:01 9 peripheral angiography completed Brenda Sanchez MD [address], [place], [place], [address], [place] [facility] 11/26/2018 14:21:23 5 Pacemaker Placement completed [facility] [address], [place], [address], [facility] 06/29/2016 16:57:43 4 Colonoscopy completed Felisa Doan RN [address], [place], [address], [facility] 12/21/2018 13:54:12 3 Cardiac Cath completed [facility] [address], [place], [place], [address] [place] [address], [facility] 06/29/2016 16:57:17 procedure on back completed Dorcas Soto [facility] 04/08/2020 16:35:33 Knee arthroscopy/neetu fransisco completed [facility] [address], [place], [address] [place] [address], [facility] 06/29/2016 16:57:30 Unlisted px hands/fingers completed [facility] [address], [place], [address] [place] [address], [facility] 06/29/2016 16:58:09 Imaging Results None recorded. Procedure [...] Status: Recorded on: 05/11/20 16 5:00PM;U ser: esperanza ;Est. Completi on: 07/10/20 16trying switch to [...] zole-bet amethaso ne 1-0.05 % topical cream;Pr nirav Status: Prescrib ed on: 05/11/20 16 5:01PM;U ser: esperanza ;Est. Completi on: 05/13/20 16;Indic ation: Tinea Cruris - (1103 00);Phar macyVeri fied: 05/11/20 16 5:01PM Not Available Not Available Not Available promethaz ine 25 mg tablet take 1 tablet (25 mg) by oral route every 4-6 hours as needed 01/19 completed prometha zine 25 mg oral tablet;R ecorded Status: Recorded on: 06/24/20 12 3:27PM;D iscontin ued Status: Disconti nued on: 01/20/20 13 1:15PM;U ser: strouba; Indicati on: Viral Gastroen teritis - (008.8); [...] sodium 75 mg oral tablet,d elayed release (/EC); Prescrib e Status: Prescrib ed on: 06/26/20 13 3:13PM;D iscontin ued Status: Disconti nued on: 05/31/20 14 1:09PM;U ser: esperanza ;Est. Completi on: 08/25/20 13;Pharm acyVerif ied: [...] Disconti nued on: 01/20/20 13 1:55PM;U ser: esperanza HartEst. Completi on: 01/09/20 12;Print ed: 11/10/19 12 [...] Disconti nued on: 02/21/20 13 3:30PM;U ser: ran Schultz on: - (-5) Not Available Not Available [...] ed on: 01/18/20 15 11:11AM; User: esperanza HartEst. Completi on: 07/16/20 15;Indic ation: Vitamin B12 Deficien cy - (032662 );Phar macyVeri fied: 01/18/20 15 11:11AM Not Available Not [...] Updated DateTime 5 165.1 cm 22.1 kg/m2 54431.7 9 g 97.8 [degF] 18 /min 4 95 % 95 % 76 /min 120/80 mm[Hg] Isabel [facility] 5 10:44:18 Date Recorded Body height Body mass index (BMI) Body weight Body temperature Heart rate Oxygen saturation Oxygen saturation in Arterial blood by Pulse oximetry Respiratory rate Systolic And Diastolic Provider Name and Address Organization Details Last Updated DateTime 4 165.1 cm 22.8 kg/m2 07810.5 g 97.5 [degF] 86 /min 91 % 91 % 18 /min 124/84 mm[Hg] [facility] 11:08:15 Date Recorded Body height Body mass index (BMI) Body weight Heart rate Oxygen saturation Oxygen saturation in Arterial blood by Pulse oximetry Respiratory rate Systolic And Diastolic Provider Name and Address Organization Details Last Updated DateTime 4 165.1 cm 22 kg/m2 62060.1 9 g 88 /min 98 % 98 % 18 /min 90/60 mm[Hg] [facility] 13:21:09 Date Recorded Body height Body mass index (BMI) Body weight Respiratory rate Pain severity - 0-10 verbal numeric rating [Score] - Reported Heart rate Oxygen saturation Oxygen saturation in Arterial blood by Pulse oximetry Systolic And Diastolic Provider Name and Address Organization Details Last Updated DateTime 5 165.1 cm 21.8 kg/m2 62597.6 g 18 /min 0 103 /min 95 % 95 % 112/60 mm[Hg] Wolfgang Rois [place] - [facility] 5 10:35:59 Date Recorded Body height Body mass index (BMI) Body weight Body temperature Respiratory rate Heart rate Oxygen saturation Oxygen saturation in Arterial blood by Pulse oximetry Systolic And Diastolic Provider Name and Address Organization Details Last Updated DateTime 4 165.1 cm 22.3 kg/m2 24612.3 8 g 98.6 [degF] 20 /min 83 /min 94 % 94 % 124/80 mm[Hg] Dorcas Toussaintcock [place] - [facility] 4 09:03:43 Social History Question Answer Notes LastModified by Organizat ion Details LastModified Time Tobacco Smoking Status Current Every Day Smoker [facility] [address], [place], [address], [place] - [facility] 06/29/2016 16:54:44 Able To Swim? Yes [email or web address] Information not available 06/29/2016 Do You Have An Advance Directive? No [email or web address] Information not available 06/29/2016 Animal Exposure? Yes [email or web address] Informat ion not available 06/29/2016 Do You Wear A Helmet When Biking? No [email or web address] Information not available 06/29/2016 Are You Blind Or Do You Have Difficulty Seeing? No Information not available 07/20/2017 What Is Your Level Of Caffeine Consumption? Occasional [email or web address] Information not available 06/29/2016 How Much Tobacco Do You Chew? None [email or web address] Information not available 06/29/2016 In The 14 Days Before Symptom Onset, Have You Had Close Contact With A Laboratory-confir med COVID-19 While That Case Was Ill? No [email or web address] Information not available 03/29/2025 In The 14 Days Before Symptom Onset, Have You Had Close Contact With A Person Who Is Under Investigation For COVID-19 While That Person Was Ill? No [email or web address] Information not available 03/29/2025 Have You Been To An Area Known To Be High Risk For COVID-19? No Information not available 09/27/2024 Are You Deaf Or Do You Have Serious Difficulty Hearing? No Information not available 07/20/2017 What Type Of Diet Are You Following? REGULAR [email or web address] Information not available 06/29/2016 Which Illicit Or Recreational Drugs Have You Used? None [email or web address] Information not available 06/29/2016 Have You Processed Blood Or Body Fluids From An Ebola Virus Disease Patient Without Appropriate PPE? No Information not available 09/27/2024 Do You Reside In Or Have You Traveled To An Area Where Ebola Virus Transmission Is Active? No Information not available 09/27/2024 Education 12 [email or web address] Information no t available 06/29/2016 What Is The Highest Grade Or Level Of School You Have Completed Or The Highest Degree You Have Received? [id number] Information not available 09/27/2024 Swimming/diving No [email or web address] Informati on not available 06/29/2016 Have There Been Any Changes To Your Family Or Social Situation? No Information no t available 09/18/2021 What Is The Fluoride Status Of Your Home? Fluoridated Information not available 09/27/2024 Are There Any Guns Present In Your Home? Yes [email or web address] Information not available 06/29/2016 Hard Of Hearing Or Deaf In One Or Both Ears? No [email or web address] Information not available 06/29/2016 Have You Recently Or Are You Planning To Travel To An Area With Zika Virus? No Information not available 09/27/2024 Legally Blind In One Or Both Eyes? No Information no t available 06/29/2016 Live Alone Or With Others? With Others [email or web address] Information not available 06/29/2016 Do You Have A Medical Power Of Metal Organ Pipe Maker? No Information not available 09/17/2022 What Was The Date Of Your Most Recent Tobacco Screening? 03/29/2025 [email or web address] Information not available 03/29/2025 What Is Your Current Pack Years? [email or web address] Information not available 09/27/2024 Do You Use Protection During Sex? No [email or web address] Information not available 06/29/2016 Do You Use Protection Against STDs? No [email or web address] Information not available 03/29/2025 What Is Your Relationship Status? [email or web address] Information not available 06/29/2016 Seat Belts Used Routinely Yes [email or web address] Information not available 06/29/2016 Are You Sexually Active? Yes [email or web address] Information not available 06/29/2016 Smoke Alarm In Home Yes [email or web address] Information not available 06/29/2016 Do You Have Smoke And Carbon Monoxide Detectors In Your Home? Yes Information not available 09/18/2021 At What Age Did You Start Smoking Tobacco? 15 Information not available 09/27/2024 Are You Passively Exposed To Smoke? No Information no t available 09/27/2024 How Much Tobacco Do You Smoke? 1.5 PPD Information not available 10/07/2017 General Stress Level Medium [email or web address] Information not available 06/29/2016 Do You Use Sunscreen Routinely? No [email or web address] Information not available 06/29/2016 Has Tobacco Cessation Counseling Been Provided? Yes Information not available 09/18/2021 On What Date Was Tobacco Cessation Counseling Provided? 09/27/2024 Information not available 09/27/2024 How Many Years Have You Smoked Tobacco? 50 [email or web address] Information not available 03/29/2025 Do You Have Difficulty Walking Or Climbing Stairs? No Information not available 07/20/2017 Sex: Unknown Functional Status Question Answer Note LastModified by [email or web address] ion Details LastModified Time Do you use any illicit or recreational drugs? No Information not available 09/18/2021 Do you or have you ever used any other forms of tobacco or nicotine? No Information not available 09/27/2024 What is your level of alcohol consumption? None [email or web address] Information not available 06/29/2016 Are you currently employed? No Information not available 09/27/2024 Do you have transportation difficulties? No Information not available 09/18/2021 Are you able to walk independently without assistance or assistive devices? YESWOREST [email or web address] Information not available 06/27/2019 Do you have difficulty doing errands alone? No Information not available 07/20/2017 Are you able to care for yourself independently? Yes [email or web address] Information not available 06/29/2016 What is your occupation? Disabled Information not available 09/27/2024 Do you have difficulty dressing, bathing, grooming, or toileting? No Information not available 07/20/2017 Do you or have you ever used e-cigarettes or vape? Never used electronic cigarettes Information not available 07/27/2019 What is your exercise level? Occasional [email or web address] Information not available 06/29/2016 Mental Status Question Answer Note LastModified by Organizat ion Details LastModified Time Do you feel stressed (tense, restless, nervous, or anxious, or unable to sleep at night)? [id number] Information not available 09/27/2024 Do you have difficulty concentrating, remembering or making decisions? No Information no t available 07/20/2017 Family History Relationship Description Onset Age of this Age Resolved Age Notes LastModified by Organization Details LastModified Time Mother Type 2 diabetes mellitus [email or web address] Not available 06/29 16:53:47 Paternal Uncle Family history of malignant neoplasm unknow n type Not available 06/29/2016 16:54:28 Medical History Condition Response Pancreatitis N Coronary Artery Disease Y Other N Gout N Atrial Fibrillation N congenital heart disease N Blood Diseases N Kidney Stones N Hyperthyroidism N Blood Transfusion N Rheumatoid arthritis N Erectile Dysfunction N amputation N Skin Lesions N COPD N Depression N Pneumonia N Incontinence N Murmur N Edema N Alzheimer's Disease N Migraine Headaches N Tobacco Abuse Y Anxiety Disorder Y Hemorrhoids N Muscle, Joint, or Bone Problems N Obesity N Vision or Eye Problems N Arthritis N Restless Leg Syndrome N Polyps N Infertility N Mental Disorder N Carpal Tunnel N Acid Reflux (GERD) N Cancer N Varicosities N Stroke N Tendonitis N Crohn's Disease N Hypercholesterolemia N Skin Cancer N Headaches N Fibromyalgia N Anal Fissure N Irritable Bowel Syndrome N Kidney Disease N Heart Problems N [...] Fasciitis N Hospital Admission Other Than N Hypothyroidism N Lung Disease N Developmental or Behavioral Disorders N Defects [...] N Mental Illness N Psychiatric Illness N Diabetes N Ovarian Cancer N Bedwetting N Degenerative Disc Disease N Seizures/Epilepsy N Congestive Heart Failure (CHF) N Hyperlipidemia Y Syncope N Insomnia N Eczema N Abuse/Domestic Violence N Attention Deficient Disorder N Diverticulitis N Dementia N Ulcerative colitis N Cerebrovascular Disease N Depression N Guillain-[place]wood N Sleep Apnea N Aneurysm N Bronchitis N Heart Disease N Hypertension N Pre-Eclampsia N Osteoporosis N Immunizations Vaccine Type Date Status Note Provider Nam e and Address Organization Details Recorded Time Influenza, split virus, quadrivalent, preservative 5 [facility]29[facility]2025 10:30:18 zoster recombinant 5 completed [facility] 03/29/2025 11:27:37 influenza, unspecified formulation 5 completed Keren Rios [facility] 03/29/2025 10:30:18 Tdap 4 completed Not Available [facility] 10/14/2019 02:21:29 Influenza, split virus, quadrivalent, preservative 2 completed [facility] 07/23/2022 11:50:07 pneumococcal polysaccharide PPV23 1 completed [facility] Care Management [facility] [address], [place], [address], [facility] - [facility] 01/19/2017 08:36:00 Influenza, split virus, quadrivalent, preservative 3 completed [facility] 07/27/2023 11:02:33 COVID-19, mRNA, LNP-S, PF, theresa-sucrose, 30 mcg/0.3 mL 3 completed Genevieve Stears null, [place] - [facility] 07/27/2023 10:39:46 Influenza, split virus, quadrivalent, preservative 7 completed Genevieve Ste[place] - [facility] 07/27/2023 10:33:49 Tdap 4 completed Dorcas Soto [place] - [facility] 10/04/2023 10:02:38 zoster recombinant 8 completed [place]ev[place] [facility] 07/27/2023 10:33:49 zoster recombinant 8 completed Genevieve [place] [facility] 07/27/2023 10:33:49 Influenza, split virus, quadrivalent, preservative 8 completed [place]ev[place] [facility] 07/27/2023 10:33:49 Influenza, split virus, quadrivalent, preservative 9 completed [place] [facility] 07/27/2023 10:33:49 Influenza, split virus, trivalent, preservative 5 completed Isabel [place] [facility] 09/27/2024 11:24:44 COVID-19, mRNA, LNP-S, PF, theresa-sucrose, 30 mcg/0.3 mL 5 completed Isabel [place] - [facility] 09/27/2024 11:25:38 Influenza, split virus, quadrivalent, preservative 0 completed [place] - [facility] 07/27/2023 10:33:49 Influenza, split virus, quadrivalent, preservative 6 completed Not Available [facility] 09/30/2019 03:54:16 zoster recombinant 8 completed Genevieve [place] [facility] 07/27/2023 10:33:49 zoster recombinant 8 completed [place]ev[place] [facility] 07/27/2023 10:33:49 COVID-19, mRNA, LNP-S, PF, 100 mcg/0.5mL dose or 50 mcg/0.25mL dose 1 completed [place] - [facility] 07/27/2023 10:33:49 COVID-19, mRNA, LNP-S, PF, 100 mcg/0.5mL dose or 50 mcg/0.25mL dose 1 completed Genevieve Stears null, [facility] 07/27/2023 10:33:49 COVID-19, mRNA, LNP-S, PF, 100 mcg/0.5mL dose or 50 mcg/0.25mL dose 1 completed Genevieve Stears null, [facility] 07/27/2023 10:33:49 COVID-19, mRNA, LNP-S, PF, 30 mcg/0.3 mL dose, theresa-sucrose 2 completed Genevieve Stears null, [facility] 07/27/2023 10:33:49 COVID-19, mRNA, LNP-S, bivalent, PF, 50 mcg/0.5 mL or 25mcg/0.25 mL dose 2 completed Genevieve Stears null, [facility] 07/27/2023 10:33:49 Past Encounters Encounter ID Performer Location Encounter Start Date Encounter Closed Date Diagnosis/Indication Diagnosis SNOMED-CT Code Diagnosis ICD10 Code Diagnosis IMO Codes Diagnosis Note [id number] Brenda Sanchez MD [address] [place] [address] 06/30/2016 09:06:07 06/30/2016 10:10:49 Vitamin B12 deficiency (non anemic) 75865215 E53.8 taking OTC bid, dose? Adrenogeni lori disorder 839073094 E25.9 Coronary atherosclerosis 148333944 I25.10 cont f/u with cardiology Anxiety 78049991 F41.9 Hyperlipidemia 04296863 E78.5 Influenza vaccine needed 4137443744 106 Z23 Long-term current use of drug therapy 084430024 Z79.84 testostero ne Malaise and fatigue 2717 71226 R53.83 Generalize d osteoarthritis 534118149 M15.9 [id number] Brenda Sanchez MD [address] [place] [address] 08/17/2016 15:00:04 08/17/2016 15:42:15 Pilonidal cyst with abscess 10195549 L05.01 [id number] Brenda Sanchez MD [address] [place] [address] 01/14/2017 09:49:58 01/14/2017 11:28:44 Adrenogenital disorder 861242075 E25.9 Coronary atherosclerosis 542812623 I25.10 cont f/u with cardiology Anxiety 13873258 F41.9 Hyperlipidemia 87743226 E78.5 Vitamin B1 2 deficiency (non anemic) 32886488 E53.8 taking OTC bid, dose? Cardiac arrhythmia 15061 7007 I49.9 Insomnia 367741656 G47.0 0 Screening for malignant neoplasm of prostate 128644784 Z12.[id number] Palacio MD [address] [place] [address] 05/20/2017 09:50:30 05/20/2017 10:33:41 Upper respiratory infection 90480621 J06.[id number] Palacio MD [address] [place] [address] 06/11/2017 14:56:56 06/11/2017 15:43:18 Upper respiratory infection 64164363 J06.9 Bronchitis 16419616 J40 [id number] Brenda Sanchez MD [address] [place] [address] 07/20/2017 08:26:05 07/20/2017 09:38:47 Insomnia 404676800 G47.00 Adrenogeni lori disorder 452580854 E25.9 Coronary atherosclerosis 578047929 I25.10 Anxiety 67827770 F41.9 Hyperlipidemia 66081830 E78.5 Generalize d osteoarthritis 270075465 M15.9 Long-term drug therapy 791751861 Z79.899 Tobacco user 340993726 Z 72.0 [id number] Brenda Sanchez MD [address] [place] [address] 10/07/2017 13:48:24 10/07/2017 14:14:41 Polycythemia vera (clinical) 768186334 D45 Coronary atherosclerosis 172427589 I25.10 [id number] Brenda Sanchez MD [address] [place] [id number] 01/18/2018 09:23:47 01/18/2018 10:13:43 Insomnia 406514903 G47.00 Generalize d osteoarthritis 354602583 M15.9 Coronary atherosclerosis 613260431 I25.10 cont f/u with cardiology Anxiety 97485982 F41.9 Hyperlipidemia 41858064 E78.5 Vitamin B1 2 deficiency (non anemic) 08342488 E53.8 taking OTC bid, dose Adrenogeni lori disorder 724475955 E25.9 Polycythem ia vera (clinical) 332467285 D45 [id number] Brenda Sanchez MD [address] [place] [address] 02/17/2018 10:26:52 02/17/2018 10:46:54 Ecchymosis 997732471 R58 Muscle strain 92356403 T 14.8XXA [id number] Brenda Sanchez MD [address] 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 [id number] 07/19/2018 09:00:17 07/19/2018 09:48:52 Deficiency of testosterone biosynthesis 01993302 E29.1 Coronary atherosclerosis 741467387 I25.10 cont f/u with cardiology ([facility]) Anxiety 59479524 F41.9 Hyperlipidemia 97451752 E78.5 Vitamin B1 2 deficiency (non anemic) 88310642 E53.8 taking OTC bid, dose Generalize d osteoarthritis 245026962 M15.9 Body mass index 30+ - obesity 005071265 Z68.32 Fatigue 85868129 R53.83 [id number] Brenda Sanchez MD [address] [place] [address] 10/24/2018 14:56:35 10/24/2018 15:27:48 Osteoarthritis of hip 694817246 M16.0 Paresthesi a of lower extremity 727528658 R20.2 Sacral back pain 9372901 3 M54.5 Pain in pelvis 90044537 R10.2 [id number] Brenda Sanchez MD [address] [place] [address] 01/17/2019 10:28:35 01/17/2019 11:18:29 Anxiety 31107044 F41.9 Generalize d osteoarthritis 784796076 M15.9 Deficiency of testosterone biosynthesis 80187759 E29.1 Coronary atherosclerosis 483709271 I25.10 cont f/u with cardiology ([facility]) Hyperlipidemia 73921857 E78.5 Polycythem ia vera (clinical) 362020273 D45 to have checked today per [facility] Vitamin B1 2 deficiency (non anemic) 59913038 E53.8 Screening for malignant neoplasm of prostate 568169058 Z12.5 [id number] Brenda Sanchez MD [address] [place] [address] 04/24/2019 15:37:18 04/24/2019 16:16:28 Deficiency of testosterone biosynthesis 08137817 E29.1 Insomnia 171813479 G47.0 0 Anxiety 52815753 F41.9 Hyperlipidemia 19902327 E78.5 Generalize d osteoarthritis 581108172 M15.9 Vitamin B1 2 deficiency (non anemic) 92642108 E53.8 Coronary atherosclerosis 385595682 I25.10 cont f/u with cardiology ([facility]) Tobacco user 788554313 Z 72.0 dwight concerning with his polycythem ia Sun-damage d skin on face 413161964 L59.9 [id number] Marisa Scruggs APRN [address] [place] [address] 06/27/2019 13:13:27 06/27/2019 14:25:24 Changing shape of pigmented skin lesion 547127682 L98.8 patient relays that he previously has had the left nipple removed and put back on. It is inverted in appearance . Due to his heavy history of sun exposure and clinical appearance of multi pigmented irregulari ty - we agreed to do a biopsy. [id number] Marisa Scruggs APRN [address] [place] [address] 07/06/2019 09:35:18 07/06/2019 10:39:43 Changing color of pigmented skin lesion 738729853 L98.8 [id number] Marisa Scruggs APRN [address] [place] [address] 07/18/2019 10:24:24 07/18/2019 10:56:00 Removal of suture 32097287 Z48.02 tolerated well Hyperpigme ntation of skin 04771391 L81.9 pathology reviewed in detail with patient [id number] Brenda Sanchez MD [address] [place] [address] 07/27/2019 13:26:59 07/27/2019 14:29:48 Deficiency of testosterone biosynthesis 61646496 E29.1 Anxiety 22130360 F41.9 Hyperlipidemia 65181405 E78.5 Vitamin B1 2 deficiency (non anemic) 51580223 E53.8 Cardiac arrhythmia 03911 7007 I49.9 Long-term drug therapy 470115219 Z79.899 Coronary atherosclerosis 217959389 I25.10 cont f/u with cardiology ([facility]) Body mass index 25-29 - overweight 039673937 Z68.25 [id number] Brenda Sanchez MD [address] [place] [address] 09/26/2019 09:34:47 09/26/2019 10:09:07 Neuropathy 211379409 G62.9 Peripheral vascular disease 472241816 I73.9 Hypertensi ve heart disease 86420230 I11.9 Long-term drug therapy 232611400 Z79.899 Deficiency of testosterone biosynthesis 38621754 E29.1 Generalize d osteoarthritis 227971773 M15.9 Anxiety 91127023 F41.9 Hyperlipidemia 63108889 E78.5 Vitamin B1 2 deficiency (non anemic) 24844970 E53.8 Body mass index 25-29 - overweight 338551062 Z68.25 [id number] Brenda Sanchez MD [address] [place] [address] 12/05/2019 09:26:43 12/05/2019 10:10:03 Hypertensive heart disease 17912579 I11.9 continue care per Cardiology Long-term drug therapy 497892277 Z79.899 Deficiency of testosterone biosynthesis 98677436 E29.1 Generalize d osteoarthritis 781119238 M15.9 cont care per pain clinic Cardiac arrhythmia 38082 7007 I49.9 Vitamin B1 2 deficiency (non anemic) 30944977 E53.8 Hyperlipidemia 04599498 E78.5 Anxiety 20400069 F41.9 Coronary atherosclerosis 034851274 I25.10 cont f/u with cardiology ([facility]) Insomnia 765552610 G47.0 0 Secondary polycythemia 46816954 D75.1 Tobacco user 502940739 Z 72.0 dwight concerning with his polycythem ia Peripheral vascular disease 015937099 I73.9 [id number] Brenda Sanchez MD [address] [place] [address] 04/08/2020 16:25:35 04/08/2020 17:07:03 Anxiety 72906143 F41.9 Cardiac arrhythmia 98926 7007 I49.9 Coronary atherosclerosis 165912732 I25.10 cont f/u with cardiology ([facility]) Deficiency of testosterone biosynthesis 28711217 E29.1 Generalize d osteoarthritis 250059080 M15.9 cont care per pain clinic Hyperlipidemia 06224629 E78.5 Hypertensi ve heart disease 91756829 I11.9 continue care per Cardiology Insomnia 453698698 G47.0 0 Long-term drug therapy 398402013 Z79.899 Neuropathy 432490468 G62 .9 Peripheral vascular disease 995517919 I73.9 Secondary polycythemia 80440963 D75.1 Tobacco user 121056266 Z 72.0 dwight concerning with his polycythem ia [id number] Brenda Sanchez MD [address] [place] [address] 08/01/2020 15:52:10 08/01/2020 16:44:29 Deficiency of testosterone biosynthesis 75650339 E29.1 Anxiety 90279468 F41.9 Hyperlipidemia 42094779 E78.5 Coronary atherosclerosis 840189257 I25.10 cont f/u with cardiology ([facility]) Neuropathy 359780181 G62 .9 Vitamin B1 2 deficiency (non anemic) 89988935 E53.8 Screening for malignant neoplasm of prostate 178837318 Z12.5 Tobacco user 569922603 Z 72.0 dwight concerning with his polycythem ia Influenza vaccine needed 5555103067 106 Z23 Screening for malignant neoplasm of respiratory tract 842465435 Z12.2 Cardiac arrhythmia 92933 7007 I49.9 Hypertensi ve heart disease 77097958 I11.9 continue care per Cardiology Long-term drug therapy 090216096 Z79.899 Secondary polycythemia 81226053 D75.1 [id number] Marisa Scruggs APRN [address] [place] [address] 08/14/2020 14:21:25 08/14/2020 15:33:57 Senile hyperkeratosis 127458073 L82.1 [id number] Brenda Sanchez MD [address] [place] [address] 08/29/2020 11:12:42 08/29/2020 11:40:11 Anxiety 76560943 F41.9 Coronary atherosclerosis 280420179 I25.10 cont f/u with cardiology ([facility]) Generalize d osteoarthritis 809917949 M15.9 cont care per pain clinic Tobacco user 756350001 Z 72.0 dwight concerning with his polycythem ia Deficiency of testosterone biosynthesis 23940611 E29.1 Long-term drug therapy 850761843 Z79.636 [id number] Brenda Sanchez MD [address] [place] [address] 01/24/2021 10:26:04 01/24/2021 11:09:10 Generalized osteoarthritis 747788401 M15.9 cont care per pain clinic and rheumatolo gist Coronary atherosclerosis 975452357 I25.10 cont f/u with cardiology ([facility]) Chronic bronchitis 72073 004 J42 has to stop smoking Hyperlipidemia 89833631 E78.5 Hypertensi ve heart disease 45659892 I11.9 continue care per Cardiology Peripheral vascular disease 865324435 I73.9 cont f/u with cardiologi st Tobacco user 145043330 Z 72.0 dwight concerning with his polycythem ia Deficiency of testosterone biosynthesis 98453821 E29.1 Neuropathy 200588958 G62 .9 care per pain clinic [id number] Brenda Sanchez MD [address] [place] [address] 09/18/2021 10:57:13 09/18/2021 11:39:53 Generalized osteoarthritis 316959180 M15.9 cont care per pain clinic and rheumatolo gist Coronary atherosclerosis 236010579 I25.10 cont f/u with cardiology ([facility]) Chronic bronchitis 05000 004 J42 has to stop smoking Hyperlipidemia 98593421 E78.5 continue statin tx Hypertensi ve heart disease 41327081 I11.9 continue care per Cardiology Peripheral vascular disease 959899613 I73.9 cont f/u with cardiologi st Tobacco user 860654665 Z 72.0 dwight concerning with his polycythem ia. he has no interest in quitting Deficiency of testosterone biosynthesis 69504853 E29.1 Neuropathy 615864732 G62 .9 care per pain clinic Secondary polycythemia 34761670 D75.1 he has to stop smoking. reviewed that this puts him at increased risk of clotting Screening for malignant neoplasm of respiratory tract 447327770 Z12.2 Anxiety 94435939 F41.9 Hydroxyzin e and buspirone help with the symptoms Vitamin D deficiency 347 45933 E55.9 [id number] Marisa Scruggs APRN [facility] [address] [place] [address] 11/18/2021 13:58:40 11/18/2021 15:56:53 Actinic keratosis 512555701 L57.0 cryo applied x1 on left eyebrow [id number] Brenda Sanchez MD [address] [place] [address] 03/17/2022 10:18:13 03/17/2022 11:08:33 Generalized osteoarthritis 935945919 M15.9 cont care per pain clinic and rheumatolo gist Coronary atherosclerosis 286688536 I25.10 cont f/u with cardiology ([facility]) Chronic bronchitis 15821 004 J42 stable, he has to stop smoking Hyperlipidemia 54399626 E78.5 continue statin tx Hypertensi ve heart disease 92353580 I11.9 continue care per Cardiology Peripheral vascular disease 150648828 I73.9 cont f/u with cardiologi st Tobacco user 779165624 Z 72.0 dwight concerning with his polycythem ia. he has no interest in quitting Neuropathy 643174667 G62 .9 care per pain clinic Secondary polycythemia 41318982 D75.1 he has to stop smoking. reviewed that this puts him at increased risk of clotting Anxiety 06933189 F41.9 Hydroxyzin e and buspirone help with the symptoms Hematochezia 696850783 K 92.1 last csp - 12/14/13. 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 [address] [place] [address] 07/23/2022 11:16:05 07/23/2022 11:33:12 Influenza vaccine needed 3430014559 106 Z23 [id number] Brenda Sanchez MD [address] [place] [address] 09/17/2022 08:56:09 09/17/2022 09:52:16 Generalized osteoarthritis 608450998 M15.9 cont care per pain clinic and rheumatolo gist Coronary atherosclerosis 429286970 I25.10 cont f/u with cardiology ([facility]) Chronic bronchitis 84478 004 J42 stable, he has to stop smoking Hyperlipidemia 63466914 E78.5 continue atorvastat in 40 mg Hypertensi ve heart disease 02435546 I11.9 continue care per Cardiology Peripheral vascular disease 112447321 I73.9 cont f/u with cardiologi st Tobacco user 835897427 Z 72.0 dwight concerning with his polycythem ia. 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 reviewed that this puts him at increased risk of clotting Anxiety 76840457 F41.9 Hydroxyzin e, citalopram , and buspirone help with the symptoms Long-term current use of testosterone replacement therapy 3524316391 9101 Z79.890 Long-term drug therapy 221253210 Z79.899 Hepatitis C screening 41 6234551 Z11.59 Vitamin B1 2 deficiency (non anemic) 71601019 E53.8 taking OTC Pain of mu ltiple joints 61699315 M25.50 labs for Rheum Screening for malignant neoplasm of respiratory tract 498327595 Z12.2 [id number] Brenda Sanchez MD [address] 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 he has no interest in quitting Secondary polycythemia 84494402 D75.1 he has to stop smoking. reviewed that this puts him at increased risk of clotting Anxiety 30648413 F41.9 Hydroxyzin e, citalopram , and buspirone help with the symptoms Coronary atherosclerosis 066056454 I25.10 cont f/u with cardiology ([facility]) Chronic bronchitis 10359 004 J42 stable, he has to stop smoking Peripheral vascular disease 709726880 I73.9 cont f/u with cardiologi st Long-term current use of testosterone replacement therapy 2529534600 9101 Z79.890 Long-term drug therapy 723576866 Z79.899 Pain of mu ltiple joints 59723079 M25.50 needs labs for Rheum - will do tomorrow Screening for malignant neoplasm of respiratory tract 584775984 Z12.2 last LDCT lung 12/02/22 [id number] Brenda Sanchez MD [address] 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 he has no interest in quitting Secondary polycythemia 14311498 D75.1 he has to stop smoking. 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 reviewed that this puts him at increased risk of clotting Coronary atherosclerosis 648052224 I25.10 cont f/u with cardiology ([facility]) Chronic bronchitis 61610 004 J42 stable, he has to stop smoking Peripheral vascular disease 957481419 I73.9 cont f/u with cardiologi st Long-term current use of testosterone replacement therapy 3566413967 9101 Z79.890 Long-term drug therapy 057680183 Z79.899 Screening for malignant neoplasm of respiratory tract 024174301 Z12.2 smoked 1.5 ppd x >40 yrs last LDCT lung 12/02/22 Onychomyco sis of toenails 240046850 B35.1 it looks like the nail is growing in nl. will follow Vaccination needed 80894 29330 67611 Z23 [id number] Brenda Sanchez MD [address] [place] [address] 12/20/2023 10:55:22 12/20/2023 11:27:22 Liver enzymes level above reference range 609884289 R74.01 Secondary polycythemia 21443539 D75.1 he has to stop smoking. reviewed that this puts him at increased risk of clotting Obstructiv e sleep apnea syndrome 12993685 G47.33 he hasn't been wearing it b/c of his teeth and he needs a new script he has benefited from using CPAP Chondrocalcinosis 087089 005 M11.20 seeing Rheum Hypertensi ve heart disease 98830411 I11.9 continue care per Cardiology [id number] Brenda Sanchez MD [address] [place] [address] 04/07/2024 08:53:54 04/07/2024 09:40:59 Secondary polycythemia 09191055 D75.1 he has to stop smoking. reviewed that this puts him at increased risk of clotting nl CBC 12/29/23 Obstructiv e sleep apnea syndrome 39324117 G47.33 he is using CPAP and benefiting from it Chondrocalcinosis 129165 005 M11.20 seeing Rheum Hypertensi ve heart disease 28862685 I11.9 continue care per Cardiology Anxiety 15900854 F41.9 Hydroxyzin e 25 mg bid, citalopram [...] anxiety. 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 continue testostero ne gel supplement ation Generalize d osteoarthritis 895165839 M15.9 cont care per pain clinic and rheumatolo gist Tobacco user 794669164 Z 72.0 trying to cut back Coronary atherosclerosis 429642346 I25.10 cont f/u with cardiology ([facility]) Chronic bronchitis 72055 004 J42 stable, he has to stop smoking Peripheral vascular disease 694039865 I73.9 cont f/u with cardiologi st Long-term current use of testosterone replacement therapy 3161487717 9101 Z79.890 Screening for malignant neoplasm of respiratory tract 825431810 Z12.2 smoked 1.5 ppd x >40 yrs last LDCT lung 12/01/23 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 follows with Rheumatolo gy and pain clinic Nonulcer dyspepsia 32900 07 K30 symptoms controlled on famotidine 40 mg qd [id number] Marisa Scruggs APRN [facility] [address] [facility] [place] [address] 03/28/2024 12:52:05 03/28/2024 13:39:57 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 offered reassuranc e [id number] Nghia Lincoln MD [address] [place] [address] 09/27/2024 10:32:50 09/27/2024 11:21:09 Tobacco user 944389506 Z72.0 Insomnia 619991794 G47.0 0 Generalize d osteoarthritis 401903072 M15.9 Neuropathy 595038182 G62 .9 Peripheral vascular disease 794433954 I73.9 Inflammato ry polyarthropathy 919069948 M06.4 Coronary atherosclerosis 367661466 I25.10 Anxiety 58825045 F41.9 Hyperlipidemia 22281947 E78.5 Vitamin B1 2 deficiency (non anemic) 50072207 E53.8 Hypertensi ve heart disease 88672015 I11.9 Obstructiv e sleep apnea syndrome 37566587 G47.33 Influenza vaccine needed 4944904953 106 Z23 Administra tion of SARS-CoV-2 vaccine 4255895636 Z23 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 389926968 F64.0 Nonulcer dyspepsia 97302 07 K30 Normal weight 71854956 Z 68.22 0072482364 Active immunization 3387 9002 Z23 8579773 Health Concerns Section Related Observation LastModified by Organization Detai ls LastModified Time None Recorded Concern Status LastModified by Organization Details LastModified Time None Recorded Advance Directives Directive N: Payers Insurance Date Sequence Insurance Name Policy Number Policy Ortiz Covered Member ID Ortiz Member ID Guarantor Name 03/29/2025 [place] Kayode Langley [id number] Kayode Langley 03/29/2025 2 [employer] (MED[place]AC[place] - HMO) Kayode Mendezrod [id number] Kayode Mendezrod 03/29/2025 [employer] (MEDICARE REPLACEMENT/AD VANTAGE - PPO) Kayode Martins Leonora [id number] Kayode Martins Leonora 03/29/2025 2 [employer] ([place]AC[place] - HMO) Kayode Martins Leonroa [id number] Kayode Martins Leonora 04/18/2025 1 [employer] (MEDICARE REPLACEMENT/AD VANTAGE - PPO) Kayode Martins Leonora [id number] Kayode Mendezrod 03/29/2025 [place] [facility] [place] ([place]ID[place] ALLISON Ramirez Eliezer MendezLeonora [id number] Kayode Mendezrod 03/29/2025 1 [employer] - [facility] (MEDICAID REPLACEMENT - HMO) RICHIE Kayode Mendezrod [id number] Kayode Mendezrod 03/29/2025 [place] RICHIE Martins Leonora [id number] Kayode Menedzrod 11/09/2016 1 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 he also has lab orders from his [facility] he also needs a new order for his CPAP Brenda Sanchez MD [address], [place], [address], [place] - [facility] 12/20/2023 11:28:18 03/28/2024 text/html Kayode is a 64 year old male that returns to Dermatology with concern of a scaling papule on left forearm . Marisa Scruggs, [employer] [address], [place], [address], [place] - [facility] 03/28/2024 16:42:22 04/07/2024 text/html here for f/u, labs watching liver fxn. saw Rheum for f/u in December. has B CTS. was to be referred to PT and get braces - but he didn't do or get them. no med changes recently. f/u in Jun using 3 pumps of testosterone gel once qweek and 1 pump all other days he follows with julio Crespot next month he has cut smoking down to about 1/2 ppd hydroxyzine helps with nerves eating fine. staying active still going to pain clinic. on same meds - gabapentin and HC/APAP using his CPAP Brenda Sanchez MD [address], [place], [address], [facility] - [facility] 04/07/2024 09:23:45 09/27/2024 text/html Here for checkup, refills and labs. Gets labs every 6 months. Needs referral for testosterone replacement, female to male trans and only has 2 more weeks left. Has GEE and uses CPAP with great benefit. Nghia Lincoln MD [address], [place], [address], [facility] - [facility] 09/27/2024 11:15:04 03/29/2025 text/html Here for checkup, refills and labs. Gets labs every 6 months. Has GEE and uses CPAP with great benefit - needs new CPAP. Wants shingles vaccine. Nghia Lincoln MD [address], [place], [address], [facility] - [facility] 03/29/2025 11:15:38
--- OUTSIDE RECORDS SUMMARY | 2025-07-16 10:58 | XMS_ITS | Continuity of Care Document ---
Author Organization [facility] & [place], [facility] Address [address] [place] [address] [address] [place] [address] Assessment No assessment recorded. Plan of Treatment [...] tablets in a dose pack 2024 025 [facility] [place], [address], 06/24/2025 05:03:11 hydrocodo ne 5 mg-acetam inophen 325 mg tablet 2024 025 [facility] [place], [address], 06/11/2025 12:40:26 Patient TargetsNo targets recorded. Patient Instructions Encounter Date Encounter Id Patient Instructions Last Modified By Organization Details Last Modified Time 06/11/2025 [id number] oral corticosteroids: care instructions [email or web address] Not available 06/11/2025 12:40:19 Reason for Referral None Reported. Problems Name Problem SNOMED Code Status Onset Date Resolution Date Notes Provider Name and Address Organization Details Recorded Time Internal hemorrho ids 37490426 Active 2021 Brady Bailey MD [address] [place] [address],[address], [place], [address], [place] [facility] [place] & [place] 2 07:02:02 Divertic ulosis of colon 243756594 Active 2021 Brady Bailey MD [facility],[address], [place], [address], [place] [facility] [place] & [place] 2 07:02:09 Hematoch ezia 015601728 Completed 202111/10/2022 Removal Reason: resolved Brady Bailey MD [facility],[address], [place], [address], [place] [facility] [place] & [place] 3 12:59:58 Anxiety 10724407 Active 2021 Raj Hopper null, [place] - [facility] [place] & [place] 2 12:11:33 Coronary arterios clerosis 09006525 Active 2021 Raj Hopper null, [place] [facility] [place] 2 12:11:45 Sleep apnea 71128597 Active 2021 Raj Hopper null, [place] [facility] [place] & [place] 2 12:11:58 Cardiac pacemake r in situ 960218165 Active 2021 Raj Hopper null, [place] [facility] [place] & [place] 2 12:12:09 Indigest ion 627604268 Active 2021 Raj Hopper null, [place] [facility] [place] & [place] 2 12:12:21 Lumbar spondylo sis 086350550 Active 2023 Lakeisha Cheney null, [place] [facility] [place] & [place] 4 13:45:10 Myofasci al pain 232423401 Active 2023 Lakeisha Cheney null, [place] [facility] [place] & [place] 4 09:38:53 Inflamma tion of sacroili ac joint 82277478 Active 2023 Lakeisha Cheney null, [place] - [facility] [place] & [place] 4 09:39:00 Degenera tion of lumbar interver tebral disc 94673273 Active 2023 Lakeisha anderson, [facility] - [facility] - [place] & [place] 4 09:39:06 Opioid dependen ce 61711439 Active 2023 Lakeisha anderson, [facility] - [facility] - [place] & [place] 4 09:24:25 Problem Notes None recorded. Procedures Surgical History Date Name Laterality Status Provider Name and Address Organization Details Recorded Time 2 Colonoscopy completed Raj Melchoreri [facility] - [facility] - [place] & [place] 07/09/2022 12:16:50 4 Colonoscopy completed Raj Cartagenagieri [facility] - [facility] - [place] & [place] 07/09/2022 12:17:14 thumb surgery completed Raj Melchoreri [facility] - [facility] - [place] & [place] 07/09/2022 12:17:54 cardiac pacemaker procedure completed Raj Melchoreri [facility] - [facility] - [place] & [place] 07/09/2022 12:18:03 Stent Placement completed Raj Cartagenagieri [facility] - [facility] - [place] & [place] 07/09/2022 12:18:18 Stent Placement completed Raj Melchoreri [facility] - [facility] - [place] & [place] 07/09/2022 12:18:31 operative procedure on knee completed Raj Melchoreri [facility] - [facility] - [place] & [place] 07/09/2022 12:18:53 Imaging Results None recorded. Procedure [...] Status Current Every Day Smoker Raj Hopper [facility], [place] - [facility] - [place] & [place] 07/09/2022 12:15:27 What Is Your Level Of [...] anxious, or unable to sleep at night)? [id number] Information not available 12/03/2023 Family History Relationship Description Onset Age of this Age Resolved Age Notes LastModified by Organization Details LastModified Time Father Malignant neoplasm of prostate [email or web address] Not available 12/02 10:09:02 Maternal Uncle Malignant neoplasm of stomach Not available 12/02 10:09:02 Mother Diabetes mellitus [email or web address] Not available 12/02 10:09:02 Paternal Uncle Disease [...] zoster recombinant [address] [facility] 07/09/2022 12:10:03 zoster recombinant [address] [facility] 07/09/2022 12:10:09 SARS-COV-2 (COVID-19) vaccine, UNSPECIFIED 1 completed CHITRA Nickerson [facility] & [place] 07/09/2022 12:10:30 SARS-COV-2 (COVID-19) vaccine, UNSPECIFIED 1 completed CHITRA Nickerson [facility] & [place] 07/09/2022 12:10:37 influenza, unspecified formulation 0 completed CHITRA Nickerson [facility] & [place] 07/09/2022 12:11:00 pneumococcal polysaccharide PPV23 1 completed CHITRA Nickerson [facility] & [place] 07/09/2022 12:11:23 SARS-COV-2 (COVID-19) vaccine, UNSPECIFIED 2 completed CHITRA Nickerson [facility] & [place] 11/10/2022 12:36:27 Past Encounters Encounter ID Performer Location Encounter Start Date Encounter Closed Date Diagnosis/Indication Diagnosis SNOMED-CT Code Diagnosis ICD10 Code Diagnosis IMO Codes Diagnosis Note [id number] MD YUNIER [facility] [address] [address] 06/11/2025 09:54:48 06/11/2025 11:13:03 Lumbar spondylosis 667723616 M47.816 31059110 Lumbar radiculopathy 128 282182 M54.16 34066 Long-term current use of opiate analgesic drug 8710724508 90318 Z79.891 250930 Chronic low back pain 27 8767174 G89.29 M54.50 9122076684 Right biceps strain 1177 321377 3448227 S46.211A 50324861 If pain is persistent , will consider CT/MRI and refer to [facility] Ortho Health Concerns Section Related Observation LastModified by Organization Detai ls LastModified Time None Recorded Concern Status LastModified by Organization Details LastModified Time None Recorded Payers Encounter Date Sequence Insurance Name Policy Number Policy Ortiz Covered Member ID Ortiz Member ID Guarantor Name 06/11/2025 1 [employer] (MEDICARE REPLACEMENT/ ADVANTAGE - PPO) James Lea [id number] James Martins Leonora 06/11/2025 2 MEDICAID-[facility] HEALTH CHOICES - FFS/TRADITIO NAL James Lea [id number] James Lea Notes Date Note Type Note [...] 200mg daily , Flexeril 10mg BID , Leola 5-325mg QID and Gabapentin 800 mg BID. ELEANOR CASTRO, STEPHEN [address] [facility] , [place], [address], [facility] - [place] & [place] 06/11/2025 12:48:25
[2025-07-16 11:26] LABS: Hematocrit 50.0 % (42.0-52.0); Hemoglobin 17.0 g/dL (14.1-18.0); Immature Granulocytes % 0.3 %; Mean Corpuscular HGB Conc 34.0 g/dL (31.8-35.4); Mean Corpuscular Hemoglobin 32.3 pg (27.0-31.2); Mean Corpuscular Volume 94.9 fl (80-94); Nucleated Red Blood Cells % 0 %; Platelet Count 199 K/mm3 (142-424); Red Blood Count 5.27 M/mm3 (4.60-6.20); Red Cell Distribution Width-SD 45.6 fL; White Blood Count 7.7 K/mm3 (4.8-10.8)
[2025-07-17 13:12] LABS: Testosterone,Total 916 ng/dL (264-916)
== END 2025-07-16 23:59 | disposition home or self-care (01) ==
LOC: LAB 10:50
PROVIDERS: PCP Family Medicine; Visit Provider Urology
DX: N40.0 Benign prostatic hyperplasia without lower urinary tract symptoms (principal); R53.83 Other fatigue
CPT/HCPCS: 36415; 84270; 84403; 85025